=== PATIENT | male | born 1930 | race Caucasian/White ===

== ENCOUNTER 2016-09-05 17:08 | Emergency (ER) | payer MEDICARE, BC ==
[2016-09-05 17:16] VITALS: BP 159/72
--- NOTE | 2016-09-05 18:35 | CT ---
CT lumbar spine Technique: Multiple axial sections were obtained from the mid T11 level inferiorly through the L5-S1 level. Reconstructed sagittal and coronal images were reviewed. Comparison: Previous lumbar spine plain film exam of 12/22/[address] lumbar spine exam dated 12/08/14. Findings: Scattered degenerative change is seen which appears fairly stable from prior CT exam. Rudimentary disc is seen which is labeled as S1-S2 which is felt to be a transitional segment. Mild superior endplate concavity is noted of L5 which appears acute as acute fracture lines are seen. No extension of the fracture is seen into the posterior vertebral line or posterior elements. Minimal spondylolisthesis is noted at L5-S1 which is felt to be due to degenerative apophyseal change. No other acute abnormality is seen. Impression: 1. Degenerative change which appears fairly stable from prior lumbar spine CT exam of 12/08/14. 2. Acute compression deformity of L5 causing mild endplate concavity. As mentioned above, there is no extension of any fracture lines into the posterior vertebral line or posterior elements. Diagnostic code #3
--- NOTE | 2016-09-05 18:35 | CT ---
Head CT Technique: Multiple axial sections through the brain were obtained. Intravenous contrast was not utilized. Comparison: Previous head CT exam of 01/31/16. Findings: Ventricles along with basal cisterns and sulci over the convexities are moderately prominent. Diminished density is noted within the periventricular and subcortical white matter compatible with small vessel ischemic demyelination change. 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 No other abnormal parenchymal densities are seen. No evidence of intracranial hemorrhage. No midline shift or mass effect is seen. Bone window settings were reviewed which shows no discrete calvarial abnormality. Visualized sinuses are clear. Impression: 1. Senescent change as described above. No acute intracranial abnormality is identified on noncontrast head CT study. Diagnostic code #2
--- NOTE | 2016-09-05 18:57 | EDM.PDOC ---
ED HPI GENERAL MEDICAL PROBLEM - General Chief Complaint: Lower Extremity Injury/Pain Stated Complaint: FELL IN SHOWER Time Seen by Provider: 09/05/16 17:16 Source of Information: Reports: Patient History Limitations: Reports: No Limitations - History of Present Illness INITIAL COMMENTS - FREE TEXT/NARRATIVE: The patient is an 85-year-old male who comes in after a fall. The patient lives at assisted living. He fell in the shower. He states that he slipped. States that he did not pass out. Denies loss of consciousness. He has severe low back pain. He did require assistance getting up. He was able to take a couple of steps with assistance but the pain in his back is fairly severe. Denies additional injury. He denies recent illness. No fever, chest pain, shortness of breath, cough, abdominal pain, vomiting, or other complaint. States his pain is not bad when he lies still but when he tries to move it's pretty uncomfortable. No new focal weakness bilateral hips/pelvis area Pain Score (Numeric/FACES): 8 - Related Data Allergies Allergy/AdvReac Type Severity Reaction Status Date / Time DANY Inhibitors Allergy Change Verified 09/05/16 17:17 Mental Status morphine Allergy Cannot Verified 09/05/16 17:17 Remember Home Meds: Home Meds Aspirin [Adult Low Dose Aspirin EC] 81 mg PO BID 08/11/15 [History] Clopidogrel Bisulfate [Plavix] 75 mg PO DAILY 08/11/15 [History] Donepezil [Aricept] 10 mg PO BEDTIME 08/11/15 [History] Ezetimibe [Zetia] 10 mg PO DAILY 08/11/15 [History] Finasteride [Proscar] 5 mg PO DAILY 08/11/15 [History] Isosorbide Mononitrate [Isosorbide Mononitrate ER] 30 mg PO DAILY 08/11/15 [ History] Latanoprost [Xalatan 0.005% Ophth Soln] 1 drop EYEBOTH BEDTIME 08/11/15 [History ] Memantine HCl [Namenda] 10 mg PO BID 08/11/15 [History] Ranolazine [Ranexa] 500 mg PO BID 08/11/15 [History] Tamsulosin HCl 0.4 mg PO BID 08/11/15 [History] atorvaSTATin Calcium [Atorvastatin Calcium] 80 mg PO DAILY 08/11/15 [History] Albuterol [Ventolin HFA] 2 puff INH Q4H PRN 01/10/16 [History] Acetaminophen [Acetaminophen ER] 650 mg PO TID PRN 01/31/16 [History] Budesonide [Pulmicort Flexhaler] 180 mcg IH BID 01/31/16 [History] Casanthranol-Docusate Sodium 2 tab PO DAILY PRN 01/31/16 [History] Cyanocobalamin (Vitamin B-12) [Cyanocobalamin Injection] 1,000 mcg IJ ASDIRECTED 01/31/16 [History] Nitroglycerin [Nitrostat] 0.4 mg SL Q5M PRN 01/31/16 [History] Ranitidine HCl [Zantac] 150 mg PO BID 01/31/16 [History] Sertraline [Zoloft] 50 mg PO DAILY 01/31/16 [History] Temazepam [Restoril] 15 mg PO BEDTIME PRN #4 cap 02/01/16 [Rx] Carvedilol [Coreg] 6.25 mg PO DAILY 09/05/16 [History] Cyanocobalamin (Vitamin B-12) [Cyanocobalamin Injection] 09/05/16 [History] Folic Acid 1 mg PO DAILY 09/05/16 [History] Melatonin 10 mg PO BEDTIME 09/05/16 [History] Metamucil Powder 48.57% 1 tsp PO DAILY 09/05/16 [History] Mirabegron [Myrbetriq] 50 mg PO DAILY 09/05/16 [History] Polyethylene Glycol 3350 [MiraLAX] 17 gm PO ASDIRECTED 09/05/16 [History] Ventolin 108mcg/Act (90 Base) 2 inhalation INH 09/05/16 [History] Past Medical History HEENT History: Reports: Hard of Hearing, Other (See Below) Other HEENT History: stricture/stenosis of esophogus Cardiovascular History: Reports: CAD, High Cholesterol, Hypertension, [place] Respiratory History: Reports: COPD, Other (See Below) Other Respiratory History: recent pneumonia 06/24/15, lung nodule Gastrointestinal History: Reports: GERD Genitourinary History: Reports: BPH, Prostate Disorder Musculoskeletal History: Reports: Other (See Below) Other Musculoskeletal History: uses walker Neurological History: Reports: TIA Psychiatric History: Reports: Dementia Endocrine/Metabolic History: Reports: Other (See Below) Other Endocrine/Metabolic History: hyperglycemia Dermatologic History: Reports: Other (See Below) Other Dermatologic History: dry scalp - Past Surgical History HEENT Surgical History: Reports: Adenoidectomy, Cataract Surgery, Tonsillectomy Cardiovascular Surgical History: Reports: Carotid Stents, Coronary Artery Bypass Musculoskeletal Surgical History: Reports: Hip Replacement Social & Family History - Family History Family Medical History: Unobtainable - Tobacco Use Smoking Status *Q: Never Smoker Years of Tobacco use: 40 Packs/Tins Daily: 1 Used Tobacco, but Quit: Yes Month Tobacco Last Used: 1989 Second Hand Smoke Exposure: No - Caffeine Use Caffeine Use: Reports: Coffee - Recreational Drug Use Recreational Drug Use: No - Living Situation & Occupation Living situation: Reports: , Alone Occupation: Retired Review of Systems - Review of Systems Review Of Systems: See Below Constitutional: Reports: No Symptoms. Denies: Fever Eyes: Reports: No Symptoms Ears: Reports: No Symptoms Nose: Reports: No Symptoms Respiratory: Denies: Shortness of Breath Cardiovascular: Denies: Chest Pain GI/Abdominal: Denies: Abdominal Pain Musculoskeletal: Reports: Back Pain Skin: Reports: No Symptoms Neurological: Denies: Numbness, Weakness ED EXAM, GENERAL - Physical Exam Exam: See Below Exam Limited By: No Limitations General Appearance: Alert, WD/WN, No Apparent Distress Eye Exam: Bilateral Eye: Normal Inspection Ears: Normal External Exam Nose: Normal Inspection Throat/Mouth: Normal Inspection, No Airway Compromise Head: Atraumatic, Normocephalic Neck: Normal Inspection, Supple, Non-Tender, Full Range of Motion Respiratory/Chest: No Respiratory Distress, Lungs Clear, Normal Breath Sounds, No Accessory Muscle Use, Chest Non-Tender Cardiovascular: Normal Peripheral Pulses, Regular Rate, Rhythm GI/Abdominal: Soft, Non-Tender, No Distention. No: Rebound Back Exam: Vertebral Tenderness (Lower L-spine midline area, no step-off or deformity, skin normal). No: CVA Tenderness (L), CVA Tenderness (R) Extremities: Normal Inspection, Normal Range of Motion, Other (Mild right femur area tenderness, no deformity or sign of trauma, full range of motion at the hips) Neurological: Alert, Oriented, Normal Cognition, No Motor/Sensory Deficits Psychiatric: Normal Affect, Normal Mood Course - Vital Signs Last Recorded V/S: Last Vital Signs Temp 36.8 C 09/05/16 17:11 Pulse 68 09/05/16 17:11 Resp 18 09/05/16 17:11 BP 159/72 H 09/05/16 17:11 Pulse Ox 95 09/05/16 17:11 - Orders/Labs/Meds Orders: Active Orders 24 hr Category Date Time Status Femur Min 2V Rt [CR] Stat Exams 09/05/16 17:38 Taken - Re-Assessments/Exams Free Text/Narrative Re-Assessment/Exam: 09/05/16 18:56 X-ray of the right femur shows no acute abnormality. CT scan of the head shows no acute traumatic injury. CT scan of the lumbar spine shows acute compression fracture of L5. Discussed results with patient. Patient's family got his walker and the patient was able to walk a lap around the emergency department with minimal assistance. So I think he is safe to go home. Discussed pain control with Tylenol, follow-up for possible vertebral plasty, and also follow up with primary care doctor. Patient and family understood. Departure - Departure Time of Disposition: 18:57 Disposition: Home, Self-Care 01 Clinical Impression: Lumbar compression fracture Qualifiers: Encounter type: initial encounter Fracture type: closed Qualified Code(s): S32.000A - Wedge compression fracture of unspecified lumbar vertebra, initial encounter for closed fracture - Discharge Information Forms: ED Department Discharge Additional Instructions: 1. take Tylenol as needed for pain according to bottle directions 2. follow up with Dr. Ledezma to see if he can do anything for your back. Call [phone] to schedule. 3. Also follow-up with your primary care doctor to discuss your injury, pain management, and possible referral for physical therapy if needed 4. Return to the emergency department if you have any new or concerning symptoms - My Orders Last 24 Hours: My Active Orders 09/05/16 17:38 Femur Min 2V Rt [CR] Stat - Assessment/Plan Last 24 Hours: My Active Orders 09/05/16 17:38 Femur Min 2V Rt [CR] Stat
[2016-09-05] MEDS ORDERED: Acetaminophen 325 MG Tab PO ONE (19:07)
--- NOTE | 2016-09-06 08:08 | CR ---
Right femur: AP and lateral views of the right femur were obtained. Right hip prosthesis is seen. Components are aligned. Joint spaces within the right knee are maintained. Mild vascular calcification is noted. No acute fracture or other abnormality is appreciated. Impression: 1. Incidental findings. Nothing acute is identified on two-view right femur study. Diagnostic code #2
== END 2016-09-05 19:20 | disposition home or self-care (01) ==
LOC: JD.ED 17:08
DX: S32.050A Wedge compression fracture of fifth lumbar vertebra, initial encounter for closed fracture (principal); I25.2 Old myocardial infarction; I25.810 Atherosclerosis of coronary artery bypass graft(s) without angina pectoris; I10 Essential (primary) hypertension; E78.00 Pure hypercholesterolemia, unspecified; J44.9 Chronic obstructive pulmonary disease, unspecified; K21.9 Gastro-esophageal reflux disease without esophagitis; Z86.2 Personal history of diseases of the blood and blood-forming organs and certain disorders involving the immune mechanism; Z86.73 Personal history of transient ischemic attack (TIA), and cerebral infarction without residual deficits; F03.90 Unspecified dementia, unspecified severity, without behavioral disturbance, psychotic disturbance, mood disturbance, and anxiety; Z98.49 Cataract extraction status, unspecified eye; Z98.890 Other specified postprocedural states; Z95.5 Presence of coronary angioplasty implant and graft; Z95.1 Presence of aortocoronary bypass graft; Z96.649 Presence of unspecified artificial hip joint; Z87.891 Personal history of nicotine dependence; Z79.02 Long term (current) use of antithrombotics/antiplatelets; Z79.899 Other long term (current) drug therapy; Z88.5 Allergy status to narcotic agent; Z88.8 Allergy status to other drugs, medicaments and biological substances; W18.2XXA Fall in (into) shower or empty bathtub, initial encounter
CPT/HCPCS: 70450; 72131; 73552; 99284; A9270

== ENCOUNTER 2016-09-09 17:30 | Emergency (ER) | payer MEDICARE, BC ==
--- NOTE | 2016-09-09 19:27 | EDM.PDOC ---
ED HPI GENERAL MEDICAL PROBLEM - General Chief Complaint: Genitourinary Problem Stated Complaint: BACK PAIN Time Seen by Provider: 09/09/16 18:29 Source of Information: Reports: Patient, Family History Limitations: Reports: No Limitations - History of Present Illness INITIAL COMMENTS - FREE TEXT/NARRATIVE: Patient is a 85-year-old male presents ED complaining of urinary retention, lower nominal pain, and no sitting tingling to his lower extremities below the knees, with difficulty walking. Patient was seen for a fall 08/28/[address] of the lumbar spine revealing acute compression fracture to L5. Patient utilizes a walker to ambulate and thus was discharged back to his residence at [facility]. He has an appointment to be seen by Dr. Ledezma for this coming Saturday to discuss kyphoplasty. Patient states over the course of the weekend he's noticed increasing difficulty with urination, lower abdominal distention and pain, and no sitting went to his lower legs below the knees. There has been minimal progression. He has urinated today only small amounts. He has no saddle anesthesia, incontinence to urine or stool, worsening pain, fever/chills, chest pain, short of breath, cough, or vomiting. Bladder Pain Score (Numeric/FACES): 5 - Related Data Allergies Allergy/AdvReac Type Severity Reaction Status Date / Time DANY Inhibitors Allergy Change Verified 09/09/16 21:03 Mental Status morphine Allergy Cannot Verified 09/09/16 21:03 Remember Home Meds: Home Meds Aspirin [Adult Low Dose Aspirin EC] 81 mg PO BID 08/11/15 [History] Clopidogrel Bisulfate [Plavix] 75 mg PO DAILY 08/11/15 [History] Donepezil [Aricept] 10 mg PO BEDTIME 08/11/15 [History] Ezetimibe [Zetia] 10 mg PO DAILY 08/11/15 [History] Finasteride [Proscar] 5 mg PO DAILY 08/11/15 [History] Isosorbide Mononitrate [Isosorbide Mononitrate ER] 30 mg PO DAILY 08/11/15 [ History] Latanoprost [Xalatan 0.005% Ophth Soln] 1 drop EYEBOTH BEDTIME 08/11/15 [History ] Memantine HCl [Namenda] 10 mg PO BID 08/11/15 [History] Ranolazine [Ranexa] 500 mg PO BID 08/11/15 [History] Tamsulosin HCl 0.4 mg PO BID 08/11/15 [History] atorvaSTATin Calcium [Atorvastatin Calcium] 80 mg PO DAILY 08/11/15 [History] Albuterol [Ventolin HFA] 2 puff INH Q4H PRN 01/10/16 [History] Acetaminophen [Acetaminophen ER] 650 mg PO Q8H PRN 01/31/16 [History] Budesonide [Pulmicort Flexhaler] 180 mcg IH BID 01/31/16 [History] Cyanocobalamin (Vitamin B-12) [Cyanocobalamin Injection] 1,000 mcg IJ ASDIRECTED 01/31/16 [History] Nitroglycerin [Nitrostat] 0.4 mg SL Q5M PRN 01/31/16 [History] Ranitidine HCl [Zantac] 150 mg PO BID 01/31/16 [History] Sertraline [Zoloft] 50 mg PO DAILY 01/31/16 [History] Carvedilol [Coreg] 6.25 mg PO BID 09/05/16 [History] Folic Acid 1 mg PO DAILY 09/05/16 [History] Melatonin 10 mg PO BEDTIME 09/05/16 [History] Metamucil Powder 48.57% 1 tsp PO DAILY 09/05/16 [History] Mirabegron [Myrbetriq] 50 mg PO DAILY 09/05/16 [History] Polyethylene Glycol 3350 [MiraLAX] 17 gm PO ASDIRECTED 09/05/16 [History] Ventolin 108mcg/Act (90 Base) 2 inhalation INH TID 09/05/16 [History] Budesonide [Pulmicort Flexhaler] 2 inh INH BID 09/09/16 [History] Docusate Sodium [Stool Softener] 2 tab PO DAILY 09/09/16 [History] Hypromellose/PF [Retaine Hpmc 0.3% Eye Drops] 1 drop EYELF ASDIRECTED 09/09/16 [ History] Temazepam [Restoril] 15 mg PO BEDTIME PRN 09/09/16 [History] prednisoLONE Acetate [Prednisolone Acetate] 1 drop EYERT DAILY 09/09/16 [History ] traMADol HCl [Ultram] 50 mg PO Q8H PRN 07/02/17 [History] Past Medical History HEENT History: Reports: Hard of Hearing, Other (See Below) Other HEENT History: stricture/stenosis of esophogus Cardiovascular History: Reports: CAD, High Cholesterol, Hypertension, [place] Respiratory History: Reports: COPD, Other (See Below) Other Respiratory History: recent pneumonia 06/24/15, lung nodule Gastrointestinal History: Reports: GERD Genitourinary History: Reports: BPH, Prostate Disorder Musculoskeletal History: Reports: Other (See Below) Other Musculoskeletal History: uses walker Neurological History: Reports: TIA Psychiatric History: Reports: Dementia Endocrine/Metabolic History: Reports: Other (See Below) Other Endocrine/Metabolic History: hyperglycemia Dermatologic History: Reports: Other (See Below) Other Dermatologic History: dry scalp - Past Surgical History HEENT Surgical History: Reports: Adenoidectomy, Cataract Surgery, Tonsillectomy Cardiovascular Surgical History: Reports: Carotid Stents, Coronary Artery Bypass Musculoskeletal Surgical History: Reports: Hip Replacement Social & Family History - Family History Family Medical History: Unobtainable - Tobacco Use Smoking Status *Q: Never Smoker Years of Tobacco use: 40 Packs/Tins Daily: 1 Used Tobacco, but Quit: Yes Month Tobacco Last Used: 1989 Second Hand Smoke Exposure: No - Caffeine Use Caffeine Use: Reports: Coffee - Recreational Drug Use Recreational Drug Use: No - Living Situation & Occupation Living situation: Reports: , Alone Occupation: Retired ED ROS GENERAL - Review of Systems Review Of Systems: ROS reveals no pertinent complaints other than HPI. ED EXAM, NEURO - Physical Exam Exam: See Below Exam Limited By: No Limitations General Appearance: Alert, WD/WN, No Apparent Distress Eye Exam: Bilateral Eye: PERRL (aniscoria present) Ears: Hearing Grossly Normal Nose: Normal Inspection Throat/Mouth: Normal Voice, No Airway Compromise Neck: Normal Inspection, Supple Respiratory/Chest: No Respiratory Distress, Lungs Clear, Normal Breath Sounds, No Accessory Muscle Use, Chest Non-Tender Cardiovascular: Normal Peripheral Pulses, Regular Rate, Rhythm GI/Abdominal: Normal Bowel Sounds, Soft, No Organomegaly, Tender (Suprapubic region). No: No Distention (minimal) Neurological: Alert, Normal Mood/Affect, Normal Dorsiflexion, CN II-XII Intact, Normal Plantar Flexion, Oriented x 3, Straight Leg Raise (L), Straight Leg Raise (R), Other (Unable to fully assess motor deficits to the lower extremities due to increasing pain with movement to the low back. No sensory deficits noted) Back Exam: Normal Inspection, Decreased Range of Motion, Vertebral Tenderness ( Low back). No: CVA Tenderness (L), CVA Tenderness (R) Extremities: Normal Inspection, Non-Tender Psychiatric: Normal Affect, Normal Mood Skin Exam: Warm, Dry, Intact, Normal Color Course - Vital Signs Last Recorded V/S: Last Vital Signs Temp 98.5 F 09/09/16 17:44 Pulse 80 09/09/16 21:01 Resp 18 09/09/16 21:01 BP 140/66 09/09/16 21:01 Pulse Ox 97 09/09/16 21:01 - Orders/Labs/Meds Orders: Active Orders 24 hr Category Date Time Status Insert Urinary Catheter [OM.PC] ONETIME Care 09/09/16 19:00 Ordered Urinary Catheter Assessment [RC] ASDIRECTED Care 09/09/16 19:16 Active Labs: Laboratory Tests 09/09/16 Range/Units 19:00 Urine Color Dark yellow (Yellow) Urine Appearance Clear (Clear) Urine pH 6.5 (5.0-8.0) Ur Specific [place] 1.025 (1.005-1.030) Urine Protein 1+ H (Negative) Urine Glucose (UA) Negative (Negative) Urine Ketones Negative (Negative) Urine Occult Blood Negative (Negative) Urine Nitrite Negative (Negative) Urine Bilirubin 1+ H (Negative) Urine Urobilinogen >=8.0 H (0.2-1.0) Ur Leukocyte Esterase Negative (Negative) Urine RBC 0-5 (0-5) /hpf Urine WBC 0-5 (0-5) /hpf Ur Epithelial Cells 0-5 (0-5) /hpf Urine Bacteria Occasional (FEW) /hpf Urine Mucus Not seen (FEW) /hpf Meds: Medications Discontinued Medications Generic Name Dose Route Start Last Admin Trade Name Freq PRN Reason Stop Dose Admin Hydrocodone Bitart/Acetaminophen 1 tab 09/09/16 19:35 09/09/16 20:32 [place] 325-5 Mg PO 09/09/16 19:36 1 tab ONETIME ONE Administration - Re-Assessments/Exams Free Text/Narrative Re-Assessment/Exam: Reviewed previous E.D. visit 09/05/2016. X-ray of the right femur did not show any acute bony abnormalities. CT of the head shows no acute traumatic injury. CT scan of the lumbar spine showed acute compression fracture of L5. Examination reveals mild pain suprapubic region of his abdomen with minimal distention. Bladder scan did reveal 240 mls of urine present. Ordered in and out catheter with UA to be obtained. This resulted in 300 mls of urine present. Will contact [facility] neurosurgeon on-call to discuss further options. He may require transferring to [place] due to recent onset of urinary retention and n/t to lower extremities with difficulty walking. 09/09/16 19:[address] Wilson nutrition counselor Neurosurgeon, He does not believe patient needs to be transferred to [place] for a definitive treatment at this time. IF the patient becomes incontinent MRI should be obtained. Otherwise workup the UA and treat the pain. 09/09/16 19:35 Ordered norco 5-325 1 tab PO. Departure - Departure Time of Disposition: 20:31 Disposition: Home, Self-Care 01 Condition: Good Clinical Impression: Retention of urine Lumbar back pain Qualifiers: Chronicity: acute Back pain laterality: midline Sciatica presence: without sciatica Qualified Code(s): M54.5 - Low back pain Closed compression fracture of L5 lumbar vertebra Qualifiers: Encounter type: initial encounter Qualified Code(s): S32.050A - Wedge compression fracture of fifth lumbar vertebra, initial encounter for closed fracture - Discharge Information Instructions: Acute Urinary Retention, Male, [id number] Referrals: Indu Coyle MD [Primary Care Provider] - Je Bhagat MD [Physician] - Forms: ED Department Discharge Additional Instructions: Keep appointment with Dr. Bhagat tomorrow to discuss kyphoplasty. For pain take Tylenol 650 mg every 4-6 hours. Apply warm compresses to affected area as needed. Can also utilize ice as needed. For pain not managed with the above therapies take tramadol 50 mg 1 tablet every 6 hours as needed. This medication , can cause increased drowsiness thus you would be at increased risk of falling. Suggest with ambulation/change of position having a nurse near by to assist you. Return to the ED as needed for any new or worsening symptoms. If you develop incontinence to urine or stool you need to be evaluated in ED immediately to obtain a MRI of the lumbar spine. - My Orders Last 24 Hours: My Active Orders 09/09/16 19:00 Insert Urinary Catheter [OM.PC] ONETIME 09/09/16 19:16 Urinary Catheter Assessment [RC] ASDIRECTED - Assessment/Plan Last 24 Hours: My Active Orders 09/09/16 19:00 Insert Urinary Catheter [OM.PC] ONETIME 09/09/16 19:16 Urinary Catheter Assessment [RC] ASDIRECTED
[2016-09-09] MEDS ORDERED: Acetaminophen/HYDROcodone 325-5 MG Tab PO ONE (19:35)
[2016-09-09 21:03] VITALS: BP 140/66
== END 2016-09-09 20:50 | disposition home or self-care (01) ==
LOC: JD.ED 17:30 → SUPCPDRO 17:30 → JD.ED 20:50
DX: R33.9 Retention of urine, unspecified (principal); S32.050D Wedge compression fracture of fifth lumbar vertebra, subsequent encounter for fracture with routine healing; I25.10 Atherosclerotic heart disease of native coronary artery without angina pectoris; E78.00 Pure hypercholesterolemia, unspecified; I10 Essential (primary) hypertension; I25.2 Old myocardial infarction; J44.9 Chronic obstructive pulmonary disease, unspecified; K21.9 Gastro-esophageal reflux disease without esophagitis; Z86.73 Personal history of transient ischemic attack (TIA), and cerebral infarction without residual deficits; Z79.82 Long term (current) use of aspirin; Z88.5 Allergy status to narcotic agent; Z79.899 Other long term (current) drug therapy; Z87.01 Personal history of pneumonia (recurrent); Z98.49 Cataract extraction status, unspecified eye; Z98.890 Other specified postprocedural states; Z96.649 Presence of unspecified artificial hip joint; Z95.1 Presence of aortocoronary bypass graft; W19.XXXD Unspecified fall, subsequent encounter
CPT/HCPCS: 51798; 81001; 99284; A9270; P9612; 99283

== ENCOUNTER 2016-09-18 07:13 | Day surgery (SDC) | payer MEDICARE, BC ==
[~2016-09-18 07:13] MED LIST: Lactated Ringers 1,000 ML IV SCH; Lidocaine 1%/Sod Bicarbonate in NS 8.4% 1 ML Syringe PRN; Sodium Chloride 0.9% 10 ML Syringe FLUSH PRN
[2016-09-18] MEDS ORDERED: Ondansetron 4 MG/2 ML SDV ONE (07:15)
[2016-09-18] MEDS ORDERED: fentaNYL 100 MCG/2 ML SDV ONE (07:15)
[2016-09-18] MEDS ORDERED: Propofol 200 MG/20 ML SDV ONE ×2 (07:15→08:56)
[2016-09-18] MEDS ORDERED: Lidocaine 1% 4 ML ONE (07:16)
[2016-09-18] MEDS ORDERED: Midazolam 1 MG/ML 2 ML SDV ONE (07:16)
[2016-09-18] MEDS ORDERED: ceFAZolin 1 GM Vial ONE (07:18)
--- NOTE | 2016-09-18 07:43 | PCM.PREANE ---
Preanesthetic Assessment - Anesthesia/Transfusion/Family Hx Anesthesia History: Prior Anesthesia Without Reaction Family History of Anesthesia Reaction: No Transfusion History: Prior Transfusion Without Reaction - Review of Systems General: Weakness, Fatigue Pulmonary: No Symptoms Cardiovascular: No Symptoms Gastrointestinal: No symptoms Neurological: Numbness (legs), Weakness Other: 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 - Physical Assessment NPO Status Date: 09/17/16 NPO Status Time: 00:00 Pulse: 60 O2 Sat by Pulse Oximetry: 96 Respiratory Rate: 20 Blood Pressure: 185/57 Temperature: 36.9 C Height: 1.73 m Weight: 58.967 kg ASA Class: 3 Mental Status: Alert & Oriented x3 Airway Class: Mallampati = 1 Dentition: Reports: Dentures Thyro-Mental Finger Breadths: 3 Mouth Opening Finger Breadths: 2 ROM/Head Extension: Limited/Partial Lungs: Clear to auscultation, Normal respiratory effort Cardiovascular: Regular Rate, Regular Rhythm - Lab Values: on chart - Imaging/EKG Impressions: on chart - Allergies Allergies/Adverse Reactions: Allergies Allergy/AdvReac Type Severity Reaction Status Date / Time morphine Allergy Cannot Verified 09/17/16 14:37 Remember DANY Inhibitors AdvReac Change Verified 09/17/16 14:37 Mental Status - Anesthesia Plan Beta Ana Luisa: Carvedilol Med Last Dose Date: 09/18/16 Med Last Dose Time: 06:00 - Acknowledgements Anesthesia Type Planned: MAC Pt an Appropriate Candidate for the Planned Anesthesia: Yes Alternatives and Risks of Anesthesia Discussed w Pt/Guardian: Yes Pt/Guardian Understands and Agrees with Anesthesia Plan: Yes PreAnesthesia Questionnaire HEENT History: Reports: Hard of Hearing, Other (See Below) Other HEENT History: glasses, hearing aids, dentures, blind in Left eye Cardiovascular History: Reports: CAD, High Cholesterol, Hypertension, [place], Stents , Other (See Below) Other Cardiovascular History: angina, peripheral artery disease Respiratory History: Reports: COPD, Other (See Below) Other Respiratory History: recent pneumonia 06/24/15, lung nodule emphysema Gastrointestinal History: Reports: GERD, Other (See Below) Other Gastrointestinal History: stricture and stenosis of esophagus, bilateral inguinal hernia Genitourinary History: Reports: BPH, Prostate Disorder, Other (See Below) Other Genitourinary History: macrocytosis 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: 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 Musculoskeletal History: Reports: Back Pain, Chronic, Other (See Below) Other Musculoskeletal History: degenerative joint disease, sicatica, spinal stenosis Neurological History: Reports: TIA, Other (See Below) Other Neuro History: memory loss, numbness in legs Psychiatric History: Reports: Dementia Endocrine/Metabolic History: Reports: Other (See Below) Other Endocrine/Metabolic History: hyperglycemia, vitamin b 12 deficiency Hematologic History: 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 Immunologic History: 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 Oncologic (Cancer) History: 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 Dermatologic History: Reports: Other (See Below) Other Dermatologic History: dry scalp - Past Surgical History Head Surgeries/Procedures: 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 HEENT Surgical History: Reports: Adenoidectomy, Cataract Surgery, Tonsillectomy , Other (See Below) Other HEENT Surgeries/Procedures: cyst excsion behind left ear Cardiovascular Surgical History: Reports: Carotid Stents, Coronary Artery Bypass Other Cardiovascular Surgeries/Procedures: recent [place] June 24, 2015, CABG x3 GI Surgical History: Reports: Colonoscopy Musculoskeletal Surgical History: Reports: Hip Replacement Other Musculoskeletal Surgeries/Procedures:: chronic shoulder pain - SUBSTANCE USE Smoking Status *Q: Former Smoker Tobacco Use Within Last Twelve Months: No Second Hand Smoke Exposure: No Recreational Drug Use History: No - HOME MEDS Home Medications: Home Meds Aspirin [Adult Low Dose Aspirin EC] 81 mg PO BID 08/11/15 [History] Clopidogrel Bisulfate [Plavix] 75 mg PO DAILY 08/11/15 [History] Donepezil [Aricept] 10 mg PO BEDTIME 08/11/15 [History] Ezetimibe [Zetia] 10 mg PO DAILY 08/11/15 [History] Finasteride [Proscar] 5 mg PO DAILY 08/11/15 [History] Latanoprost [Xalatan 0.005% Ophth Soln] 1 drop EYEBOTH BEDTIME 08/11/15 [History ] Memantine HCl [Namenda] 10 mg PO BID 08/11/15 [History] Ranolazine [Ranexa] 500 mg PO BID 08/11/15 [History] Tamsulosin HCl 0.4 mg PO BID 08/11/15 [History] atorvaSTATin Calcium [Atorvastatin Calcium] 80 mg PO DAILY 08/11/15 [History] Albuterol [Ventolin HFA] 1 puff INH Q4H PRN 01/10/16 [History] Acetaminophen [Acetaminophen ER] 650 mg PO Q8H PRN 01/31/16 [History] Cyanocobalamin (Vitamin B-12) [Cyanocobalamin Injection] 1,000 mcg IJ Q14D 01/30 [History] Nitroglycerin [Nitrostat] 0.4 mg SL Q5M PRN 01/31/16 [History] Ranitidine HCl [Zantac] 150 mg PO BID 01/31/16 [History] Sertraline [Zoloft] 50 mg PO DAILY 01/31/16 [History] Carvedilol [Coreg] 6.25 mg PO BID 09/05/16 [History] Folic Acid 1 mg PO DAILY 09/05/16 [History] Melatonin 10 mg PO BEDTIME 09/05/16 [History] Mirabegron [Myrbetriq] 50 mg PO DAILY 09/05/16 [History] Polyethylene Glycol 3350 [MiraLAX] 17 gm PO Q72H 09/05/16 [History] Docusate Sodium [Stool Softener] 2 tab PO DAILY 09/09/16 [History] Hypromellose/PF [Retaine Hpmc 0.3% Eye Drops] 1 drop EYELF Q3H 09/09/16 [History ] Temazepam [Restoril] 15 mg PO BEDTIME PRN 09/09/16 [History] prednisoLONE Acetate [Prednisolone Acetate] 1 drop EYERT DAILY 09/09/16 [History ] traMADol HCl [Ultram] 50 mg PO Q8H PRN 09/09/16 [History] Acetaminophen [Acetaminophen ER] 1,300 mg PO Q6H 09/17/16 [History] Albuterol [Ventolin HFA] 1 puff INH Q4H PRN 09/17/16 [History] Budesonide [Pulmicort Flexhaler] 1 puff INH BID 09/17/16 [History] Dextran 70/Hypromellose [Artificial Tears] 1 drop EYEBOTH QID PRN 09/17/16 [ History] Potassium Chloride [Klor-Con 10] 10 meq PO DAILY 09/17/16 [History] Propylene Glycol/Peg 400 [Systane Ultra 0.4-0.3% Eye Drp] 1 drop EYEBOTH QID 12/25 [History] Psyllium Husk (With Sugar) [Metamucil Powder] 1 tsp PO DAILY 09/17/16 [History] Ranolazine [Ranexa] 500 mg PO BID 09/17/16 [History] - CURRENT (IN HOUSE) MEDS Current Meds: Current Medications Lactated Ringer's (Ringers, Lactated) 1,000 mls @ 125 mls/hr IV ASDIRECTED CODY Stop: 09/18/16 23:00 Lidocaine/Sodium Bicarbonate (Buffered Lidocaine 1% In Ns 8.4%) 0.25 ml .XX ONETIME PRN PRN Reason: Prior to IV Start Stop: 09/18/16 18:00 Sodium Chloride (Saline Flush) 10 ml FLUSH ASDIRECTED PRN PRN Reason: Keep Vein Open Stop: 09/18/16 18:00 Discontinued Medications Cefazolin Sodium (Ancef) Confirm Administered Dose 2 gm .ROUTE .STK-MED ONE Stop: 09/18/16 07:19 Fentanyl (Sublimaze) Confirm Administered Dose 100 mcg .ROUTE .STK-MED ONE Stop: 09/18/16 07:16 Lidocaine HCl (Xylocaine-Mpf 1%) Confirm Administered Dose 4 mls @ as directed .ROUTE .STK-MED ONE Stop: 09/18/16 07:17 Iopamidol (Isovue-300 (61%)) Confirm Administered Dose 50 ml .ROUTE .STK-MED ONE Stop: 09/18/16 07:14 Lidocaine/Epinephrine (Xylocaine 1% With Epinephrine 1:100,000) Confirm Administered Dose 20 ml .ROUTE .STK-MED ONE Stop: 09/18/16 07:14 Midazolam HCl (Versed 1 Mg/Ml) Confirm Administered Dose 2 mg .ROUTE .STK-MED ONE Stop: 09/18/16 07:17 Ondansetron HCl (Zofran) Confirm Administered Dose 4 mg .ROUTE .STK-MED ONE Stop: 09/18/16 07:16 Propofol (Diprivan 20 Ml) Confirm Administered Dose 200 mg .ROUTE .STK-MED ONE Stop: 09/18/16 07:16 Vancomycin HCl (Vancomycin) Confirm Administered Dose 1 gm .ROUTE .STK-MED ONE Stop: 09/18/16 07:14
[2016-09-18] MEDS ORDERED: Ketorolac 15 MG/ML SDV IVPUSH PRN (07:47)
[2016-09-18] MEDS ORDERED: traMADol 50 MG Tab PO PRN (07:47)
[2016-09-18] MEDS: Lidocaine 1% with EPINEPHrine 1:100,000 20 ML MDV ONE ×2 (08:20→08:41)
[2016-09-18] MEDS: Vancomycin 1 GM SDV ONE ×2 (08:42→08:57)
[2016-09-18] MEDS: Iopamidol 612 MG/ML 50 ML SDV ONE ×2 (08:42→08:55)
[2016-09-18] MEDS ORDERED: fentaNYL 100 MCG/2 ML SDV IVPUSH PRN (09:20)
--- NOTE | 2016-09-18 09:22 | PCM.POSTAN ---
POST ANESTHESIA ASSESSMENT - MENTAL STATUS Mental Status: alert, oriented - VITAL SIGNS Pulse Rate: 69 SaO2: 99 Resp Rate: 14 Blood Pressure: 161/70 Temperature: 36.7 C - RESPIRATORY Respiratory Status: respiratory rate WNL, airway patent, O2 saturation stable, supplemental oxygen - CARDIOVASCULAR CV Status: pulse rate WNL, blood pressure stable - GASTROINTESTINAL GI Status: no symptoms - PAIN Pain Score: 0 - POST OP HYDRATION Hydration Status: adequate & stable - OBSERVATIONS Free Text/Narrative:: no anesthesia complications noted
[2016-09-18 11:38] VITALS: BP 153/61
--- NOTE | 2016-09-18 13:41 | CR ---
Lumbar spine: Multiple fluoroscopic spot views were obtained centered to the L5 vertebral body utilizing C-arm device. Study shows vertebroplasty procedure of L5. Mild compression deformity is seen of L5. Fluoroscopy time given as 582.5 seconds. Impression: 1. Vertebroplasty procedure of L5. Diagnostic code #2
--- NOTE | 2016-09-19 07:13 | OR ---
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 ANESTHESIA: Sedation with local, 1% lidocaine and epinephrine. OPERATION PERFORMED: Kyphoplasty, fracture stabilization at L5 vertebral body with biopsy. DESCRIPTION OF PROCEDURE: The patient was taken to the operative room in supine position and was placed under a light sedation and transferred to the operating table in a prone position. Once the patient was on the table, he was then positioned for approach to the lower lumbar spine region and once that was identified, the fluoroscopy was brought in to valeri the skin levels and once that was completed, the operation proceeded with prepping and draping of the lumbar spine by standard technique. After prepping and draping, the fluoroscopy again was brought in. The pedicles of L5 were identified. The area on both right and left side was infiltrated with 1% lidocaine and epinephrine down to the pedicle site itself. Once that was completed, the operation proceeded with stab incisions being placed on the right and left side and then using the kyphoplasty cannula, the pedicle was then entered on the right side using the en zoraida view and also on the left side in a similar fashion to gain access into the posterior aspect of the vertebral body following the pedicle. Once the access was obtained, the operation proceeded with balloon inflation of the vertebral body. This raised the superior endplate which was fractured and created the space and then the operation proceeded with placements of 8 mL of cement, 4 in the right side, 4 in the left side. We had a good fill of the cement throughout the vertebral body. There was slight extravasation of the cement in the anterosuperior area, but otherwise almost complete filling of the bone itself was made. Once the cement had hardened, the operation proceeded with the removal of the instruments. Hard copy x-rays were taken, found to be very satisfactory and then the operation proceeded with closure of the skin with 3-0 Prolene. Standard dressings were applied. The patient tolerated the procedure well and left the operative room in stable condition to his room for recovery. ESTIMATED BLOOD LOSS: MMODAL /[id number]
== END 2016-09-18 11:30 | disposition home or self-care (01) ==
LOC: JD.SDS 07:13
PROVIDERS: ATTEND Specialist
DX: M80.88XA Other osteoporosis with current pathological fracture, vertebra(e), initial encounter for fracture (principal); I25.10 Atherosclerotic heart disease of native coronary artery without angina pectoris; I73.9 Peripheral vascular disease, unspecified; E78.2 Mixed hyperlipidemia; I10 Essential (primary) hypertension; R73.9 Hyperglycemia, unspecified; K21.9 Gastro-esophageal reflux disease without esophagitis; E53.8 Deficiency of other specified B group vitamins; Z79.899 Other long term (current) drug therapy; Z88.8 Allergy status to other drugs, medicaments and biological substances; N40.0 Benign prostatic hyperplasia without lower urinary tract symptoms; Z95.1 Presence of aortocoronary bypass graft; Z98.890 Other specified postprocedural states; Z87.891 Personal history of nicotine dependence; M54.5 Low back pain
CPT/HCPCS: 22514; 88304; C1713; J0690; J1885; J2250; J2405; J3010; J3370; J7120; Q9967; 01936; J2704

== ENCOUNTER 2016-09-19 11:17 | Emergency (ER) | payer MEDICARE, BC ==
[2016-09-19] MEDS ORDERED: Sodium Chloride 0.9% 10 ML Syringe FLUSH PRN (11:25)
[2016-09-19] MEDS ORDERED: Sodium Chloride 0.9% 500 ML IV SCH (11:30)
--- NOTE | 2016-09-19 13:19 | EDM.PDOC ---
ED HPI GENERAL MEDICAL PROBLEM - General Chief Complaint: Cardiovascular Problem Stated Complaint: [facility] Time Seen by Provider: 09/19/16 11:21 Source of Information: Reports: Patient History Limitations: Reports: No Limitations - History of Present Illness INITIAL COMMENTS - FREE TEXT/NARRATIVE: The patient presents by ambulance. He had kyphoplasty yesterday by Dr Bhagat. He was put on zanaflex. He had a dose at midnight and at 7am. He was confused later and his blood pressure was in the 60s systolic. He denies any pain. He has no headache, chest pain or shortness of breath. He had no blood loss. When he arrived here, he said he was going to the [facility] and would take one of my nurses with him. Onset: Gradual Duration: Hour(s): Improves with: 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 Worsens with: 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 Associated Symptoms: Reports: No Other Symptoms - Related Data Allergies Allergy/AdvReac Type Severity Reaction Status Date / Time morphine Allergy Cannot Verified 09/19/16 11:27 Remember DANY Inhibitors AdvReac Change Verified 09/19/16 11:27 Mental Status Home Meds: Home Meds Aspirin [Adult Low Dose Aspirin EC] 81 mg PO BID 08/11/15 [History] Clopidogrel Bisulfate [Plavix] 75 mg PO DAILY 08/11/15 [History] Donepezil [Aricept] 10 mg PO BEDTIME 08/11/15 [History] Ezetimibe [Zetia] 10 mg PO DAILY 08/11/15 [History] Finasteride [Proscar] 5 mg PO DAILY 08/11/15 [History] Latanoprost [Xalatan 0.005% Ophth Soln] 1 drop EYEBOTH BEDTIME 08/11/15 [History ] Memantine HCl [Namenda] 10 mg PO BID 08/11/15 [History] Ranolazine [Ranexa] 500 mg PO BID 08/11/15 [History] Tamsulosin HCl 0.4 mg PO BID 08/11/15 [History] atorvaSTATin Calcium [Atorvastatin Calcium] 80 mg PO DAILY 08/11/15 [History] Cyanocobalamin (Vitamin B-12) [Cyanocobalamin Injection] 1,000 mcg IJ Q14D 01/30 [History] Nitroglycerin [Nitrostat] 0.4 mg SL Q5M PRN 01/31/16 [History] Ranitidine HCl [Zantac] 150 mg PO BID 01/31/16 [History] Sertraline [Zoloft] 50 mg PO DAILY 01/31/16 [History] Carvedilol [Coreg] 6.25 mg PO BID 09/05/16 [History] Folic Acid 1 mg PO DAILY 09/05/16 [History] Melatonin 10 mg PO BEDTIME 09/05/16 [History] Mirabegron [Myrbetriq] 50 mg PO DAILY 09/05/16 [History] Polyethylene Glycol 3350 [MiraLAX] 17 gm PO Q72H 09/05/16 [History] Docusate Sodium [Stool Softener] 2 tab PO DAILY 09/09/16 [History] Hypromellose/PF [Retaine Hpmc 0.3% Eye Drops] 1 drop EYELF Q3H 09/09/16 [History ] Temazepam [Restoril] 15 mg PO BEDTIME PRN 09/09/16 [History] prednisoLONE Acetate [Prednisolone Acetate] 1 drop EYERT DAILY 09/09/16 [History ] traMADol HCl [Ultram] 50 mg PO Q8H PRN 09/09/16 [History] Acetaminophen [Acetaminophen ER] 1,300 mg PO Q6H 09/17/16 [History] Albuterol [Ventolin HFA] 1 puff INH Q4H PRN 09/17/16 [History] Budesonide [Pulmicort Flexhaler] 1 puff INH BID 09/17/16 [History] Dextran 70/Hypromellose [Artificial Tears] 1 drop EYEBOTH QID PRN 09/17/16 [ History] Potassium Chloride [Klor-Con 10] 10 meq PO DAILY 09/17/16 [History] Propylene Glycol/Peg 400 [Systane Ultra 0.4-0.3% Eye Drp] 1 drop EYEBOTH QID 12/25 [History] Psyllium Husk (With Sugar) [Metamucil Powder] 1 tsp PO DAILY 09/17/16 [History] tiZANidine [Zanaflex] 4 mg PO Q6H PRN 09/19/16 [History] Past Medical History HEENT History: Reports: Hard of Hearing, Other (See Below) Other HEENT History: glasses, hearing aids, dentures, blind in Left eye Cardiovascular History: Reports: CAD, High Cholesterol, Hypertension, [place], Stents , Other (See Below) Other Cardiovascular History: angina, peripheral artery disease Respiratory History: Reports: COPD, Other (See Below) Other Respiratory History: recent pneumonia 06/24/15, lung nodule emphysema Gastrointestinal History: Reports: GERD, Other (See Below) Other Gastrointestinal History: stricture and stenosis of esophagus, bilateral inguinal hernia Genitourinary History: Reports: BPH, Prostate Disorder, Other (See Below) Other Genitourinary History: macrocytosis 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 Musculoskeletal History: Reports: Back Pain, Chronic, Other (See Below) Other Musculoskeletal History: degenerative joint disease, sicatica, spinal stenosis Neurological History: Reports: TIA, Other (See Below) Other Neuro History: memory loss, numbness in legs Psychiatric History: Reports: Dementia Endocrine/Metabolic History: Reports: Other (See Below) Other Endocrine/Metabolic History: hyperglycemia, vitamin b 12 deficiency Hematologic History: 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 Immunologic History: 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 Oncologic (Cancer) History: 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 Dermatologic History: Reports: Other (See Below) Other Dermatologic History: dry scalp - Past Surgical History Head Surgeries/Procedures: 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 HEENT Surgical History: Reports: Adenoidectomy, Cataract Surgery, Tonsillectomy , Other (See Below) Other HEENT Surgeries/Procedures: cyst excsion behind left ear Cardiovascular Surgical History: Reports: Carotid Stents, Coronary Artery Bypass Other Cardiovascular Surgeries/Procedures: recent [place] June 24, 2015, CABG x3 GI Surgical History: Reports: Colonoscopy Musculoskeletal Surgical History: Reports: Hip Replacement Other Musculoskeletal Surgeries/Procedures:: chronic shoulder pain Social & Family History - Family History Family Medical History: Unobtainable - Tobacco Use Smoking Status *Q: Former Smoker Years of Tobacco use: 40 Packs/Tins Daily: 1 Used Tobacco, but Quit: Yes Month Tobacco Last Used: 50 years ago Second Hand Smoke Exposure: No - Caffeine Use Caffeine Use: Reports: Coffee - Recreational Drug Use Recreational Drug Use: No - Living Situation & Occupation Living situation: Reports: , Alone Occupation: Retired ED ROS GENERAL - Review of Systems Review Of Systems: See Below Constitutional: Reports: No Symptoms HEENT: Reports: No Symptoms Respiratory: Reports: No Symptoms Cardiovascular: Reports: Other (Hypotension) Endocrine: Reports: No Symptoms GI/Abdominal: Reports: No Symptoms : Reports: No Symptoms Musculoskeletal: Reports: No Symptoms Skin: Reports: No Symptoms Neurological: Reports: Confusion ED EXAM, GENERAL - Physical Exam Exam: See Below Exam Limited By: No Limitations General Appearance: Alert, No Apparent Distress Ears: Normal External Exam Nose: Normal Inspection Head: Atraumatic, Normocephalic Neck: Normal Inspection Respiratory/Chest: No Respiratory Distress, Lungs Clear, Normal Breath Sounds Cardiovascular: Regular Rate, Rhythm, No Edema, No Murmur GI/Abdominal: Soft, Non-Tender, No Organomegaly, No Mass Back Exam: Normal Inspection Extremities: Normal Inspection Neurological: Alert, Oriented, No Motor/Sensory Deficits, Confused EKG INTERPRETATION EKG Date: 09/19/16 Time: 11:30 Rhythm: Other (sinus bradycardia) Rate (Beats/Min): 56 [place]: Normal P-Wave: Present QRS: Normal ST-T: Normal QT: Normal Course - Vital Signs Last Recorded V/S: Last Vital Signs Temp 97.5 F 09/19/16 11:24 Pulse 63 09/19/16 11:24 Resp 16 09/19/16 11:24 BP 93/51 L 09/19/16 11:24 Pulse Ox 94 L 09/19/16 11:24 - Orders/Labs/Meds Orders: Active Orders 24 hr Category Date Time Status Cardiac Monitoring [RC] . DIRECTED Care 09/19/16 11:25 Active EKG Documentation Completion [RC] STAT Care 09/19/16 11:26 Active Peripheral IV Care [RC] . DIRECTED Care 09/19/16 11:26 Active Sodium Chloride 0.9% [Normal Saline] 500 ml Med 09/19/16 11:30 Active IV .BOLUS Sodium Chloride 0.9% [Saline Flush] Med 09/19/16 11:25 Active 10 ml FLUSH ASDIRECTED PRN Peripheral IV Insertion Adult [OM.PC] Stat Oth 09/19/16 11:25 Ordered Medication Orders Sodium Chloride (Normal Saline) 500 mls @ 1,000 mls/hr IV .BOLUS CODY Last Admin: 09/19/16 11:34 Dose: 1,000 mls/hr Sodium Chloride (Saline Flush) 10 ml FLUSH ASDIRECTED PRN PRN Reason: Keep Vein Open Last Admin: 09/19/16 11:55 Dose: 10 ml Labs: Laboratory Tests 09/19/16 09/19/16 Range/Units 11:46 11:46 WBC 7.15 (4.23-9.07) K/mm3 RBC 3.59 L (4.63-6.08) M/mm3 Hgb 11.6 L (13.7-17.5) gm/L Hct 36.8 L (40.1-51.0) % MCV 102.5 H (79.0-92.2) fl MCH 32.3 H (25.7-32.2) pg MCHC 31.5 L (32.2-35.5) g/dl RDW Std Deviation 48.3 H (35.1-43.9) fL Plt Count 259 (163-337) K/mm3 MPV 8.2 L (9.4-12.3) fl Neut % (Auto) 72.5 H (34.0-67.9) % Lymph % (Auto) 13.8 L (21.8-53.1) % [place] % (Auto) 8.8 (5.3-12.2) % Eos % (Auto) 4.1 (0.8-7.0) Baso % (Auto) 0.4 (0.1-1.2) % Neut # (Auto) 5.18 (1.78-5.38) K/mm3 Lymph # (Auto) 0.99 L (1.32-3.57) K/mm3 [place] # (Auto) 0.63 (0.30-0.82) K/mm3 Eos # (Auto) 0.29 (0.04-0.54) K/mm3 Baso # (Auto) 0.03 (0.01-0.08) K/mm3 Sodium 142 (136-145) mEq/L Potassium 4.2 (3.5-5.1) mEq/L Chloride 109 H (98-107) mEq/L Carbon Dioxide 30 (21-32) mEq/L Anion Gap 7.2 (5-15) BUN 18 (7-18) mg/dL Creatinine 1.3 (0.7-1.3) mg/dL Est Cr Clr Drug Dosing TNP Estimated GFR (MDRD) 53 (>60) mL/min BUN/Creatinine Ratio 13.8 L (14-18) Glucose 141 H (83-115) mg/dL Calcium 8.1 L (8.5-10.1) mg/dL Total Bilirubin 0.5 (0.2-1.0) mg/dL AST 15 (15-37) U/L ALT 17 (16-63) U/L Alkaline Phosphatase 114 (46-116) U/L Troponin I < 0.017 (0.00-0.056) ng/mL Total Protein 5.8 L (6.4-8.2) g/dl Albumin 2.7 L (3.4-5.0) g/dl Globulin 3.1 gm/dL Albumin/Globulin Ratio 0.9 L (1-2) Meds: Medications Generic Name Dose Route Start Last Admin Trade Name Freq PRN Reason Stop Dose Admin Sodium Chloride 500 mls @ 1,000 mls/hr 09/19/16 11:30 09/19/16 11:34 Normal Saline IV 1,000 mls/hr .BOLUS CODY Administration Sodium Chloride 10 ml 09/19/16 11:25 09/19/16 11:55 Saline Flush FLUSH 10 ml ASDIRECTED PRN Administration Keep Vein Open - Re-Assessments/Exams Free Text/Narrative Re-Assessment/Exam: 09/19/16 13:20 I ordered an IV NS at 500mLs. His CBC and CMP are negative. His troponin looks good. He is alert and talking now and doing good. His BP is 131/56. He is eating lunch and would like to go. I will encourage him to try tylenol or motrin and if needed 1/2 of the zanaflex. Departure - Departure Time of Disposition: 13:25 Disposition: Home, Self-Care 01 Condition: Good Clinical Impression: Confusion Hypotension Qualifiers: Hypotension type: unspecified hypotension type Qualified Code(s): I95.9 - Hypotension, unspecified Referrals: Indu Colye MD [Primary Care Provider] - Forms: ED Department Discharge Additional Instructions: Try to take tylenol or motrin for the pain and if needed you can have 1/2 pill of the zanaflex. Please return if you are worse. - My Orders Last 24 Hours: My Active Orders 09/19/16 11:25 Cardiac Monitoring [RC] . DIRECTED Sodium Chloride 0.9% [Saline Flush] 10 ml FLUSH ASDIRECTED PRN Peripheral IV Insertion Adult [OM.PC] Stat 09/19/16 11:26 EKG Documentation Completion [RC] STAT Peripheral IV Care [RC] . DIRECTED 09/19/16 11:30 Sodium Chloride 0.9% [Normal Saline] 500 ml IV .BOLUS - Assessment/Plan Last 24 Hours: My Active Orders 09/19/16 11:25 Cardiac Monitoring [RC] . DIRECTED Sodium Chloride 0.9% [Saline Flush] 10 ml FLUSH ASDIRECTED PRN Peripheral IV Insertion Adult [OM.PC] Stat 09/19/16 11:26 EKG Documentation Completion [RC] STAT Peripheral IV Care [RC] . DIRECTED 09/19/16 11:30 Sodium Chloride 0.9% [Normal Saline] 500 ml IV .BOLUS
[2016-09-19 14:10] VITALS: BP 119/52
== END 2016-09-19 14:08 | disposition home or self-care (01) ==
LOC: JD.ED 11:17
DX: R41.0 Disorientation, unspecified (principal); I95.9 Hypotension, unspecified; I10 Essential (primary) hypertension; I25.2 Old myocardial infarction; I25.810 Atherosclerosis of coronary artery bypass graft(s) without angina pectoris; J44.9 Chronic obstructive pulmonary disease, unspecified; K21.9 Gastro-esophageal reflux disease without esophagitis; F03.90 Unspecified dementia, unspecified severity, without behavioral disturbance, psychotic disturbance, mood disturbance, and anxiety; Z86.73 Personal history of transient ischemic attack (TIA), and cerebral infarction without residual deficits; Z98.49 Cataract extraction status, unspecified eye; Z98.890 Other specified postprocedural states; Z95.5 Presence of coronary angioplasty implant and graft; Z95.1 Presence of aortocoronary bypass graft; Z96.649 Presence of unspecified artificial hip joint; Z87.891 Personal history of nicotine dependence; Z79.82 Long term (current) use of aspirin; Z79.899 Other long term (current) drug therapy; Z88.5 Allergy status to narcotic agent; Z88.8 Allergy status to other drugs, medicaments and biological substances
CPT/HCPCS: 36415; 80053; 84484; 85025; 93005; 96360; 96361; 99285; J7040; J7050; 99283

== ENCOUNTER 2016-11-10 12:14 | Emergency (ER) | payer MEDICARE, BC ==
--- NOTE | 2016-11-10 12:56 | EDM.PDOC ---
ED HPI GENERAL MEDICAL PROBLEM - General Chief Complaint: Neurological Problem Stated Complaint: ALTERED MENTAL STATUS Time Seen by Provider: 11/10/16 12:18 Source of Information: Reports: Family, Old Records, RN Notes Reviewed History Limitations: Reports: Other (Dementia) - History of Present Illness INITIAL COMMENTS - FREE TEXT/NARRATIVE: The family the patient states that while the patient has dementia, he has had increased confusion for the past 2 days, for example, if Abram taking his medications, difficulty putting his hearing aids in, and difficulty putting his dentures in. They believe he has had increased unsteadiness while walking (the patient ordinarily ambulates with a walker), and he has been complaining that his abdomen "cruz". Just prior to arrival to the ED, they noticed some unusual twitching of his shoulders. The patient had similar symptoms about a year ago, and was found to have constipation and dehydration. The patient has not had any recent fever, vomiting, constipation, diarrhea, or known urinary symptoms. The patient's PCP is Dr. Indu Coyle. - Related Data Allergies Allergy/AdvReac Type Severity Reaction Status Date / Time morphine Allergy Cannot Verified 11/10/16 12:31 Remember DANY Inhibitors AdvReac Change Verified 11/10/16 12:31 Mental Status Home Meds: Home Meds Aspirin [Adult Low Dose Aspirin EC] 81 mg PO BID 08/11/15 [History] Clopidogrel Bisulfate [Plavix] 75 mg PO DAILY 08/11/15 [History] Donepezil [Aricept] 10 mg PO BEDTIME 08/11/15 [History] Ezetimibe [Zetia] 10 mg PO DAILY 08/11/15 [History] Finasteride [Proscar] 5 mg PO DAILY 08/11/15 [History] Latanoprost [Xalatan 0.005% Ophth Soln] 1 drop EYEBOTH BEDTIME 08/11/15 [History ] Memantine HCl [Namenda] 10 mg PO BID 08/11/15 [History] Ranolazine [Ranexa] 500 mg PO BID 08/11/15 [History] Tamsulosin HCl 0.4 mg PO BID 08/11/15 [History] atorvaSTATin Calcium [Atorvastatin Calcium] 80 mg PO DAILY 08/11/15 [History] Cyanocobalamin (Vitamin B-12) [Cyanocobalamin Injection] 1,000 mcg IJ ASDIRECTED 11/22/16 [History] Nitroglycerin [Nitrostat] 0.4 mg SL Q5M PRN 01/31/16 [History] Ranitidine HCl [Zantac] 150 mg PO BID 01/31/16 [History] Sertraline [Zoloft] 25 mg PO DAILY 01/31/16 [History] Carvedilol [Coreg] 6.25 mg PO BID 09/05/16 [History] Melatonin 10 mg PO BEDTIME 09/05/16 [History] Mirabegron [Myrbetriq] 50 mg PO DAILY 09/05/16 [History] Docusate Sodium [Stool Softener] 2 tab PO DAILY 09/09/16 [History] Temazepam [Restoril] 15 mg PO BEDTIME PRN 09/09/16 [History] prednisoLONE Acetate [Prednisolone Acetate] 1 drop EYELF DAILY 09/09/16 [History ] Acetaminophen [Acetaminophen ER] 1,300 mg PO ASDIRECTED 09/17/16 [History] Albuterol [Ventolin HFA] 2 puff INH TID 09/17/16 [History] Budesonide [Pulmicort Flexhaler] 2 puff INH BID 09/17/16 [History] Dextran 70/Hypromellose [Artificial Tears] 1 drop EYEBOTH QID 09/17/16 [History] Potassium Chloride [Klor-Con 10] 10 meq PO DAILY 09/17/16 [History] Propylene Glycol/Peg 400 [Systane Ultra 0.4-0.3% Eye Drp] 1 drop EYEBOTH QID 12/25 [History] Psyllium Husk (With Sugar) [Metamucil Powder] 1 tsp PO DAILY 09/17/16 [History] Albuterol [Ventolin HFA] 1 puff INH Q4H PRN 11/10/16 [History] Carboxymethylcellulose Sodium [Retaine Cmc] 1 each OP ASDIRECTED 11/10/16 [ History] Cyclobenzaprine [Flexeril] 5 mg PO TID PRN 11/10/16 [History] Folic Acid 1 mg PO DAILY 11/10/16 [History] Ibuprofen 200 mg PO Q8H PRN 11/10/16 [History] Isosorbide Mononitrate [Imdur] 30 mg PO DAILY 11/10/16 [History] Polyethylene Glycol 3350 [MiraLAX] 17 gm PO Q72H 11/10/16 [History] Past Medical History HEENT History: Reports: Glaucoma, Hard of Hearing Other HEENT History: glasses, hearing aids, dentures, blind in Left eye Cardiovascular History: Reports: CAD, High Cholesterol, Hypertension, [place], PVD Respiratory History: Reports: COPD Gastrointestinal History: Reports: GERD Genitourinary History: Reports: BPH Musculoskeletal History: Reports: Back Pain, Chronic (spinal stenosis), Osteoarthritis Neurological History: Reports: TIA, Other (See Below) (Dementia) - Past Surgical History HEENT Surgical History: Reports: Adenoidectomy, Cataract Surgery, Tonsillectomy Cardiovascular Surgical History: Reports: Carotid Stents (x 4 or 5), Coronary Artery Bypass (x 3 vessel) GI Surgical History: Reports: Colonoscopy Musculoskeletal Surgical History: Reports: Hip Replacement (bilateral) Social & Family History - Family History Family Medical History: Unobtainable - Tobacco Use Smoking Status *Q: Former Smoker Years of Tobacco use: 40 Packs/Tins Daily: 1 Month Tobacco Last Used: Quit 1989 Second Hand Smoke Exposure: No - Caffeine Use Caffeine Use: Reports: Coffee - Alcohol Use Alcohol Use History: No - Recreational Drug Use Recreational Drug Use: No - Living Situation & Occupation Living situation: Reports: , Assisted Living ([facility]) Occupation: Retired ED ROS GENERAL - Review of Systems Review Of Systems: See Below Constitutional: Reports: No Symptoms HEENT: Reports: No Symptoms Respiratory: Reports: No Symptoms Cardiovascular: Reports: No Symptoms Endocrine: Reports: No Symptoms GI/Abdominal: Reports: No Symptoms : Reports: No Symptoms Musculoskeletal: Reports: No Symptoms Skin: Reports: No Symptoms Neurological: Reports: No Symptoms Psychiatric: Reports: No Symptoms Hematologic/Lymphatic: Reports: No Symptoms Immunologic: Reports: No Symptoms - Physical Exam Exam: See Below Exam Limited By: No Limitations General Appearance: Alert, WD/WN, No Apparent Distress Eye Exam: Bilateral Eye: Normal Inspection Ears: Normal External Exam, Hearing Grossly Normal Nose: Normal Inspection, No Blood Throat/Mouth: Normal Inspection, Normal Lips, Normal Voice, No Airway Compromise Head Exam: Atraumatic, Normocephalic Neck: Normal Inspection, Full Range of Motion Respiratory/Chest: No Respiratory Distress, Lungs Clear, Normal Breath Sounds, No Accessory Muscle Use Cardiovascular: Normal Peripheral Pulses, Regular Rate, Rhythm, No Gallop, No JVD, No Murmur, No Rub GI/Abdominal: Normal Bowel Sounds, Soft, No Organomegaly, No Distention, No Abnormal Bruit, No Mass, Tender (Generalized, non-focal) (Male) Exam: Deferred Rectal (Males) Exam: Deferred Neuro Exam (Abbreviated): Alert, No Motor/Sensory Deficits, Confused Back Exam: Normal Inspection, Full Range of Motion, NT Extremities: Normal Inspection, Normal Range of Motion, No Pedal Edema, Normal Capillary Refill Psychiatric: Normal Affect Skin Exam: Warm, Dry, Intact, Normal Color, No Rash EKG INTERPRETATION EKG Date: 11/10/16 Time: 13:10 Rhythm: Other (Sinus bradycardia) Rate (Beats/Min): 59 Randolph: LAD-Left Randolph Deviation P-Wave: Present QRS: RBBB ST-T: Normal QT: Prolonged (QTc 518 ms) Comparison: No Change (09/19/2016) Course - Vital Signs Last Recorded V/S: Last Vital Signs Temp 36.5 C 11/10/16 12:20 Pulse 72 11/10/16 12:20 Resp 18 11/10/16 12:20 BP 134/62 11/10/16 12:20 Pulse Ox 97 11/10/16 12:20 Orthostatic Blood Pressure [ 139/66 Standing] Orthostatic Blood Pressure [ 152/63 Supine] - Orders/Labs/Meds Orders: Active Orders 24 hr Category Date Time Status EKG Documentation Completion [RC] STAT Care 11/10/16 12:45 Active Orthostatic Vital Signs [RC] STAT Care 11/10/16 12:45 Active Orthostatic Vital Signs [RC] STAT Care 11/10/16 13:44 Active Abdomen 1V Flat [CR] Stat Exams 11/10/16 14:17 Taken Abdomen 1V Upright [CR] Stat Exams 11/10/16 12:46 Taken Chest 2V [CR] Stat Exams 11/10/16 12:44 Taken Labs: Laboratory Tests 11/10/16 11/10/16 11/10/16 Range/Units 12:54 12:54 13:25 WBC 8.70 (4.23-9.07) K/mm3 RBC 3.70 L (4.63-6.08) M/mm3 Hgb 12.4 L (13.7-17.5) gm/L Hct 37.7 L (40.1-51.0) % MCV 101.9 H (79.0-92.2) fl MCH 33.5 H (25.7-32.2) pg MCHC 32.9 (32.2-35.5) g/dl RDW Std Deviation 49.8 H (35.1-43.9) fL Plt Count 197 (163-337) K/mm3 MPV 8.3 L (9.4-12.3) fl Neutrophils % (Manual) 74 H (40-60) % Band Neutrophils % 0 (0-10) % Lymphocytes % (Manual) 15 L (20-40) % Atypical Lymphs % 2 % Monocytes % (Manual) 8 (2-10) % Eosinophils % (Manual) 0 L (0.8-7.0) % Basophils % (Manual) 1 (0.2-1.2) Platelet Estimate Adequate Plt Morphology Comment Normal Poikilocytosis 1+ slight Anisocytosis 1+ slight Microcytosis 1+ slight Macrocytosis 1+ slight Tear Drop Cells 1+ slight Ovalocytes 1+ slight RBC Morph Comment Abn Sodium 140 (136-145) mEq/L Potassium 4.1 (3.5-5.1) mEq/L Chloride 105 (98-107) mEq/L Carbon Dioxide 26 (21-32) mEq/L Anion Gap 13.1 (5-15) BUN 24 H (7-18) mg/dL Creatinine 1.1 (0.7-1.3) mg/dL Est Cr Clr Drug Dosing 41.89 mL/min Estimated GFR (MDRD) > 60 (>60) mL/min BUN/Creatinine Ratio 21.8 H (14-18) Glucose 137 H (83-115) mg/dL Calcium 9.1 (8.5-10.1) mg/dL Magnesium 1.9 (1.8-2.4) mg/dl Total Bilirubin 0.6 (0.2-1.0) mg/dL AST 18 (15-37) U/L ALT 12 L (16-63) U/L Alkaline Phosphatase 57 (46-116) U/L Troponin I 0.023 (0.00-0.056) ng/mL NT-Pro-B Natriuret Pep 483 H (0-450) pg/mL Total Protein 6.3 L (6.4-8.2) g/dl Albumin 3.4 (3.4-5.0) g/dl Globulin 2.9 gm/dL Albumin/Globulin Ratio 1.2 (1-2) Lipase 146 (73-393) U/L TSH 3rd Generation 1.159 (0.358-3.74) uIU/mL Urine Color Yellow (Yellow) Urine Appearance Clear (Clear) Urine pH 5.5 (5.0-8.0) Ur Specific [place] > or = 1.030 (1.005-1.030) Urine Protein 1+ H (Negative) Urine Glucose (UA) Negative (Negative) Urine Ketones 1+ H (Negative) Urine Occult Blood Negative (Negative) Urine Nitrite Negative (Negative) Urine Bilirubin Negative (Negative) Urine Urobilinogen 0.2 (0.2-1.0) Ur Leukocyte Esterase Negative (Negative) Urine RBC Not seen (0-5) /hpf Urine WBC 0-5 (0-5) /hpf Ur Epithelial Cells Not seen (0-5) /hpf Urine Bacteria Rare (FEW) /hpf Urine Mucus Not seen (FEW) /hpf Urine Yeast Not seen (NOT SEEN) Meds: Medications Discontinued Medications Generic Name Dose Route Start Last Admin Trade Name Freq PRN Reason Stop Dose Admin Sodium Chloride 1,000 mls @ 150 mls/hr 11/10/16 13:00 11/10/16 13:40 Normal Saline IV 150 mls/hr ASDIRECTED CODY Administration Sodium Chloride 1,000 mls @ 999 mls/hr 11/10/16 13:44 Normal Saline IV 11/10/16 14:44 ONETIME ONE - Re-Assessments/Exams Free Text/Narrative Re-Assessment/Exam: 11/10/16 13:15 Two-view chest radiograph reviewed. There appears to be motion artifact, limiting interpretation. Cardiac silhouette is within normal limits. No pulmonary vascular congestion. No pleural effusions, however, there does appear to be fluid in the horizontal fissure. No focal infiltrate. No pneumothorax. Sternotomy wires noted. Formal read per the Radiologist pending. 11/10/16 13:43 The patient is orthostatic. He is currently receiving normal saline at 150 mL/ hr. I will order a fluid bolus. 11/10/16 15:01 Following a 1 L bolus of normal saline, the patient is no longer orthostatic. 11/10/16 15:03 Abdomen one view flat radiograph appears to demonstrate a mixture of stool and air. There appears to be a kyphoplasty of L5, and bilateral hip arthroplasties are noted. Formal read per the radiologist pending. 11/10/16 15:13 Test results discussed with the patient and his daughters. Today's workup is Dashawn only for orthostatic hypotension, resolved after receiving IV fluid. This may or may not be responsible for his increased confusion, however, we do not find that he has evidence for an infection, or other acute identifiable malady. I believe he may safely be returned to the prison. I am recommending assistance with enemas, if possible, and follow up with his PCP. Departure - Departure Time of Disposition: 15:15 Disposition: Home, Self-Care 01 Condition: Good Clinical Impression: Confusion, Orthostatic hypotension, Abdominal pain of unknown etiology - Discharge Information Referrals: Indu Coyle MD [Primary Care Provider] - Forms: ED Department Discharge Additional Instructions: Mr. Albarado was seen in the emergency room for 2 days of increased confusion, unsteady walking, and abdominal pain. Workup in the ER included blood work, a urinalysis, an ECG, a chest x-ray, x- rays of his abdomen, and positional blood pressure checks. His blood pressure dropped more than expected when he stood, a condition called "orthostatic hypotension." This resolved after he received IV fluid. The remainder of his workup was unremarkable. He may benefit from enemas. We recommend he follow-up with his PCP, Dr. Indu Coyle. If any other problems, please do not hesitate to return Mr. Albarado to the ER. - My Orders Last 24 Hours: My Active Orders 11/10/16 12:44 Chest 2V [CR] Stat 11/10/16 12:45 EKG Documentation Completion [RC] STAT Orthostatic Vital Signs [RC] STAT 11/10/16 12:46 Abdomen 1V Upright [CR] Stat 11/10/16 13:44 Orthostatic Vital Signs [RC] STAT 11/10/16 14:17 Abdomen 1V Flat [CR] Stat - Assessment/Plan Last 24 Hours: My Active Orders 11/10/16 12:44 Chest 2V [CR] Stat 11/10/16 12:45 EKG Documentation Completion [RC] STAT Orthostatic Vital Signs [RC] STAT 11/10/16 12:46 Abdomen 1V Upright [CR] Stat 11/10/16 13:44 Orthostatic Vital Signs [RC] STAT 11/10/16 14:17 Abdomen 1V Flat [CR] Stat
[2016-11-10] MEDS ORDERED: Sodium Chloride 0.9% 1,000 ML IV SCH (13:00)
[2016-11-10] MEDS ORDERED: Sodium Chloride 0.9% 1,000 ML IV ONE (13:44)
[2016-11-10 15:56] VITALS: BP 161/63
--- NOTE | 2016-11-12 17:54 | CR ---
Chest: Two views of the chest were obtained. Comparison: Previous chest x-ray of 01/31/16. Heart size is slightly enlarged which is an interval change from prior exam. Apical pleural thickening on the left side is seen which is stable. Mild parenchymal scarring is noted within both lung apices which is stable. Lungs otherwise are clear. 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 Bony structures are grossly intact. On the lateral view, lungs are hyperinflated compatible with emphysematous change. Impression: 1. Heart size is slightly more prominent in size than on prior exam but current study was utilizing AP technique which is the likely etiology. 2. Other stable findings. Nothing acute is definitely appreciated. Diagnostic code #2
--- NOTE | 2016-11-12 17:54 | CR ---
Abdomen: Upright view of the abdomen was obtained centered to the diaphragm. No free air is seen. Visualized bowel gas shows no dilatation. Heart is enlarged. Previous sternotomy for CABG is seen. Pleural thickening is noted within the left lung apex which appears chronic. Impression: 1. Incidental findings. Diagnostic code #2
--- NOTE | 2016-11-12 17:54 | CR ---
Abdomen: Supine view of the abdomen was obtained. Comparison: No previous abdominal x-ray. Previous vertebroplasty is noted at L5. Bowel gas pattern appears within normal limits. Bilateral hip prosthesis are seen. Calcifications are seen within the pelvis which are compatible with phleboliths. Several surgical clips are seen within the left upper abdomen. Impression: 1. Incidental findings. Diagnostic code #2
== END 2016-11-10 15:45 | disposition home or self-care (01) ==
LOC: JD.ED 12:14
DX: R41.0 Disorientation, unspecified (principal); I95.1 Orthostatic hypotension; R10.9 Unspecified abdominal pain; I10 Essential (primary) hypertension; I25.2 Old myocardial infarction; E78.00 Pure hypercholesterolemia, unspecified; I25.10 Atherosclerotic heart disease of native coronary artery without angina pectoris; J44.9 Chronic obstructive pulmonary disease, unspecified; K21.9 Gastro-esophageal reflux disease without esophagitis; M19.90 Unspecified osteoarthritis, unspecified site; Z86.73 Personal history of transient ischemic attack (TIA), and cerebral infarction without residual deficits; Z98.890 Other specified postprocedural states; Z95.5 Presence of coronary angioplasty implant and graft; Z95.1 Presence of aortocoronary bypass graft; Z96.643 Presence of artificial hip joint, bilateral; Z87.891 Personal history of nicotine dependence; Z79.02 Long term (current) use of antithrombotics/antiplatelets; Z79.899 Other long term (current) drug therapy; Z88.5 Allergy status to narcotic agent; Z88.8 Allergy status to other drugs, medicaments and biological substances
CPT/HCPCS: 36415; 71020; 74000; 80053; 81001; 83690; 83735; 83880; 84443; 84484; 85025; 93005; 96360; 99285; J7040; P9612

== ENCOUNTER 2016-11-27 17:59 | Observation (INO) | payer MEDICARE, BC ==
[2016-11-27] MEDS ORDERED: Sodium Chloride 0.9% 10 ML Syringe FLUSH PRN (18:47)
[2016-11-27] MEDS ORDERED: HYDROmorphone 0.5 MG/0.5 ML Syringe IVPUSH ONE (18:49)
[2016-11-27] MEDS ORDERED: Sodium Chloride 0.9% 1,000 ML IV SCH (19:00)
--- NOTE | 2016-11-27 19:35 | EDM.PDOC ---
ED HPI GENERAL MEDICAL PROBLEM - General Chief Complaint: Lower Extremity Injury/Pain Stated Complaint: FALL Time Seen by Provider: 11/27/16 18:28 Source of Information: Reports: Patient History Limitations: Reports: Other (Hearing loss) - History of Present Illness INITIAL COMMENTS - FREE TEXT/NARRATIVE: Patient is a 86-year-old male who presents to the ED from [facility]. Patient complains of right hip pain, posterior head pain, left elbow discomfort. Patient was in his bathroom utilizing a walker and fell backwards landing on his right hip and hitting his left elbow and head. Patient does not recall loss consciousness. Unsure why he fell. Patient admits to getting back up after a long period of struggling and proceeded to walk back to his residence and fell again. He was found by [facility] staff after he had failed to show upfor medications and meal. Family is present. States the patient developed some left-sided chest discomfort with having what they call a panic attack. He is has a history of having such symptoms with breathing faster. He does have extensive heart history including triple bypass and stent placement. Right Hip Pain Score (Numeric/FACES): 10 Back Pain Score (Numeric/FACES): 10 - Related Data Allergies Allergy/AdvReac Type Severity Reaction Status Date / Time morphine Allergy Cannot Verified 11/27/16 18:29 Remember DANY Inhibitors AdvReac Change Verified 11/27/16 18:29 Mental Status hydromorphone [From Dilaudid] AdvReac Hallucinati Verified 11/28/16 11:37 ons Home Meds: Home Meds Aspirin [Adult Low Dose Aspirin EC] 81 mg PO BID 08/11/15 [History] Clopidogrel Bisulfate [Plavix] 75 mg PO DAILY 08/11/15 [History] Donepezil [Aricept] 10 mg PO BEDTIME 08/11/15 [History] Ezetimibe [Zetia] 10 mg PO DAILY 08/11/15 [History] Finasteride [Proscar] 5 mg PO DAILY 08/11/15 [History] Latanoprost [Xalatan 0.005% Ophth Soln] 1 drop EYEBOTH BEDTIME 08/11/15 [History ] Ranolazine [Ranexa] 500 mg PO BIDMEALS 08/11/15 [History] Tamsulosin HCl 0.4 mg PO BID 08/11/15 [History] atorvaSTATin Calcium [Atorvastatin Calcium] 80 mg PO DAILY 08/11/15 [History] Cyanocobalamin (Vitamin B-12) [Cyanocobalamin Injection] 1,000 mcg IJ ASDIRECTED 01/31/16 [History] Nitroglycerin [Nitrostat] 0.4 mg SL Q5M PRN 01/31/16 [History] Ranitidine HCl [Zantac] 150 mg PO BID 01/31/16 [History] Sertraline [Zoloft] 12.5 mg PO DAILY 01/31/16 [History] Carvedilol [Coreg] 6.25 mg PO BID 09/05/16 [History] Melatonin 10 mg PO BEDTIME 09/05/16 [History] Mirabegron [Myrbetriq] 50 mg PO DAILY 09/05/16 [History] Docusate Sodium [Stool Softener] 2 tab PO DAILY 09/09/16 [History] Temazepam [Restoril] 15 mg PO BEDTIME PRN 09/09/16 [History] prednisoLONE Acetate [Prednisolone Acetate] 1 drop EYELF DAILY 09/09/16 [History ] Albuterol [Ventolin HFA] 2 puff INH TID 09/17/16 [History] Budesonide [Pulmicort Flexhaler] 2 puff INH BID 09/17/16 [History] Dextran 70/Hypromellose [Artificial Tears] 1 drop EYEBOTH QID PRN 09/17/16 [ History] Potassium Chloride [Klor-Con 10] 10 meq PO DAILY 09/17/16 [History] Psyllium Husk (With Sugar) [Metamucil Powder] 1 tsp PO DAILY 09/17/16 [History] Albuterol [Ventolin HFA] 1 puff INH Q4H PRN 11/10/16 [History] Carboxymethylcellulose Sodium [Retaine Cmc] 1 each OP ASDIRECTED 11/10/16 [ History] Folic Acid 1 mg PO DAILY 11/10/16 [History] Isosorbide Mononitrate [Imdur] 30 mg PO DAILY 11/10/16 [History] Polyethylene Glycol 3350 [MiraLAX] 17 gm PO Q72H 11/10/16 [History] Memantine [Namenda] 10 mg PO BID 11/27/16 [History] Acetaminophen [Acetaminophen ER] 1,300 mg PO Q8HR #0 11/30/16 [Rx] Acetaminophen [Tylenol] 650 mg PO Q4H PRN #0 tablet 11/30/16 [Rx] Past Medical History HEENT History: Reports: Glaucoma, Hard of Hearing Other HEENT History: glasses, hearing aids, dentures, blind in Left eye Cardiovascular History: Reports: CAD, High Cholesterol, Hypertension, NE, PVD Other Cardiovascular History: angina, peripheral artery disease Respiratory History: Reports: COPD Other Respiratory History: recent pneumonia 06/24/15, lung nodule emphysema Gastrointestinal History: Reports: GERD Other Gastrointestinal History: stricture and stenosis of esophagus, bilateral inguinal hernia Genitourinary History: Reports: BPH Other Genitourinary History: macrocytosis Musculoskeletal History: Reports: Back Pain, Chronic, Osteoarthritis Other Musculoskeletal History: degenerative joint disease, sicatica, spinal stenosis Neurological History: Reports: TIA, Other (See Below) Other Neuro History: memory loss, numbness in legs Psychiatric History: Reports: Dementia Endocrine/Metabolic History: Reports: Other (See Below) Other Endocrine/Metabolic History: hyperglycemia, vitamin b 12 deficiency Hematologic History: 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 Immunologic History: 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 Oncologic (Cancer) History: 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 Dermatologic History: Reports: Other (See Below) Other Dermatologic History: dry scalp - Past Surgical History Head Surgeries/Procedures: 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 HEENT Surgical History: Reports: Adenoidectomy, Cataract Surgery, Tonsillectomy Cardiovascular Surgical History: Reports: Carotid Stents, Coronary Artery Bypass GI Surgical History: Reports: Colonoscopy Musculoskeletal Surgical History: Reports: Hip Replacement, Other (See Below) Other Musculoskeletal Surgeries/Procedures:: back surgery Social & Family History - Family History Family Medical History: Unobtainable - Tobacco Use Smoking Status *Q: Never Smoker Years of Tobacco use: 40 Packs/Tins Daily: 1 Used Tobacco, but Quit: Yes Month Tobacco Last Used: Quit 1989 Second Hand Smoke Exposure: No - Caffeine Use Caffeine Use: Reports: Coffee - Recreational Drug Use Recreational Drug Use: No - Living Situation & Occupation Living situation: Reports: , Assisted Living ([place]) Occupation: Retired Review of Systems - Review of Systems Review Of Systems: Unable To Obtain ED EXAM, GENERAL - Physical Exam Exam: See Below Exam Limited By: Other (hearing loss, dementia) General Appearance: Alert, WD/WN, No Apparent Distress Ears: Hearing Loss Nose: Normal Inspection Throat/Mouth: Normal Voice, No Airway Compromise Head: Atraumatic, Normocephalic Neck: Normal Inspection, Supple, Non-Tender, Full Range of Motion. No: Lymphadenopathy (L), Lymphadenopathy (R) Respiratory/Chest: No Respiratory Distress, Lungs Clear, Normal Breath Sounds, No Accessory Muscle Use, Other (tenderness to the left lateral chest with palpation) Cardiovascular: Normal Peripheral Pulses, Regular Rate, Rhythm, Systolic Murmur Peripheral Pulses: 2+: Radial (L), Radial (R) GI/Abdominal: Normal Bowel Sounds, Soft, Non-Tender, No Organomegaly, No Distention Back Exam: Normal Inspection, Decreased Range of Motion, Other (Pain to the right SI joint with palpation. No swelling, bruising, or wounds present. ). No : Paraspinal Tenderness, Vertebral Tenderness Extremities: Normal Inspection, Normal Range of Motion, Non-Tender, No Pedal Edema, Normal Capillary Refill, Other (No pain with palpation of the upper/ lower extremities. Patient had no tenderness noted to the left/right hip. ) Neurological: Alert, CN II-XII Intact, Normal Cognition, No Motor/Sensory Deficits Psychiatric: Normal Affect, Normal Mood Skin Exam: Warm, Dry, Intact, Normal Color, No Rash Course - Vital Signs Last Recorded V/S: Last Vital Signs Temp 97.5 F 11/30/16 12:02 Pulse 64 11/30/16 12:02 Resp 16 11/30/16 12:02 BP 114/59 L 11/30/16 12:02 Pulse Ox 99 11/30/16 12:02 - Orders/Labs/Meds Labs: Laboratory Tests 11/27/16 11/27/16 11/27/16 Range/Units 19:10 19:10 20:17 WBC 11.18 H (4.23-9.07) K/mm3 RBC 4.09 L (4.63-6.08) M/mm3 Hgb 13.8 (13.7-17.5) gm/L Hct 42.1 (40.1-51.0) % MCV 102.9 H (79.0-92.2) fl MCH 33.7 H (25.7-32.2) pg MCHC 32.8 (32.2-35.5) g/dl RDW Std Deviation 50.4 H (35.1-43.9) fL Plt Count 175 (163-337) K/mm3 MPV 8.7 L (9.4-12.3) fl Neut % (Auto) 84.1 H (34.0-67.9) % Lymph % (Auto) 8.8 L (21.8-53.1) % Williamson % (Auto) 5.0 L (5.3-12.2) % Eos % (Auto) 0.7 L (0.8-7.0) Baso % (Auto) 0.1 (0.1-1.2) % Neut # (Auto) 9.40 H (1.78-5.38) K/mm3 Lymph # (Auto) 0.98 L (1.32-3.57) K/mm3 Williamson # (Auto) 0.56 (0.30-0.82) K/mm3 Eos # (Auto) 0.08 (0.04-0.54) K/mm3 Baso # (Auto) 0.01 (0.01-0.08) K/mm3 Manual Slide Review Abnormal smear Sodium 141 (136-145) mEq/L Potassium 4.4 (3.5-5.1) mEq/L Chloride 104 (98-107) mEq/L Carbon Dioxide 27 (21-32) mEq/L Anion Gap 14.4 (5-15) BUN 19 H (7-18) mg/dL Creatinine 1.1 (0.7-1.3) mg/dL Est Cr Clr Drug Dosing 40.95 mL/min Estimated GFR (MDRD) > 60 (>60) mL/min BUN/Creatinine Ratio 17.3 (14-18) Glucose 123 H (83-115) mg/dL Calcium 9.0 (8.5-10.1) mg/dL Total Bilirubin 0.7 (0.2-1.0) mg/dL AST 32 (15-37) U/L ALT 34 (16-63) U/L Alkaline Phosphatase 63 (46-116) U/L Troponin I 0.029 (0.00-0.056) ng/mL Total Protein 7.1 (6.4-8.2) g/dl Albumin 3.6 (3.4-5.0) g/dl Globulin 3.5 gm/dL Albumin/Globulin Ratio 1.0 (1-2) Urine Color Yellow (Yellow) Urine Appearance Clear (Clear) Urine pH 6.0 (5.0-8.0) Ur Specific [place] 1.025 (1.005-1.030) Urine Protein 1+ H (Negative) Urine Glucose (UA) Negative (Negative) Urine Ketones Negative (Negative) Urine Occult Blood Negative (Negative) Urine Nitrite Negative (Negative) Urine Bilirubin Negative (Negative) Urine Urobilinogen 1.0 (0.2-1.0) Ur Leukocyte Esterase Negative (Negative) Urine RBC 0-5 (0-5) /hpf Urine WBC 0-5 (0-5) /hpf Ur Epithelial Cells 0-5 (0-5) /hpf Urine Bacteria Not seen (FEW) /hpf Urine Mucus Not seen (FEW) /hpf Meds: Medications Discontinued Medications Generic Name Dose Route Start Last Admin Trade Name Freq PRN Reason Stop Dose Admin Acetaminophen 650 mg 11/27/16 23:00 11/30/16 10:04 Tylenol PO 650 mg Q4H PRN Administration Pain (Mild 1-3)/fever Hydrocodone Bitart/Acetaminophen 1 tab 11/27/16 23:00 [place] 325-5 Mg PO Q4H PRN Pain (moderate 4-6) Albuterol 0 gm 11/28/16 06:00 11/30/16 05:42 Proventil Hfa INH 2 puff TIDRT CODY Administration Albuterol/Ipratropium 3 ml 11/27/16 23:00 11/28/16 22:43 Duoneb 3.0-0.5 Mg/3 Ml NEB 3 ml Q4H PRN Administration Shortness Of Breath/wheezing Artificial Tears 0 ml 11/28/16 08:00 11/30/16 11:40 Isopto Tears 0.5% Ophth Soln EYELF 1 drop Q3H CODY Administration Artificial Tears 0 ml 11/28/16 09:00 11/28/16 11:16 Isopto Tears 0.5% Ophth Soln EYEBOTH Not Given QID CODY Aspirin 81 mg 11/28/16 09:00 11/30/16 10:00 Halfprin PO 81 mg BID CODY Administration Bisacodyl 5 mg 11/27/16 23:00 Dulcolax PO DAILY PRN Constipation Carvedilol 6.25 mg 11/28/16 09:00 11/30/16 10:00 Coreg PO 6.25 mg BID CODY Administration Clopidogrel Bisulfate 75 mg 11/28/16 09:00 11/30/16 09:58 Plavix PO 75 mg DAILY CODY Administration Cyanocobalamin 1,000 mcg 11/28/16 09:00 11/28/16 10:33 Vitamin B12 IM 11/28/16 09:01 Not Given ONETIME ONE Cyclobenzaprine HCl 5 mg 11/27/16 23:08 11/28/16 01:18 Flexeril PO 5 mg TID PRN Administration back pain Docusate Sodium 100 mg 11/27/16 23:00 Colace PO BID PRN Constipation Docusate Sodium 200 mg 11/28/16 17:00 11/29/16 17:06 Colace PO Not Given DAILY@1700 CODY Donepezil HCl 10 mg 11/28/16 21:00 11/29/16 21:13 Aricept PO 10 mg BEDTIME CODY Administration Ezetimibe 10 mg 11/28/16 09:00 11/30/16 10:01 Zetia PO 10 mg DAILY CODY Administration Famotidine 20 mg 11/28/16 09:00 11/28/16 11:16 Pepcid PO Not Given BID CODY Finasteride 5 mg 11/28/16 09:00 11/30/16 09:58 Proscar PO 5 mg DAILY CODY Administration Fluticasone Propionate 0 gm 11/28/16 06:00 11/30/16 05:42 Flovent Hfa 220 Mcg INH 1 puff BIDRT CODY Administration Folic Acid 1 mg 11/28/16 09:00 11/30/16 10:00 Folic Acid PO 1 mg DAILY CODY Administration Hydralazine HCl 10 mg 11/27/16 23:07 Apresoline IVPUSH Q4H PRN Hypertension Hydromorphone HCl 0.25 mg 11/27/16 18:49 11/27/16 19:07 Dilaudid IVPUSH 11/27/16 18:50 0.25 mg ONETIME ONE Administration Hydromorphone HCl 0.25 mg 11/27/16 23:00 Dilaudid IVPUSH Q4H PRN Pain (severe 7-10) Sodium Chloride 1,000 mls @ 50 mls/hr 11/27/16 19:00 11/27/16 19:06 Normal Saline IV 50 mls/hr ASDIRECTED CODY Administration Promethazine HCl 12.5 mg/ 50.5 mls @ 100 mls/hr 11/27/16 23:00 Sodium Chloride IV Q6H PRN Nausea/Vomiting Isosorbide Mononitrate 30 mg 11/28/16 09:00 11/30/16 09:59 Imdur PO 30 mg DAILY CODY Administration Latanoprost 0 ml 11/28/16 21:00 11/29/16 21:39 Xalatan 0.005% Ophth Soln EYEBOTH Not Given BEDTIME CODY Lidocaine 700 mg 11/29/16 14:30 11/29/16 15:23 Lidoderm 5% TOP 11/29/16 14:31 700 mg ONETIME ONE Administration Lorazepam 0.25 mg 11/27/16 23:00 Ativan IV Q6H PRN Anxiety Lorazepam 2 mg 11/27/16 23:07 Ativan IVPUSH Q4H PRN Seizures Magnesium Oxide 400 mg 11/30/16 13:00 11/30/16 13:22 Magnesium Oxide PO 11/30/16 13:01 400 mg ONETIME ONE Administration Magnesium Sulfate 1 dose 11/27/16 23:15 Pharmacy To Dose - Magnesium Replacement .XX ASDIRECTED CODY Memantine 10 mg 11/28/16 09:00 11/30/16 09:59 Namenda PO 10 mg BID CODY Administration Metoprolol Tartrate 5 mg 11/27/16 23:07 Lopressor IVPUSH Q4H PRN Tachycardia Miscellaneous Information 0 ea 11/29/16 02:30 11/29/16 15:38 Remove Patch TRDERM 11/29/16 02:31 Not Given ONETIME ONE Modafinil 100 mg 11/29/16 10:45 Provigil PO ONETIME CODY Nitroglycerin 0.4 mg 11/27/16 23:08 Nitrostat SL Q5M PRN Chest Pain Ondansetron HCl 4 mg 11/27/16 23:00 Zofran IV Q6H PRN Nausea/Vomiting Melatonin 10 Mg 0 each 11/28/16 21:00 11/29/16 21:21 PO 1 each BEDTIME CODY Administration Mirabegron [ 0 each 11/28/16 21:00 11/29/16 21:21 Myrbetriq] 50 Mg PO 1 each BEDTIME CODY Administration Cyclobenzaprine 10 0 each 11/28/16 09:00 Mg Tab Patient's PO Own TID PRN back pain Atorvastatin 80 Mg 0 each 11/28/16 20:00 11/29/16 21:12 PO 1 each DAILY@1999 CODY Administration Ranitidine 150 Mg 0 each 11/28/16 21:00 11/30/16 09:57 PO 1 each BID CODY Administration Systane Dropperettes 0 each 11/28/16 09:00 11/30/16 12:40 EYEBOTH 1 each QID CODY Administration Polyethylene Glycol 17 gm 11/27/16 23:00 Miralax PO DAILY PRN Constipation Polyethylene Glycol 17 gm 11/28/16 09:15 Miralax PO DAILY PRN Constipation Potassium Chloride 10 meq 11/28/16 09:00 11/30/16 09:59 Klor-Con 10 PO 10 meq DAILY CODY Administration Potassium Chloride 1 dose 11/27/16 23:15 Pharmacy To Dose - Potassium Replacement .XX ASDIRECTED CODY Potassium Chloride 40 meq 11/30/16 12:45 11/30/16 13:22 Klor-Con M20 PO 11/30/16 16:46 40 meq Q4H CODY Administration Prednisolone Acetate 0 ml 11/28/16 09:00 11/30/16 09:58 Pred Forte 1% Ophth Susp EYELF 1 drop DAILY CODY Administration Psyllium Husk 0 packet 11/28/16 09:00 11/30/16 10:01 Metamucil Sugar Free PO Not Given DAILY [facility] Ranolazine 500 mg 11/28/16 09:00 11/30/16 09:57 Ranexa PO 500 mg BID CODY Administration Rosuvastatin Calcium 20 mg 11/28/16 09:00 11/28/16 11:16 Crestor PO Not Given DAILY [facility] Senna/Docusate Sodium 1 tab 11/27/16 23:00 Senna Plus PO BID PRN Constipation Sertraline HCl 25 mg 11/28/16 09:00 Zoloft PO DAILY CODY Sertraline HCl 25 mg 11/28/16 20:00 11/29/16 21:12 Zoloft PO 25 mg DAILY@1999 [facility] Administration Sodium Chloride 10 ml 11/27/16 18:47 11/27/16 19:09 Saline Flush FLUSH 10 ml ASDIRECTED PRN Administration Keep Vein Open Tamsulosin HCl 0.4 mg 11/28/16 09:00 11/30/16 10:02 Flomax PO 0.4 mg BID CODY Administration Temazepam 7.5 mg 11/27/16 23:00 Restoril PO BEDTIME PRN Sleep Temazepam 15 mg 11/27/16 23:08 Restoril PO BEDTIME PRN Insomnia - Re-Assessments/Exams Free Text/Narrative Re-Assessment/Exam: Peripheral IV was established with normal saline 50 mL per hour and Dilaudid 0.25 mg IVP. Initial labs and studies include: CBC, chem 14, troponin, UA, chest x-ray one view, pelvis x-ray two-view, head CT without contrast, and EKG. Chest x-ray: No acute abnormalities noted from previous xray obtained earlier November of 2016. X-ray of the pelvis revealed no acute bony abnormalities. Bilateral hip replacement. Increased stool pattern within the right colon. Final interpretation is pending. CT the head without contrast revealed senescent changes. No acute intracranial or bony abnormalities noted. EKG: Sinus rhythm at a rate of 64 with occasional PVCs. No acute ST changes noted. Labs reviewed: White blood cell count 11.18, hemoglobin 13.8, platelets 175, neutrophil percentage is 84.1, neutrophil number is 9.40, chem 14 essentially normal. Troponin 0.029. UA negative for infection. Will get the patient up and see how he tolerates weightbearing and ambulation. 2047 Per family patient is seeing a door on the ceiling opening and closing. He' s having adverse reactions to the Dilaudid. Family states after having his back surgery he had similar experience. Fluids have been increased to 250 mls per hour. Will bolus in 250mls of fluid. 11/27/16 21:32 Patient still having hallucinations after receiving the dilaudid. Patient is on aricept which may make him more sensitive to such medications. Unable to get the patient up to see how he tolerates weightbearing and ambulation 2149 Patients mentation is improving. He has been hallucinating. Patient is living in his own apartment at the assisted living. Family member will stay with him. Will allow additional time for medication to wear off. Nursing staff attempted to get to the patient up and see if he can weightbear. No luck to much pain present. Mentation is pending. Discussed patient with Dr. Gu he has agreed to admit the patient. MCG completed patient meets observation status. Departure - Departure Time of Disposition: 00:23 Disposition: Refer to Observation Condition: Fair Clinical Impression: Low back pain Qualifiers: Chronicity: acute Back pain laterality: midline Sciatica presence: without sciatica Qualified Code(s): M54.5 - Low back pain Altered mental status Qualifiers: Altered mental status type: unspecified Qualified Code(s): R41.82 - Altered mental status, unspecified - Discharge Information
--- NOTE | 2016-11-27 19:49 | CT ---
Head CT Technique: Multiple axial sections through the brain were obtained. Intravenous contrast was not utilized. Comparison: Previous noncontrast head CT exam of 09/05/16. Findings: Ventricles along with basal cisterns and sulci over convexities are moderately prominent. Diminished density is noted within the periventricular and subcortical white matter which is compatible with small vessel ischemic demyelination change. 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 No other abnormal parenchymal densities are seen. No evidence of intracranial hemorrhage. No midline shift or mass effect is seen. Visualized sinuses are clear. No acute calvarial abnormality is identified. Impression: 1. Senescent change as noted above. Findings are fairly stable from previous exam. 2. Nothing acute is appreciated on noncontrast head CT exam. Diagnostic code #2
[2016-11-27] MEDS ORDERED: Polyethylene Glycol 3350 Powder 17 GM Packet PO PRN (23:00)
[2016-11-27] MEDS ORDERED: Ondansetron 4 MG/2 ML SDV IV PRN (23:00)
[2016-11-27] MEDS ORDERED: HYDROmorphone 0.5 MG/0.5 ML Syringe IVPUSH PRN (23:00)
[2016-11-27] MEDS ORDERED: Docusate Sodium 100 MG Cap PO PRN (23:00)
[2016-11-27] MEDS ORDERED: Temazepam 7.5 MG Cap PO PRN (23:00)
[2016-11-27] MEDS ORDERED: Bisacodyl 5 MG Tab PO PRN (23:00)
[2016-11-27] MEDS ORDERED: Acetaminophen/HYDROcodone 325-5 MG Tab PO PRN (23:00)
[2016-11-27] MEDS ORDERED: Albuterol/Ipratropium 3.0-0.5 MG/3 ML Neb Soln NEB PRN (23:00)
[2016-11-27] MEDS ORDERED: LORazepam 2 MG/ML MDV IV PRN (23:00)
[2016-11-27] MEDS ORDERED: Promethazine 12.5 MG in Sodium Chloride 0.9% 50 ML IV PRN (23:00)
[2016-11-27] MEDS ORDERED: hydrALAZINE 20 MG/ML SDV IVPUSH PRN (23:07)
[2016-11-27] MEDS ORDERED: Metoprolol Tartrate 5 MG/5 ML SDV IVPUSH PRN (23:07)
[2016-11-27] MEDS ORDERED: LORazepam 2 MG/ML MDV IVPUSH PRN (23:07)
[2016-11-27] MEDS ORDERED: Temazepam 15 MG Cap PO PRN (23:08)
[2016-11-27] MEDS ORDERED: Nitroglycerin 0.4 MG Tab.SL SL PRN (23:08)
[2016-11-27] MEDS ORDERED: Cyclobenzaprine 10 MG Tab PO PRN (23:08)
--- NOTE | 2016-11-28 00:10 | PCM.HP ---
H&P History of Present Illness - General Date of Service: 11/28/16 Admit Problem/Dx: Intractable Pain Status Post Fall Source of Information: Patient, Old Records, Provider, RN Notes Reviewed, Significant Other History Limitations: Reports: Physical Impairment ( ) - History of Present Illness Initial Comments - Free Text/Narative: This is an 86 yo elderly white male with past medical hx/o Impaired Vision/ Hearing, Left Eye Blindness, Hypertension, Hyperlipidemia, CAD/AL, PVD/PAD, Angina, COPD, Lung nodule, GERD, Stricture and Stenosis of Esophagus, Bilateral Inguinal Hernia, BPH, Macrocytosis, Chronic Back Pain, Osteoarthritis/DJD, Sciatica, Spinal Stenosis, Impaired Memory/Dementia, Peripheral Neuropathy, TIA , Hyperglycemia, and Vitamin B12 Deficiency who presents to ED with complaints of right hip, posterior head, left elbow pain status post fall. Patient was on his way to the bathroom using his walker when he fell backwards landing on his right hip and hitting his left elbow and head. He denies any loss of consciousness. He is unable to tell why he fell. He was however able to get back up on his own after a long struggle and proceeded to walk back to his room but then again he fell for the second time. Patient carries a history of unsteady gait. He uses a wheeled walker to get around. His initial workup in the emergency department shows a CBC remarkable for WBCs of 11.18, RBC of 4.09, MCV of 102.9, MCH of 33.7, RDW of 50.4, neutrophils of 84.1%, lymphocytes of 8.8%, monocytes of 5.1%, and eosinophils of 0.7%. His chemistry is remarkable for BUN of 19 and glucose of 123. His UA is negative for UTI. Head CT scan report reads nothing acute is appreciated. Pelvic and chest x-ray report reads no acute abnormal findings. Patient is being admitted for intractable pain status post fall and altered mental status. He is full code. Right Hip Pain Score (Numeric/FACES): 10 Back Pain Score (Numeric/FACES): 10 - Related Data Allergies/Adverse Reactions: Allergies Allergy/AdvReac Type Severity Reaction Status Date / Time morphine Allergy Cannot Verified 11/27/16 18:29 Remember DANY Inhibitors AdvReac Change Verified 11/27/16 18:29 Mental Status Home Medications: Home Meds Aspirin [Adult Low Dose Aspirin EC] 81 mg PO BID 08/11/15 [History] Clopidogrel Bisulfate [Plavix] 75 mg PO DAILY 08/11/15 [History] Donepezil [Aricept] 10 mg PO BEDTIME 08/11/15 [History] Ezetimibe [Zetia] 10 mg PO DAILY 08/11/15 [History] Finasteride [Proscar] 5 mg PO DAILY 08/11/15 [History] Latanoprost [Xalatan 0.005% Ophth Soln] 1 drop EYEBOTH BEDTIME 08/11/15 [History ] Ranolazine [Ranexa] 500 mg PO BIDMEALS 08/11/15 [History] Tamsulosin HCl 0.4 mg PO BID 08/11/15 [History] atorvaSTATin Calcium [Atorvastatin Calcium] 80 mg PO DAILY 08/11/15 [History] Cyanocobalamin (Vitamin B-12) [Cyanocobalamin Injection] 1,000 mcg IJ ASDIRECTED 01/31/16 [History] Nitroglycerin [Nitrostat] 0.4 mg SL Q5M PRN 01/31/16 [History] Ranitidine HCl [Zantac] 150 mg PO BID 01/31/16 [History] Sertraline [Zoloft] 12.5 mg PO DAILY 01/31/16 [History] Carvedilol [Coreg] 6.25 mg PO BID 09/05/16 [History] Melatonin 10 mg PO BEDTIME 09/05/16 [History] Mirabegron [Myrbetriq] 50 mg PO DAILY 09/05/16 [History] Docusate Sodium [Stool Softener] 2 tab PO DAILY 09/09/16 [History] Temazepam [Restoril] 15 mg PO BEDTIME PRN 09/09/16 [History] prednisoLONE Acetate [Prednisolone Acetate] 1 drop EYELF DAILY 09/09/16 [History ] Acetaminophen [Acetaminophen ER] 1,300 mg PO Q8HR 09/17/16 [History] Albuterol [Ventolin HFA] 2 puff INH TID 09/17/16 [History] Budesonide [Pulmicort Flexhaler] 2 puff INH BID 09/17/16 [History] Dextran 70/Hypromellose [Artificial Tears] 1 drop EYEBOTH QID PRN 09/17/16 [ History] Potassium Chloride [Klor-Con 10] 10 meq PO DAILY 09/17/16 [History] Psyllium Husk (With Sugar) [Metamucil Powder] 1 tsp PO DAILY 09/17/16 [History] Albuterol [Ventolin HFA] 1 puff INH Q4H PRN 11/10/16 [History] Carboxymethylcellulose Sodium [Retaine Cmc] 1 each OP ASDIRECTED 11/10/16 [ History] Cyclobenzaprine [Flexeril] 5 mg PO TID PRN 11/10/16 [History] Folic Acid 1 mg PO DAILY 11/10/16 [History] Ibuprofen 200 mg PO Q8H PRN 11/10/16 [History] Isosorbide Mononitrate [Imdur] 30 mg PO DAILY 11/10/16 [History] Polyethylene Glycol 3350 [MiraLAX] 17 gm PO Q72H 11/10/16 [History] Memantine [Namenda] 10 mg PO BID 11/27/16 [History] Past Medical History HEENT History: Reports: Glaucoma, Hard of Hearing Other HEENT History: glasses, hearing aids, dentures, blind in Left eye Cardiovascular History: Reports: CAD, High Cholesterol, Hypertension, AL, PVD Other Cardiovascular History: angina, peripheral artery disease Respiratory History: Reports: COPD Other Respiratory History: recent pneumonia 06/24/15, lung nodule emphysema Gastrointestinal History: Reports: GERD Other Gastrointestinal History: stricture and stenosis of esophagus, bilateral inguinal hernia Genitourinary History: Reports: BPH Other Genitourinary History: macrocytosis Musculoskeletal History: Reports: Back Pain, Chronic, Osteoarthritis Other Musculoskeletal History: degenerative joint disease, sicatica, spinal stenosis Neurological History: Reports: TIA, Other (See Below) Other Neuro History: memory loss, numbness in legs Psychiatric History: Reports: Dementia Endocrine/Metabolic History: Reports: Other (See Below) Other Endocrine/Metabolic History: hyperglycemia, vitamin b 12 deficiency Hematologic History: 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 Immunologic History: 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 Oncologic (Cancer) History: 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 Dermatologic History: Reports: Other (See Below) Other Dermatologic History: dry scalp - Past Surgical History Head Surgeries/Procedures: 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 HEENT Surgical History: Reports: Adenoidectomy, Cataract Surgery, Tonsillectomy Cardiovascular Surgical History: Reports: Carotid Stents, Coronary Artery Bypass GI Surgical History: Reports: Colonoscopy Musculoskeletal Surgical History: Reports: Hip Replacement, Other (See Below) Other Musculoskeletal Surgeries/Procedures:: back surgery Social & Family History - Family History Family Medical History: Unobtainable - Tobacco Use Smoking Status *Q: Former Smoker Years of Tobacco use: 25 Packs/Tins Daily: 1 Used Tobacco, but Quit: Yes Month Tobacco Last Used: many years ago Second Hand Smoke Exposure: No - Caffeine Use Caffeine Use: Reports: Coffee, Soda - Recreational Drug Use Recreational Drug Use: No - Living Situation & Occupation Living situation: Reports: , Assisted Living ([facility]) Occupation: Retired H&P Review of Systems - Review of Systems: Review Of Systems: See Below General: Reports: Weakness. Denies: Fever, Chills, Malaise, Fatigue HEENT: Reports: No Symptoms Pulmonary: Reports: Cough, Sputum. Denies: Shortness of Breath Cardiovascular: Denies: Chest Pain Gastrointestinal: Denies: Abdominal Pain, Nausea, Vomiting Genitourinary: Reports: No Symptoms Musculoskeletal: Reports: Back Pain, Joint Pain, Other (Hip and Posterior Head Pain) Skin: Reports: No Symptoms Psychiatric: Reports: Confusion (Baseline Dementia). Denies: Mood Lability, Anxiety, Hallucinations Neurological: Reports: Pre-Existing Deficit, Difficulty Walking, Weakness, Gait Disturbance. Denies: Confusion Hematologic/Lymphatic: Reports: No Symptoms Immunologic: Reports: No Symptoms Exam - Exam Exam: See Below - Vital Signs Vital Signs: Last Vital Signs Temp 36.5 C 11/27/16 18:05 Pulse 68 11/27/16 18:05 Resp 20 11/27/16 18:05 BP 204/88 H 11/27/16 18:05 Pulse Ox 91 L 11/27/16 18:05 Weight: 57.198 kg - Exam Quality Assessment: No: Supplemental Oxygen General: Alert, Cooperative, Other (Awake). No: Mild Distress HEENT: Conjunctiva Clear, EACs Clear, Mucosa Moist & [place], Nares Patent, Normal Nasal Septum, Posterior Pharynx Clear, Pupils Equal, Pupils Reactive. No: Hearing Intact Neck: Supple, Trachea Midline. No: Full Range of Motion, JVD Lungs: Normal Respiratory Effort, Decreased Breath Sounds Cardiovascular: Regular Rate, Regular Rhythm GI/Abdominal Exam: Normal Bowel Sounds, Soft, Non-Tender, No Organomegaly, No Distention, No Abnormal Bruit, No Mass (Male) Exam: Deferred Rectal (Males) Exam: Deferred Back Exam: Normal Inspection, Decreased Range of Motion Extremities: Normal Inspection, Normal Range of Motion, Non-Tender, No Pedal Edema, Normal Capillary Refill Skin: Warm, Intact Neuro Extensive - Mental Status: Normal Mood/Affect, Slow Response to Commands Neuro Extensive - Motor, Sensory, Reflexes: CN II-XII Intact (very limited but intact), Abnormal Gait Psychiatric: Alert, Normal Mood. No: Normal Affect, Suicidal Ideation, Homicidal Ideation, Hallucinations - Patient Data Result Diagrams: 11/28/16 06:03 11/28/16 06:03 EKG INTERPRETATION EKG Date: 11/27/16 Rhythm: Other (Sinus Rhytm With PVCs) Rate (Beats/Min): 64 *Q Meaningful Use (ADM) - VTE *Q VTE Criteria *Q: - Stroke *Q Stroke Criteria *Q: - AMI *Q AMI Criteria *Q: Problem List Initiated/Reviewed/Updated: Yes Orders Last 24hrs: Active Orders 24 hr Category Date Time Status RT Aerosol Therapy [RC] ASDIRECTED Care 11/27/16 23:03 Active Consult to Case Management [CONS] Routine Cons 11/27/16 23:03 Active Consult to Home Energy Auditor [CONS] Routine Cons 11/27/16 23:03 Active Consult to Spiritual Care [CONS] Routine Cons 11/27/16 23:03 Active OT Evaluation and Treatment [CONS] Routine Cons 11/27/16 23:03 Active PT Evaluation and Treatment [CONS] Routine Cons 11/27/16 23:03 Active METH-RESIST S.AUR,MRSA BY PCR [MOLEC] Routine Lab 11/28/16 00:01 Uncollected Albuterol Med 11/28/16 09:00 Ordered 2 puff INH TID Aspirin [Halfprin] Med 11/28/16 09:00 Ordered 81 mg PO BID Budesonide [Pulmicort Flexhaler] Med 11/28/16 09:00 Ordered 2 puff INH BID Carboxymethylcellulose Sodium Med 11/27/16 23:15 Ordered 1 each OP ASDIRECTED Carvedilol [Coreg] Med 11/28/16 09:00 Ordered 6.25 mg PO BID Clopidogrel [Plavix] Med 11/28/16 09:00 Ordered 75 mg PO DAILY Cyanocobalamin (Vitamin B12) [Vitamin B12] Med 11/27/16 23:15 Ordered 1,000 mcg IM ASDIRECTED Cyclobenzaprine [Flexeril] Med 11/27/16 23:08 Active 5 mg PO TID PRN Dextran 70/Hypromellose [Artificial Tears] Med 11/28/16 09:00 Ordered 1 drop EYEBOTH QID Docusate Sodium [Stool Softener] Med 11/28/16 09:00 Ordered 2 tab PO DAILY Donepezil Med 11/28/16 21:00 Ordered 10 mg PO BEDTIME Ezetimibe [Zetia] Med 11/28/16 09:00 Ordered 10 mg PO DAILY Finasteride [Proscar] Med 11/28/16 09:00 Ordered 5 mg PO DAILY Folic Acid Med 11/28/16 09:00 Ordered 1 mg PO DAILY Isosorbide Mononitrate [Imdur] Med 11/28/16 09:00 Ordered 30 mg PO DAILY LORazepam [Ativan] Med 11/27/16 23:07 Active 2 mg IVPUSH Q4H PRN Latanoprost [Xalatan 0.005% Ophth Soln] Med 11/28/16 21:00 Ordered DOSE ml EYEBOTH BEDTIME Magnesium Rep Pharmacy to Dose [Pharmacy to Dose - Med 11/27/16 23:15 Ordered Magnesium Replacement] 1 dose .XX ASDIRECTED Melatonin [Melatonin] Med 11/28/16 21:00 Ordered 10 mg PO BEDTIME Memantine [Namenda] Med 11/28/16 09:00 Ordered 10 mg PO BID Metoprolol Tartrate [Lopressor] Med 11/27/16 23:07 Active 5 mg IVPUSH Q4H PRN Mirabegron [Myrbetriq] Med 11/28/16 09:00 Ordered 50 mg PO DAILY Nitroglycerin [Nitrostat] Med 11/27/16 23:08 Active 0.4 mg SL Q5M PRN Potassium Chloride [Klor-Con 10] Med 11/28/16 09:00 Ordered 10 meq PO DAILY Potassium Rep Pharmacy to Dose [Pharmacy to Dose - Med 11/27/16 23:15 Ordered Potassium Replacement] 1 dose .XX ASDIRECTED Psyllium Husk (With Sugar) [Metamucil Powder] Med 11/28/16 09:00 Ordered 1 tsp PO DAILY Ranitidine HCl Med 11/28/16 09:00 Ordered 150 mg PO BID Ranolazine [Ranexa] Med 11/28/16 09:00 Ordered 500 mg PO BID Sertraline [Zoloft] Med 11/28/16 09:00 Ordered 25 mg PO DAILY Tamsulosin [Flomax] Med 11/28/16 09:00 Ordered 0.4 mg PO BID Temazepam [Restoril] Med 11/27/16 23:08 Active 15 mg PO BEDTIME PRN atorvaSTATin Calcium [Atorvastatin Calcium] Med 11/28/16 09:00 Ordered 80 mg PO DAILY hydrALAZINE [Apresoline] Med 11/27/16 23:07 Active 10 mg IVPUSH Q4H PRN prednisoLONE Acetate [Pred Forte 1% Ophth Susp] Med 11/28/16 09:00 Ordered DOSE ml EYELF DAILY Medication Orders Acetaminophen (Tylenol) 650 mg PO Q4H PRN PRN Reason: Pain (Mild 1-3)/fever Hydrocodone Bitart/Acetaminophen (Benld 325-5 Mg) 1 tab PO Q4H PRN PRN Reason: Pain (moderate 4-6) Albuterol/Ipratropium (Duoneb 3.0-0.5 Mg/3 Ml) 3 ml NEB Q4H PRN PRN Reason: Shortness Of Breath/wheezing Aspirin (Halfprin) 81 mg PO BID [facility] Bisacodyl (Dulcolax) 5 mg PO DAILY PRN PRN Reason: Constipation Carvedilol (Coreg) 6.25 mg PO BID [facility] Clopidogrel Bisulfate (Plavix) 75 mg PO DAILY [facility] Cyanocobalamin (Vitamin B12) 1,000 mcg IM ASDIRECTED [facility] Cyclobenzaprine HCl (Flexeril) 5 mg PO TID PRN PRN Reason: back pain Docusate Sodium (Colace) 100 mg PO BID PRN PRN Reason: Constipation Ezetimibe (Zetia) 10 mg PO DAILY [facility] Finasteride (Proscar) 5 mg PO DAILY [facility] Folic Acid (Folic Acid) 1 mg PO DAILY [facility] Hydralazine HCl (Apresoline) 10 mg IVPUSH Q4H PRN PRN Reason: Hypertension Hydromorphone HCl (Dilaudid) 0.25 mg IVPUSH Q4H PRN PRN Reason: Pain (severe 7-10) Sodium Chloride (Normal Saline) 1,000 mls @ 50 mls/hr IV ASDIRECTED [facility] Last Admin: 11/27/16 19:06 Dose: 50 mls/hr Promethazine HCl 12.5 mg/ (Sodium Chloride) 50.5 mls @ 100 mls/hr IV Q6H PRN PRN Reason: Nausea/Vomiting Isosorbide Mononitrate (Imdur) 30 mg PO DAILY [facility] Latanoprost (Xalatan 0.005% Ophth Soln) ml EYEBOTH BEDTIME [facility] Lorazepam (Ativan) 0.25 mg IV Q6H PRN PRN Reason: Anxiety Lorazepam (Ativan) 2 mg IVPUSH Q4H PRN PRN Reason: Seizures Magnesium Sulfate (Pharmacy To Dose - Magnesium Replacement) 1 dose .XX ASDIRECTED [facility] Memantine (Namenda) 10 mg PO BID [facility] Metoprolol Tartrate (Lopressor) 5 mg IVPUSH Q4H PRN PRN Reason: Tachycardia Nitroglycerin (Nitrostat) 0.4 mg SL Q5M PRN PRN Reason: Chest Pain Non-Formulary Medication (Albuterol) 2 puff INH TID [facility] Non-Formulary Medication (Atorvastatin Calcium [Atorvastatin Calcium]) 80 mg PO DAILY [facility] Non-Formulary Medication (Budesonide [Pulmicort Flexhaler]) 2 puff INH BID [facility] Non-Formulary Medication (Carboxymethylcellulose Sodium) 1 each OP ASDIRECTED [facility] Non-Formulary Medication (Dextran 70/Hypromellose [Artificial Tears]) 1 drop EYEBOTH QID [facility] Non-Formulary Medication (Docusate Sodium [Stool Softener]) 2 tab PO DAILY [facility] Non-Formulary Medication (Donepezil) 10 mg PO BEDTIME [facility] Non-Formulary Medication (Melatonin [Melatonin]) 10 mg PO BEDTIME [facility] Non-Formulary Medication (Mirabegron [Myrbetriq]) 50 mg PO DAILY [facility] Non-Formulary Medication (Psyllium Husk (With Sugar) [Metamucil Powder]) 1 tsp PO DAILY [facility] Non-Formulary Medication (Ranitidine Hcl) 150 mg PO BID [facility] Ondansetron HCl (Zofran) 4 mg IV Q6H PRN PRN Reason: Nausea/Vomiting Polyethylene Glycol (Miralax) 17 gm PO DAILY PRN PRN Reason: Constipation Potassium Chloride (Klor-Con 10) 10 meq PO DAILY [facility] Potassium Chloride (Pharmacy To Dose - Potassium Replacement) 1 dose .XX ASDIRECTED [facility] Prednisolone Acetate (Pred Forte 1% Ophth Susp) ml EYELF DAILY [facility] Ranolazine (Ranexa) 500 mg PO BID [facility] Senna/Docusate Sodium (Senna Plus) 1 tab PO BID PRN PRN Reason: Constipation Sertraline HCl (Zoloft) 25 mg PO DAILY [facility] Sodium Chloride (Saline Flush) 10 ml FLUSH ASDIRECTED PRN PRN Reason: Keep Vein Open Last Admin: 11/27/16 19:09 Dose: 10 ml Tamsulosin HCl (Flomax) 0.4 mg PO BID [facility] Temazepam (Restoril) 15 mg PO BEDTIME PRN PRN Reason: Insomnia Assessment/Plan Comment:: Assessment/Plan: Acute: AMS with Hallucinations - Iatrogenic from Dilaudid he got from ED - Risk factor: Advanced Dementia - Monitor Intractable Pain S/P Fall - All imaging studies shows no acute fracture - PRN Pain Meds - Fall Precautions Malignant HTN - Documented BP of 204/88 mmHg - Likely from physical stress and pain after the fall and - PRN Anti-hypertensive Meds - Resume Home BP Meds High Risk Fall and PolyPharmacy Chronic: Impaired Vision/Hearing Left Eye Blindness Hypertension Hyperlipidemia CAD/AL S/p CABG PVD/PAD Angina COPD Lung nodule emphysema GERD Stricture and Stenosis of Esophagus Bilateral Inguinal Hernia BPH Macrocytosis Chronic Back Pain Osteoarthritis/DJD Sciatica Spinal Stenosis Impaired Memory/Dementia Peripheral Neuropathy TIA Hyperglycemia Insomnia Vitamin B12 Deficiency Plan: Admit to Med-Surg Routine AM Labs Resume Homed Meds PRN Pain Meds PT/OT consult SW/CM for d/c planning Recommend NH placement Additional orders as above Code status: 1
[2016-11-28] MEDS: Acetaminophen 325 MG Tab PO PRN ×2 (01:17→18:39)
--- NOTE | 2016-11-28 07:23 | CR ---
Chest: Portable view of the chest was obtained. Comparison: Previous chest x-ray of 11/10/16 and 01/31/16. Chronic apical pleural thickening is seen with apical scarring. Lungs otherwise are clear. Blunting of the costophrenic angles are seen which appear stable. Heart size at the upper limits of normal. Sternotomy wires are seen. Coronary artery stent is present. Previous CABG is noted. Surgical clips are seen within the upper abdomen. Impression: 1. Nothing acute is appreciated on portable chest x-ray. Findings as described above which are felt to be chronic. Diagnostic code #2
--- NOTE | 2016-11-28 08:29 | CR ---
Pelvis: AP view of the pelvis was obtained. Comparison: Previous AP pelvis study of 10/24/16. Bilateral hip prosthesis are seen. Previous vertebroplasty noted within the lower lumbar spine. Bony structures are osteopenic. No acute fracture or other abnormality is seen. Impression: 1. Stable AP pelvis study from prior exam. Nothing acute is identified. Diagnostic code #2
[2016-11-28] MEDS: Albuterol 6.7 GM Inhaler *** PATIENT'S OWN INH SCH ×3 (08:48→20:12)
[2016-11-28] MEDS: Fluticasone Propionate 220 MCG/Puff 12 GM Inhaler INH SCH ×2 (08:48→20:12)
[2016-11-28] MEDS ORDERED: Rosuvastatin 10 MG Tab PO SCH (09:00)
[2016-11-28] MEDS ORDERED: Cyanocobalamin (Vitamin B12) 1,000 MCG/ML SDV IM ONE (09:00)
[2016-11-28] MEDS ORDERED: Famotidine 20 MG Tab PO SCH (09:00)
[2016-11-28] MEDS ORDERED: Hypromellose 0.5% Ophth Soln 15 ML Bottle EYEBOTH SCH (09:00)
[2016-11-28] MEDS ORDERED: CYCLOBENZAPRINE 10 MG PO PRN (09:00)
[2016-11-28] MEDS ORDERED: Sertraline 25 MG Tab PO SCH (09:00)
[2016-11-28] MEDS ORDERED: POLYETHYLENE GLYCOL 238 GM PO PRN (09:15)
[2016-11-28] MEDS: RANOLAZINE 500 MG PO SCH ×2 (10:35→21:41)
[2016-11-28] MEDS: ASPIRIN 81 MG PO SCH ×2 (10:36→21:40)
[2016-11-28] MEDS: POTASSIUM CHLORIDE 10 MEQ PO SCH (10:36)
[2016-11-28] MEDS: CLOPIDOGREL 75 MG PO SCH (10:37)
[2016-11-28] MEDS: MEMANTINE 10 MG PO SCH ×2 (10:37→21:40)
[2016-11-28] MEDS: FOLIC ACID 1 MG PO SCH (10:38)
[2016-11-28] MEDS: FINASTERIDE 5 MG PO SCH (10:39)
[2016-11-28] MEDS: EZETIMIBE 10 MG PO SCH (10:39)
[2016-11-28] MEDS: ISOSORBIDE MONONITRATE 30 MG PO SCH (10:39)
[2016-11-28] MEDS: CARVEDILOL 6.25 MG PO SCH ×2 (10:40→21:37)
[2016-11-28] MEDS: TAMSULOSIN 0.4 MG PO SCH ×2 (10:40→21:39)
[2016-11-28] MEDS: [UNRECOGNIZED DRUG - OTHER] EYEBOTH SCH ×4 (10:42→21:42)
[2016-11-28] MEDS: PREDNISOLONE ACETATE 1% EYELF SCH (10:44)
[2016-11-28] MEDS: Psyllium Husk Powder Sugar Free 3.4 GM Packet PO SCH (10:45)
[2016-11-28] MEDS: Hypromellose 0.5% Ophth Soln 15 ML Bottle EYELF SCH ×5 (11:17→21:28)
--- NOTE | 2016-11-28 11:32 | PCM.PN ---
- General Info Date of Service: 11/28/16 Admission Dx/Problem (Free Text): Intractable Pain Status Post Fall Functional Status: Reports: Pain Controlled, Tolerating Diet, Urinating - Review of Systems General: Reports: Weakness, Other (tired) Pulmonary: Reports: No Symptoms Cardiovascular: Reports: No Symptoms Gastrointestinal: Reports: No Symptoms Neurological: Reports: Confusion, Trouble Speaking, Weakness Systems Review Comment:: Patient is laying in bed with family at bedside. Patient does not list any complaints although he is very difficult to communicate with as he is very sleepy. Family reports patient received Flexeril last night and Dilaudid in the ER prior. Combined with his baseline dementia this appears to have caused an iatrogenic confusion\sedation. In researching this further it appears patient is on Flexeril at [facility] as it is part of his regular home med list. Patient is taking home medications and this had been given prior to this episode. Family reports last time patient took Flexeril he had similar episode along with multiple hypotensive episodes. Pressures have been good here. - Patient Data Vitals - Most Recent: Last Vital Signs Temp 97.3 F 11/28/16 11:21 Pulse 92 11/28/16 11:21 Resp 16 11/28/16 11:21 BP 159/72 H 11/28/16 11:21 Pulse Ox 94 L 11/28/16 11:21 Weight - Most Recent: 126 lb 1.6 oz I&O - Last 24 Hours: Intake & Output 11/27/16 11/28/16 11/28/16 22:59 06:59 14:59 Intake Total 307 Output Total 0 Balance 307 Lab Results Last 24 Hours: Laboratory Results - last 24 hr 11/28/16 11/28/16 11/28/16 Range/Units 00:14 06:03 06:03 WBC 11.99 H (4.23-9.07) K/mm3 RBC 3.83 L (4.63-6.08) M/mm3 Hgb 13.0 L (13.7-17.5) gm/L Hct 39.4 L (40.1-51.0) % MCV 102.9 H (79.0-92.2) fl MCH 33.9 H (25.7-32.2) pg MCHC 33.0 (32.2-35.5) g/dl RDW Std Deviation 50.6 H (35.1-43.9) fL Plt Count 164 (163-337) K/mm3 MPV 8.9 L (9.4-12.3) fl Neut % (Auto) 83.8 H (34.0-67.9) % Lymph % (Auto) 8.0 L (21.8-53.1) % [place] % (Auto) 5.6 (5.3-12.2) % Eos % (Auto) 1.8 (0.8-7.0) Baso % (Auto) 0.2 (0.1-1.2) % Neut # (Auto) 10.06 H (1.78-5.38) K/mm3 Lymph # (Auto) 0.96 L (1.32-3.57) K/mm3 [place] # (Auto) 0.67 (0.30-0.82) K/mm3 Eos # (Auto) 0.21 (0.04-0.54) K/mm3 Baso # (Auto) 0.02 (0.01-0.08) K/mm3 Manual Slide Review Abnormal smear Sodium 142 (136-145) mEq/L Potassium 3.8 (3.5-5.1) mEq/L Chloride 107 (98-107) mEq/L Carbon Dioxide 26 (21-32) mEq/L Anion Gap 12.8 (5-15) BUN 19 H (7-18) mg/dL Creatinine 1.0 (0.7-1.3) mg/dL Est Cr Clr Drug Dosing 44.70 mL/min Estimated GFR (MDRD) > 60 (>60) mL/min BUN/Creatinine Ratio 19.0 H (14-18) Glucose 111 (83-115) mg/dL Calcium 8.7 (8.5-10.1) mg/dL Magnesium 1.8 (1.8-2.4) mg/dl MRSA (PCR) Negative Med Orders - Current: Current Medications Acetaminophen (Tylenol) 650 mg PO Q4H PRN PRN Reason: Pain (Mild 1-3)/fever Last Admin: 11/28/16 01:17 Dose: 650 mg Hydrocodone Bitart/Acetaminophen ([place] 325-5 Mg) 1 tab PO Q4H PRN PRN Reason: Pain (moderate 4-6) Albuterol (Proventil Hfa) 0 gm INH TIDRT [facility] Last Admin: 11/28/16 08:48 Dose: 2 puff Albuterol/Ipratropium (Duoneb 3.0-0.5 Mg/3 Ml) 3 ml NEB Q4H PRN PRN Reason: Shortness Of Breath/wheezing Artificial Tears (Isopto Tears 0.5% Ophth Soln) 0 ml EYELF Q3H [facility] Last Admin: 11/28/16 11:17 Dose: Not Given Aspirin (Halfprin) 81 mg PO BID [facility] Last Admin: 11/28/16 10:36 Dose: 81 mg Bisacodyl (Dulcolax) 5 mg PO DAILY PRN PRN Reason: Constipation Carvedilol (Coreg) 6.25 mg PO BID [facility] Last Admin: 11/28/16 10:40 Dose: 6.25 mg Clopidogrel Bisulfate (Plavix) 75 mg PO DAILY [facility] Last Admin: 11/28/16 10:37 Dose: 75 mg Docusate Sodium (Colace) 100 mg PO BID PRN PRN Reason: Constipation Docusate Sodium (Colace) 200 mg PO DAILY@1700 [facility] Donepezil HCl (Aricept) 10 mg PO BEDTIME [facility] Ezetimibe (Zetia) 10 mg PO DAILY [facility] Last Admin: 11/28/16 10:39 Dose: 10 mg Finasteride (Proscar) 5 mg PO DAILY [facility] Last Admin: 11/28/16 10:39 Dose: 5 mg Fluticasone Propionate (Flovent Hfa 220 Mcg) 0 gm INH BIDRT [facility] Last Admin: 11/28/16 08:48 Dose: 1 puff Folic Acid (Folic Acid) 1 mg PO DAILY [facility] Last Admin: 11/28/16 10:38 Dose: 1 mg Hydralazine HCl (Apresoline) 10 mg IVPUSH Q4H PRN PRN Reason: Hypertension Hydromorphone HCl (Dilaudid) 0.25 mg IVPUSH Q4H PRN PRN Reason: Pain (severe 7-10) Sodium Chloride (Normal Saline) 1,000 mls @ 50 mls/hr IV ASDIRECTED [facility] Last Admin: 11/27/16 19:06 Dose: 50 mls/hr Promethazine HCl 12.5 mg/ (Sodium Chloride) 50.5 mls @ 100 mls/hr IV Q6H PRN PRN Reason: Nausea/Vomiting Isosorbide Mononitrate (Imdur) 30 mg PO DAILY [facility] Last Admin: 11/28/16 10:39 Dose: 30 mg Latanoprost (Xalatan 0.005% Ophth Soln) 0 ml EYEBOTH BEDTIME [facility] Lorazepam (Ativan) 0.25 mg IV Q6H PRN PRN Reason: Anxiety Lorazepam (Ativan) 2 mg IVPUSH Q4H PRN PRN Reason: Seizures Magnesium Sulfate (Pharmacy To Dose - Magnesium Replacement) 1 dose .XX ASDIRECTED [facility] Memantine (Namenda) 10 mg PO BID [facility] Last Admin: 11/28/16 10:37 Dose: 10 mg Metoprolol Tartrate (Lopressor) 5 mg IVPUSH Q4H PRN PRN Reason: Tachycardia Nitroglycerin (Nitrostat) 0.4 mg SL Q5M PRN PRN Reason: Chest Pain Ondansetron HCl (Zofran) 4 mg IV Q6H PRN PRN Reason: Nausea/Vomiting Melatonin 10 Mg 0 each PO BEDTIME [facility] Mirabegron [ (Myrbetriq] 50 Mg) 0 each PO BEDTIME [facility] Cyclobenzaprine 10 Mg Tab Patient's Own 0 each PO TID PRN PRN Reason: back pain Atorvastatin 80 Mg 0 each PO DAILY@1999 [facility] Ranitidine 150 Mg 0 each PO BID [facility] Systane Dropperettes 0 each EYEBOTH QID [facility] Last Admin: 11/28/16 10:42 Dose: 1 each Polyethylene Glycol (Miralax) 17 gm PO DAILY PRN PRN Reason: Constipation Potassium Chloride (Klor-Con 10) 10 meq PO DAILY [facility] Last Admin: 11/28/16 10:36 Dose: 10 meq Potassium Chloride (Pharmacy To Dose - Potassium Replacement) 1 dose .XX ASDIRECTED [facility] Prednisolone Acetate (Pred Forte 1% Oph Susp) 0 ml EYELF DAILY [facility] Last Admin: 11/28/16 10:44 Dose: 1 drop Psyllium Husk (Metamucil Sugar Free) 0 packet PO DAILY [facility] Last Admin: 11/28/16 10:45 Dose: 1 packet Ranolazine (Ranexa) 500 mg PO BID [facility] Last Admin: 11/28/16 10:35 Dose: 500 mg Senna/Docusate Sodium (Senna Plus) 1 tab PO BID PRN PRN Reason: Constipation Sertraline HCl (Zoloft) 25 mg PO DAILY@1999 [facility] Sodium Chloride (Saline Flush) 10 ml FLUSH ASDIRECTED PRN PRN Reason: Keep Vein Open Last Admin: 11/27/16 19:09 Dose: 10 ml Tamsulosin HCl (Flomax) 0.4 mg PO BID [facility] Last Admin: 11/28/16 10:40 Dose: 0.4 mg Temazepam (Restoril) 15 mg PO BEDTIME PRN PRN Reason: Insomnia Discontinued Medications Artificial Tears (Isopto Tears 0.5% Ophth Soln) 0 ml EYEBOTH QID [facility] Last Admin: 11/28/16 11:16 Dose: Not Given Cyanocobalamin (Vitamin B12) 1,000 mcg IM ONETIME ONE Stop: 11/28/16 09:01 Last Admin: 11/28/16 10:33 Dose: Not Given Cyclobenzaprine HCl (Flexeril) 5 mg PO TID PRN PRN Reason: back pain Last Admin: 11/28/16 01:18 Dose: 5 mg Famotidine (Pepcid) 20 mg PO BID [facility] Last Admin: 11/28/16 11:16 Dose: Not Given Hydromorphone HCl (Dilaudid) 0.25 mg IVPUSH ONETIME ONE Stop: 11/27/16 18:50 Last Admin: 11/27/16 19:07 Dose: 0.25 mg Polyethylene Glycol (Miralax) 17 gm PO DAILY PRN PRN Reason: Constipation Rosuvastatin Calcium (Crestor) 20 mg PO DAILY [facility] Last Admin: 11/28/16 11:16 Dose: Not Given Sertraline HCl (Zoloft) 25 mg PO DAILY [facility] Temazepam (Restoril) 7.5 mg PO BEDTIME PRN PRN Reason: Sleep - Exam Quality Assessment: DVT Prophylaxis General: Cooperative, No Acute Distress, Sedated (Is able to be roused) HEENT: Pupils Equal, Pupils Reactive, Mucous Membr. Moist/Platter Neck: Supple, Trachea Midline, No JVD Lungs: Clear to Auscultation, Normal Respiratory Effort Cardiovascular: Regular Rate, Regular Rhythm GI/Abdominal Exam: Normal Bowel Sounds, Soft, Non-Tender, No Distention, No Mass (Male) Exam: Deferred Back Exam: Normal Inspection Extremities: Normal Inspection, No Pedal Edema, Normal Capillary Refill, Limited Range of Motion Peripheral Pulses: 1+: Posterior Tibial (L), Posterior Tibial (R), Dorsalis Pedis (L), Dorsalis Pedis (R), 2+: Radial (L), Radial (R) Skin: Warm, Dry, Intact Neurological: Other (Patient is more sedated than he was when seen in the ER.) Psy/Mental Status: Other (Difficult to assess due to sedated state.) Physical Findings Comments:: Patient does respond to questions however it is difficult to understand his responses. He does move extremities, squeeze fingers, etc. 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 was given home medicine Flexeril overnight. It appears this causes hallucinations and confusion in patient as well. Family reports this has happened in the past with this. Will D/C flexeril and continue to monitor. - Nursing reports patient was very active during shower and reportedly thought he was falling. Patient likely also tired for physical activity. Will monitor and consider provigil in AM. Intractable Pain S/P Fall - All imaging studies shows no acute fracture - PRN Pain Meds - Fall Precautions - Reassess when mental status returns to baseline. Malignant HTN - resolved - Documented BP of 204/88 mmHg - Likely from physical stress and pain after the fall and - PRN Anti-hypertensive Meds - Resume Home BP Meds - B/Ps throughout day today were good. High Risk Fall and PolyPharmacy Chronic: Impaired Vision/Hearing Left Eye Blindness Hypertension Hyperlipidemia CAD/NE S/p CABG PVD/PAD Angina COPD Lung nodule emphysema GERD Stricture and Stenosis of Esophagus Bilateral Inguinal Hernia BPH Macrocytosis Chronic Back Pain Osteoarthritis/DJD Sciatica Spinal Stenosis Impaired Memory/Dementia Peripheral Neuropathy TIA Hyperglycemia Insomnia Vitamin B12 Deficiency Plan: Admit to Med-Surg Routine AM Labs Resume Homed Meds PRN Pain Meds PT/OT consult SW/CM for d/c planning Recommend NH placement Additional orders as above Code status: 1
[2016-11-28] MEDS: DOCUSATE SODIUM 100 MG PO SCH (18:27)
[2016-11-28] MEDS ORDERED: PULMICORT FLEXHALER 180 MCG INH SCH (21:00)
[2016-11-28] MEDS: ATORVASTATIN 80 MG PO SCH (21:36)
[2016-11-28] MEDS: SERTRALINE 25 MG PO SCH (21:36)
[2016-11-28] MEDS: DONEPEZIL 10 MG PO SCH (21:37)
[2016-11-28] MEDS: Mirabegron [Myrbetriq] 50 MG PO SCH (21:40)
[2016-11-28] MEDS: RANITIDINE 150 MG PO SCH (21:41)
[2016-11-28] MEDS: Latanoprost 0.005% Ophth Soln 2.5 ML Bottle EYEBOTH SCH (21:47)
[2016-11-29] MEDS: Hypromellose 0.5% Ophth Soln 15 ML Bottle EYELF SCH ×8 (02:40→22:17)
[2016-11-29] MEDS: Fluticasone Propionate 220 MCG/Puff 12 GM Inhaler INH SCH ×2 (05:52→20:00)
[2016-11-29] MEDS: Albuterol 6.7 GM Inhaler *** PATIENT'S OWN INH SCH ×3 (05:52→20:00)
--- NOTE | 2016-11-29 07:28 | PCM.PN ---
- General Info Date of Service: 11/29/16 Admission Dx/Problem (Free Text): Intractable Pain Status Post Fall Subjective Update: While in to visit with the patient it was noted he was having difficulty talking. It was discovered daughter had attempted to insert patient's dentures and utilize too much glue. Nursing assisted in removing glue from patient's mouth. Patient although still confused, was then able to communicate slightly better. I had a lengthy discussion with the family about the patient's prognosis and course of disease. They agreed with me that at this time the patient would likely benefit from SNF treatment. He is unable to walk on his own. He has increased pain with movement. He has a difficult time eating. His diet has been changed recently as well. Family is currently filling out paperwork for placement at [facility]. From a medical standpoint the patient is doing very well. He is more alert than he has been prior and he denies severe pain unless he is moving. Unfortunately many medications have a negative effect on this patient. I will attempt a lidocaine patch and see if this can decrease the patient's pain. Ultimately I feel the patient would benefit from SNF placement. drop worker is attempting to arrange placement. Pending acceptance, I feel the patient will likely be medically stable to be discharged to SNF tomorrow. Functional Status: Reports: Pain Controlled (when lying in bed) - Review of Systems General: Reports: Fatigue, Other (baseline confusion). Denies: Fever, Weakness HEENT: Reports: No Symptoms Pulmonary: Reports: No Symptoms Cardiovascular: Reports: No Symptoms Gastrointestinal: Reports: No Symptoms Genitourinary: Reports: No Symptoms Musculoskeletal: Reports: Back Pain (chronic, with movement ), Other (hip pain with movement. PT utilized ice pack which seemed to help.) Skin: Reports: No Symptoms Neurological: Reports: Confusion (baseline ), Trouble Speaking, Difficulty Walking, Weakness, Gait Disturbance, Other (When nursing attempts to move patient he reports that he is "falling" ). Denies: Dizziness, Headache, Numbness Psychiatric: Reports: Confusion (baseline ). Denies: Depression, Mood Lability , Anxiety, Agitation Systems Review Comment:: Patient is more responsive today. He does answer questions appropriately although he is difficult to understand and sometimes his questions do not make sense. Family is in the room with him. - Patient Data Vitals - Most Recent: Last Vital Signs Temp 97.5 F 11/29/16 02:58 Pulse 73 11/29/16 02:58 Resp 20 11/29/16 02:58 BP 112/64 11/29/16 02:58 Pulse Ox 92 L 11/29/16 05:56 Weight - Most Recent: 129 lb 1.6 oz I&O - Last 24 Hours: Intake & Output 11/28/16 11/29/16 11/29/16 22:59 06:59 14:59 Intake Total 1100 60 Output Total 350 300 Balance 750 -240 Lab Results Last 24 Hours: Laboratory Results - last 24 hr 11/28/16 11/28/16 11/29/16 Range/Units 06:03 06:03 05:51 WBC (4.23-9.07) K/mm3 RBC (4.63-6.08) M/mm3 Hgb (13.7-17.5) gm/L Hct (40.1-51.0) % MCV (79.0-92.2) fl MCH (25.7-32.2) pg MCHC (32.2-35.5) g/dl RDW Std Deviation (35.1-43.9) fL Plt Count (163-337) K/mm3 MPV (9.4-12.3) fl Neut % (Auto) (34.0-67.9) % Lymph % (Auto) (21.8-53.1) % [place] % (Auto) (5.3-12.2) % Eos % (Auto) (0.8-7.0) Baso % (Auto) (0.1-1.2) % Neut # (Auto) (1.78-5.38) K/mm3 Lymph # (Auto) (1.32-3.57) K/mm3 [place]ctor # (Auto) (0.30-0.82) K/mm3 Eos # (Auto) (0.04-0.54) K/mm3 Baso # (Auto) (0.01-0.08) K/mm3 Manual Slide Review Abnormal smear Sodium 142 142 (136-145) mEq/L Potassium 3.8 3.8 (3.5-5.1) mEq/L Chloride 107 107 (98-107) mEq/L Carbon Dioxide 26 26 (21-32) mEq/L Anion Gap 12.8 12.8 (5-15) BUN 19 H 18 (7-18) mg/dL Creatinine 1.0 0.8 (0.7-1.3) mg/dL Est Cr Clr Drug Dosing 44.70 55.92 mL/min Estimated GFR (MDRD) > 60 > 60 (>60) mL/min BUN/Creatinine Ratio 19.0 H 22.5 H (14-18) Glucose 111 113 (83-115) mg/dL Calcium 8.7 8.6 (8.5-10.1) mg/dL Magnesium 1.8 1.8 (1.8-2.4) mg/dl 11/29/16 Range/Units 05:51 WBC 10.58 H (4.23-9.07) K/mm3 RBC 3.64 L (4.63-6.08) M/mm3 Hgb 12.3 L (13.7-17.5) gm/L Hct 37.7 L (40.1-51.0) % MCV 103.6 H (79.0-92.2) fl MCH 33.8 H (25.7-32.2) pg MCHC 32.6 (32.2-35.5) g/dl RDW Std Deviation 52.0 H (35.1-43.9) fL Plt Count 138 L (163-337) K/mm3 MPV 9.0 L (9.4-12.3) fl Neut % (Auto) 81.4 H (34.0-67.9) % Lymph % (Auto) 8.3 L (21.8-53.1) % Ector % (Auto) 7.1 (5.3-12.2) % Eos % (Auto) 2.6 (0.8-7.0) Baso % (Auto) 0.2 (0.1-1.2) % Neut # (Auto) 8.62 H (1.78-5.38) K/mm3 Lymph # (Auto) 0.88 L (1.32-3.57) K/mm3 [place]ctor # (Auto) 0.75 (0.30-0.82) K/mm3 Eos # (Auto) 0.27 (0.04-0.54) K/mm3 Baso # (Auto) 0.02 (0.01-0.08) K/mm3 Manual Slide Review Sodium (136-145) mEq/L Potassium (3.5-5.1) mEq/L Chloride (98-107) mEq/L Carbon Dioxide (21-32) mEq/L Anion Gap (5-15) BUN (7-18) mg/dL Creatinine (0.7-1.3) mg/dL Est Cr Clr Drug Dosing mL/min Estimated GFR (MDRD) (>60) mL/min BUN/Creatinine Ratio (14-18) Glucose (83-115) mg/dL Calcium (8.5-10.1) mg/dL Magnesium (1.8-2.4) mg/dl Med Orders - Current: Current Medications Acetaminophen (Tylenol) 650 mg PO Q4H PRN PRN Reason: Pain (Mild 1-3)/fever Last Admin: 11/28/16 18:39 Dose: 650 mg Hydrocodone Bitart/Acetaminophen ([place] 325-5 Mg) 1 tab PO Q4H PRN PRN Reason: Pain (moderate 4-6) Albuterol (Proventil Hfa) 0 gm INH TIDRT [facility] Last Admin: 11/29/16 05:52 Dose: 2 puff Albuterol/Ipratropium (Duoneb 3.0-0.5 Mg/3 Ml) 3 ml NEB Q4H PRN PRN Reason: Shortness Of Breath/wheezing Last Admin: 11/28/16 22:43 Dose: 3 ml Artificial Tears (Isopto Tears 0.5% Ophth Soln) 0 ml EYELF Q3H [facility] Last Admin: 11/29/16 06:48 Dose: Not Given Aspirin (Halfprin) 81 mg PO BID [facility] Last Admin: 11/28/16 21:40 Dose: 81 mg Bisacodyl (Dulcolax) 5 mg PO DAILY PRN PRN Reason: Constipation Carvedilol (Coreg) 6.25 mg PO BID [facility] Last Admin: 11/28/16 21:37 Dose: 6.25 mg Clopidogrel Bisulfate (Plavix) 75 mg PO DAILY [facility] Last Admin: 11/28/16 10:37 Dose: 75 mg Docusate Sodium (Colace) 100 mg PO BID PRN PRN Reason: Constipation Docusate Sodium (Colace) 200 mg PO DAILY@1700 [facility] Last Admin: 11/28/16 18:27 Dose: 200 mg Donepezil HCl (Aricept) 10 mg PO BEDTIME [facility] Last Admin: 11/28/16 21:37 Dose: 10 mg Ezetimibe (Zetia) 10 mg PO DAILY [facility] Last Admin: 11/28/16 10:39 Dose: 10 mg Finasteride (Proscar) 5 mg PO DAILY [facility] Last Admin: 11/28/16 10:39 Dose: 5 mg Fluticasone Propionate (Flovent Hfa 220 Mcg) 0 gm INH BIDRT [facility] Last Admin: 11/29/16 05:52 Dose: 1 puff Folic Acid (Folic Acid) 1 mg PO DAILY [facility] Last Admin: 11/28/16 10:38 Dose: 1 mg Hydralazine HCl (Apresoline) 10 mg IVPUSH Q4H PRN PRN Reason: Hypertension Hydromorphone HCl (Dilaudid) 0.25 mg IVPUSH Q4H PRN PRN Reason: Pain (severe 7-10) Promethazine HCl 12.5 mg/ (Sodium Chloride) 50.5 mls @ 100 mls/hr IV Q6H PRN PRN Reason: Nausea/Vomiting Isosorbide Mononitrate (Imdur) 30 mg PO DAILY [facility] Last Admin: 11/28/16 10:39 Dose: 30 mg Latanoprost (Xalatan 0.005% [facility] Sol) 0 ml EYEBOTH BEDTIME [facility] Last Admin: 11/28/16 21:47 Dose: Not Given Lorazepam (Ativan) 0.25 mg IV Q6H PRN PRN Reason: Anxiety Lorazepam (Ativan) 2 mg IVPUSH Q4H PRN PRN Reason: Seizures Magnesium Sulfate (Pharmacy To Dose - Magnesium Replacement) 1 dose .XX ASDIRECTED [facility] Memantine (Namenda) 10 mg PO BID [facility] Last Admin: 11/28/16 21:40 Dose: 10 mg Metoprolol Tartrate (Lopressor) 5 mg IVPUSH Q4H PRN PRN Reason: Tachycardia Nitroglycerin (Nitrostat) 0.4 mg SL Q5M PRN PRN Reason: Chest Pain Ondansetron HCl (Zofran) 4 mg IV Q6H PRN PRN Reason: Nausea/Vomiting Melatonin 10 Mg 0 each PO BEDTIME [facility] Last Admin: 11/28/16 21:40 Dose: 1 each Mirabegron [ (Myrbetriq] 50 Mg) 0 each PO BEDTIME [facility] Last Admin: 11/28/16 21:40 Dose: 1 each Atorvastatin 80 Mg 0 each PO DAILY@1999 [facility] Last Admin: 11/28/16 21:36 Dose: 1 each Ranitidine 150 Mg 0 each PO BID [facility] Last Admin: 11/28/16 21:41 Dose: 1 each Systane Dropperettes 0 each EYEBOTH QID [facility] Last Admin: 11/28/16 21:42 Dose: 1 each Polyethylene Glycol (Miralax) 17 gm PO DAILY PRN PRN Reason: Constipation Potassium Chloride (Klor-Con 10) 10 meq PO DAILY [facility] Last Admin: 11/28/16 10:36 Dose: 10 meq Potassium Chloride (Pharmacy To Dose - Potassium Replacement) 1 dose .XX ASDIRECTED [facility] Prednisolone Acetate (Pred Forte 1% Ophth Susp) 0 ml EYELF DAILY [facility] Last Admin: 11/28/16 10:44 Dose: 1 drop Psyllium Husk (Metamucil Sugar Free) 0 packet PO DAILY [facility] Last Admin: 11/28/16 10:45 Dose: 1 packet Ranolazine (Ranexa) 500 mg PO BID [facility] Last Admin: 11/28/16 21:41 Dose: 500 mg Senna/Docusate Sodium (Senna Plus) 1 tab PO BID PRN PRN Reason: Constipation Sertraline HCl (Zoloft) 25 mg PO DAILY@1999 [facility] Last Admin: 11/28/16 21:36 Dose: 25 mg Sodium Chloride (Saline Flush) 10 ml FLUSH ASDIRECTED PRN PRN Reason: Keep Vein Open Last Admin: 11/27/16 19:09 Dose: 10 ml Tamsulosin HCl (Flomax) 0.4 mg PO BID [facility] Last Admin: 11/28/16 21:39 Dose: 0.4 mg Temazepam (Restoril) 15 mg PO BEDTIME PRN PRN Reason: Insomnia Discontinued Medications Artificial Tears (Isopto Tears 0.5% Ophth Soln) 0 ml EYEBOTH QID [facility] Last Admin: 11/28/16 11:16 Dose: Not Given Cyanocobalamin (Vitamin B12) 1,000 mcg IM ONETIME ONE Stop: 11/28/16 09:01 Last Admin: 11/28/16 10:33 Dose: Not Given Cyclobenzaprine HCl (Flexeril) 5 mg PO TID PRN PRN Reason: back pain Last Admin: 11/28/16 01:18 Dose: 5 mg Famotidine (Pepcid) 20 mg PO BID [facility] Last Admin: 11/28/16 11:16 Dose: Not Given Hydromorphone HCl (Dilaudid) 0.25 mg IVPUSH ONETIME ONE Stop: 11/27/16 18:50 Last Admin: 11/27/16 19:07 Dose: 0.25 mg Sodium Chloride (Normal Saline) 1,000 mls @ 50 mls/hr IV ASDIRECTED [facility] Last Admin: 11/27/16 19:06 Dose: 50 mls/hr Cyclobenzaprine 10 Mg Tab Patient's Own 0 each PO TID PRN PRN Reason: back pain Polyethylene Glycol (Miralax) 17 gm PO DAILY PRN PRN Reason: Constipation Rosuvastatin Calcium (Crestor) 20 mg PO DAILY [facility] Last Admin: 11/28/16 11:16 Dose: Not Given Sertraline HCl (Zoloft) 25 mg PO DAILY [facility] Temazepam (Restoril) 7.5 mg PO BEDTIME PRN PRN Reason: Sleep - Exam Quality Assessment: DVT Prophylaxis General: Alert, Cooperative, Other (Somewhat confused) HEENT: Pupils Equal, Pupils Reactive, Mucous Membr. Moist/[place] Neck: Supple, Trachea Midline, No JVD Lungs: Clear to Auscultation, Normal Respiratory Effort Cardiovascular: Regular Rate, Regular Rhythm GI/Abdominal Exam: Normal Bowel Sounds, Non-Tender, No Distention (Male) Exam: Deferred Back Exam: Decreased Range of Motion, Paraspinal Tenderness, Vertebral Tenderness Extremities: Normal Inspection, No Pedal Edema, Limited Range of Motion Peripheral Pulses: 2+: Radial (L), Radial (R), Posterior Tibial (L), Posterior Tibial (R), Dorsalis Pedis (L), Dorsalis Pedis (R) Skin: Warm, Dry, Intact Neurological: No New Focal Deficit. No: Normal Gait, Normal Speech Psy/Mental Status: Alert, Normal Affect. No: Depressed, Agitated Physical Findings Comments:: Patient examined while lying in bed. He is essentially unchanged from yesterday. - Problem List & Annotations (1) Syncope and collapse SNOMED Code(s): 463801496 Code(s): R55 - SYNCOPE AND COLLAPSE Status: Resolved Priority: High Current Visit: Yes (2) Polypharmacy SNOMED Code(s): 525520603 Code(s): Z79.899 - OTHER [facility] (CURRENT) DRUG THERAPY Status: Chronic Priority: High Current Visit: Yes (3) Altered mental status SNOMED Code(s): 509105713 Code(s): R41.82 - ALTERED MENTAL STATUS, UNSPECIFIED Status: Acute Priority: High Current Visit: Yes Qualifiers: Altered mental status type: unspecified Qualified Code(s): R41.82 - Altered mental status, unspecified - Problem List Review Problem List Initiated/Reviewed/Updated: Yes - My Orders Last 24 Hours: My Active Orders 11/29/16 05:51 CBC WITH AUTO DIFF [HEME] Routine - Plan Plan:: Assessment/Plan: Acute: AMS with Hallucinations- Improved - Iatrogenic from Dilaudid he got from ED - Risk factor: Advanced Dementia - Monitor - Pt. was given home medicine Flexeril overnight. It appears this causes hallucinations and confusion in patient as well. Family reports this has happened in the past with this. Will D/C flexeril and continue to monitor. - Nursing reports patient was very active during shower and reportedly thought he was falling. Patient likely also tired for physical activity. - Patient now much more alert and responsive, although still confused. When nursing attempts to move patient he reports he is "falling" Intractable Pain S/P Fall - All imaging studies shows no acute fracture - PRN Pain Meds - Fall Precautions - Reassess when mental status returns to baseline. -Will attempt lidocane patch as patient is very sensitive to pain medicine and muscle relaxers. Malignant HTN - resolved - Documented BP of 204/88 mmHg - Likely from physical stress and pain after the fall and - PRN Anti-hypertensive Meds - Resume Home BP Meds - B/Ps throughout day today were good. High Risk Fall and PolyPharmacy Chronic: Impaired Vision/Hearing Left Eye Blindness Hypertension Hyperlipidemia CAD/KS S/p CABG PVD/PAD Angina COPD Lung nodule emphysema GERD Stricture and Stenosis of Esophagus Bilateral Inguinal Hernia BPH Macrocytosis Chronic Back Pain Osteoarthritis/DJD Sciatica Spinal Stenosis Impaired Memory/Dementia Peripheral Neuropathy TIA Hyperglycemia Insomnia Vitamin B12 Deficiency Plan: Admit to Med-Surg Routine AM Labs Resume Homed Meds PRN Pain Meds PT/OT consult SW/CM for d/c planning Recommend NH placement - planning on discharge tomorrow to SNF pending placement Additional orders as above Code status: 1
[2016-11-29] MEDS: Acetaminophen 325 MG Tab PO PRN ×2 (07:39→21:07)
[2016-11-29] MEDS: CARVEDILOL 6.25 MG PO SCH ×2 (08:59→21:18)
[2016-11-29] MEDS: FOLIC ACID 1 MG PO SCH (09:00)
[2016-11-29] MEDS: ASPIRIN 81 MG PO SCH ×2 (09:00→21:19)
[2016-11-29] MEDS: TAMSULOSIN 0.4 MG PO SCH ×2 (09:00→21:19)
[2016-11-29] MEDS: ISOSORBIDE MONONITRATE 30 MG PO SCH (09:01)
[2016-11-29] MEDS: POTASSIUM CHLORIDE 10 MEQ PO SCH (09:01)
[2016-11-29] MEDS: Psyllium Husk Powder Sugar Free 3.4 GM Packet PO SCH (09:01)
[2016-11-29] MEDS: MEMANTINE 10 MG PO SCH ×2 (09:02→21:19)
[2016-11-29] MEDS: FINASTERIDE 5 MG PO SCH (09:02)
[2016-11-29] MEDS: CLOPIDOGREL 75 MG PO SCH (09:02)
[2016-11-29] MEDS: RANITIDINE 150 MG PO SCH ×2 (09:02→21:21)
[2016-11-29] MEDS: RANOLAZINE 500 MG PO SCH ×2 (09:03→21:21)
[2016-11-29] MEDS: EZETIMIBE 10 MG PO SCH (09:08)
[2016-11-29] MEDS: [UNRECOGNIZED DRUG - OTHER] EYEBOTH SCH ×4 (09:09→21:28)
[2016-11-29] MEDS: PREDNISOLONE ACETATE 1% EYELF SCH (09:09)
[2016-11-29] MEDS ORDERED: Modafinil 200 MG Tab PO SCH (10:45)
[2016-11-29] MEDS ORDERED: Lidocaine 5% 700 MG Patch TOP ONE (14:30)
[2016-11-29] MEDS: DOCUSATE SODIUM 100 MG PO SCH (17:06)
[2016-11-29] MEDS: SERTRALINE 25 MG PO SCH (21:12)
[2016-11-29] MEDS: ATORVASTATIN 80 MG PO SCH (21:12)
[2016-11-29] MEDS: DONEPEZIL 10 MG PO SCH (21:13)
[2016-11-29] MEDS: Mirabegron [Myrbetriq] 50 MG PO SCH (21:21)
[2016-11-29] MEDS: Latanoprost 0.005% Ophth Soln 2.5 ML Bottle EYEBOTH SCH (21:39)
[2016-11-30] MEDS: Hypromellose 0.5% Ophth Soln 15 ML Bottle EYELF SCH ×4 (01:20→11:40)
[2016-11-30] MEDS: Albuterol 6.7 GM Inhaler *** PATIENT'S OWN INH SCH (05:42)
[2016-11-30] MEDS: Fluticasone Propionate 220 MCG/Puff 12 GM Inhaler INH SCH (05:42)
[2016-11-30] MEDS: RANOLAZINE 500 MG PO SCH (09:57)
[2016-11-30] MEDS: [UNRECOGNIZED DRUG - OTHER] EYEBOTH SCH ×2 (09:57→12:40)
[2016-11-30] MEDS: RANITIDINE 150 MG PO SCH (09:57)
[2016-11-30] MEDS: FINASTERIDE 5 MG PO SCH (09:58)
[2016-11-30] MEDS: CLOPIDOGREL 75 MG PO SCH (09:58)
[2016-11-30] MEDS: PREDNISOLONE ACETATE 1% EYELF SCH (09:58)
[2016-11-30] MEDS: POTASSIUM CHLORIDE 10 MEQ PO SCH (09:59)
[2016-11-30] MEDS: MEMANTINE 10 MG PO SCH (09:59)
[2016-11-30] MEDS: ISOSORBIDE MONONITRATE 30 MG PO SCH (09:59)
[2016-11-30] MEDS: CARVEDILOL 6.25 MG PO SCH (10:00)
[2016-11-30] MEDS: ASPIRIN 81 MG PO SCH (10:00)
[2016-11-30] MEDS: FOLIC ACID 1 MG PO SCH (10:00)
[2016-11-30] MEDS: Psyllium Husk Powder Sugar Free 3.4 GM Packet PO SCH (10:01)
[2016-11-30] MEDS: EZETIMIBE 10 MG PO SCH (10:01)
[2016-11-30] MEDS: TAMSULOSIN 0.4 MG PO SCH (10:02)
[2016-11-30] MEDS: Acetaminophen 325 MG Tab PO PRN (10:04)
--- NOTE | 2016-11-30 12:39 | PCM.DCSUM1 ---
Discharge Summary - Hospital Course Free Text/Narrative:: This is an 86 yo elderly white male with past medical hx/o Impaired Vision/ Hearing, Left Eye Blindness, Hypertension, Hyperlipidemia, CAD/MD, PVD/PAD, Angina, COPD, Lung nodule, GERD, Stricture and Stenosis of Esophagus, Bilateral Inguinal Hernia, BPH, Macrocytosis, Chronic Back Pain, Osteoarthritis/DJD, Sciatica, Spinal Stenosis, Impaired Memory/Dementia, Peripheral Neuropathy, TIA , Hyperglycemia, and Vitamin B12 Deficiency who presents to ED with complaints of right hip, posterior head, left elbow pain status post fall. Patient was on his way to the bathroom using his walker when he fell backwards landing on his right hip and hitting his left elbow and head. He denies any loss of consciousness. He is unable to tell why he fell. He was however able to get back up on his own after a long struggle and proceeded to walk back to his room but then again he fell for the second time. Patient carries a history of unsteady gait. He uses a wheeled walker to get around. His initial workup in the emergency department shows a CBC remarkable for WBCs of 11.18, RBC of 4.09, MCV of 102.9, MCH of 33.7, RDW of 50.4, neutrophils of 84.1%, lymphocytes of 8.8%, monocytes of 5.1%, and eosinophils of 0.7%. His chemistry is remarkable for BUN of 19 and glucose of 123. His UA is negative for UTI. Head CT scan report reads nothing acute is appreciated. Pelvic and chest x-ray report reads no acute abnormal findings. Patient is being admitted for intractable pain status post fall and altered mental status and failure to thrive living alone. He is full code. Labs were followed and stable. VS remained stable during his stay. Once he started eating/appetite improved ultimately mental status improved as well. He worked with PT/OT/ST. ST recommended NDD3 diet with thickened liquids, PT recommends 2 assist with all transfers and SNF for rehab stay. For a period of time he was alexis lift transfer only as he was too weak; this resolved. Memory impairment is significant, specifically for short term impairment. [facility] with hopes to return to [facility]. At this point, time will be determining factor if he will improve enough to safely return to live independently. He is to follow up with PCP, Dr. Coyle within a week of discharge. - Discharge Data Discharge Date: 11/30/16 (admit date 11/27/16) Discharge Disposition: DC/Tfer to SNF 03 Condition: Fair - Discharge Diagnosis/Problem(s) (1) Multiple falls SNOMED Code(s): 906292830 ICD Code: R29.6 - REPEATED FALLS Status: Acute Priority: High Current Visit: Yes (2) Altered mental status SNOMED Code(s): 684476160 ICD Code: R41.82 - ALTERED MENTAL STATUS, UNSPECIFIED Status: Acute Priority: High Current Visit: Yes Qualifiers: Altered mental status type: unspecified Qualified Code(s): R41.82 - Altered mental status, unspecified (3) Polypharmacy SNOMED Code(s): 044386369 ICD Code: Z79.899 - OTHER 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 (CURRENT) DRUG THERAPY Status: Chronic Priority: High Current Visit: Yes (4) Arthritis SNOMED Code(s): 0811850 ICD Code: M19.90 - UNSPECIFIED OSTEOARTHRITIS, UNSPECIFIED SITE Status: Chronic Priority: Medium Current Visit: Yes (5) Anemia SNOMED Code(s): 405420425 ICD Code: D64.9 - ANEMIA, UNSPECIFIED Status: Chronic Priority: Medium Current Visit: No Qualifiers: Anemia type: unspecified type Qualified Code(s): D64.9 - Anemia, unspecified (6) Hypotension SNOMED Code(s): 00647701 ICD Code: I95.9 - HYPOTENSION, UNSPECIFIED Status: Resolved Priority: High Current Visit: Yes Qualifiers: Hypotension type: orthostatic hypotension Qualified Code(s): I95.1 - Orthostatic hypotension (7) Adult failure to thrive SNOMED Code(s): 150294623 ICD Code: R62.7 - ADULT FAILURE TO THRIVE Status: Acute Priority: High Current Visit: Yes - Patient Summary/Data Operative Procedure(s) Performed: None Complications: None Consults: Consultations 11/27/16 23:03 Consult to Case Management [CONS] Routine Consult to Plant Tour Guide [CONS] Routine Consult to Spiritual Care [CONS] Routine OT Evaluation and Treatment [CONS] Routine PT Evaluation and Treatment [CONS] Routine 11/28/16 09:22 Consult to Speech Language Pathology [CATTLE DRIVER Evaluation and Treatment] [CONS] Routine Labs Pending at D/C: None Recommended Follow-up Testing/Procedures: DC instructions: Supplemental oxygen to keep sats greater than 90% Physical & Occupational & Speech Therapies to eval & treat Diet recommendation per CATTLE DRIVER is dysphagia diet level three, soft foods, bread okay and honey thick liquids, meds crushed & with pudding or applesauce. Follow up with PCP, Dr. Coyle within one week of discharge. Planned Operative Procedure(s) after DC: None Hospital Course: As above - Patient Instructions Diet: Heart Healthy Diet Diet, Other: NDD3 as noted above Activity: As Tolerated (PT/OT/ST to continue) Driving: Do Not Drive Showering/Bathing: May Shower Notify Provider of: Fever, Increased Pain, Nausea and/or Vomiting - Discharge Plan Home Medications: Home Meds Aspirin [Adult Low Dose Aspirin EC] 81 mg PO BID 08/11/15 [History] Clopidogrel Bisulfate [Plavix] 75 mg PO DAILY 08/11/15 [History] Donepezil [Aricept] 10 mg PO BEDTIME 08/11/15 [History] Ezetimibe [Zetia] 10 mg PO DAILY 08/11/15 [History] Finasteride [Proscar] 5 mg PO DAILY 08/11/15 [History] Latanoprost [Xalatan 0.005% Ophth Soln] 1 drop EYEBOTH BEDTIME 08/11/15 [History ] Ranolazine [Ranexa] 500 mg PO BIDMEALS 08/11/15 [History] Tamsulosin HCl 0.4 mg PO BID 08/11/15 [History] atorvaSTATin Calcium [Atorvastatin Calcium] 80 mg PO DAILY 08/11/15 [History] Cyanocobalamin (Vitamin B-12) [Cyanocobalamin Injection] 1,000 mcg IJ ASDIRECTED 01/31/16 [History] Nitroglycerin [Nitrostat] 0.4 mg SL Q5M PRN 01/31/16 [History] Ranitidine HCl [Zantac] 150 mg PO BID 01/31/16 [History] Sertraline [Zoloft] 12.5 mg PO DAILY 01/31/16 [History] Carvedilol [Coreg] 6.25 mg PO BID 09/05/16 [History] Melatonin 10 mg PO BEDTIME 09/05/16 [History] Mirabegron [Myrbetriq] 50 mg PO DAILY 09/05/16 [History] Docusate Sodium [Stool Softener] 2 tab PO DAILY 09/09/16 [History] Temazepam [Restoril] 15 mg PO BEDTIME PRN 09/09/16 [History] prednisoLONE Acetate [Prednisolone Acetate] 1 drop EYELF DAILY 09/09/16 [History ] Albuterol [Ventolin HFA] 2 puff INH TID 09/17/16 [History] Budesonide [Pulmicort Flexhaler] 2 puff INH BID 09/17/16 [History] Dextran 70/Hypromellose [Artificial Tears] 1 drop EYEBOTH QID PRN 09/17/16 [ History] Potassium Chloride [Klor-Con 10] 10 meq PO DAILY 09/17/16 [History] Psyllium Husk (With Sugar) [Metamucil Powder] 1 tsp PO DAILY 09/17/16 [History] Albuterol [Ventolin HFA] 1 puff INH Q4H PRN 11/10/16 [History] Carboxymethylcellulose Sodium [Retaine Cmc] 1 each OP ASDIRECTED 11/10/16 [ History] Folic Acid 1 mg PO DAILY 11/10/16 [History] Isosorbide Mononitrate [Imdur] 30 mg PO DAILY 11/10/16 [History] Polyethylene Glycol 3350 [MiraLAX] 17 gm PO Q72H 11/10/16 [History] Memantine [Namenda] 10 mg PO BID 11/27/16 [History] Acetaminophen [Acetaminophen ER] 1,300 mg PO Q8HR #0 11/30/16 [Rx] Acetaminophen [Tylenol] 650 mg PO Q4H PRN #0 tablet 11/30/16 [Rx] Patient Handouts: Thickening Liquids for Dysphagia Diet, Aspiration Precautions , Confusion, Back Pain, Adult, [id number], Dysphagia Diet Level 3, Mechanically Advanced Forms: ED Department Discharge Referrals: Indu Coyle MD [Primary Care Provider] - - Discharge Summary/Plan Comment DC Time >30 min.: Yes (40 min) - General Info Date of Service: 11/30/16 Admission Dx/Problem (Free Text: Intractable Pain Status Post Fall Patient seen this morning sitting up in chair, NIGHTMUTE. States pain to right hip. He is eating, tolerating meals well. Family present in room states mental status improved significantly yesterday after he started eating again. He has been up with therapy today, did much better today. Plans for dc to SNF today for rehabilitation. Functional Status: Reports: Tolerating Diet, Ambulating (assist of 2 and walker) , Urinating - Review of Systems General: Reports: Weakness. Denies: Fever HEENT: Reports: No Symptoms Pulmonary: Reports: No Symptoms, Cough (occasional). Denies: Shortness of Breath Cardiovascular: Denies: Chest Pain Gastrointestinal: Denies: Abdominal Pain Musculoskeletal: Reports: Shoulder Pain, Back Pain, Leg Pain, Other (all chronic arthritis pain) Neurological: Reports: Confusion (dementia- short term memory loss/confusion) - Patient Data Vitals - Most Recent: Last Vital Signs Temp 97.7 F 11/30/16 04:05 Pulse 69 11/30/16 10:00 Resp 16 11/30/16 04:05 BP 173/86 H 11/30/16 10:00 Pulse Ox 95 11/30/16 05:42 Weight - Most Recent: 132 lb 4.014 oz I&O - Last 24 hours: Intake & Output 11/29/16 11/30/16 11/30/16 22:59 06:59 14:59 Intake Total 460 100 120 Output Total 300 200 Balance 160 -100 120 Lab Results - Last 24 hrs: Laboratory Results - last 24 hr 11/30/16 Range/Units 05:35 Sodium 143 (136-145) mEq/L Potassium 3.7 (3.5-5.1) mEq/L Chloride 108 H (98-107) mEq/L Carbon Dioxide 27 (21-32) mEq/L Anion Gap 11.7 (5-15) BUN 25 H (7-18) mg/dL Creatinine 1.0 (0.7-1.3) mg/dL Est Cr Clr Drug Dosing 45.82 mL/min Estimated GFR (MDRD) > 60 (>60) mL/min BUN/Creatinine Ratio 25.0 H (14-18) Glucose 148 H (83-115) mg/dL Calcium 8.3 L (8.5-10.1) mg/dL Magnesium 1.7 L (1.8-2.4) mg/dl Med Orders - Current: Current Medications Acetaminophen (Tylenol) 650 mg PO Q4H PRN PRN Reason: Pain (Mild 1-3)/fever Last Admin: 11/30/16 10:04 Dose: 650 mg Hydrocodone Bitart/Acetaminophen ([place] 325-5 Mg) 1 tab PO Q4H PRN PRN Reason: Pain (moderate 4-6) Albuterol (Proventil Hfa) 0 gm INH TIDRT [facility] Last Admin: 11/30/16 05:42 Dose: 2 puff Albuterol/Ipratropium (Duoneb 3.0-0.5 Mg/3 Ml) 3 ml NEB Q4H PRN PRN Reason: Shortness Of Breath/wheezing Last Admin: 11/28/16 22:43 Dose: 3 ml Artificial Tears (Isopto Tears 0.5% Ophth Soln) 0 ml EYELF Q3H [facility] Last Admin: 11/30/16 09:51 Dose: 1 drop Aspirin (Halfprin) 81 mg PO BID [facility] Last Admin: 11/30/16 10:00 Dose: 81 mg Bisacodyl (Dulcolax) 5 mg PO DAILY PRN PRN Reason: Constipation Carvedilol (Coreg) 6.25 mg PO BID [facility] Last Admin: 11/30/16 10:00 Dose: 6.25 mg Clopidogrel Bisulfate (Plavix) 75 mg PO DAILY [facility] Last Admin: 11/30/16 09:58 Dose: 75 mg Docusate Sodium (Colace) 100 mg PO BID PRN PRN Reason: Constipation Docusate Sodium (Colace) 200 mg PO DAILY@1700 [facility] Last Admin: 11/29/16 17:06 Dose: Not Given Donepezil HCl (Aricept) 10 mg PO BEDTIME [facility] Last Admin: 11/29/16 21:13 Dose: 10 mg Ezetimibe (Zetia) 10 mg PO DAILY [facility] Last Admin: 11/30/16 10:01 Dose: 10 mg Finasteride (Proscar) 5 mg PO DAILY [facility] Last Admin: 11/30/16 09:58 Dose: 5 mg Fluticasone Propionate (Flovent Hfa 220 Mcg) 0 gm INH BIDRT [facility] Last Admin: 11/30/16 05:42 Dose: 1 puff Folic Acid (Folic Acid) 1 mg PO DAILY [facility] Last Admin: 11/30/16 10:00 Dose: 1 mg Hydralazine HCl (Apresoline) 10 mg IVPUSH Q4H PRN PRN Reason: Hypertension Hydromorphone HCl (Dilaudid) 0.25 mg IVPUSH Q4H PRN PRN Reason: Pain (severe 7-10) Promethazine HCl 12.5 mg/ (Sodium Chloride) 50.5 mls @ 100 mls/hr IV Q6H PRN PRN Reason: Nausea/Vomiting Isosorbide Mononitrate (Imdur) 30 mg PO DAILY [facility] Last Admin: 11/30/16 09:59 Dose: 30 mg Latanoprost (Xalatan 0.005% [facility] Soln) 0 ml EYEBOTH BEDTIME [facility] Last Admin: 11/29/16 21:39 Dose: Not Given Lorazepam (Ativan) 0.25 mg IV Q6H PRN PRN Reason: Anxiety Lorazepam (Ativan) 2 mg IVPUSH Q4H PRN PRN Reason: Seizures Magnesium Sulfate (Pharmacy To Dose - Magnesium Replacement) 1 dose .XX ASDIRECTED [facility] Memantine (Namenda) 10 mg PO BID [facility] Last Admin: 11/30/16 09:59 Dose: 10 mg Metoprolol Tartrate (Lopressor) 5 mg IVPUSH Q4H PRN PRN Reason: Tachycardia Nitroglycerin (Nitrostat) 0.4 mg SL Q5M PRN PRN Reason: Chest Pain Ondansetron HCl (Zofran) 4 mg IV Q6H PRN PRN Reason: Nausea/Vomiting Melatonin 10 Mg 0 each PO BEDTIME [facility] Last Admin: 11/29/16 21:21 Dose: 1 each Mirabegron [ (Myrbetriq] 50 Mg) 0 each PO BEDTIME [facility] Last Admin: 11/29/16 21:21 Dose: 1 each Atorvastatin 80 Mg 0 each PO DAILY@1999 [facility] Last Admin: 11/29/16 21:12 Dose: 1 each Ranitidine 150 Mg 0 each PO BID [facility] Last Admin: 11/30/16 09:57 Dose: 1 each Systane Dropperettes 0 each EYEBOTH QID [facility] Last Admin: 11/30/16 09:57 Dose: 1 each Polyethylene Glycol (Miralax) 17 gm PO DAILY PRN PRN Reason: Constipation Potassium Chloride (Klor-Con 10) 10 meq PO DAILY [facility] Last Admin: 11/30/16 09:59 Dose: 10 meq Potassium Chloride (Pharmacy To Dose - Potassium Replacement) 1 dose .XX ASDIRECTED [facility] Prednisolone Acetate (Pred Forte 1% Ophth Susp) 0 ml EYELF DAILY [facility] Last Admin: 11/30/16 09:58 Dose: 1 drop Psyllium Husk (Metamucil Sugar Free) 0 packet PO DAILY [facility] Last Admin: 11/30/16 10:01 Dose: Not Given Ranolazine (Ranexa) 500 mg PO BID [facility] Last Admin: 11/30/16 09:57 Dose: 500 mg Senna/Docusate Sodium (Senna Plus) 1 tab PO BID PRN PRN Reason: Constipation Sertraline HCl (Zoloft) 25 mg PO DAILY@1999 [facility] Last Admin: 11/29/16 21:12 Dose: 25 mg Sodium Chloride (Saline Flush) 10 ml FLUSH ASDIRECTED PRN PRN Reason: Keep Vein Open Last Admin: 11/27/16 19:09 Dose: 10 ml Tamsulosin HCl (Flomax) 0.4 mg PO BID [facility] Last Admin: 11/30/16 10:02 Dose: 0.4 mg Temazepam (Restoril) 15 mg PO BEDTIME PRN PRN Reason: Insomnia Discontinued Medications Artificial Tears (Isopto Tears 0.5% Ophth Soln) 0 ml EYEBOTH QID [facility] Last Admin: 11/28/16 11:16 Dose: Not Given Cyanocobalamin (Vitamin B12) 1,000 mcg IM ONETIME ONE Stop: 11/28/16 09:01 Last Admin: 11/28/16 10:33 Dose: Not Given Cyclobenzaprine HCl (Flexeril) 5 mg PO TID PRN PRN Reason: back pain Last Admin: 11/28/16 01:18 Dose: 5 mg Famotidine (Pepcid) 20 mg PO BID [facility] Last Admin: 11/28/16 11:16 Dose: Not Given Hydromorphone HCl (Dilaudid) 0.25 mg IVPUSH ONETIME ONE Stop: 11/27/16 18:50 Last Admin: 11/27/16 19:07 Dose: 0.25 mg Sodium Chloride (Normal Saline) 1,000 mls @ 50 mls/hr IV ASDIRECTED [facility] Last Admin: 11/27/16 19:06 Dose: 50 mls/hr Lidocaine (Lidoderm 5%) 700 mg TOP ONETIME ONE Stop: 11/29/16 14:31 Last Admin: 11/29/16 15:23 Dose: 700 mg Miscellaneous Information (Remove Patch) 0 ea TRDERM ONETIME ONE Stop: 11/29/16 02:31 Last Admin: 11/29/16 15:38 Dose: Not Given Modafinil (Provigil) 100 mg PO ONETIME [facility] Cyclobenzaprine 10 Mg Tab Patient's Own 0 each PO TID PRN PRN Reason: back pain Polyethylene Glycol (Miralax) 17 gm PO DAILY PRN PRN Reason: Constipation Rosuvastatin Calcium (Crestor) 20 mg PO DAILY [facility] Last Admin: 11/28/16 11:16 Dose: Not Given Sertraline HCl (Zoloft) 25 mg PO DAILY [facility] Temazepam (Restoril) 7.5 mg PO BEDTIME PRN PRN Reason: Sleep - Exam Quality Assessment: Reports: DVT Prophylaxis General: Reports: Alert, Cooperative, No Acute Distress HEENT: Reports: Pupils Equal, EOMI, Mucous Membr. Moist/[place], Other (NIGHTMUTE) Neck: Reports: Supple Lungs: Reports: Normal Respiratory Effort, Decreased Breath Sounds (bases) Cardiovascular: Reports: Regular Rate, Regular Rhythm GI/Abdominal Exam: Normal Bowel Sounds, Soft, Non-Tender (Male) Exam: Deferred Rectal (Males) Exam: Deferred Back Exam: Reports: Normal Inspection Extremities: Normal Inspection, No Pedal Edema, Normal Capillary Refill Skin: Reports: Warm, Dry Neurological: Reports: No New Focal Deficit, Other (short term memory loss; did not recall he was in hospital or why) Psy/Mental Status: Reports: Alert, Normal Affect, Normal Mood *Q Meaningful Use (DIS) - VTE *Q VTE Criteria *Q: - Stroke *Q Stroke Criteria *Q: - AMI *Q AMI Criteria *Q:
[2016-11-30] MEDS ORDERED: Potassium Chloride 20 MEQ Tab.ER PO SCH (12:45)
[2016-11-30] MEDS ORDERED: Magnesium Oxide 400 MG Tab PO ONE (13:00)
[2016-11-30 13:53] VITALS: BP 114/59
== END 2016-11-30 15:15 ==
LOC: JD.ED 17:59 → JD.MS 23:02 → INTOOBSV 23:02 → JD.MS 23:18
PROVIDERS: ADMIT Internal Medicine; ATTEND Internal Medicine
DX: R41.82 Altered mental status, unspecified (principal); R55 Syncope and collapse; R29.6 Repeated falls; M19.90 Unspecified osteoarthritis, unspecified site; D64.9 Anemia, unspecified; I95.1 Orthostatic hypotension; R62.7 Adult failure to thrive; I25.10 Atherosclerotic heart disease of native coronary artery without angina pectoris; I10 Essential (primary) hypertension; E78.00 Pure hypercholesterolemia, unspecified; I73.9 Peripheral vascular disease, unspecified; K21.9 Gastro-esophageal reflux disease without esophagitis; G45.9 Transient cerebral ischemic attack, unspecified; N40.0 Benign prostatic hyperplasia without lower urinary tract symptoms; E53.8 Deficiency of other specified B group vitamins; Z79.899 Other long term (current) drug therapy; Z79.82 Long term (current) use of aspirin; Z88.8 Allergy status to other drugs, medicaments and biological substances; Z95.5 Presence of coronary angioplasty implant and graft; Z98.890 Other specified postprocedural states; Z96.649 Presence of unspecified artificial hip joint; Z87.891 Personal history of nicotine dependence
CPT/HCPCS: 36415; 70450; 71010; 72170; 80048; 80053; 81001; 83735; 84484; 85025; 87641; 92526; 92610; 93005; 94640; 94664; 94760; 94761; 96361; 96374; 97110; 97163; 97167; 97530; 99285; A9270; J1170; J7040; J7050; P9612; G0378

== ENCOUNTER 2016-12-02 20:52 | Observation (INO) | payer MEDICARE, BC ==
[2016-12-02] MEDS ORDERED: Sodium Chloride 0.9% 10 ML Syringe FLUSH PRN (21:27)
[2016-12-02] MEDS ORDERED: Sodium Chloride 0.9% 500 ML IV SCH (21:30)
[2016-12-02] MEDS ORDERED: Sodium Chloride 0.9% 1,000 ML IV SCH (23:00)
--- NOTE | 2016-12-02 23:20 | EDM.PDOC ---
ED HPI GENERAL MEDICAL PROBLEM - General Chief Complaint: General Stated Complaint: [facility] Time Seen by Provider: 12/02/16 21:01 Source of Information: Reports: Patient History Limitations: Reports: No Limitations - History of Present Illness INITIAL COMMENTS - FREE TEXT/NARRATIVE: The patient presents with lethargy and decreased intake. The patient was recently admitted to [facility] after an admission here. He fell at home and hurt his right hip and he was confused. He did not have a fracture of his hip. He was sent to [facility] for therapy and he needed thickened liquids because of dysphagia. He has not been eating or drinking much at the long-term and he has been more sleepy and lethargic according to family. He denies fever, chills, cough, congestion, headache, chest pain, abdominal pain, nausea, vomiting, and dysuria. His urine is very dark. The patient does have dementia. Onset: Gradual Duration: Day(s): Severity: Moderate Improves with: 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 Worsens with: 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 Context: Reports: Activity (Decreased activity) Associated Symptoms: Denies: Chest Pain, Cough, Fever/Chills, Headaches, Nausea/ Vomiting, Shortness of Breath Generalized Pain Score (Numeric/FACES): 5 - Related Data Allergies Allergy/AdvReac Type Severity Reaction Status Date / Time morphine Allergy Cannot Verified 12/02/16 20:59 Remember DANY Inhibitors AdvReac Change Verified 12/02/16 20:59 Mental Status hydromorphone [From Dilaudid] AdvReac Hallucinati Verified 12/02/16 20:59 ons Home Meds: Home Meds Aspirin [Adult Low Dose Aspirin EC] 81 mg PO BID 08/11/15 [History] Clopidogrel Bisulfate [Plavix] 75 mg PO DAILY 08/11/15 [History] Donepezil [Aricept] 10 mg PO BEDTIME 08/11/15 [History] Ezetimibe [Zetia] 10 mg PO DAILY 08/11/15 [History] Finasteride [Proscar] 5 mg PO DAILY 08/11/15 [History] Latanoprost [Xalatan 0.005% Ophth Soln] 1 drop EYEBOTH BEDTIME 08/11/15 [History ] Ranolazine [Ranexa] 500 mg PO BIDMEALS 08/11/15 [History] Tamsulosin HCl 0.4 mg PO BID 08/11/15 [History] atorvaSTATin Calcium [Atorvastatin Calcium] 80 mg PO DAILY 08/11/15 [History] Cyanocobalamin (Vitamin B-12) [Cyanocobalamin Injection] 1,000 mcg IJ ASDIRECTED 01/31/16 [History] Nitroglycerin [Nitrostat] 0.4 mg SL Q5M PRN 01/31/16 [History] Ranitidine HCl [Zantac] 150 mg PO BID 01/31/16 [History] Sertraline [Zoloft] 12.5 mg PO DAILY 01/31/16 [History] Carvedilol [Coreg] 6.25 mg PO BID 09/05/16 [History] Melatonin 10 mg PO BEDTIME 09/05/16 [History] Mirabegron [Myrbetriq] 50 mg PO DAILY 09/05/16 [History] Docusate Sodium [Stool Softener] 2 tab PO DAILY 09/09/16 [History] Temazepam [Restoril] 15 mg PO BEDTIME PRN 09/09/16 [History] prednisoLONE Acetate [Prednisolone Acetate] 1 drop EYELF DAILY 09/09/16 [History ] Albuterol [Ventolin HFA] 2 puff INH TID 09/17/16 [History] Budesonide [Pulmicort Flexhaler] 2 puff INH BID 09/17/16 [History] Dextran 70/Hypromellose [Artificial Tears] 1 drop EYEBOTH QID PRN 09/17/16 [ History] Potassium Chloride [Klor-Con 10] 10 meq PO DAILY 09/17/16 [History] Psyllium Husk (With Sugar) [Metamucil Powder] 1 tsp PO DAILY 09/17/16 [History] Albuterol [Ventolin HFA] 1 puff INH Q4H PRN 11/10/16 [History] Carboxymethylcellulose Sodium [Retaine Cmc] 1 each OP ASDIRECTED 11/10/16 [ History] Folic Acid 1 mg PO DAILY 11/10/16 [History] Isosorbide Mononitrate [Imdur] 30 mg PO DAILY 11/10/16 [History] Polyethylene Glycol 3350 [MiraLAX] 17 gm PO Q72H 11/10/16 [History] Memantine [Namenda] 10 mg PO BID 11/27/16 [History] Acetaminophen [Acetaminophen ER] 1,300 mg PO Q8HR #0 11/30/16 [Rx] Acetaminophen [Tylenol] 650 mg PO Q4H PRN #0 tablet 11/30/16 [Rx] Past Medical History HEENT History: Reports: Glaucoma, Hard of Hearing Other HEENT History: glasses, hearing aids, dentures, blind in Left eye Cardiovascular History: Reports: CAD, High Cholesterol, Hypertension, [place], PVD Other Cardiovascular History: angina, peripheral artery disease Respiratory History: Reports: COPD Other Respiratory History: recent pneumonia 06/24/15, lung nodule emphysema Gastrointestinal History: Reports: GERD Other Gastrointestinal History: stricture and stenosis of esophagus, bilateral inguinal hernia Genitourinary History: Reports: BPH Other Genitourinary History: macrocytosis Musculoskeletal History: Reports: Back Pain, Chronic, Osteoarthritis Other Musculoskeletal History: degenerative joint disease, sicatica, spinal stenosis Neurological History: Reports: TIA, Other (See Below) Other Neuro History: memory loss, numbness in legs Psychiatric History: Reports: Dementia Endocrine/Metabolic History: Reports: Other (See Below) Other Endocrine/Metabolic History: hyperglycemia, vitamin b 12 deficiency Hematologic History: 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 Immunologic History: 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 Oncologic (Cancer) History: 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 Dermatologic History: Reports: Other (See Below) Other Dermatologic History: dry scalp - Infectious Disease History Infectious Disease History: Reports: Chicken Pox - Past Surgical History Head Surgeries/Procedures: 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 HEENT Surgical History: Reports: Adenoidectomy, Cataract Surgery, Tonsillectomy Cardiovascular Surgical History: Reports: Carotid Stents, Coronary Artery Bypass GI Surgical History: Reports: Colonoscopy Musculoskeletal Surgical History: Reports: Hip Replacement, Other (See Below) Other Musculoskeletal Surgeries/Procedures:: back surgery Social & Family History - Family History Family Medical History: Unobtainable - Tobacco Use Smoking Status *Q: Unknown Ever Smoked Years of Tobacco use: 40 Packs/Tins Daily: 1 Used Tobacco, but Quit: Yes Month Tobacco Last Used: Quit 1989 Second Hand Smoke Exposure: No - Caffeine Use Caffeine Use: Reports: Coffee - Recreational Drug Use Recreational Drug Use: No - Living Situation & Occupation Living situation: Reports: , Assisted Living ([place]) Occupation: Retired ED ROS GENERAL - Review of Systems Review Of Systems: See Below Constitutional: Reports: No Symptoms HEENT: Reports: No Symptoms Respiratory: Reports: No Symptoms Cardiovascular: Reports: No Symptoms Endocrine: Reports: No Symptoms GI/Abdominal: Reports: Anorexia. Denies: Abdominal Pain, Diarrhea, Nausea, Vomiting : Reports: No Symptoms Musculoskeletal: Reports: Other (Right hip pain) ED EXAM, GENERAL - Physical Exam Exam: See Below Exam Limited By: No Limitations General Appearance: Other (Sleepy but easily arroused and cooperative) Ears: Normal External Exam Nose: Normal Inspection Throat/Mouth: Other (Dry mucus membranes) Head: Atraumatic, Normocephalic Neck: Normal Inspection Respiratory/Chest: No Respiratory Distress, Lungs Clear, Normal Breath Sounds Cardiovascular: Regular Rate, Rhythm, No Edema, No Murmur GI/Abdominal: Soft, Non-Tender, No Organomegaly, No Mass Back Exam: Normal Inspection Extremities: Other (Pain upon palpation to the right hip) Neurological: Alert, Oriented, No Motor/Sensory Deficits EKG INTERPRETATION EKG Date: 12/02/16 Time: 21:44 Rhythm: Other (sinus bradycardia) Rate (Beats/Min): 58 [place]: LAD-Left [place] Deviation P-Wave: Present QRS: Wide (Nonspecific IVCD) ST-T: Normal QT: Normal Course - Vital Signs Last Recorded V/S: Last Vital Signs Temp 98.6 F 12/02/16 20:54 Pulse 99 12/02/16 20:54 Resp 18 12/02/16 20:54 BP 184/74 H 12/02/16 20:54 Pulse Ox 98 12/02/16 20:54 - Orders/Labs/Meds Orders: Active Orders 24 hr Category Date Time Status Cardiac Monitoring [RC] . DIRECTED Care 12/02/16 21:27 Active EKG Documentation Completion [RC] STAT Care 12/02/16 21:28 Active Oxygen Therapy [RC] PRN Care 12/02/16 21:27 Active Peripheral IV Care [RC] . DIRECTED Care 12/02/16 21:27 Active Chest 1V Frontal [CR] Stat Exams 12/02/16 21:28 Taken Head wo Cont [CT] Stat Exams 12/02/16 21:28 Taken Hip wo Cont Rt [CT] Stat Exams 12/02/16 21:29 Taken Sodium Chloride 0.9% [Normal Saline] 1,000 ml Med 12/02/16 23:00 Active IV ASDIRECTED Sodium Chloride 0.9% [Normal Saline] 500 ml Med 12/02/16 21:30 Active IV .BOLUS Sodium Chloride 0.9% [Saline Flush] Med 12/02/16 21:27 Active 10 ml FLUSH ASDIRECTED PRN Peripheral IV Insertion Adult [OM.PC] Stat Oth 12/02/16 21:27 Ordered Medication Orders Sodium Chloride (Normal Saline) 500 mls @ 1,000 mls/hr IV .BOLUS CODY Last Admin: 12/02/16 21:39 Dose: 1,000 mls/hr Sodium Chloride (Normal Saline) 1,000 mls @ 150 mls/hr IV ASDIRECTED CODY Sodium Chloride (Saline Flush) 10 ml FLUSH ASDIRECTED PRN PRN Reason: Keep Vein Open Last Admin: 12/02/16 21:43 Dose: 10 ml Labs: Laboratory Tests 12/02/16 12/02/16 12/02/16 Range/Units 21:43 21:43 23:09 WBC 7.00 (4.23-9.07) K/mm3 RBC 3.53 L (4.63-6.08) M/mm3 Hgb 12.0 L (13.7-17.5) gm/L Hct 37.2 L (40.1-51.0) % MCV 105.4 H (79.0-92.2) fl MCH 34.0 H (25.7-32.2) pg MCHC 32.3 (32.2-35.5) g/dl RDW Std Deviation 51.1 H (35.1-43.9) fL Plt Count 173 (163-337) K/mm3 MPV 8.7 L (9.4-12.3) fl Neut % (Auto) 66.3 (34.0-67.9) % Lymph % (Auto) 15.7 L (21.8-53.1) % [place] % (Auto) 13.7 H (5.3-12.2) % Eos % (Auto) 3.6 (0.8-7.0) Baso % (Auto) 0.1 (0.1-1.2) % Neut # (Auto) 4.64 (1.78-5.38) K/mm3 Lymph # (Auto) 1.10 L (1.32-3.57) K/mm3 [place] # (Auto) 0.96 H (0.30-0.82) K/mm3 Eos # (Auto) 0.25 (0.04-0.54) K/mm3 Baso # (Auto) 0.01 (0.01-0.08) K/mm3 Manual Slide Review Abnormal smear Sodium 143 (136-145) mEq/L Potassium 4.4 (3.5-5.1) mEq/L Chloride 107 (98-107) mEq/L Carbon Dioxide 32 (21-32) mEq/L Anion Gap 8.4 (5-15) BUN 24 H (7-18) mg/dL Creatinine 1.1 (0.7-1.3) mg/dL Est Cr Clr Drug Dosing TNP Estimated GFR (MDRD) > 60 (>60) mL/min BUN/Creatinine Ratio 21.8 H (14-18) Glucose 152 H (83-115) mg/dL Calcium 9.1 (8.5-10.1) mg/dL Total Bilirubin 0.7 (0.2-1.0) mg/dL AST 22 (15-37) U/L ALT 18 (16-63) U/L Alkaline Phosphatase 52 (46-116) U/L Troponin I 0.045 (0.00-0.056) ng/mL Total Protein 6.5 (6.4-8.2) g/dl Albumin 2.9 L (3.4-5.0) g/dl Globulin 3.6 gm/dL Albumin/Globulin Ratio 0.8 L (1-2) Urine Color Dark yellow (Yellow) Urine Appearance Clear (Clear) Urine pH 6.0 (5.0-8.0) Ur Specific [place] > or = 1.030 (1.005-1.030) Urine Protein 1+ H (Negative) Urine Glucose (UA) Negative (Negative) Urine Ketones Negative (Negative) Urine Occult Blood Negative (Negative) Urine Nitrite Negative (Negative) Urine Bilirubin 1+ H (Negative) Urine Urobilinogen 4.0 H (0.2-1.0) Ur Leukocyte Esterase Negative (Negative) Urine RBC 0-5 (0-5) /hpf Urine WBC 0-5 (0-5) /hpf Ur Epithelial Cells 0-5 (0-5) /hpf Ur Squamous Epith Cells 0-5 (0-5) /hpf Urine Bacteria Few (FEW) /hpf Urine Mucus Few (FEW) /hpf Meds: Medications Generic Name Dose Route Start Last Admin Trade Name Antoinette PRN Reason Stop Dose Admin Sodium Chloride 500 mls @ 1,000 mls/hr 12/02/16 21:30 12/02/16 21:39 Normal Saline IV 1,000 mls/hr .BOLUS CODY Administration Sodium Chloride 1,000 mls @ 150 mls/hr 12/02/16 23:00 Normal Saline IV ASDIRECTED CODY Sodium Chloride 10 ml 12/02/16 21:27 12/02/16 21:43 Saline Flush FLUSH 10 ml ASDIRECTED PRN Administration Keep Vein Open - Re-Assessments/Exams Free Text/Narrative Re-Assessment/Exam: 12/02/16 23:38 I ordered an IV NS 500mL bolus, labs, UA, EKG, CXR, CT of his head and CT of his right hip. His EKG shows a sinus bradycardia with no acute changes. His CXR shows nothing acute. His CT of his head shows no acute findings. Chronic periventricular deep white matter small vessel ischemic changes. 12/02/16 23:41 His CBC looks good. His BUN was elevated at 24. His BUN/creatinine ratio was elevated at 21.8. His glucose was elevated at 152. His troponin was negative. I am waiting for his UA results. 12/03/16 00:00 His UA shows no UTI. He is dehydrated and needs some more fluids. I ordered some NS at 150mLs/hr. I called Dr Reich and he agrees to the admission. My charge nurse ran the MCG and he meets observation criteria. Departure - Departure Time of Disposition: 00:15 Disposition: Refer to Observation Condition: Good Clinical Impression: Confusion, Dehydration Contusion of right hip Qualifiers: Encounter type: initial encounter Qualified Code(s): S70.01XA - Contusion of right hip, initial encounter - Discharge Information Referrals: Indu Coyle MD [Primary Care Provider] - Forms: ED Department Discharge - My Orders Last 24 Hours: My Active Orders 12/02/16 21:27 Cardiac Monitoring [RC] . DIRECTED Oxygen Therapy [RC] PRN Peripheral IV Care [RC] . DIRECTED Sodium Chloride 0.9% [Saline Flush] 10 ml FLUSH ASDIRECTED PRN Peripheral IV Insertion Adult [OM.PC] Stat 12/02/16 21:28 EKG Documentation Completion [RC] STAT Chest 1V Frontal [CR] Stat Head wo Cont [CT] Stat 12/02/16 21:29 Hip wo Cont Rt [CT] Stat 12/02/16 21:30 Sodium Chloride 0.9% [Normal Saline] 500 ml IV .BOLUS 12/02/16 23:00 Sodium Chloride 0.9% [Normal Saline] 1,000 ml IV ASDIRECTED - Assessment/Plan Last 24 Hours: My Active Orders 12/02/16 21:27 Cardiac Monitoring [RC] . DIRECTED Oxygen Therapy [RC] PRN Peripheral IV Care [RC] . DIRECTED Sodium Chloride 0.9% [Saline Flush] 10 ml FLUSH ASDIRECTED PRN Peripheral IV Insertion Adult [OM.PC] Stat 12/02/16 21:28 EKG Documentation Completion [RC] STAT Chest 1V Frontal [CR] Stat Head wo Cont [CT] Stat 12/02/16 21:29 Hip wo Cont Rt [CT] Stat 12/02/16 21:30 Sodium Chloride 0.9% [Normal Saline] 500 ml IV .BOLUS 12/02/16 23:00 Sodium Chloride 0.9% [Normal Saline] 1,000 ml IV ASDIRECTED
--- NOTE | 2016-12-03 01:14 | PCM.HP ---
H&P History of Present Illness - General Date of Service: 12/03/16 Admit Problem/Dx: AMS Source of Information: Patient, Family, Old Records, Provider, RN Notes Reviewed History Limitations: Reports: Altered Mental Status, Physical Impairment - History of Present Illness Initial Comments - Free Text/Narative: This is an 86 year old elderly white male with significant past medical history who is well known to the hospitalist team, calm seen from [facility] for evaluation of lethargy and decreased intake. Patient was recently discharged here after multiple falls he incurred at at his residence. He was discharged to [facility] for rehabilitation and deconditioning. Patient carries a significant history of polypharmacy and advanced dementia. He also carries history of dysphagia on thickened liquid. Per family vision has not been eating or drinking much and he appears to be more sleepy than usual according to family. No reports of systemic infection. No GI or complaints. His initial workup in emergency department shows a CBC remarkable for RBC of 3.53, hemoglobin of 12, hematocrit 37.2, MCV of 105.4, MCH of 34, lymphocytes of 15.7%, and monocytes of 13.7. His chemistry is remarkable for BUN of 24, glucose of 152, and albumin at 2.9. His UA is not suggestive of urinary infection but his specific gravity is greater than or equal to 1.030 suggestive of dehydration. His head CT scan shows no acute abnormal findings but chronic periventricular deep white matter small vessel ischemic changes. Chest x-ray shows no acute abnormal finding. Hip CT scan shows no acute fracture. Patient is being admitted for altered mental status and decrease intake. He is full code. Generalized Pain Score (Numeric/FACES): 5 - Related Data Allergies/Adverse Reactions: Allergies Allergy/AdvReac Type Severity Reaction Status Date / Time morphine Allergy Cannot Verified 12/03/16 01:43 Remember DANY Inhibitors AdvReac Change Verified 12/03/16 01:43 Mental Status hydromorphone [From Dilaudid] AdvReac Hallucinati Verified 12/03/16 01:43 ons Home Medications: Home Meds Aspirin [Adult Low Dose Aspirin EC] 81 mg PO BID 08/11/15 [History] Clopidogrel Bisulfate [Plavix] 75 mg PO DAILY 08/11/15 [History] Donepezil [Aricept] 10 mg PO BEDTIME 08/11/15 [History] Ezetimibe [Zetia] 10 mg PO DAILY 08/11/15 [History] Finasteride [Proscar] 5 mg PO DAILY 08/11/15 [History] Latanoprost [Xalatan 0.005% Ophth Soln] 1 drop EYEBOTH BEDTIME 08/11/15 [History ] Ranolazine [Ranexa] 500 mg PO BIDMEALS 08/11/15 [History] Tamsulosin HCl 0.4 mg PO BID 08/11/15 [History] atorvaSTATin Calcium [Atorvastatin Calcium] 80 mg PO DAILY 08/11/15 [History] Cyanocobalamin (Vitamin B-12) [Cyanocobalamin Injection] 1,000 mcg IJ ASDIRECTED 01/31/16 [History] Nitroglycerin [Nitrostat] 0.4 mg SL Q5M PRN 01/31/16 [History] Ranitidine HCl [Zantac] 150 mg PO BID 01/31/16 [History] Sertraline [Zoloft] 12.5 mg PO DAILY 01/31/16 [History] Carvedilol [Coreg] 6.25 mg PO BID 09/05/16 [History] Mirabegron [Myrbetriq] 50 mg PO DAILY 09/05/16 [History] Docusate Sodium [Stool Softener] 2 tab PO DAILY 09/09/16 [History] Temazepam [Restoril] 15 mg PO BEDTIME PRN 09/09/16 [History] prednisoLONE Acetate [Prednisolone Acetate] 1 drop EYELF DAILY 09/09/16 [History ] Budesonide [Pulmicort Flexhaler] 2 puff INH BID 09/17/16 [History] Dextran 70/Hypromellose [Artificial Tears] 1 drop EYEBOTH QID PRN 09/17/16 [ History] Potassium Chloride [Klor-Con 10] 10 meq PO DAILY 09/17/16 [History] Psyllium Husk (With Sugar) [Metamucil Powder] 1 tsp PO DAILY 09/17/16 [History] Albuterol [Ventolin HFA] 1 puff INH Q4H PRN 11/10/16 [History] Carboxymethylcellulose Sodium [Retaine Cmc] 1 each EYELF Q3HR 11/10/16 [History] Isosorbide Mononitrate [Imdur] 30 mg PO DAILY 11/10/16 [History] Polyethylene Glycol 3350 [MiraLAX] 17 gm PO Q72H 11/10/16 [History] Memantine [Namenda] 10 mg PO BID 11/27/16 [History] Acetaminophen [Acetaminophen ER] 1,300 mg PO Q8HR #0 11/30/16 [Rx] Acetaminophen [Tylenol] 650 mg PO Q4H PRN #0 tablet 11/30/16 [Rx] Past Medical History HEENT History: Reports: Glaucoma, Hard of Hearing Other HEENT History: glasses, hearing aids, dentures, blind in Left eye Cardiovascular History: Reports: CAD, High Cholesterol, Hypertension, [place], PVD Other Cardiovascular History: angina, peripheral artery disease Respiratory History: Reports: COPD Other Respiratory History: recent pneumonia 06/24/15, lung nodule emphysema Gastrointestinal History: Reports: GERD Other Gastrointestinal History: stricture and stenosis of esophagus, bilateral inguinal hernia Genitourinary History: Reports: BPH Other Genitourinary History: macrocytosis Musculoskeletal History: Reports: Back Pain, Chronic, Osteoarthritis Other Musculoskeletal History: degenerative joint disease, sicatica, spinal stenosis Neurological History: Reports: TIA, Other (See Below) Other Neuro History: memory loss, numbness in legs Psychiatric History: Reports: Dementia Endocrine/Metabolic History: Reports: Other (See Below) Other Endocrine/Metabolic History: hyperglycemia, vitamin b 12 deficiency Hematologic History: 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 Immunologic History: 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 Oncologic (Cancer) History: 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 Dermatologic History: Reports: Other (See Below) Other Dermatologic History: dry scalp - Infectious Disease History Infectious Disease History: Reports: Chicken Pox - Past Surgical History Head Surgeries/Procedures: 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 HEENT Surgical History: Reports: Adenoidectomy, Cataract Surgery, Tonsillectomy Cardiovascular Surgical History: Reports: Carotid Stents, Coronary Artery Bypass GI Surgical History: Reports: Colonoscopy Musculoskeletal Surgical History: Reports: Hip Replacement, Other (See Below) Other Musculoskeletal Surgeries/Procedures:: back surgery Social & Family History - Family History Family Medical History: Unobtainable - Tobacco Use Smoking Status *Q: Unknown Ever Smoked Years of Tobacco use: 40 Packs/Tins Daily: 1 Used Tobacco, but Quit: Yes Month Tobacco Last Used: Quit 1989 Second Hand Smoke Exposure: No - Caffeine Use Caffeine Use: Reports: Coffee - Recreational Drug Use Recreational Drug Use: No - Living Situation & Occupation Living situation: Reports: , Assisted Living ([place]) Occupation: Retired H&P Review of Systems - Review of Systems: Review Of Systems: See Below Exam - Exam Exam: See Below - Vital Signs Vital Signs: Last Vital Signs Temp 37.0 C 12/02/16 20:54 Pulse 99 12/02/16 20:54 Resp 18 12/02/16 20:54 BP 184/74 H 12/02/16 20:54 Pulse Ox 98 12/02/16 20:54 Weight: 59.988 kg - Exam General: Alert, Cooperative, Mild Distress, Other (Awake) HEENT: Conjunctiva Clear, EACs Clear, Hearing Intact, Nares Patent, Normal Nasal Septum, Pupils Equal, Pupils Reactive. No: Mucosa Moist & [place] Neck: Supple, Trachea Midline. No: JVD Lungs: Normal Respiratory Effort, Decreased Breath Sounds Cardiovascular: Regular Rate, Regular Rhythm GI/Abdominal Exam: Normal Bowel Sounds, Soft, Non-Tender, No Organomegaly, No Distention, No Abnormal Bruit (Male) Exam: Deferred Rectal (Males) Exam: Deferred Back Exam: Normal Inspection, Decreased Range of Motion Extremities: Normal Inspection, Normal Range of Motion, Non-Tender, No Pedal Edema Peripheral Pulses: 2+: Dorsalis Pedis (L), Dorsalis Pedis (R) Skin: Warm, Dry, Intact Neuro Extensive - Mental Status: Normal Mood/Affect, Slow Response to Commands Neuro Extensive - Motor, Sensory, Reflexes: CN II-XII Intact (unable to examine due to altered mentation), Abnormal Gait Psychiatric: Alert, Normal Mood. No: Normal Affect - Patient Data Result Diagrams: 12/02/16 21:43 12/02/16 21:43 EKG INTERPRETATION EKG Date: 12/02/16 Time: 21:44 Rhythm: Other (Sinus Bradycardia) Rate (Beats/Min): 58 [place]: LAD-Left [place] Deviation P-Wave: Present QRS: Wide (IVCD) ST-T: Normal QT: Normal *Q Meaningful Use (ADM) - VTE *Q VTE Criteria *Q: - Stroke *Q Stroke Criteria *Q: - AMI *Q AMI Criteria *Q: Problem List Initiated/Reviewed/Updated: Yes Orders Last 24hrs: Medication Orders Sodium Chloride (Normal Saline) 500 mls @ 1,000 mls/hr IV .BOLUS CODY Last Admin: 12/02/16 21:39 Dose: 1,000 mls/hr Sodium Chloride (Normal Saline) 1,000 mls @ 150 mls/hr IV ASDIRECTED CODY Sodium Chloride (Saline Flush) 10 ml FLUSH ASDIRECTED PRN PRN Reason: Keep Vein Open Last Admin: 12/02/16 21:43 Dose: 10 ml Assessment/Plan Comment:: Assessment/Plan: Acute: Acute Encephalopathy/AMS - Suspect 2/2 Toxic/Metabolic Encephalopathy - Risk factors: Advanced Dementia and Poly-pharmacy - Supportive Care and IV fluids - Will hold some of his home meds - Aspiration and Fall Precautions Poor Oral Intake - Above likely contributory to it - Risk factor: Dysphagia w/ specialized diet - Dietary consult - 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 to re-assess swallowing Dehydration - 2/2 Poor oral intake - Received initial treatment in ED - Will continue IVF High Risk Poly-pharmacy and High Risk Fall Chronic: Impaired Vision/Hearing Left Eye Blindness Hypertension Hyperlipidemia CAD/MA PAD Angina COPD Lung Nodule GERD Hyperlgycemia Stricture and Stenosis of the Esophagus Bilateral Inguinal Hernia BPH Macrocytosis Back Pain Osteoarthritis/DJD Sciatica Spinal Stenosis Impaired Memory/Advanced Dementia Peripheral Neuropathy TIA Vitamin B12 Deficiency Plan: Admit to the floor Routine AM Labs Resume Some Home Meds PT/OT consult SW/CM for d/c planning Additional orders as above Code status: 1 Family request to not give him any new meds for now except his home meds and fluids.
[2016-12-03] MEDS ORDERED: Polyethylene Glycol 3350 Powder 17 GM Packet PO PRN (01:53)
[2016-12-03] MEDS ORDERED: Ondansetron 4 MG/2 ML SDV IV PRN (01:53)
[2016-12-03] MEDS ORDERED: Albuterol/Ipratropium 3.0-0.5 MG/3 ML Neb Soln NEB PRN (01:53)
[2016-12-03] MEDS ORDERED: Bisacodyl 5 MG Tab PO PRN (01:53)
[2016-12-03] MEDS ORDERED: Docusate Sodium 100 MG Cap PO PRN (01:53)
[2016-12-03] MEDS ORDERED: Metoprolol Tartrate 5 MG/5 ML SDV IVPUSH PRN (01:55)
[2016-12-03] MEDS ORDERED: hydrALAZINE 20 MG/ML SDV IVPUSH PRN (01:55)
[2016-12-03] MEDS ORDERED: Acetaminophen 325 MG Tab PO PRN (02:21)
[2016-12-03] MEDS ORDERED: ALBUTEROL INH PRN (02:33)
[2016-12-03] MEDS ORDERED: [UNRECOGNIZED DRUG - OTHER] EYEBOTH PRN (02:33)
[2016-12-03] MEDS ORDERED: Nitroglycerin 0.4 MG Tab.SL SL PRN (02:33)
[2016-12-03] MEDS: Lactated Ringers 1,000 ML IV SCH ×2 (02:41→16:13)
[2016-12-03] MEDS ORDERED: CARBOXYMETHYLCELLULOSE SODIUM EYELF SCH (03:00)
[2016-12-03] MEDS: HYPROMELLOSE EYELF SCH ×6 (05:20→22:22)
[2016-12-03] MEDS: RANEXA 500 MG PO SCH ×3 (05:51→18:19)
[2016-12-03] MEDS ORDERED: ACETAMINOPHEN 1300 MG PO SCH (06:00)
--- NOTE | 2016-12-03 08:10 | CT ---
Head CT Technique: Multiple axial sections through the brain were obtained. Intravenous contrast was not utilized. Comparison: Previous head CT study performed on 11/27/16 is available. Findings: Ventricles along with basal cisterns and sulci over the convexities are moderately prominent. Diminished density is noted within the subcortical and periventricular white matter compatible with small vessel ischemic demyelination change. 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 No other abnormal parenchymal densities are seen. No evidence of intracranial hemorrhage. No midline shift or mass effect is seen. Bone window settings were reviewed which show atherosclerotic change within the vertebral vessels and within the carotid siphon. Visualized sinuses are clear. No acute calvarial abnormality is identified. Impression: 1. Senescent change as described above. Nothing acute is appreciated on noncontrast head CT study. Diagnostic code #2 I agree with preliminary report issued by [facility] ([facility] preliminary report dictated on 12/02/16, 11:35 PM Central Time)
--- NOTE | 2016-12-03 08:10 | CR ---
Chest: Portable view of the chest was obtained. Comparison: Previous chest x-ray of 11/27/16. Apical pleural thickening is seen on both sides. Parenchymal scarring is noted within both upper lungs. Lungs otherwise are clear. Heart size at the upper limits of normal. Previous sternotomy is noted. Bony structures are grossly intact. Impression: 1. Upper lung changes as noted above which appear to be chronic. Nothing acute is seen on portable chest x-ray. Diagnostic code #2
[2016-12-03] MEDS ORDERED: POLYETHYLENE GLYCOL 238 GM PO SCH (09:00)
--- NOTE | 2016-12-03 09:31 | CT ---
CT right hip Technique: Multiple axial sections through the right hip were obtained. Artifact is noted from right hip prosthesis. Right hip prosthesis is aligned. No fracture is identified around the right hip prosthesis. No abnormal lucency is seen around the prosthesis. Arterial calcification is seen within the profunda artery and superficial femoral artery. No abnormal soft tissue densities are seen. Impression: 1. Incidental findings as noted above. Nothing acute is appreciated. Diagnostic code #2 I agree with preliminary report issued by [email or web address] ([facility] preliminary report dictated on 12/02/16, 11:36 PM Central Time) [facility]
[2016-12-03] MEDS: Acetaminophen 325 MG Tab PO PRN (09:46)
[2016-12-03] MEDS: ACETAMINOPHEN 1300 MG PO SCH ×2 (09:47→15:19)
[2016-12-03] MEDS: DOCUSATE SODIUM 100 MG PO SCH (09:50)
[2016-12-03] MEDS: CARVEDILOL 6.25 MG PO SCH ×2 (09:51→22:19)
[2016-12-03] MEDS: ISOSORBIDE MONONITRATE 30 MG PO SCH (09:52)
[2016-12-03] MEDS: POTASSIUM CHLORIDE 10 MEQ PO SCH (09:53)
[2016-12-03] MEDS: FINASTERIDE 5 MG PO SCH (09:54)
[2016-12-03] MEDS: ATORVASTATIN CALCIUM 80 MG PO SCH (09:54)
[2016-12-03] MEDS: MEMANTINE 10 MG PO SCH ×2 (09:54→22:20)
[2016-12-03] MEDS: Mirabegron [Myrbetriq] 50 MG PO SCH (09:55)
[2016-12-03] MEDS: SERTRALINE 25 MG PO SCH (09:55)
[2016-12-03] MEDS: EZETIMIBE 10 MG PO SCH (09:55)
[2016-12-03] MEDS: Psyllium Husk Powder Sugar Free 3.4 GM Packet PO SCH (10:04)
[2016-12-03] MEDS: PREDNISOLONE ACETATE 1% EYELF SCH (10:17)
[2016-12-03] MEDS: ASPIRIN 81 MG PO SCH ×2 (10:23→22:21)
[2016-12-03] MEDS: Budesonide [Pulmicort Flexhaler] INH SCH ×2 (10:53→23:21)
--- NOTE | 2016-12-03 11:51 | PCM.DCSUM1 ---
Discharge Summary - Hospital Course Brief History: This is an 86 year old elderly white male with significant past medical history who is well known to the hospitalist team, comes in from [facility] for evaluation of lethargy and decreased intake. He was admitted for observation. 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 Status: Chronic Current Visit: Yes (2) Confusion SNOMED Code(s): 905049614 ICD Code: R41.0 - DISORIENTATION, UNSPECIFIED Status: Resolved Current Visit: Yes (3) Dehydration SNOMED Code(s): 38052206 ICD Code: E86.0 - DEHYDRATION Status: Resolved Current Visit: Yes (4) At risk for dehydration due to poor fluid intake SNOMED Code(s): 087005504, 564094979 ICD Code: Z91.89 - [facility] PERSONAL RISK FACTORS, NOT ELSEWHERE CLASSIFIED Status: Acute Current Visit: Yes (5) 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 SNOMED Code(s): 786073668 ICD Code: I69.391 - DYSPHAGIA FOLLOWING CEREBRAL INFARCTION Status: Chronic Current Visit: Yes - Patient Summary/Data Operative Procedure(s) Performed: None Complications: None Consults: Consultations 12/03/16 01:53 Consult to Case Management [CONS] Routine Consult to Summer Analyst [CONS] Routine Consult to Spiritual Care [CONS] Routine OT Evaluation and Treatment [CONS] Routine PT Evaluation and Treatment [CONS] Routine 12/03/16 02:07 Consult to Dietary [Consult to Associate Professor Of Engineering] [CONS] Routine Consult to Speech Language Pathology [DIRECTOR OF GLOBAL TALENT Evaluation and Treatment] [CONS] Routine Labs Pending at D/C: None Recommended Follow-up Testing/Procedures: None Hospital Course: Patient was primarily admitted for altered mental status and dehydration. He presented to the emergency department with abnormal mental state. Patient carried a past medical history of polypharmacy and advanced dementia. His initial diagnostic work up on admission revealed no acute abnormal findings except for a UA that was suggestive for dehydration. Patient had done well since admission. His repeat labs were fairly unremarkable. He appeared clinically stable. He was alert and awake at the time of discharge. Patient will be discharged back to [facility] to continue his rehabilitation. The patient family was advised to follow-up with his primary care right after discharge. - Patient Instructions Diet: Usual Diet as Tolerated Activity: As Tolerated Driving: Do Not Drive Showering/Bathing: May Shower Notify Provider of: Fever, Increased Pain, Nausea and/or Vomiting Other/Special Instructions: - Please resume all home medications as listed on discharge medications. - You are high for aspiration due to dysphagia. - Follow up with you family dcotor in 1 week - Discharge Plan Home Medications: Home Meds Aspirin [Adult Low Dose Aspirin EC] 81 mg PO BID 08/11/15 [History] Clopidogrel Bisulfate [Plavix] 75 mg PO DAILY 08/11/15 [History] Donepezil [Aricept] 10 mg PO BEDTIME 08/11/15 [History] Ezetimibe [Zetia] 10 mg PO DAILY 08/11/15 [History] Finasteride [Proscar] 5 mg PO DAILY 08/11/15 [History] Latanoprost [Xalatan 0.005% Ophth Soln] 1 drop EYEBOTH BEDTIME 08/11/15 [History ] Ranolazine [Ranexa] 500 mg PO Q12H 08/11/15 [History] Tamsulosin HCl 0.4 mg PO Q12H 08/11/15 [History] atorvaSTATin Calcium [Atorvastatin Calcium] 80 mg PO DAILY 08/11/15 [History] Cyanocobalamin (Vitamin B-12) [Cyanocobalamin Injection] 1,000 mcg IJ ASDIRECTED 01/31/16 [History] Nitroglycerin [Nitrostat] 0.4 mg SL Q5M PRN 01/31/16 [History] Ranitidine HCl [Zantac] 150 mg PO BID 01/31/16 [History] Sertraline [Zoloft] 12.5 mg PO DAILY 01/31/16 [History] Carvedilol [Coreg] 6.25 mg PO BID 09/05/16 [History] Docusate Sodium [Stool Softener] 2 tab PO DAILY 09/09/16 [History] Temazepam [Restoril] 15 mg PO BEDTIME PRN 09/09/16 [History] prednisoLONE Acetate [Prednisolone Acetate] 1 drop EYELF DAILY 09/09/16 [History ] Budesonide [Pulmicort Flexhaler] 2 puff INH BID 09/17/16 [History] Dextran 70/Hypromellose [Artificial Tears] 1 drop EYEBOTH QID PRN 09/17/16 [ History] Potassium Chloride [Klor-Con 10] 10 meq PO DAILY 09/17/16 [History] Psyllium Husk (With Sugar) [Metamucil Powder] 1 tsp PO DAILY 09/17/16 [History] Albuterol [Ventolin HFA] 2 puff INH TID PRN 11/10/16 [History] Carboxymethylcellulose Sodium [Retaine Cmc] 1 each EYELF Q3HR 11/10/16 [History] Isosorbide Mononitrate [Imdur] 30 mg PO DAILY 11/10/16 [History] Polyethylene Glycol 3350 [MiraLAX] 17 gm PO Q72H 11/10/16 [History] Memantine [Namenda] 10 mg PO BID 11/27/16 [History] Acetaminophen [Acetaminophen ER] 1,300 mg PO Q8HR #0 11/30/16 [Rx] Acetaminophen [Tylenol] 650 mg PO Q4H PRN #0 tablet 11/30/16 [Rx] Mirabegron [Myrbetriq] 50 mg PO DAILY #0 12/04/16 [Rx] Patient Handouts: Food Choices for Gastroesophageal Reflux Disease, Adult, Easy -to-Read, Thickening Liquids for Dysphagia Diet, Back Pain, Adult, Dysphagia Diet Level 3, Mechanically Advanced Referrals: Indu Coyle MD [Primary Care Provider] - - Discharge Summary/Plan Comment DC Time >30 min.: Yes (45 mins) Discharge Summary/Plan Comment: Discharge back to [facility] - General Info Date of Service: 12/04/16 Admission Dx/Problem (Free Text: AMS Subjective Update: Follow up Functional Status: Reports: Pain Controlled, Tolerating Diet, Urinating - Review of Systems General: Reports: Fever, Weakness, Chills HEENT: Reports: No Symptoms Pulmonary: Reports: Shortness of Breath Cardiovascular: Reports: Chest Pain Gastrointestinal: Reports: Abdominal Pain, Nausea, Vomiting Genitourinary: Reports: No Symptoms Musculoskeletal: Reports: No Symptoms Skin: Denies: Cyanosis, Pallor Neurological: Reports: Confusion (Baseline confusion), Difficulty Walking, Weakness, Gait Disturbance Psychiatric: Denies: Depression, Anxiety, Agitation, Hallucinations Systems Review Comment: No significant overnight or acute issues. He was up all night until 5 this am. He is alert and wake. He has no acute issues. - Patient Data Vitals - Most Recent: Last Vital Signs Temp 36.4 C 12/03/16 07:59 Pulse 64 12/03/16 07:59 Resp 16 12/03/16 08:00 BP 162/70 H 12/03/16 09:52 Pulse Ox 97 12/03/16 10:56 Weight - Most Recent: 2.495 kg I&O - Last 24 hours: Intake & Output 12/02/16 12/03/16 12/03/16 22:59 06:59 14:59 Intake Total 314 0 Balance 314 0 Lab Results - Last 24 hrs: Laboratory Results - last 24 hr 12/03/16 12/03/16 Range/Units 05:20 06:22 Sodium 142 (136-145) mEq/L Potassium 3.8 (3.5-5.1) mEq/L Chloride 106 (98-107) mEq/L Carbon Dioxide 26 (21-32) mEq/L Anion Gap 13.8 (5-15) BUN 21 H (7-18) mg/dL Creatinine 0.8 (0.7-1.3) mg/dL Est Cr Clr Drug Dosing 2.38 mL/min Estimated GFR (MDRD) > 60 (>60) mL/min BUN/Creatinine Ratio 26.3 H (14-18) Glucose 115 (83-115) mg/dL Calcium 8.5 (8.5-10.1) mg/dL Magnesium 1.8 (1.8-2.4) mg/dl MRSA (PCR) Negative Med Orders - Current: Current Medications Acetaminophen (Tylenol) 650 mg PO Q4H PRN PRN Reason: Pain Last Admin: 12/03/16 09:46 Dose: 650 mg Albuterol (Proventil Hfa) 0 gm INH Q4H PRN PRN Reason: Shortness of Breath Albuterol/Ipratropium (Duoneb 3.0-0.5 Mg/3 Ml) 3 ml NEB Q4H PRN PRN Reason: Shortness Of Breath/wheezing Artificial Tears (Isopto Tears 0.5% Ophth Soln) 0 ml EYELF Q3H CODY Last Admin: 12/03/16 10:20 Dose: 1 drop Aspirin (Halfprin) 81 mg PO BID [facility] Last Admin: 12/03/16 10:23 Dose: 81 mg Bisacodyl (Dulcolax) 5 mg PO DAILY PRN PRN Reason: Constipation Carvedilol (Coreg) 6.25 mg PO BID [facility] Last Admin: 12/03/16 09:51 Dose: 6.25 mg Clopidogrel Bisulfate (Plavix) 75 mg PO DAILY@2000 [facility] Docusate Sodium (Colace) 200 mg PO DAILY [facility] Last Admin: 12/03/16 09:50 Dose: 200 mg Donepezil HCl (Aricept) 10 mg PO BEDTIME [facility] Ezetimibe (Zetia) 10 mg PO DAILY [facility] Last Admin: 12/03/16 09:55 Dose: 10 mg Finasteride (Proscar) 5 mg PO DAILY [facility] Last Admin: 12/03/16 09:54 Dose: 5 mg Hydralazine HCl (Apresoline) 10 mg IVPUSH Q4H PRN PRN Reason: Hypertension Lactated Ringer's (Ringers, Lactated) 1,000 mls @ 75 mls/hr IV ASDIRECTED [facility] Last Admin: 12/03/16 02:41 Dose: 75 mls/hr Isosorbide Mononitrate (Imdur) 30 mg PO DAILY [facility] Last Admin: 12/03/16 09:52 Dose: 30 mg Latanoprost (Xalatan 0.005% Ophth Soln) 0 ml EYEBOTH BEDTIME [facility] Magnesium Sulfate (Pharmacy To Dose - Magnesium Replacement) 0 dose .XX ASDIRECTED PRN PRN Reason: RX TO WATCH MAG LEVELS Memantine (Namenda) 10 mg PO BID [facility] Last Admin: 12/03/16 09:54 Dose: 10 mg Metoprolol Tartrate (Lopressor) 5 mg IVPUSH Q4H PRN PRN Reason: Tachycardia Nitroglycerin (Nitrostat) 0.4 mg SL Q5M PRN PRN Reason: Chest Pain Ondansetron HCl (Zofran) 4 mg IV Q6H PRN PRN Reason: Nausea/Vomiting Atorvastatin Calcium (80 Mg) 0 each PO DAILY [facility] Last Admin: 12/03/16 09:54 Dose: 1 each Budesonide [ (Pulmicort Flexhaler]) 0 each INH BID [facility] Last Admin: 12/03/16 10:53 Dose: 2 each Systane Droperettes 0 each EYEBOTH QID PRN PRN Reason: Dry Eyes Mirabegron [ (Myrbetriq] 50 Mg) 0 each PO DAILY [facility] Last Admin: 12/03/16 09:55 Dose: 1 each Ranitidine 150 Mg 0 each PO BID [facility] Last Admin: 12/03/16 09:55 Dose: 1 each Acetaminophen 1,300 (Mg Er) 0 each PO Q8H [facility] Last Admin: 12/03/16 09:47 Dose: Not Given Polyethylene Glycol (Miralax) 17 gm PO DAILY PRN PRN Reason: Constipation Polyethylene Glycol (Miralax) 0 gm PO Q72H [facility] Last Admin: 12/03/16 10:04 Dose: Not Given Potassium Chloride (Pharmacy To Dose - Potassium Replacement) 0 dose .XX ASDIRECTED PRN PRN Reason: RX TO WATCH K LEVELS Potassium Chloride (Klor-Con 10) 10 meq PO DAILY [facility] Last Admin: 12/03/16 09:53 Dose: 10 meq Prednisolone Acetate (Pred Forte 1% Ophth Susp) 0 ml EYELF DAILY [facility] Last Admin: 12/03/16 10:17 Dose: 1 drop Psyllium Husk (Metamucil Sugar Free) 1 packet PO DAILY [facility] Last Admin: 12/03/16 10:04 Dose: Not Given Ranolazine (Ranexa) 500 mg PO BIDMEALS [facility] Last Admin: 12/03/16 07:01 Dose: Not Given Sertraline HCl (Zoloft) 12.5 mg PO DAILY [facility] Last Admin: 12/03/16 09:55 Dose: 12.5 mg Tamsulosin HCl (Flomax) 0.4 mg PO BID [facility] Temazepam (Restoril) 15 mg PO BEDTIME PRN PRN Reason: Insomnia Discontinued Medications Acetaminophen (Tylenol) 650 mg PO Q6H PRN PRN Reason: Pain Last Admin: 12/03/16 02:40 Dose: 650 mg Docusate Sodium (Colace) 100 mg PO BID PRN PRN Reason: Constipation Sodium Chloride (Normal Saline) 500 mls @ 1,000 mls/hr IV .BOLUS [facility] Last Admin: 12/02/16 21:39 Dose: 1,000 mls/hr Sodium Chloride (Normal Saline) 1,000 mls @ 150 mls/hr IV ASDIRECTED [facility] Non-Formulary Medication (Acetaminophen) 1,300 mg PO Q8HR CODY Non-Formulary Medication (Polyethylene Glycol 3350 [Miralax]) 17 gm PO Q72H [facility] Senna/Docusate Sodium (Senna Plus) 1 tab PO BID PRN PRN Reason: Constipation Sodium Chloride (Saline Flush) 10 ml FLUSH ASDIRECTED PRN PRN Reason: Keep Vein Open Last Admin: 12/02/16 21:43 Dose: 10 ml - Exam General: Reports: Alert, Cooperative, No Acute Distress HEENT: Reports: Pupils Equal, Pupils Reactive, Mucous Membr. Moist/[place] Lungs: Reports: Normal Respiratory Effort, Decreased Breath Sounds Cardiovascular: Reports: Regular Rate, Regular Rhythm GI/Abdominal Exam: Normal Bowel Sounds, Soft, No Organomegaly, No Abnormal Bruit (Male) Exam: Deferred Rectal (Males) Exam: Deferred Back Exam: Reports: Normal Inspection, Decreased Range of Motion Extremities: Normal Inspection, Normal Range of Motion, Non-Tender, No Pedal Edema Skin: Reports: Warm, Dry, Intact Neurological: Reports: No New Focal Deficit. Denies: Normal Gait Psy/Mental Status: Reports: Alert, Normal Affect, Normal Mood *Q Meaningful Use (DIS) - VTE *Q VTE Criteria *Q: - Stroke *Q Stroke Criteria *Q: - AMI *Q AMI Criteria *Q:
[2016-12-03] MEDS: TAMSULOSIN 0.4 MG PO SCH ×2 (12:03→22:29)
--- NOTE | 2016-12-03 13:21 | PCM.PN ---
- General Info Date of Service: 12/03/16 Admission Dx/Problem (Free Text): AMS Subjective Update: Follow up Functional Status: Reports: Pain Controlled, Tolerating Diet, Urinating. Denies : Ambulating, New Symptoms - Review of Systems General: Denies: Fever, Chills HEENT: Reports: No Symptoms Pulmonary: Denies: Shortness of Breath Cardiovascular: Denies: Chest Pain, Dyspnea on Exertion Gastrointestinal: Denies: Abdominal Pain, Nausea, Vomiting Genitourinary: Reports: No Symptoms Musculoskeletal: Reports: No Symptoms, Leg Pain Skin: Denies: Cyanosis, Pallor, Diaphoresis Neurological: Reports: Confusion (baseline confusion), Difficulty Walking, Weakness, Gait Disturbance. Denies: Pre-Existing Deficit Psychiatric: Denies: Depression, Anxiety, Agitation, Hallucinations Systems Review Comment:: No significant overnight or acute issues. He is alert and wake. He appears comfortable. He has no new complaints. - Patient Data Vitals - Most Recent: Last Vital Signs Temp 36.0 C 12/03/16 11:58 Pulse 67 12/03/16 11:58 Resp 14 12/03/16 11:58 BP 118/76 12/03/16 11:58 Pulse Ox 94 L 12/03/16 11:58 Weight - Most Recent: 2.495 kg I&O - Last 24 Hours: Intake & Output 12/02/16 12/03/16 12/03/16 22:59 06:59 14:59 Intake Total 314 0 Balance 314 0 Lab Results Last 24 Hours: Laboratory Results - last 24 hr 12/03/16 12/03/16 Range/Units 05:20 06:22 Sodium 142 (136-145) mEq/L Potassium 3.8 (3.5-5.1) mEq/L Chloride 106 (98-107) mEq/L Carbon Dioxide 26 (21-32) mEq/L Anion Gap 13.8 (5-15) BUN 21 H (7-18) mg/dL Creatinine 0.8 (0.7-1.3) mg/dL Est Cr Clr Drug Dosing 2.38 mL/min Estimated GFR (MDRD) > 60 (>60) mL/min BUN/Creatinine Ratio 26.3 H (14-18) Glucose 115 (83-115) mg/dL Calcium 8.5 (8.5-10.1) mg/dL Magnesium 1.8 (1.8-2.4) mg/dl MRSA (PCR) Negative Med Orders - Current: Current Medications Acetaminophen (Tylenol) 650 mg PO Q4H PRN PRN Reason: Pain Last Admin: 12/03/16 09:46 Dose: 650 mg Albuterol (Proventil Hfa) 0 gm INH Q4H PRN PRN Reason: Shortness of Breath Albuterol/Ipratropium (Duoneb 3.0-0.5 Mg/3 Ml) 3 ml NEB Q4H PRN PRN Reason: Shortness Of Breath/wheezing Artificial Tears (Isopto Tears 0.5% Ophth Soln) 0 ml EYELF Q3H [facility] Last Admin: 12/03/16 12:01 Dose: 1 drop Aspirin (Halfprin) 81 mg PO BID [facility] Last Admin: 12/03/16 10:23 Dose: 81 mg Bisacodyl (Dulcolax) 5 mg PO DAILY PRN PRN Reason: Constipation Carvedilol (Coreg) 6.25 mg PO BID [facility] Last Admin: 12/03/16 09:51 Dose: 6.25 mg Clopidogrel Bisulfate (Plavix) 75 mg PO DAILY@1999 [facility] Docusate Sodium (Colace) 200 mg PO DAILY [facility] Last Admin: 12/03/16 09:50 Dose: 200 mg Donepezil HCl (Aricept) 10 mg PO BEDTIME [facility] Ezetimibe (Zetia) 10 mg PO DAILY [facility] Last Admin: 12/03/16 09:55 Dose: 10 mg Finasteride (Proscar) 5 mg PO DAILY [facility] Last Admin: 12/03/16 09:54 Dose: 5 mg Hydralazine HCl (Apresoline) 10 mg IVPUSH Q4H PRN PRN Reason: Hypertension Lactated Ringer's (Ringers, Lactated) 1,000 mls @ 75 mls/hr IV ASDIRECTED [facility] Last Admin: 12/03/16 02:41 Dose: 75 mls/hr Isosorbide Mononitrate (Imdur) 30 mg PO DAILY [facility] Last Admin: 12/03/16 09:52 Dose: 30 mg Latanoprost (Xalatan 0.005% Ophth Soln) 0 ml EYEBOTH BEDTIME [facility] Magnesium Sulfate (Pharmacy To Dose - Magnesium Replacement) 0 dose .XX ASDIRECTED PRN PRN Reason: RX TO WATCH MAG LEVELS Memantine (Namenda) 10 mg PO BID [facility] Last Admin: 12/03/16 09:54 Dose: 10 mg Metoprolol Tartrate (Lopressor) 5 mg IVPUSH Q4H PRN PRN Reason: Tachycardia Nitroglycerin (Nitrostat) 0.4 mg SL Q5M PRN PRN Reason: Chest Pain Ondansetron HCl (Zofran) 4 mg IV Q6H PRN PRN Reason: Nausea/Vomiting Atorvastatin Calcium (80 Mg) 0 each PO DAILY [facility] Last Admin: 12/03/16 09:54 Dose: 1 each Budesonide [ (Pulmicort Flexhaler]) 0 each INH BID [facility] Last Admin: 12/03/16 10:53 Dose: 2 each Systane Droperettes 0 each EYEBOTH QID PRN PRN Reason: Dry Eyes Mirabegron [ (Myrbetriq] 50 Mg) 0 each PO DAILY [facility] Last Admin: 12/03/16 09:55 Dose: 1 each Ranitidine 150 Mg 0 each PO BID [facility] Last Admin: 12/03/16 09:55 Dose: 1 each Acetaminophen 1,300 (Mg Er) 0 each PO Q8H [facility] Last Admin: 12/03/16 09:47 Dose: Not Given Polyethylene Glycol (Miralax) 17 gm PO DAILY PRN PRN Reason: Constipation Polyethylene Glycol (Miralax) 0 gm PO Q72H [facility] Last Admin: 12/03/16 10:04 Dose: Not Given Potassium Chloride (Pharmacy To Dose - Potassium Replacement) 0 dose .XX ASDIRECTED PRN PRN Reason: RX TO WATCH K LEVELS Potassium Chloride (Klor-Con 10) 10 meq PO DAILY [facility] Last Admin: 12/03/16 09:53 Dose: 10 meq Prednisolone Acetate (Pred Forte 1% Ophth Susp) 0 ml EYELF DAILY [facility] Last Admin: 12/03/16 10:17 Dose: 1 drop Psyllium Husk (Metamucil Sugar Free) 1 packet PO DAILY [facility] Last Admin: 12/03/16 10:04 Dose: Not Given Ranolazine (Ranexa) 500 mg PO BIDMEALS [facility] Last Admin: 12/03/16 07:01 Dose: Not Given Sertraline HCl (Zoloft) 12.5 mg PO DAILY [facility] Last Admin: 12/03/16 09:55 Dose: 12.5 mg Tamsulosin HCl (Flomax) 0.4 mg PO BID [facility] Last Admin: 12/03/16 12:03 Dose: 0.4 mg Temazepam (Restoril) 15 mg PO BEDTIME PRN PRN Reason: Insomnia Discontinued Medications Acetaminophen (Tylenol) 650 mg PO Q6H PRN PRN Reason: Pain Last Admin: 12/03/16 02:40 Dose: 650 mg Docusate Sodium (Colace) 100 mg PO BID PRN PRN Reason: Constipation Sodium Chloride (Normal Saline) 500 mls @ 1,000 mls/hr IV .BOL[facility] Last Admin: 12/02/16 21:39 Dose: 1,000 mls/hr Sodium Chloride (Normal Saline) 1,000 mls @ 150 mls/hr IV ASDIRECTED [facility] Non-Formulary Medication (Acetaminophen) 1,300 mg PO Q8HR [facility] Non-Formulary Medication (Polyethylene Glycol 3350 [Miralax]) 17 gm PO Q72H [facility] Senna/Docusate Sodium (Senna Plus) 1 tab PO BID PRN PRN Reason: Constipation Sodium Chloride (Saline Flush) 10 ml FLUSH ASDIRECTED PRN PRN Reason: Keep Vein Open Last Admin: 12/02/16 21:43 Dose: 10 ml - Exam General: Alert, Cooperative, No Acute Distress HEENT: Pupils Equal, Pupils Reactive Neck: Supple, Trachea Midline Lungs: Normal Respiratory Effort, Decreased Breath Sounds Cardiovascular: Regular Rate, Regular Rhythm GI/Abdominal Exam: Normal Bowel Sounds, Soft, Non-Tender, No Organomegaly (Male) Exam: Deferred Back Exam: Normal Inspection, Decreased Range of Motion Extremities: Normal Inspection, Non-Tender, No Pedal Edema Peripheral Pulses: 2+: Dorsalis Pedis (L), Dorsalis Pedis (R) Skin: Warm, Dry, Intact Neurological: No New Focal Deficit Psy/Mental Status: Alert, Normal Mood. No: Normal Affect, Anxious, Agitated - Problem List & Annotations (1) Polypharmacy SNOMED Code(s): 634931410 Code(s): Z79.899 - OTHER SNF (CURRENT) DRUG THERAPY Status: Chronic Current Visit: Yes (2) Confusion SNOMED Code(s): 454987004 Code(s): R41.0 - DISORIENTATION, UNSPECIFIED Status: Resolved Current Visit: Yes (3) Dehydration SNOMED Code(s): 02810472 Code(s): E86.0 - DEHYDRATION Status: Resolved Current Visit: Yes (4) At risk for dehydration due to poor fluid intake SNOMED Code(s): 236392296, 683684941 Code(s): Z91.89 - OTH PERSONAL RISK FACTORS, NOT ELSEWHERE CLASSIFIED Status: Acute Current Visit: Yes (5) 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 SNOMED Code(s): 481488500 Code(s): I69.391 - DYSPHAGIA FOLLOWING CEREBRAL INFARCTION Status: Chronic Current Visit: Yes - Problem List Review Problem List Initiated/Reviewed/Updated: Yes - My Orders Last 24 Hours: My Active Orders 12/03/16 01:53 Height and Weight [RC] 04 Intake and Output [RC] 04,16 Up With Assistance [RC] ASDIRECTED Up ad Melvi [RC] ASDIRECTED VTE/DVT Education [RC] DAILY Vital Signs [RC] Q4HR Consult to Case Management [CONS] Routine Consult to Hot Plate Plywood Press Offbearer [CONS] Routine Consult to Spiritual Care [CONS] Routine OT Evaluation and Treatment [CONS] Routine PT Evaluation and Treatment [CONS] Routine Albuterol/Ipratropium [DuoNeb 3.0-0.5 MG/3 ML] 3 ml NEB Q4H PRN Bisacodyl [Dulcolax] 5 mg PO DAILY PRN Ondansetron [Zofran] 4 mg IV Q6H PRN Polyethylene Glycol 3350 [MiraLAX] 17 gm PO DAILY PRN Resuscitation Status Routine 12/03/16 01:54 Sequential Compression Device [OM.PC] Per Unit Routine 12/03/16 01:55 Antiembolic Devices [RC] BID RT Aerosol Therapy [RC] ASDIRECTED Metoprolol Tartrate [Lopressor] 5 mg IVPUSH Q4H PRN hydrALAZINE [Apresoline] 10 mg IVPUSH Q4H PRN 12/03/16 02:00 Lactated Ringers [Ringers, Lactated] 1,000 ml IV ASDIRECTED Magnesium Rep Pharmacy to Dose [Pharmacy to Dose - Magnesium Replacement] 0 dose .XX ASDIRECTED PRN Potassium Rep Pharmacy to Dose [Pharmacy to Dose - Potassium Replacement] 0 dose .XX ASDIRECTED PRN 12/03/16 02:07 Consult to Dietary [Consult to Revenue Integrity Analyst] [CONS] Routine Consult to Speech Language Pathology [MILLWRIGHT HELPER Evaluation and Treatment] [CONS] Routine 12/03/16 02:33 Albuterol [Proventil HFA] 0 gm INH Q4H PRN Nitroglycerin [Nitrostat] 0.4 mg SL Q5M PRN Patient's Own Medication [Ptom] 0 each EYEBOTH QID PRN 12/03/16 04:47 Acetaminophen [Tylenol] 650 mg PO Q4H PRN 12/03/16 06:00 Hypromellose [Isopto Tears 0.5% Ophth Soln] 0 ml EYELF Q3H 12/03/16 07:00 Ranolazine [Ranexa] 500 mg PO BIDMEALS 12/03/16 08:00 Patient's Own Medication [Ptom] 0 each PO Q8H 12/03/16 09:00 Aspirin [Halfprin] 81 mg PO BID Carvedilol [Coreg] 6.25 mg PO BID Docusate Sodium [Colace] 200 mg PO DAILY Ezetimibe [Zetia] 10 mg PO DAILY Finasteride [Proscar] 5 mg PO DAILY Isosorbide Mononitrate [Imdur] 30 mg PO DAILY Memantine [Namenda] 10 mg PO BID Patient's Own Medication [Ptom] 0 each INH BID Patient's Own Medication [Ptom] 0 each PO BID Patient's Own Medication [Ptom] 0 each PO DAILY Patient's Own Medication [Ptom] 0 each PO DAILY Polyethylene Glycol 3350 [MiraLAX] 0 gm PO Q72H Potassium Chloride [Klor-Con 10] 10 meq PO DAILY Psyllium Husk/Aspartame [Metamucil Sugar Free] 1 packet PO DAILY Sertraline [Zoloft] 12.5 mg PO DAILY prednisoLONE Acetate [Pred Forte 1% Ophth Susp] 0 ml EYELF DAILY 12/03/16 11:45 Tamsulosin [Flomax] 0.4 mg PO BID 12/03/16 20:00 Clopidogrel [Plavix] 75 mg PO DAILY@199912/03/16 21:00 Donepezil [Aricept] 10 mg PO BEDTIME Latanoprost [Xalatan 0.005% Ophth Soln] 0 ml EYEBOTH BEDTIME Temazepam [Restoril] 15 mg PO BEDTIME PRN 12/03/16 Lunch National Dysphagia Diet [DIET] - Plan Plan:: Assessment/Plan: Acute: S/p Acute Encephalopathy/AMS - Suspect 2/2 Toxic/Metabolic Encephalopathy - Risk factors: Advanced Dementia and Poly-pharmacy - Supportive Care and IV fluids - Will hold some of his home meds - Aspiration and Fall Precautions - He is now at baseline Poor Oral Intake - Above likely contributory to it - Risk factor: Dysphagia w/ specialized diet - Dietary consulted - MILLWRIGHT HELPER to re-assess swallowing-pending Dehydration - 2/2 Poor oral intake - Received initial treatment in ED - Saline lock once current fluid is done High Risk Poly-pharmacy and High Risk Fall Chronic: Impaired Vision/Hearing Left Eye Blindness Hypertension Hyperlipidemia CAD/OR PAD Angina COPD Lung Nodule GERD Hyperglycemia 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
[2016-12-03] MEDS ORDERED: CLOPIDOGREL 75 MG PO SCH (20:00)
[2016-12-03] MEDS ORDERED: Temazepam 15 MG Cap PO PRN (21:00)
[2016-12-03] MEDS ORDERED: Latanoprost 0.005% Ophth Soln 2.5 ML Bottle EYEBOTH SCH (21:00)
[2016-12-03] MEDS ORDERED: Lidocaine 5% 700 MG Patch TOP SCH (21:00)
[2016-12-03] MEDS ORDERED: DONEPEZIL 10 MG PO SCH (21:00)
[2016-12-04] MEDS: HYPROMELLOSE EYELF SCH ×5 (00:01→14:17)
[2016-12-04] MEDS: ACETAMINOPHEN 1300 MG PO SCH ×2 (00:02→07:10)
[2016-12-04] MEDS: Acetaminophen 325 MG Tab PO PRN ×2 (05:54→09:38)
[2016-12-04] MEDS: RANEXA 500 MG PO SCH (07:09)
[2016-12-04] MEDS: CARVEDILOL 6.25 MG PO SCH (09:19)
[2016-12-04] MEDS: TAMSULOSIN 0.4 MG PO SCH (09:21)
[2016-12-04] MEDS: ASPIRIN 81 MG PO SCH (09:21)
[2016-12-04] MEDS: POTASSIUM CHLORIDE 10 MEQ PO SCH (09:22)
[2016-12-04] MEDS: ISOSORBIDE MONONITRATE 30 MG PO SCH (09:22)
[2016-12-04] MEDS: MEMANTINE 10 MG PO SCH (09:23)
[2016-12-04] MEDS: FINASTERIDE 5 MG PO SCH (09:24)
[2016-12-04] MEDS: Mirabegron [Myrbetriq] 50 MG PO SCH (09:26)
[2016-12-04] MEDS: ATORVASTATIN CALCIUM 80 MG PO SCH (09:26)
[2016-12-04] MEDS: SERTRALINE 25 MG PO SCH (09:27)
[2016-12-04] MEDS: EZETIMIBE 10 MG PO SCH (09:27)
--- NOTE | 2016-12-04 09:35 | PCM.SN ---
- Free Text/Narrative Note: Patient seen and examined at bedside. He was pretty much up all night and did not fall asleep until 5 am. This morning he complains of vague pain on his right flank- pointing to his right chest beneath the ribs and right groin. No fall reports. I myself was present here all night until past 2 am. Offered KUB and Right Hip X-ray, DPOAs agreed. If tests, are negative. We will proceed with discharge.
[2016-12-04] MEDS: DOCUSATE SODIUM 100 MG PO SCH (09:42)
[2016-12-04] MEDS: PREDNISOLONE ACETATE 1% EYELF SCH (09:42)
[2016-12-04] MEDS: Psyllium Husk Powder Sugar Free 3.4 GM Packet PO SCH (09:53)
[2016-12-04] MEDS: Budesonide [Pulmicort Flexhaler] INH SCH (10:29)
--- NOTE | 2016-12-04 11:51 | CR ---
Pelvis and right hip: AP view of the pelvis was obtained as well as two views of the right hip. Comparison: Previous CT right hip exam of 12/02/16 and AP pelvis radiograph of 11/27/16. Bilateral hip prosthesis are seen. Components are aligned. Underlying bony structures are intact. Osteopenia is seen. Nothing acute is identified. Incidental vascular calcification is noted. Previous vertebroplasty is seen within the lower lumbar spine. Impression: 1. Bilateral hip prosthesis. Other incidental findings. Nothing acute is appreciated. Diagnostic code #2
--- NOTE | 2016-12-04 11:51 | CR ---
Abdomen: Supine view of the abdomen was obtained. Comparison: Previous abdominal x-ray of 11/10/16. Bilateral hip prosthesis are seen. Previous vertebroplasty is noted within the lower lumbar spine. Scattered gas within colon and small bowel is identified which appears within normal limits. Mild vascular calcification is seen. Impression: 1. Incidental findings. Diagnostic code #2
[2016-12-04 14:08] VITALS: BP 105/48
== END 2016-12-04 14:05 ==
LOC: JD.ED 20:52 → SUPCPDRO 20:52 → JD.MS 12-03 00:38
PROVIDERS: ADMIT Internal Medicine; ATTEND Internal Medicine
DX: G93.40 Encephalopathy, unspecified (principal); R41.0 Disorientation, unspecified; E86.0 Dehydration; I69.391 Dysphagia following cerebral infarction; I25.119 Atherosclerotic heart disease of native coronary artery with unspecified angina pectoris; I10 Essential (primary) hypertension; I25.2 Old myocardial infarction; I73.9 Peripheral vascular disease, unspecified; E78.00 Pure hypercholesterolemia, unspecified; J44.9 Chronic obstructive pulmonary disease, unspecified; K21.9 Gastro-esophageal reflux disease without esophagitis; N40.0 Benign prostatic hyperplasia without lower urinary tract symptoms; F03.90 Unspecified dementia, unspecified severity, without behavioral disturbance, psychotic disturbance, mood disturbance, and anxiety; E53.8 Deficiency of other specified B group vitamins; R91.1 Solitary pulmonary nodule; R73.9 Hyperglycemia, unspecified; G62.9 Polyneuropathy, unspecified; M19.90 Unspecified osteoarthritis, unspecified site; K40.20 Bilateral inguinal hernia, without obstruction or gangrene, not specified as recurrent; D75.89 Other specified diseases of blood and blood-forming organs; M54.30 Sciatica, unspecified side; M48.00 Spinal stenosis, site unspecified; K22.2 Esophageal obstruction; Z87.01 Personal history of pneumonia (recurrent); Z91.89 Other specified personal risk factors, not elsewhere classified; Z79.02 Long term (current) use of antithrombotics/antiplatelets; Z79.82 Long term (current) use of aspirin; Z79.51 Long term (current) use of inhaled steroids; Z79.899 Other long term (current) drug therapy; Z88.5 Allergy status to narcotic agent; Z88.8 Allergy status to other drugs, medicaments and biological substances; Z98.49 Cataract extraction status, unspecified eye; Z95.1 Presence of aortocoronary bypass graft; Z96.643 Presence of artificial hip joint, bilateral; Z90.89 Acquired absence of other organs; Z98.890 Other specified postprocedural states
CPT/HCPCS: 36415; 70450; 71010; 73502; 73700; 74000; 80048; 80053; 81001; 83735; 84484; 85025; 87641; 92526; 92610; 93005; 94640; 94664; 94761; 96360; 96361; 96374; 97110; 97162; 97167; 97530; 99285; A9270; G0378; J0360; J7040; J7050; J7120; 99284

== ENCOUNTER 2017-01-25 18:53 | Emergency (ER) | payer MEDICARE, BC ==
[2017-01-25 19:19] VITALS: BP 104/87
[2017-01-25] MEDS ORDERED: Sodium Chloride 0.9% 1,000 ML IV ONE (19:54)
--- NOTE | 2017-01-25 20:10 | EDM.PDOC ---
ED HPI GENERAL MEDICAL PROBLEM - General Chief Complaint: Neurological Problem Stated Complaint: CONFUSED/SHAKING Time Seen by Provider: 01/25/17 19:35 Source of Information: Reports: Family (3 daughters), Old Records, RN Notes Reviewed History Limitations: Reports: Altered Mental Status - History of Present Illness INITIAL COMMENTS - FREE TEXT/NARRATIVE: The patient's daughters state that the patient has dementia, and therefore is always confused, over the past 2 days, he has had increased confusion, increased tiredness, and a tremor in his hands, feet, and head. They note that he chronically has a low fluid intake, and here in the ED, his urine appears to be dark, although his confusion and tremor have improved. He has had similar symptoms in the past, and has been found to be dehydrated. The patient's PCP is Dr. Indu Coyle. - Related Data Allergies Allergy/AdvReac Type Severity Reaction Status Date / Time cyclobenzaprine Allergy Other Verified 01/25/17 19:15 morphine Allergy Cannot Verified 12/03/16 01:43 Remember tramadol Allergy Hallucinati Verified 01/25/17 19:15 ons DANY Inhibitors AdvReac Change Verified 12/03/16 01:43 Mental Status hydromorphone [From Dilaudid] AdvReac Hallucinati Verified 12/03/16 01:43 ons Home Meds: Home Meds Aspirin [Adult Low Dose Aspirin EC] 81 mg PO BID 08/11/15 [History] Clopidogrel Bisulfate [Plavix] 75 mg PO DAILY 08/11/15 [History] Donepezil [Aricept] 10 mg PO BEDTIME 08/11/15 [History] Ezetimibe [Zetia] 10 mg PO DAILY 08/11/15 [History] Finasteride [Proscar] 5 mg PO DAILY 08/11/15 [History] Latanoprost [Xalatan 0.005% Ophth Soln] 1 drop EYEBOTH BEDTIME 08/11/15 [History ] Ranolazine [Ranexa] 500 mg PO Q12H 08/11/15 [History] Tamsulosin HCl 0.4 mg PO Q12H 08/11/15 [History] atorvaSTATin Calcium [Atorvastatin Calcium] 80 mg PO DAILY 08/11/15 [History] Nitroglycerin [Nitrostat] 0.4 mg SL Q5M PRN 01/31/16 [History] Ranitidine HCl [Zantac] 150 mg PO BID 01/31/16 [History] Sertraline [Zoloft] 12.5 mg PO DAILY 01/31/16 [History] Carvedilol [Coreg] 6.25 mg PO BID 09/05/16 [History] Docusate Sodium [Stool Softener] 2 tab PO DAILY 09/09/16 [History] Temazepam [Restoril] 15 mg PO BEDTIME PRN 09/09/16 [History] prednisoLONE Acetate [Prednisolone Acetate] 1 drop EYELF DAILY 09/09/16 [History ] Budesonide [Pulmicort Flexhaler] 2 puff INH BID 09/17/16 [History] Dextran 70/Hypromellose [Artificial Tears] 1 drop EYEBOTH QID PRN 09/17/16 [ History] Potassium Chloride [Klor-Con 10] 10 meq PO DAILY 09/17/16 [History] Psyllium Husk (With Sugar) [Metamucil Powder] 1 tsp PO DAILY 09/17/16 [History] Albuterol [Ventolin HFA] 2 puff INH TID PRN 11/10/16 [History] Isosorbide Mononitrate [Imdur] 30 mg PO DAILY 11/10/16 [History] Memantine [Namenda] 10 mg PO BID 11/27/16 [History] Acetaminophen [Acetaminophen ER] 1,300 mg PO Q8HR #0 11/30/16 [Rx] Mirabegron [Myrbetriq] 50 mg PO DAILY #0 12/04/16 [Rx] Ibuprofen 200 mg PO TID 01/25/17 [History] Lidocaine 5% [Lidoderm 5%] 1 patch TOP DAILY 01/25/17 [History] guaiFENesin/Dextromethorphan [Tussin Dm Liquid] 10 ml PO Q4H PRN 01/25/17 [ History] Past Medical History HEENT History: Reports: Glaucoma, Hard of Hearing Other HEENT History: glasses, hearing aids, dentures, blind in Left eye Cardiovascular History: Reports: CAD, High Cholesterol, Hypertension, [place], PVD Respiratory History: Reports: COPD Gastrointestinal History: Reports: GERD Genitourinary History: Reports: BPH Musculoskeletal History: Reports: Back Pain, Chronic (spinal stenosis), Osteoarthritis Neurological History: Reports: TIA, Other (See Below) (Dementia) - Infectious Disease History Infectious Disease History: Reports: Chicken Pox - Past Surgical History HEENT Surgical History: Reports: Adenoidectomy, Cataract Surgery, Tonsillectomy Cardiovascular Surgical History: Reports: Carotid Stents (x 4 or 5), Coronary Artery Bypass (x 3 vessel) GI Surgical History: Reports: Colonoscopy Musculoskeletal Surgical History: Reports: Hip Replacement (bilateral) Social & Family History - Family History Family Medical History: Unobtainable - Tobacco Use Smoking Status *Q: Former Smoker Years of Tobacco use: 40 Packs/Tins Daily: 1 Used Tobacco, but Quit: No Month Tobacco Last Used: Quit 1989 Second Hand Smoke Exposure: No - Caffeine Use Caffeine Use: Reports: Coffee - Alcohol Use Alcohol Use History: No - Recreational Drug Use Recreational Drug Use: No - Living Situation & Occupation Living situation: Reports: , Assisted Living ([facility] Occupation: Retired ED ROS GENERAL - Review of Systems Review Of Systems: See Below Constitutional: Reports: No Symptoms HEENT: Reports: No Symptoms Respiratory: Reports: No Symptoms Cardiovascular: Reports: No Symptoms Endocrine: Reports: No Symptoms GI/Abdominal: Reports: No Symptoms : Reports: No Symptoms Musculoskeletal: Reports: No Symptoms Skin: Reports: No Symptoms Neurological: Reports: No Symptoms Psychiatric: Reports: No Symptoms Hematologic/Lymphatic: Reports: No Symptoms Immunologic: Reports: No Symptoms ED EXAM, GENERAL - Physical Exam Exam: See Below Exam Limited By: No Limitations General Appearance: Alert, WD/WN, No Apparent Distress Eye Exam: Bilateral Eye: Normal Inspection Ears: Normal External Exam, Hearing Loss Nose: Normal Inspection, No Blood Throat/Mouth: Normal Inspection, Normal Lips, Normal Voice, No Airway Compromise Head: Atraumatic, Normocephalic Neck: Normal Inspection, Full Range of Motion Respiratory/Chest: No Respiratory Distress, Lungs Clear, Normal Breath Sounds, No Accessory Muscle Use Cardiovascular: Normal Peripheral Pulses, Regular Rate, Rhythm, No Gallop, No JVD, No Murmur, No Rub Peripheral Pulses: 4+: Radial (L), Radial (R) GI/Abdominal: Normal Bowel Sounds, Soft, Non-Tender, No Organomegaly, No Distention, No Abnormal Bruit, No Mass (Male) Exam: Deferred Rectal (Males) Exam: Deferred Back Exam: Normal Inspection, Full Range of Motion, NT Extremities: Normal Inspection, Normal Range of Motion, No Pedal Edema, Normal Capillary Refill Neurological: Alert, No Motor/Sensory Deficits, Confused Psychiatric: Normal Affect Skin Exam: Warm, Dry, Intact, Normal Color, No Rash EKG INTERPRETATION EKG Date: 01/25/17 Time: 20:28 Rhythm: NSR Rate (Beats/Min): 62 [place]: 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) P-Wave: Present QRS: RBBB ST-T: Normal QT: Normal Comparison: Change From Previous EKG (RBBB more evident since 12/02/2016) Course - Vital Signs Last Recorded V/S: Last Vital Signs Temp 36.7 C 01/25/17 19:15 Pulse 68 01/25/17 19:15 Resp BP 104/87 01/25/17 19:15 Pulse Ox 97 01/25/17 19:15 Orthostatic Blood Pressure [ 153/136 Standing] Orthostatic Blood Pressure [ 149/45 Supine] - Orders/Labs/Meds Orders: Active Orders 24 hr Category Date Time Status EKG Documentation Completion [RC] STAT Care 01/25/17 19:52 Active Orthostatic Vital Signs [RC] STAT Care 01/25/17 19:52 Active Orthostatic Vital Signs [RC] STAT Care 01/25/17 20:11 Active Chest 1V Frontal [CR] Stat Exams 01/25/17 19:52 Taken Labs: Laboratory Tests 01/25/17 01/25/17 01/25/17 Range/Units 19:50 20:23 20:23 WBC 10.32 H (4.23-9.07) K/mm3 RBC 3.24 L (4.63-6.08) M/mm3 Hgb 11.3 L (13.7-17.5) gm/L Hct 35.1 L (40.1-51.0) % MCV 108.3 H (79.0-92.2) fl MCH 34.9 H (25.7-32.2) pg MCHC 32.2 (32.2-35.5) g/dl RDW Std Deviation 50.6 H (35.1-43.9) fL Plt Count 278 (163-337) K/mm3 MPV 9.0 L (9.4-12.3) fl Neutrophils % (Manual) 87 H (40-60) % Band Neutrophils % 0 (0-10) % Lymphocytes % (Manual) 7 L (20-40) % Atypical Lymphs % 0 % Monocytes % (Manual) 4 (2-10) % Eosinophils % (Manual) 1 (0.8-7.0) % Basophils % (Manual) 1 (0.2-1.2) Platelet Estimate Adequate Poikilocytosis 1+ slight Anisocytosis 2+ moderate Macrocytosis 2+ moderate Ovalocytes 2+ moderate Sodium 142 (136-145) mEq/L Potassium 4.4 (3.5-5.1) mEq/L Chloride 107 (98-107) mEq/L Carbon Dioxide 28 (21-32) mEq/L Anion Gap 11.4 (5-15) BUN 22 H (7-18) mg/dL Creatinine 1.1 (0.7-1.3) mg/dL Est Cr Clr Drug Dosing 39.06 mL/min Estimated GFR (MDRD) > 60 (>60) mL/min BUN/Creatinine Ratio 20.0 H (14-18) Glucose 122 H (83-115) mg/dL Calcium 9.0 (8.5-10.1) mg/dL Magnesium 2.1 (1.8-2.4) mg/dl Total Bilirubin 0.7 (0.2-1.0) mg/dL AST 43 H (15-37) U/L ALT 63 (16-63) U/L Alkaline Phosphatase 72 (46-116) U/L Troponin I 0.046 (0.00-0.056) ng/mL Total Protein 6.4 (6.4-8.2) g/dl Albumin 3.0 L (3.4-5.0) g/dl Globulin 3.4 gm/dL Albumin/Globulin Ratio 0.9 L (1-2) TSH 3rd Generation 0.949 (0.358-3.74) uIU/mL Urine Color Patito H (Yellow) Urine Appearance Clear (Clear) Urine pH 6.5 (5.0-8.0) Ur Specific Electra 1.025 (1.005-1.030) Urine Protein Negative (Negative) Urine Glucose (UA) Negative (Negative) Urine Ketones Trace H (Negative) Urine Occult Blood Negative (Negative) Urine Nitrite Negative (Negative) Urine Bilirubin 1+ H (Negative) Urine Urobilinogen 4.0 H (0.2-1.0) Ur Leukocyte Esterase Negative (Negative) Urine RBC 0-5 (0-5) /hpf Urine WBC 0-5 (0-5) /hpf Ur Epithelial Cells 0-5 (0-5) /hpf Urine Bacteria Few (FEW) /hpf Urine Mucus Few (FEW) /hpf Meds: Medications Discontinued Medications Generic Name Dose Route Start Last Admin Trade Name Antoinette PRN Reason Stop Dose Admin Sodium Chloride 1,000 mls @ 999 mls/hr 01/25/17 19:54 01/25/17 20:20 Normal Saline IV 01/25/17 20:54 999 mls/hr ONETIME ONE Administration - Re-Assessments/Exams Free Text/Narrative Re-Assessment/Exam: 01/25/17 20:10 The patient's orthostatics are positive. 1 L normal saline bolus was already ordered. I will have his orthostatics rechecked after that liter has infused. 01/25/17 20:56 Portable chest radiograph reviewed. Cardiac silhouette is within normal limits. No pulmonary vascular congestion. No pleural effusions. No focal infiltrate. No pneumothorax. Bilateral apical pleural thickening and scarring noted, worse on the left than the right, chronic in appearance, when compared to prior portable chest radiographs dated 11/27/2016 and 12/02/2016. Slight bilateral costophrenic blunting, also chronic. Sternotomy wires and cardiac clip noted. Formal read per the Radiologist pending. 01/25/17 23:04 Test results discussed with the patient's 3 daughters. Faraz's workup is, for the most part, unremarkable. The patient is not dehydrated, although he may be somewhat vascularly depleted, as he was orthostatic, and his urine was relatively dark. His orthostasis, however, could be caused by his Imdur, Coreg, among other medications. He received 1 L NS while here in the ED, and I'm recommending that he stay adequately hydrated. His WBC count was slightly elevated at 10.32, but with 0% bandemia. His troponin was within normal limits at 0.046, essentially unchanged from 0.045 on 12/02/2016. I do not see an indication for admission to the hospital. Departure - Departure Time of Disposition: 23:07 Disposition: Home, Self-Care 01 Condition: Good Clinical Impression: Intravascular volume depletion, Confusion, Tremor - Discharge Information Instructions: Confusion, Dehydration, Adult, [id number], Tremor Referrals: Indu Coyle MD [Primary Care Provider] - Forms: ED Department Discharge Additional Instructions: Mr. Albarado was seen in the emergency room for worsening confusion, tiredness, and tremors of his hands, feet, and head, over the past 2 days. Workup in the ER included blood work, a urinalysis, an ECG, a portable chest x- ray, an influenza swab, and positional blood pressure checks. He was found to be mildly orthostatic, therefore he received 1 L of IV fluid in the ER. Going forward, he should try to stay adequately hydrated. The remainder of his workup was unremarkable. He does not have pneumonia. He does not have influenza. He has not had a recent heart attack. He does not have a urinary tract infection. Have him follow-up with his PCP, Dr. Indu Coyle, this coming week. If any other problems, please do not hesitate to return Mr. Albarado to the ER. - My Orders Last 24 Hours: My Active Orders 01/25/17 19:52 EKG Documentation Completion [RC] STAT Orthostatic Vital Signs [RC] STAT Chest 1V Frontal [CR] Stat 01/25/17 20:11 Orthostatic Vital Signs [RC] STAT - Assessment/Plan Last 24 Hours: My Active Orders 01/25/17 19:52 EKG Documentation Completion [RC] STAT Orthostatic Vital Signs [RC] STAT Chest 1V Frontal [CR] Stat 01/25/17 20:11 Orthostatic Vital Signs [RC] STAT
--- NOTE | 2017-01-28 08:35 | CR ---
Chest: Portable view of the chest was obtained. Comparison: Prior chest x-ray of 12/02/16. Apical pleural thickening identified on both sides which remains stable. Mild parenchymal scarring also noted within both upper lungs which is stable. Lungs show no acute-appearing parenchymal densities. Mild blunting of the costophrenic angles is noted which appears stable. Heart size is normal. Mild tortuosity of the thoracic aorta is seen. Previous sternotomy is noted. Degenerative changes noted within the right shoulder. Impression: 1. Multiple findings which are stable from prior chest x-ray. 2. Nothing acute is identified on portable chest x-ray. Diagnostic code #2
== END 2017-01-25 23:16 | disposition home or self-care (01) ==
LOC: JD.ED 18:53
DX: E86.9 Volume depletion, unspecified (principal); R25.1 Tremor, unspecified; R41.0 Disorientation, unspecified; I10 Essential (primary) hypertension; E78.00 Pure hypercholesterolemia, unspecified; I25.10 Atherosclerotic heart disease of native coronary artery without angina pectoris; J44.9 Chronic obstructive pulmonary disease, unspecified; K21.9 Gastro-esophageal reflux disease without esophagitis; Z87.891 Personal history of nicotine dependence; Z79.82 Long term (current) use of aspirin; Z79.02 Long term (current) use of antithrombotics/antiplatelets; Z79.899 Other long term (current) drug therapy; Z88.5 Allergy status to narcotic agent; Z88.8 Allergy status to other drugs, medicaments and biological substances
CPT/HCPCS: 36415; 71010; 80053; 81001; 83735; 84443; 84484; 85025; 87804; 93005; 96360; 99284; J7040; 93010

== ENCOUNTER 2017-03-26 08:48 | Emergency (ER) | payer MEDICARE, BC ==
[2017-03-26 09:09] VITALS: BP 143/68
--- NOTE | 2017-03-26 10:19 | CT ---
CT cervical spine Technique: Multiple axial sections were obtained from above C1 inferiorly to the bottom of T2. Reconstructed sagittal and coronal images were reviewed. Comparison: No previous cervical spine imaging is available. Findings: Vertebral body heights and disc spaces are maintained. Moderate diffuse degenerative apophyseal change is seen throughout the cervical spine. Mild scattered degenerative change is seen within the uncovertebral joints. Visualized mastoid and middle ear cavities are clear. Posterior skull base is intact. No cervical spine fracture is seen. No abnormal subluxation is seen. Moderate bilateral neural foraminal stenosis noted at C3-C4. Mild left-sided neural foraminal stenosis noted at C4-C5 and moderate to severe right-sided neural foraminal stenosis noted at C4-C5. Moderate right-sided neural foraminal stenosis noted at C5-C6 and mild neural foraminal stenosis noted at C5-C6. Other neural foramina are felt to be patent. Apical pleural thickening seen on both sides of the chest, worse on the left side. Parenchymal scarring also seen within the right upper lung. Impression: 1. Degenerative change as noted above with multiple areas of neural foraminal stenosis. 2. No acute fracture or abnormal subluxation is seen. 3. Chronic change within both upper lungs. Diagnostic code #2
--- NOTE | 2017-03-26 10:40 | EDM.PDOC ---
ED HPI GENERAL MEDICAL PROBLEM - General Chief Complaint: Lower Extremity Injury/Pain Stated Complaint: HIP PAIN Time Seen by Provider: 03/26/17 09:03 Source of Information: Reports: Patient, Family (2 daughters) History Limitations: Reports: Altered Mental Status (Dementia) - History of Present Illness INITIAL COMMENTS - FREE TEXT/NARRATIVE: The patient has dementia and is unable to relate much of his history. The patient's daughters state that the patient [facility], using his walker, but without assistance, as he usually does. He apparently dropped something, then slipped and fell when trying to pick it up. The patient indicates that he landed on his right hip, and also hurt the posterior right side of his neck. The patient is status post bilateral total hip arthroplasties. The patient's PCP is Dr. Indu Coyle. Right Hip Pain Score (Numeric/FACES): 10 - Related Data Allergies Allergy/AdvReac Type Severity Reaction Status Date / Time cyclobenzaprine Allergy Other Verified 03/26/17 09:02 morphine Allergy Cannot Verified 03/26/17 09:02 Remember tramadol Allergy Hallucinati Verified 03/26/17 09:02 ons DANY Inhibitors AdvReac Change Verified 03/26/17 09:02 Mental Status hydromorphone [From Dilaudid] AdvReac Hallucinati Verified 03/26/17 09:02 ons Home Meds: Home Meds Aspirin [Adult Low Dose Aspirin EC] 81 mg PO BID 08/11/15 [History] Clopidogrel Bisulfate [Plavix] 75 mg PO DAILY 08/11/15 [History] Donepezil [Aricept] 10 mg PO BEDTIME 08/11/15 [History] Ezetimibe [Zetia] 10 mg PO DAILY 08/11/15 [History] Finasteride [Proscar] 5 mg PO DAILY 08/11/15 [History] Latanoprost [Xalatan 0.005% Ophth Soln] 1 drop EYEBOTH BEDTIME 08/11/15 [History ] Ranolazine [Ranexa] 500 mg PO BID 08/11/15 [History] Tamsulosin HCl 0.4 mg PO BID 08/11/15 [History] atorvaSTATin Calcium [Atorvastatin Calcium] 80 mg PO DAILY 08/11/15 [History] Nitroglycerin [Nitrostat] 0.4 mg SL Q5M PRN 01/31/16 [History] Ranitidine HCl [Zantac] 150 mg PO BID 01/31/16 [History] Sertraline [Zoloft] 12.5 mg PO DAILY 01/31/16 [History] Carvedilol [Coreg] 6.25 mg PO BID 09/05/16 [History] Docusate Sodium [Stool Softener] 2 tab PO DAILY 09/09/16 [History] Temazepam [Restoril] 15 mg PO BEDTIME PRN 09/09/16 [History] prednisoLONE Acetate [Prednisolone Acetate] 1 drop EYELF DAILY 09/09/16 [History ] Budesonide [Pulmicort Flexhaler] 2 puff INH BID 09/17/16 [History] Dextran 70/Hypromellose [Artificial Tears] 1 drop EYEBOTH QID PRN 09/17/16 [ History] Potassium Chloride [Klor-Con 10] 10 meq PO DAILY 09/17/16 [History] Albuterol [Ventolin HFA] 2 puff INH TID PRN 11/10/16 [History] Isosorbide Mononitrate [Imdur] 30 mg PO DAILY 11/10/16 [History] Acetaminophen [Acetaminophen ER] 1,300 mg PO Q8HR #0 11/30/16 [Rx] Mirabegron [Myrbetriq] 50 mg PO DAILY #0 12/04/16 [Rx] Ibuprofen 200 mg PO TID 01/25/17 [History] Lidocaine 5% [Lidoderm 5%] 1 patch TOP DAILY 01/25/17 [History] guaiFENesin/Dextromethorphan [Tussin Dm Liquid] 10 ml PO Q4H PRN 01/25/17 [ History] Bisacodyl 5 mg PO DAILY PRN 03/26/17 [History] Cholecalciferol (Vitamin D3) [Vitamin D3] 1,000 unit PO DAILY 03/26/17 [History] Psyllium with Sucrose [Metamucil] 1 each PO ASDIRECTED 03/26/17 [History] Past Medical History HEENT History: Reports: Glaucoma, Hard of Hearing Other HEENT History: glasses, hearing aids, dentures, blind in Left eye Cardiovascular History: Reports: CAD, High Cholesterol, Hypertension, [place], PVD Respiratory History: Reports: COPD Gastrointestinal History: Reports: GERD Genitourinary History: Reports: BPH Musculoskeletal History: Reports: Back Pain, Chronic (spinal stenosis), Osteoarthritis Neurological History: Reports: Alzheimers Disease, TIA - Infectious Disease History Infectious Disease History: Reports: Chicken Pox - Past Surgical History HEENT Surgical History: Reports: Adenoidectomy, Cataract Surgery, Tonsillectomy Cardiovascular Surgical History: Reports: Coronary Artery Bypass (x 3 vessel), Coronary Artery Stent (x 4 or 5) GI Surgical History: Reports: Colonoscopy, Hernia, Inguinal (bilateral) Neurological Surgical History: Reports: Lumbar Spine (Kyphoplasty) Musculoskeletal Surgical History: Reports: Hip Replacement (bilateral) Social & Family History - Family History Family Medical History: Unobtainable - Tobacco Use Smoking Status *Q: Former Smoker Years of Tobacco use: 40 Packs/Tins Daily: 1 Month Tobacco Last Used: Quit 1979 Second Hand Smoke Exposure: No - Caffeine Use Caffeine Use: 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 - Alcohol Use Alcohol Use History: No - Recreational Drug Use Recreational Drug Use: No - Living Situation & Occupation Living situation: Reports: , Extended Care Facility ([facility]) Occupation: Retired Review of Systems - Review of Systems Review Of Systems: ROS reveals no pertinent complaints other than HPI. ED EXAM, GENERAL - Physical Exam Exam: See Below Exam Limited By: No Limitations General Appearance: Alert, WD/WN, No Apparent Distress Eye Exam: Bilateral Eye: Normal Inspection Ears: Normal External Exam, Hearing Grossly Normal Nose: Normal Inspection, No Blood Throat/Mouth: Normal Inspection, Normal Lips, Normal Voice, No Airway Compromise Head: Atraumatic, Normocephalic Neck: Normal Inspection, Supple, Full Range of Motion, Tender Lateral (Minimal, right posterior. Nontender over the cervical spine.) Respiratory/Chest: No Respiratory Distress, Lungs Clear, Normal Breath Sounds, No Accessory Muscle Use Cardiovascular: Normal Peripheral Pulses, Regular Rate, Rhythm, No Edema, No Gallop, No JVD, No Murmur, No Rub Peripheral Pulses: 4+: Radial (L), Radial (R) GI/Abdominal: Normal Bowel Sounds, Soft, Non-Tender, No Organomegaly, No Distention, No Abnormal Bruit, No Mass (Male) Exam: Deferred Rectal (Males) Exam: Deferred Back Exam: Normal Inspection, Full Range of Motion, NT Extremities: Normal Inspection, Normal Range of Motion, No Pedal Edema, Normal Capillary Refill Neurological: Alert, No Motor/Sensory Deficits, Confused Psychiatric: Normal Affect Skin Exam: Warm, Dry, Intact, Normal Color, No Rash Course - Vital Signs Last Recorded V/S: Last Vital Signs Temp 36.1 C 03/26/17 09:02 Pulse 81 03/26/17 09:02 Resp 18 03/26/17 09:02 BP 143/68 H 03/26/17 09:02 Pulse Ox 100 03/26/17 09:02 - Orders/Labs/Meds Orders: Active Orders 24 hr Category Date Time Status Hip Min 1V w Pelvis Rt [CR] Stat Exams 03/26/17 09:29 Taken - Re-Assessments/Exams Free Text/Narrative Re-Assessment/Exam: 03/26/17 10:46 CT of the cervical spine without contrast is read by Dr. Perales as" 1. Degenerative change as noted above with multiple areas of neural foraminal stenosis. 2. No acute fracture or abnormal subluxation is seen. 3. Chronic change within both upper lungs. 03/26/17 10:48 2-view radiographs of the pelvis and right hip appear to demonstrate bilateral total hip arthroplasties in good position. No fractures identified. Formal read per the Radiologist pending. 03/26/17 10:53 CT and x-ray results discussed with the patient and his daughters. No fractures today, just mild bruises or muscle strains. Since the patient is sensitive to pain medication, I am recommending that they give only Tylenol. [facility] the jail. Departure - Departure Time of Disposition: 10:55 Disposition: Home, Self-Care 01 Condition: Good Clinical Impression: Fall at jail, Neck strain Contusion of right hip Qualifiers: Encounter type: initial encounter Qualified Code(s): S70.01XA - Contusion of right hip, initial encounter - Discharge Information Referrals: Indu Coyle MD [Primary Care Provider] - Forms: ED Department Discharge Additional Instructions: Mr. Albarado was seen in the emergency room after falling at the jail, complaining of neck and right hip pain. Workup in the ER included a CT scan of the neck and x-rays of the right hip and pelvis. His entire workup was negative. No broken bones or dislocations. His right hip pain is MOST LIKELY due to a contusion. His neck pain is MOST LIKELY due to a muscle strain. Given his sensitivity to pain medications, we recommend you give only over-the- counter Tylenol as needed. He may resume his usual activities. If any other problems, please do not hesitate to return Mr. Albarado to the ER. - My Orders Last 24 Hours: My Active Orders 03/26/17 09:29 Hip Min 1V w Pelvis Rt [CR] Stat - Assessment/Plan Last 24 Hours: My Active Orders 03/26/17 09:29 Hip Min 1V w Pelvis Rt [CR] Stat
--- NOTE | 2017-03-26 11:13 | CR ---
Pelvis and right hip: AP view of the pelvis was obtained as well as frog leg lateral view of the right hip. Comparison: Previous pelvis and right hip exam of 12/04/16. Bilateral hip prosthesis are noted. Components are aligned. Underlying bony structures are osteopenic. Vascular calcification is noted. Partially visualized vertebroplasty is noted within the lower lumbar spine. No acute fracture or other abnormality is seen. Impression: 1. Incidental findings. Nothing acute is appreciated on AP pelvis or frog-leg lateral right hip exam. Diagnostic code #2
== END 2017-03-26 11:18 | disposition home or self-care (01) ==
LOC: JD.ED 08:48
DX: S16.1XXA Strain of muscle, fascia and tendon at neck level, initial encounter (principal); S70.01XA Contusion of right hip, initial encounter; I10 Essential (primary) hypertension; E78.00 Pure hypercholesterolemia, unspecified; Z88.5 Allergy status to narcotic agent; Z88.8 Allergy status to other drugs, medicaments and biological substances; Z79.82 Long term (current) use of aspirin; Z79.899 Other long term (current) drug therapy; Z87.891 Personal history of nicotine dependence; W01.0XXA Fall on same level from slipping, tripping and stumbling without subsequent striking against object, initial encounter; Y92.121 Bathroom in nursing home as the place of occurrence of the external cause
CPT/HCPCS: 72125; 72125-26; 73501-26-RT; 73501-RT; 99284; 99284-25

== ENCOUNTER 2017-05-08 11:59 | Inpatient (IN) | payer MEDICARE, BC ==
--- NOTE | 2017-05-08 13:34 | CR ---
Chest: Portable view of the chest was obtained. Comparison: Prior chest x-ray of 01/25/17. Chronic pleural thickening is seen upper lobe parenchymal scarring. Minimal blunting of the lateral left costophrenic angle is seen which is stable. No acute parenchymal densities are seen. Surgical clips are seen within the left hilar region. Previous sternotomy is noted. Bony structures are grossly intact. Impression: 1. Findings as noted above which are stable from prior chest x-ray. 2. Nothing acute is appreciated. Diagnostic code #2
[2017-05-08] MEDS ORDERED: Acetaminophen 325 MG Tab PO ONE (13:52)
--- NOTE | 2017-05-08 13:54 | EDM.PDOC ---
ED HPI GENERAL MEDICAL PROBLEM - General Chief Complaint: Fever Stated Complaint: FEVER AND RAPID PULSE RATE Time Seen by Provider: 05/08/17 13:49 Source of Information: Reports: Patient, Family ( two daughters. ) History Limitations: Reports: Altered Mental Status - History of Present Illness INITIAL COMMENTS - FREE TEXT/NARRATIVE: 86-year-old male presents to the ED in a couple and of 2 of his daughters. He lives in a local alf. They were notified this morning that he had developed a fever presumably overnight. They felt that he had been dwindling a bit over the last 3-4 days with increased slight confusion and cough. Cough does not seem to be overly productive. Appetite however is poor. Did have Tylenol at 8:00 this morning. At the time my exam he is deathly quite warm to palpation. He is not able to provide any useful history due to confusion at this time. Daughters indicate he's had both pneumonia and recurrent problems with urinary tract sepsis. A comment that the urine did look quite dark and discolored 2 days ago. Onset: Gradual Onset Date: 05/07/17 Duration: Hour(s): Location: Reports: Chest (Congested sounding cough), Generalized (Generalized weakness) Quality: Reports: Other Severity: Moderate (Weakness and fever) Improves with: Reports: Medication (No helps bring his temperature down.) Worsens with: Reports: Movement Context: Denies: Activity, Exercise, Lifting, Sick Contact, Trauma, Other Associated Symptoms: Reports: Confusion, Cough, cough w sputum, Fever/Chills ( Complained of severe chills today.), Loss of Appetite, Malaise (Sounds productive at times), Nausea/Vomiting (No vomiting), Shortness of Breath. Denies: Rash, Seizure Treatments MUD BOSS: Reports: Acetaminophen Generalized Pain Score (Numeric/FACES): 4 - Related Data Allergies Allergy/AdvReac Type Severity Reaction Status Date / Time cyclobenzaprine Allergy Other Verified 03/26/17 09:02 morphine Allergy Cannot Verified 03/26/17 09:02 Remember tramadol Allergy Hallucinati Verified 03/26/17 09:02 ons DANY Inhibitors AdvReac Change Verified 03/26/17 09:02 Mental Status hydromorphone [From Dilaudid] AdvReac Hallucinati Verified 03/26/17 09:02 ons Home Meds: Home Meds Aspirin [Adult Low Dose Aspirin EC] 81 mg PO BID 08/11/15 [History] Clopidogrel Bisulfate [Plavix] 75 mg PO DAILY 08/11/15 [History] Donepezil [Aricept] 10 mg PO BEDTIME 08/11/15 [History] Ezetimibe [Zetia] 10 mg PO DAILY 08/11/15 [History] Finasteride [Proscar] 5 mg PO DAILY 08/11/15 [History] Latanoprost [Xalatan 0.005% Ophth Soln] 1 drop EYEBOTH BEDTIME 08/11/15 [History ] Ranolazine [Ranexa] 500 mg PO BID 08/11/15 [History] Tamsulosin HCl 0.4 mg PO BID 08/11/15 [History] atorvaSTATin Calcium [Atorvastatin Calcium] 80 mg PO DAILY 08/11/15 [History] Nitroglycerin [Nitrostat] 0.4 mg SL Q5M PRN 01/31/16 [History] Ranitidine HCl [Zantac] 150 mg PO BID 01/31/16 [History] Sertraline [Zoloft] 12.5 mg PO DAILY 01/31/16 [History] Carvedilol [Coreg] 6.25 mg PO BID 09/05/16 [History] Docusate Sodium [Stool Softener] 2 tab PO DAILY 09/09/16 [History] prednisoLONE Acetate [Prednisolone Acetate] 1 drop EYELF DAILY 09/09/16 [History ] Budesonide [Pulmicort Flexhaler] 2 puff INH BID 09/17/16 [History] Dextran 70/Hypromellose [Artificial Tears] 1 drop EYEBOTH QID PRN 09/17/16 [ History] Potassium Chloride [Klor-Con 10] 10 meq PO DAILY 09/17/16 [History] Albuterol [Ventolin HFA] 2 puff INH TID PRN 11/10/16 [History] Isosorbide Mononitrate [Imdur] 30 mg PO DAILY 11/10/16 [History] Acetaminophen [Acetaminophen ER] 1,300 mg PO Q8HR #0 11/30/16 [Rx] Mirabegron [Myrbetriq] 50 mg PO DAILY #0 12/04/16 [Rx] Ibuprofen 200 mg PO TID 11/17/17 [History] Lidocaine 5% [Lidoderm 5%] 1 patch TOP DAILY 01/25/17 [History] Cholecalciferol (Vitamin D3) [Vitamin D3] 1,000 unit PO DAILY 03/26/17 [History] Psyllium with Sucrose [Metamucil] 1 each PO 1200 03/26/17 [History] Bisacodyl [Dulcolax] 10 mg RC DAILY PRN 05/08/17 [History] Carboxymethylcellulose Sodium [Lubricant Eye Drops] 1 drop EYEBOTH QID 05/08/17 [History] Lidocaine 5% [Lidoderm 5%] 1 patch TOP DAILY PRN 05/08/17 [History] Polyethylene Glycol 3350 [MiraLAX] 17 gm PO Q72H 05/08/17 [History] guaiFENesin [Mucinex] 600 mg PO BID 05/08/17 [History] Past Medical History HEENT History: Reports: Glaucoma, Hard of Hearing Other HEENT History: glasses, hearing aids, dentures, blind in Left eye Cardiovascular History: Reports: CAD, High Cholesterol, Hypertension, ID, PVD Respiratory History: Reports: COPD Gastrointestinal History: Reports: GERD Genitourinary History: Reports: BPH Musculoskeletal History: Reports: Back Pain, Chronic (spinal stenosis), Osteoarthritis Neurological History: Reports: Alzheimers Disease, TIA Psychiatric History: Reports: Dementia Endocrine/Metabolic History: Reports: Other (See Below) Other Endocrine/Metabolic History: hyperglycemia, vitamin b 12 deficiency Hematologic History: 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 Immunologic History: 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 Oncologic (Cancer) History: 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 Dermatologic History: Reports: Other (See Below) Other Dermatologic History: dry scalp - Infectious Disease History Infectious Disease History: Reports: Chicken Pox - Past Surgical History Head Surgeries/Procedures: 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 HEENT Surgical History: Reports: Adenoidectomy, Cataract Surgery, Tonsillectomy Social & Family History - Family History Family Medical History: Unobtainable - Tobacco Use Smoking Status *Q: Former Smoker Years of Tobacco use: 40 Packs/Tins Daily: 1 Used Tobacco, but Quit: Yes Month Tobacco Last Used: 40 yrs Second Hand Smoke Exposure: No - Caffeine Use Caffeine Use: 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 - Recreational Drug Use Recreational Drug Use: No - Living Situation & Occupation Living situation: Reports: , Extended Care Facility ([facility]) Occupation: Retired ED ROS GENERAL - Review of Systems Review Of Systems: See Below Constitutional: Reports: Fever, Chills, Malaise, Weakness, Fatigue HEENT: Reports: Glasses, Hearing Loss (Hard of hearing) Respiratory: Reports: Shortness of Breath Cardiovascular: Reports: Blood Pressure Problem, Dyspnea on Exertion. Denies: Chest Pain, Claudication, Lightheadedness, Orthopnea (Controlled with medication ) Endocrine: Reports: Fatigue GI/Abdominal: Reports: Decreased Appetite. Denies: Nausea, Stool Incontinence, Vomiting : Reports: Frequency, Incontinence Musculoskeletal: Reports: Back Pain (Continent of Urine.), Joint Pain (Knees and hips.) Skin: Reports: No Symptoms Neurological: Reports: Confusion, Difficulty Walking. Denies: Pre-Existing Deficit, Seizure, Syncope, Tingling Psychiatric: Reports: No Symptoms Hematologic/Lymphatic: Reports: No Symptoms (Unable to walk on his own today.) Immunologic: Reports: No Symptoms ED EXAM, GENERAL - Physical Exam Exam: See Below Exam Limited By: Altered Mental Status General Appearance: Moderate Distress, Other (1 palpation and he appears ill. Speech is nonsensical most of the time.) Eye Exam: Bilateral Eye: Normal Inspection (No jaundice.) Ears: Normal TMs Throat/Mouth: Other Head: Atraumatic, Normocephalic Neck: Normal Inspection (Tongue is mildly dry and coated), Supple, Non-Tender, Full Range of Motion. No: Lymphadenopathy (L), Lymphadenopathy (R) Respiratory/Chest: Respiratory Distress, Rales (Moderately tachypnea. Pain crackles both lung hernández worse on the left as compared to the right.). No: Rhonchi, Wheezing Cardiovascular: Regular Rate, Rhythm, No Edema, No Gallop, No Rub, Tachycardia ( Resting tachycardia at 111 per minute.), Systolic Murmur (Grade 2/6 pansystolic murmur heard best at the left parasternal border compatible with aortic stenosis.). No: Normal Peripheral Pulses Peripheral Pulses: 1+: Posterior Tibial (L), Posterior Tibial (R), Dorsalis Pedis (L), Dorsalis Pedis (R) GI/Abdominal: Normal Bowel Sounds, Soft, Non-Tender, No Organomegaly, No Abnormal Bruit, No Mass, Pelvis Stable (Male) Exam: No Hernia Back Exam: Normal Inspection, Decreased Range of Motion Extremities: Normal Inspection, Non-Tender, No Pedal Edema. No: Normal Range of Motion Neurological: No Motor/Sensory Deficits. No: Oriented, Normal Cognition, Normal Gait Psychiatric: Flat Affect Skin Exam: Warm, Dry, Intact, Normal Color EKG INTERPRETATION EKG Date: 05/08/17 Time: 13:55 Rhythm: NSR Rate (Beats/Min): 90 [place]: LAD-Left [place] Deviation (Left axis deviation of -67.) P-Wave: Present QRS: Other (Note there is R-wave prominence in lead V1 and V2 V3 suggestive of acute posterior wall myocardial infarction. 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 Definite abnormal ECG.) ST-T: Other (T-wave inversion V1 to V3.) Course - Vital Signs Last Recorded V/S: Last Vital Signs Temp 37.6 C 05/08/17 12:21 Pulse 111 H 05/08/17 12:21 Resp 27 H 05/08/17 12:21 BP 151/81 H 05/08/17 12:21 Pulse Ox 100 05/08/17 12:21 - Orders/Labs/Meds Orders: Active Orders 24 hr Category Date Time Status Admission Status [Patient Status] [ADT] Routine ADT 05/08/17 18:32 Ordered EKG Documentation Completion [RC] STAT Care 05/08/17 13:50 Active CULTURE BLOOD [BC] Stat Lab 05/08/17 14:10 Received CULTURE BLOOD [BC] Stat Lab 05/08/17 14:15 Received Sodium Chloride 0.9% [Normal Saline] 1,000 ml Med 05/08/17 14:00 Active IV ASDIRECTED Blood Culture x2 Reflex Set [OM.PC] Stat Oth 05/08/17 13:51 Ordered Medication Orders Sodium Chloride (Normal Saline) 1,000 mls @ 125 mls/hr IV ASDIRECTED CODY Last Admin: 05/08/17 13:57 Dose: 125 mls/hr Labs: Laboratory Tests 05/08/17 05/08/17 05/08/17 Range/Units 12:15 12:15 12:15 WBC 10.36 H (4.23-9.07) K/mm3 RBC 4.03 L (4.63-6.08) M/mm3 Hgb 13.4 L (13.7-17.5) gm/L Hct 41.5 (40.1-51.0) % MCV 103.0 H (79.0-92.2) fl MCH 33.3 H (25.7-32.2) pg MCHC 32.3 (32.2-35.5) g/dl RDW Std Deviation 48.8 H (35.1-43.9) fL Plt Count 235 (163-337) K/mm3 MPV 9.0 L (9.4-12.3) fl Neutrophils % (Manual) 79 H (40-60) % Band Neutrophils % 1 (0-10) % Lymphocytes % (Manual) 10 L (20-40) % Atypical Lymphs % 0 % Monocytes % (Manual) 10 (2-10) % Eosinophils % (Manual) 0 L (0.8-7.0) % Basophils % (Manual) 0 L (0.2-1.2) Platelet Estimate Adequate Macrocytosis Moderate RBC Morph Comment Not Reportable Sodium 139 (136-145) mEq/L Potassium 4.1 (3.5-5.1) mEq/L Chloride 102 (98-107) mEq/L Carbon Dioxide 26 (21-32) mEq/L Anion Gap 15.1 H (5-15) BUN 20 H (7-18) mg/dL Creatinine 1.1 (0.7-1.3) mg/dL Est Cr Clr Drug Dosing 35.91 mL/min Estimated GFR (MDRD) > 60 (>60) mL/min BUN/Creatinine Ratio 18.2 H (14-18) Glucose 148 H (83-115) mg/dL Calcium 9.3 (8.5-10.1) mg/dL Magnesium 1.8 (1.8-2.4) mg/dl Total Bilirubin 0.6 (0.2-1.0) mg/dL AST 18 (15-37) U/L ALT 12 L (16-63) U/L Alkaline Phosphatase 75 (46-116) U/L CK-MB (CK-2) 0.8 (0-3.6) ng/ml Troponin I < 0.017 (0.00-0.056) ng/mL C-Reactive Protein 5.9 H* (<1.0) mg/dL NT-Pro-B Natriuret Pep (0-450) pg/mL Total Protein 7.3 (6.4-8.2) g/dl Albumin 3.4 (3.4-5.0) g/dl Globulin 3.9 gm/dL Albumin/Globulin Ratio 0.9 L (1-2) Urine Color (Yellow) Urine Appearance (Clear) Urine pH (5.0-8.0) Ur Specific [place] (1.005-1.030) Urine Protein (Negative) Urine Glucose (UA) (Negative) Urine Ketones (Negative) Urine Occult Blood (Negative) Urine Nitrite (Negative) Urine Bilirubin (Negative) Urine Urobilinogen (0.2-1.0) Ur Leukocyte Esterase (Negative) Urine RBC (0-5) /hpf Urine WBC (0-5) /hpf Ur Epithelial Cells (0-5) /hpf Urine Bacteria (FEW) /hpf Urine Mucus (FEW) /hpf 05/08/17 05/08/17 Range/Units 12:15 15:35 WBC (4.23-9.07) K/mm3 RBC (4.63-6.08) M/mm3 Hgb (13.7-17.5) gm/L Hct (40.1-51.0) % MCV (79.0-92.2) fl MCH (25.7-32.2) pg MCHC (32.2-35.5) g/dl RDW Std Deviation (35.1-43.9) fL Plt Count (163-337) K/mm3 MPV (9.4-12.3) fl Neutrophils % (Manual) (40-60) % Band Neutrophils % (0-10) % Lymphocytes % (Manual) (20-40) % Atypical Lymphs % % Monocytes % (Manual) (2-10) % Eosinophils % (Manual) (0.8-7.0) % Basophils % (Manual) (0.2-1.2) Platelet Estimate Macrocytosis RBC Morph Comment Sodium (136-145) mEq/L Potassium (3.5-5.1) mEq/L Chloride (98-107) mEq/L Carbon Dioxide (21-32) mEq/L Anion Gap (5-15) BUN (7-18) mg/dL Creatinine (0.7-1.3) mg/dL Est Cr Clr Drug Dosing mL/min Estimated GFR (MDRD) (>60) mL/min BUN/Creatinine Ratio (14-18) Glucose (83-115) mg/dL Calcium (8.5-10.1) mg/dL Magnesium (1.8-2.4) mg/dl Total Bilirubin (0.2-1.0) mg/dL AST (15-37) U/L ALT (16-63) U/L Alkaline Phosphatase (46-116) U/L CK-MB (CK-2) (0-3.6) ng/ml Troponin I (0.00-0.056) ng/mL C-Reactive Protein (<1.0) mg/dL NT-Pro-B Natriuret Pep 610 H (0-450) pg/mL Total Protein (6.4-8.2) g/dl Albumin (3.4-5.0) g/dl Globulin gm/dL Albumin/Globulin Ratio (1-2) Urine Color Yellow (Yellow) Urine Appearance Clear (Clear) Urine pH 6.0 (5.0-8.0) Ur Specific [place] 1.025 (1.005-1.030) Urine Protein Trace H (Negative) Urine Glucose (UA) Negative (Negative) Urine Ketones Negative (Negative) Urine Occult Blood Negative (Negative) Urine Nitrite Negative (Negative) Urine Bilirubin Negative (Negative) Urine Urobilinogen 1.0 (0.2-1.0) Ur Leukocyte Esterase Negative (Negative) Urine RBC Not seen (0-5) /hpf Urine WBC Not seen (0-5) /hpf Ur Epithelial Cells Not seen (0-5) /hpf Urine Bacteria Not seen (FEW) /hpf Urine Mucus Not seen (FEW) /hpf Meds: Medications Generic Name Dose Route Start Last Admin Trade Name Freq PRN Reason Stop Dose Admin Sodium Chloride 1,000 mls @ 125 mls/hr 05/08/17 14:00 05/08/17 13:57 Normal Saline IV 125 mls/hr ASDIRECTED CODY Administration Discontinued Medications Generic Name Dose Route Start Last Admin Trade Name Freq PRN Reason Stop Dose Admin Acetaminophen 650 mg 05/08/17 13:52 05/08/17 13:57 Tylenol PO 05/08/17 13:53 650 mg NOW ONE Administration Levofloxacin/Dextrose 750 mg/ 150 mls @ 100 mls/hr 05/08/17 16:19 05/08/17 16 :48 Premix IV 05/08/17 17:48 100 mls/hr ONETIME ONE Administration Lidocaine HCl 10 ml 05/08/17 16:05 Xylocaine 2% Jelly MUCMEM 05/08/17 16:06 ONETIME ONE - Radiology Interpretation Free Text/Narrative:: 86-year-old male presents to the ED in a couple of both of his daughters. They were appraised of the nursing today that he had developed a fever overnight any productive sounding cough. Was weak and not eating well. He therefore elected to bring him to the ED for evaluation. - Re-Assessments/Exams Free Text/Narrative Re-Assessment/Exam: 05/08/17 13:24 chest x-ray really is essentially unchanged from previous. There may be slight blunting of costophrenic angles. Mild cardiomegaly. Appears to have very prominent pulmonary arteries suggesting pulmonary hypertension. There is scar tissue involving the lower lobe as well as upper lobes bilaterally. ABGs mild slight diffuse vascular congestion. Influenza screen is already back and it is negative. 05/08/17 15:25 White count is 10.36 with 79% neutrophils and 1% band cells. Hemoglobin is 13.4 hematocrit is 41.5. MCV is elevated at 103.0. Bili, normal 235,000. Sodium 139 potassium is 4.1. Chloride is 102 with a bicarbonate 26. And a gap is only elevated at 15.1. BUN is 20 with a creatinine of 1.1. GFR is greater than 60. Calcium is 9.3. Glucose is 148. Magnesium normal at 1.8. Liver function normal. CK-MB is 0.8 with a troponin I of less than 0.017. C-reactive protein is elevated at 5.9 BNP is elevated at 610 with normal being up to 450 in our lab. Urinalysis is not yet become available 05/08/17 16:05 patient is still not voided. We've been holding off on performing Plata catheterization since it makes him so distraught according to the daughters. However I think is reported that we obtain a sample as it is often the source of an infective process and he needs to start antibiotics as soon as possible. Will therefore order a Urojet and have a in and out catheterization performed for sampling. 05/08/17 16:23 nurses have informed me they did already get an in and out sample of urine he just hasn't been processed at the lab. Therefore go ahead and start him on Levaquin 750 mg IV while we are waiting for the results on the presumption areas 05/08/17 17:48 Urinalysis came back negative for infective process. He therefore appears to be developing a bronchitis/pneumonitis as a source of his current infective process and fever. Will discuss case with hospitalist with a view to admission to hospital as well. 05/08/17 18:05 Case has been discussed with hospitalist Dr Reich and the patient will be admitted to the med surgery floor on telemetry. Admitting diagnosis will be upper respiratory tract infection with bronchitis/ pneumonitis. Suspect developing pneumonia. May require repeat influenza screen in 24 hours time. Departure - Departure Time of Disposition: 18:09 Disposition: Admitted As Inpatient 67 Condition: Poor Clinical Impression: Pneumonitis, Acute febrile illness - Discharge Information Referrals: Indu Coyle MD [Primary Care Provider] - Forms: ED Department Discharge - My Orders Last 24 Hours: My Active Orders 05/08/17 13:50 EKG Documentation Completion [RC] STAT 05/08/17 13:51 Blood Culture x2 Reflex Set [OM.PC] Stat 05/08/17 14:00 Sodium Chloride 0.9% [Normal Saline] 1,000 ml IV ASDIRECTED 05/08/17 14:10 CULTURE BLOOD [BC] Stat 05/08/17 14:15 CULTURE BLOOD [BC] Stat 05/08/17 18:32 Admission Status [Patient Status] [ADT] Routine - Assessment/Plan Last 24 Hours: My Active Orders 05/08/17 13:50 EKG Documentation Completion [RC] STAT 05/08/17 13:51 Blood Culture x2 Reflex Set [OM.PC] Stat 05/08/17 14:00 Sodium Chloride 0.9% [Normal Saline] 1,000 ml IV ASDIRECTED 05/08/17 14:10 CULTURE BLOOD [BC] Stat 05/08/17 14:15 CULTURE BLOOD [BC] Stat 05/08/17 18:32 Admission Status [Patient Status] [ADT] Routine
[2017-05-08] MEDS: Sodium Chloride 0.9% 1,000 ML IV SCH ×2 (13:57→22:06)
[2017-05-08] MEDS ORDERED: Lidocaine 2% Jelly 10 ML Urojet MUCMEM ONE (16:05)
[2017-05-08] MEDS ORDERED: Levofloxacin/Dextrose 5%-Water 750 MG in Premix Bag 1 BAG IV ONE (16:19)
[2017-05-08] MEDS ORDERED: Polyethylene Glycol 3350 Powder 17 GM Packet PO PRN (20:44)
[2017-05-08] MEDS ORDERED: Ondansetron 4 MG/2 ML SDV IV PRN (20:44)
[2017-05-08] MEDS ORDERED: Albuterol/Ipratropium 3.0-0.5 MG/3 ML Neb Soln NEB PRN (20:44)
[2017-05-08] MEDS ORDERED: Ondansetron 4 MG Tab.DIS PO PRN (20:44)
[2017-05-08] MEDS ORDERED: Docusate Sodium 100 MG Cap PO PRN (20:44)
[2017-05-08] MEDS ORDERED: Hypromellose 0.5% Ophth Soln 15 ML Bottle EYEBOTH PRN (20:56)
[2017-05-08] MEDS ORDERED: Nitroglycerin 0.4 MG Tab.SL SL PRN (20:56)
[2017-05-08] MEDS ORDERED: Non-Formulary Medication 1 Each (Ranitidine 150 MG) PO SCH (21:00)
[2017-05-08] MEDS ORDERED: Metoprolol Tartrate 5 MG/5 ML SDV IVPUSH PRN (21:04)
[2017-05-08] MEDS ORDERED: hydrALAZINE 20 MG/ML SDV IVPUSH PRN (21:04)
--- NOTE | 2017-05-08 21:08 | PCM.HP ---
H&P History of Present Illness - General Date of Service: 05/08/17 Admit Problem/Dx: Admission Diagnosis/Problem Admission Diagnosis/Problem Fever in adult Source of Information: Patient, Family (2 daughters), Old Records, Provider, RN , RN Notes Reviewed History Limitations: Reports: Altered Mental Status - History of Present Illness Initial Comments - Free Text/Narative: Rizwan Albarado is an 86 yo male who presents to our ED today (05/08/17) with 2 of his daughters. He resides in a fdc and his daughter states they were contacted this morning after the patient developed a fever. They feel like he has not been his usual self over the past 3-4 days with increased confusion and cough. Cough is not reportedly productive. Appetite is poor. SNF staff to give the patient Tylenol around 8 AM this morning. ED provider notes he is quite warm during exam. He is unable to provide any ROS due to confusion daughter's report patient has a history of pneumonia and recurrent problems with urinary tract infections. It is reported his urine did look quite dark and discolored 2 days ago. In the ED temp was 37.6C. Pulse 111. Respirations 27. Blood pressure 151/ 81. Pulse ox 100%. 12-lead EKG is obtained which shows a normal sinus rhythm at 90 bpm. There is left axis deviation. ED provider notes there is R-wave prominence in lead V1, V2, and V3 suggestive of acute posterior wall CT. Near Q waves are noted in II, III, and aVF compatible with old inferior wall CT. There is also T-wave inversion noted in V1 to V3. Labs are obtained: WBC is slightly elevated at 10.36. Hemoglobin is low at 13.4. Hematocrit 41.5. "He is macrocytic." 235,000. Neutrophils are elevated at 79%. Band neutrophils are noted to be 1%. Sodium was 139. Potassium 4.1. Chloride 102. Carbon dioxide 26. Anion gap is very slightly elevated at 15.1. BUN is 20. Creatinine 1.1. EGFR is greater than 60. Glucose is 148. Calcium 9.3. Magnesium 1.8. Normal at 0.6. AST is 18, ALT 12, alkaline phosphatase 75. CK- MB is 0.8. Troponin less than 0.017. CRP is elevated at 5.9. Protein 7.3. Albumin 3.4. ProBNP is slightly elevated at 610. UA is negative however trace protein is noted. Influenza screen is negative. He is given Tylenol and started on 750 mg Levaquin. Chest x-rays obtained and interpreted by Dr. Perales as "chronic pleural thickening is seen upper lobe parenchymal scarring. Minimal blunting of the lateral left costophrenic angle is seen which is stable. No acute parenchymal densities are seen. Surgical clips are seen within the left hilar region. Previous sternotomy is noted. Bony structures are grossly intact. This is compared with the prior chest x-ray of 01/25/17 and felt to be stable. He carries a history of: Glaucoma, left eye blindness, CAD, HLD, HTN, CT, PVD, COPD, GERD, BPH, chronic back pain, osteoarthritis, ulcerative disease, TIA, dementia. He is a former smoker. He subsequently admitted to the medical floor observation status with telemetry. CODE STATUS is DNR. His PCP is Dr. Coyle at [facility]. Onset of Symptoms: Reports: Today Symptom Onset Date: 05/08/17 Duration of Symptoms: Reports: Hour(s): Location: Reports: Chest, Generalized Severity: Mild Improves with: Reports: Medication Worsens with: Reports: Movement Associated Symptoms: Reports: Confusion, Cough, cough w sputum, Fever/Chills, Loss of Appetite, Malaise, Shortness of Breath. Denies: Chest Pain, Headaches, Nausea/Vomiting, Weakness Generalized Pain Score (Numeric/FACES): 4 - Related Data Allergies/Adverse Reactions: Allergies Allergy/AdvReac Type Severity Reaction Status Date / Time cyclobenzaprine Allergy Other Verified 05/08/17 21:16 morphine Allergy Cannot Verified 05/08/17 21:16 Remember tramadol Allergy Hallucinati Verified 05/08/17 21:16 ons DANY Inhibitors AdvReac Change Verified 05/08/17 21:16 Mental Status hydromorphone [From Dilaudid] AdvReac Hallucinati Verified 05/08/17 21:16 ons Home Medications: Home Meds Aspirin [Adult Low Dose Aspirin EC] 81 mg PO BID 08/11/15 [History] Clopidogrel Bisulfate [Plavix] 75 mg PO DAILY 08/11/15 [History] Donepezil [Aricept] 10 mg PO BEDTIME 08/11/15 [History] Ezetimibe [Zetia] 10 mg PO DAILY 08/11/15 [History] Finasteride [Proscar] 5 mg PO DAILY 08/11/15 [History] Latanoprost [Xalatan 0.005% Ophth Soln] 1 drop EYEBOTH BEDTIME 08/11/15 [History ] Ranolazine [Ranexa] 500 mg PO BID 08/11/15 [History] Tamsulosin HCl 0.4 mg PO BID 08/11/15 [History] atorvaSTATin Calcium [Atorvastatin Calcium] 80 mg PO DAILY 08/11/15 [History] Nitroglycerin [Nitrostat] 0.4 mg SL Q5M PRN 01/31/16 [History] Ranitidine HCl [Zantac] 150 mg PO BID 01/31/16 [History] Sertraline [Zoloft] 12.5 mg PO DAILY 01/31/16 [History] Carvedilol [Coreg] 6.25 mg PO BID 09/05/16 [History] Docusate Sodium [Stool Softener] 2 tab PO DAILY 09/09/16 [History] prednisoLONE Acetate [Prednisolone Acetate] 1 drop EYELF DAILY 09/09/16 [History ] Budesonide [Pulmicort Flexhaler] 2 puff INH BID 09/17/16 [History] Dextran 70/Hypromellose [Artificial Tears] 1 drop EYEBOTH QID PRN 09/17/16 [ History] Potassium Chloride [Klor-Con 10] 10 meq PO DAILY 09/17/16 [History] Albuterol [Ventolin HFA] 2 puff INH TID PRN 11/10/16 [History] Isosorbide Mononitrate [Imdur] 30 mg PO DAILY 11/10/16 [History] Acetaminophen [Acetaminophen ER] 1,300 mg PO Q8HR #0 11/30/16 [Rx] Mirabegron [Myrbetriq] 50 mg PO DAILY #0 12/04/16 [Rx] Ibuprofen 200 mg PO TID 01/25/17 [History] Lidocaine 5% [Lidoderm 5%] 1 patch TOP DAILY 01/25/17 [History] Cholecalciferol (Vitamin D3) [Vitamin D3] 1,000 unit PO DAILY 03/26/17 [History] Psyllium with Sucrose [Metamucil] 1 each PO 1200 03/26/17 [History] Bisacodyl [Dulcolax] 10 mg RC DAILY PRN 05/08/17 [History] Carboxymethylcellulose Sodium [Lubricant Eye Drops] 1 drop EYEBOTH QID 05/08/17 [History] Lidocaine 5% [Lidoderm 5%] 1 patch TOP DAILY PRN 05/08/17 [History] Polyethylene Glycol 3350 [MiraLAX] 17 gm PO Q72H 05/08/17 [History] guaiFENesin [Mucinex] 600 mg PO BID 05/08/17 [History] Past Medical History HEENT History: Reports: Glaucoma, Hard of Hearing Other HEENT History: glasses, hearing aids, dentures, blind in Left eye Cardiovascular History: Reports: CAD, High Cholesterol, Hypertension, CT, PVD Respiratory History: Reports: COPD Gastrointestinal History: Reports: GERD Genitourinary History: Reports: BPH Musculoskeletal History: Reports: Back Pain, Chronic (spinal stenosis), Osteoarthritis Neurological History: Reports: Alzheimers Disease, TIA Psychiatric History: Reports: Dementia Endocrine/Metabolic History: Reports: Other (See Below) Other Endocrine/Metabolic History: hyperglycemia, vitamin b 12 deficiency Hematologic History: 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 Immunologic History: 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 Oncologic (Cancer) History: 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 Dermatologic History: Reports: Other (See Below) Other Dermatologic History: dry scalp - Infectious Disease History Infectious Disease History: Reports: Chicken Pox - Past Surgical History Head Surgeries/Procedures: 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 HEENT Surgical History: Reports: Adenoidectomy, Cataract Surgery, Tonsillectomy Social & Family History - Family History Family Medical History: Unobtainable - Tobacco Use Smoking Status *Q: Former Smoker Years of Tobacco use: 40 Packs/Tins Daily: 1 Used Tobacco, but Quit: Yes Month Tobacco Last Used: 40 yrs Second Hand Smoke Exposure: No - Caffeine Use Caffeine Use: 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 - Recreational Drug Use Recreational Drug Use: No - Living Situation & Occupation Living situation: Reports: , Extended Care Facility ([facility]) Occupation: Retired H&P Review of Systems - Review of Systems: Review Of Systems: See Below General: Reports: Fever, Chills, Malaise, Weakness, Fatigue, Decreased Appetite HEENT: Reports: Sore Throat. Denies: Ear Pain, Eye Pain, Headaches, Rhinitis, Sinus Congestion, Vertigo, Visual Changes Pulmonary: Reports: Shortness of Breath, Pleuritic Chest Pain, Cough, Sputum ( mild). Denies: Wheezing Cardiovascular: Reports: Chest Pain (near sternum. Worse with pressure), Dyspnea on Exertion. Denies: Lightheadedness Gastrointestinal: Reports: Decreased Appetite, Nausea. Denies: Abdominal Pain, Constipation, Diarrhea, Vomiting Genitourinary: Reports: Frequency, Incontinence. Denies: Dysuria, Burning, Pain , Urgency Musculoskeletal: Reports: Back Pain, Joint Pain Skin: Reports: No Symptoms Psychiatric: Reports: Confusion Neurological: Reports: Confusion, Pre-Existing Deficit, Difficulty Walking, Weakness. Denies: Headache, Numbness, Seizure, Tingling, Change in Speech Hematologic/Lymphatic: Reports: No Symptoms Immunologic: Reports: No Symptoms Exam - Exam Exam: See Below - Vital Signs Vital Signs: Last Vital Signs Temp 99.6 F 05/08/17 12:21 Pulse 72 05/08/17 19:35 Resp 27 H 05/08/17 12:21 BP 124/86 05/08/17 19:35 Pulse Ox 92 L 05/08/17 19:35 Weight: 119 lb 6.4 oz - Exam General: Alert, Cooperative. No: Oriented, Mild Distress HEENT: PERRLA, Hearing Intact, Mucosa Moist & [place], Nares Patent, Normal Nasal Septum, Posterior Pharynx Clear, Conjunctiva Clear, EOMI, EACs Clear, TMs Clear Neck: Supple, Trachea Midline. No: JVD, Thyromegaly Lungs: Normal Respiratory Effort, Crackles, Rales. No: Rhonchi, Wheezing Cardiovascular: Regular Rate, Regular Rhythm, Systolic Murmur GI/Abdominal Exam: Normal Bowel Sounds, Soft, Non-Tender, No Organomegaly, No Distention, No Abnormal Bruit, No Mass, Pelvis Stable (Male) Exam: Deferred Rectal (Males) Exam: Deferred Extremities: Normal Inspection, Non-Tender, No Pedal Edema, Normal Capillary Refill, Limited Range of Motion Peripheral Pulses: 1+: Posterior Tibial (L), Posterior Tibial (R), Dorsalis Pedis (L), Dorsalis Pedis (R), 2+: Radial (L), Radial (R) Skin: Warm, Dry, Intact Neurological: Cranial Nerves Intact (grossly ) Neuro Extensive - Mental Status: Alert, Normal Mood/Affect. No: Oriented x3 Psychiatric: Alert - Patient Data Result Diagrams: 05/08/17 12:15 02/28/18 12:15 *Q Meaningful Use (ADM) - VTE *Q VTE Criteria *Q: - Stroke *Q Stroke Criteria *Q: - AMI *Q AMI Criteria *Q: - Problem List (1) Acute febrile illness SNOMED Code(s): 560479787 ICD Code: R50.9 - FEVER, UNSPECIFIED Status: Acute Priority: High Current Visit: Yes (2) Pneumonitis SNOMED Code(s): 694354370 ICD Code: J18.9 - PNEUMONIA, UNSPECIFIED ORGANISM Status: Acute Priority : High Current Visit: Yes (3) Glaucoma SNOMED Code(s): 92879608 ICD Code: H40.9 - UNSPECIFIED GLAUCOMA Status: Chronic Priority: Low Current Visit: No Qualifiers: Glaucoma type: unspecified Laterality: unspecified laterality Qualified Code(s): H40.9 - Unspecified glaucoma (4) CAD (coronary artery disease) SNOMED Code(s): 05378167 ICD Code: I25.10 - ATHSCL HEART DISEASE OF [place] CORONARY ARTERY W/O ANG PCTRS Status: Chronic Priority: Low Current Visit: No Qualifiers: Coronary Disease-Associated Artery/Lesion type: unspecified vessel or lesion type [place] vs. transplanted heart: [place] heart Associated angina: angina presence unspecified Qualified Code(s): I25.10 - Atherosclerotic heart disease of [place] coronary artery without angina pectoris (5) HLD (hyperlipidemia) SNOMED Code(s): 12837484 ICD Code: E78.5 - HYPERLIPIDEMIA, UNSPECIFIED Status: Chronic Priority: Low Current Visit: No Qualifiers: Hyperlipidemia type: unspecified Qualified Code(s): E78.5 - Hyperlipidemia , unspecified (6) PVD (peripheral vascular disease) SNOMED Code(s): 523759753 ICD Code: I73.9 - PERIPHERAL VASCULAR DISEASE, UNSPECIFIED Status: Chronic Priority: Low Current Visit: No (7) GERD (gastroesophageal reflux disease) SNOMED Code(s): 404438851 ICD Code: K21.9 - GASTRO-ESOPHAGEAL REFLUX DISEASE WITHOUT ESOPHAGITIS Status: Chronic Priority: Low Current Visit: No Qualifiers: Esophagitis presence: esophagitis presence not specified Qualified Code(s) : K21.9 - Gastro-esophageal reflux disease without esophagitis (8) BPH (benign prostatic hyperplasia) SNOMED Code(s): 352807022 ICD Code: N40.0 - BENIGN PROSTATIC HYPERPLASIA WITHOUT LOWER URINRY TRACT SYMP Status: Chronic Priority: Low Current Visit: No Qualifiers: Lower urinary tract symptom presence: unspecified whether lower urinary tract symptoms present Qualified Code(s): N40.0 - Benign prostatic hyperplasia without lower urinary tract symptoms (9) Chronic back pain SNOMED Code(s): 732857964 ICD Code: M54.9 - DORSALGIA, UNSPECIFIED; G89.29 - OTHER CHRONIC PAIN Status: Chronic Priority: Low Current Visit: No Qualifiers: Back pain location: back pain in unspecified location Back pain laterality : unspecified Qualified Code(s): M54.9 - Dorsalgia, unspecified; G89.29 - Other chronic pain; G89.29 - Other chronic pain (10) Osteoarthritis SNOMED Code(s): 192556168 ICD Code: M19.90 - UNSPECIFIED OSTEOARTHRITIS, UNSPECIFIED SITE Status: Chronic Priority: Low Current Visit: No Qualifiers: Osteoarthritis location: unspecified site Osteoarthritis type: primary Qualified Code(s): M19.91 - Primary osteoarthritis, unspecified site (11) Alzheimer disease SNOMED Code(s): 70892827 ICD Code: G30.9 - ALZHEIMER'S DISEASE, UNSPECIFIED; F02.80 - DEMENTIA IN OTH DISEASES CLASSD ELSWHR W/O BEHAVRL DISTURB Status: Chronic Priority: Low Current Visit: No Qualifiers: Alzheimer's disease onset: unspecified onset Dementia behavioral disturbance: without behavioral disturbance Qualified Code(s): G30.9 - Alzheimer's disease, unspecified; F02.80 - Dementia in other diseases classified elsewhere without behavioral disturbance; F02.80 - Dementia in other diseases classified elsewhere without behavioral disturbance; F02.80 - Dementia in other diseases classified elsewhere without behavioral disturbance (12) Dementia SNOMED Code(s): 17393504 ICD Code: F03.90 - UNSPECIFIED DEMENTIA WITHOUT BEHAVIORAL DISTURBANCE Status: Chronic Priority: Low Current Visit: No Qualifiers: Dementia type: Alzheimer's disease Alzheimer's disease onset: unspecified onset Dementia behavioral disturbance: without behavioral disturbance Qualified Code(s): G30.9 - Alzheimer's disease, unspecified; F02.80 - Dementia in other diseases classified elsewhere without behavioral disturbance; F02.80 - Dementia in other diseases classified elsewhere without behavioral disturbance; F02.80 - Dementia in other diseases classified elsewhere without behavioral disturbance (13) History of TIA (transient ischemic attack) SNOMED Code(s): 823646889 ICD Code: Z86.73 - PRSNL HX OF TIA (TIA), AND CEREB INFRC W/O RESID DEFICITS Status: Chronic Priority: Low Current Visit: No (14) COPD (chronic obstructive pulmonary disease) SNOMED Code(s): 85979230 ICD Code: J44.9 - CHRONIC OBSTRUCTIVE PULMONARY DISEASE, UNSPECIFIED Status : Chronic Priority: Low Current Visit: No Qualifiers: COPD type: emphysema Emphysema type: unspecified Qualified Code(s): J43.9 - Emphysema, unspecified Problem List Initiated/Reviewed/Updated: Yes Orders Last 24hrs: Active Orders 24 hr Category Date Time Status Antiembolic Devices [RC] PER UNIT ROUTINE Care 05/08/17 20:53 Ordered Cardiac Monitoring [RC] CONTINUOUS Care 05/08/17 20:54 Ordered Height and Weight [RC] DAILY Care 05/08/17 20:44 Ordered Intake and Output [RC] QSHIFT Care 05/08/17 20:47 Ordered Oxygen Therapy [RC] PRN Care 05/08/17 20:44 Ordered Pulse Oximetry [RC] PRN Care 05/08/17 20:47 Ordered RT Aerosol Therapy [RC] ASDIRECTED Care 05/08/17 20:53 Ordered Up With Assistance [RC] ASDIRECTED Care 05/08/17 20:44 Ordered VTE/DVT Education [RC] PER UNIT ROUTINE Care 05/08/17 20:44 Ordered Vital Signs [RC] Q4H Care 05/08/17 20:44 Ordered Consult to Case Management [CONS] Routine Cons 05/08/17 20:44 Ordered Consult to Flooring Machine Feeder [CONS] Routine Cons 05/08/17 20:44 Ordered Consult to Spiritual Care [CONS] Routine Cons 05/08/17 20:44 Ordered OT Evaluation and Treatment [CONS] Routine Cons 05/08/17 20:44 Ordered PT Evaluation and Treatment [CONS] Routine Cons 05/08/17 20:44 Ordered Respiratory Care Assess and Treatment [CONS] Routine Cons 05/08/17 20:44 Ordered Heart Healthy Diet [DIET] Diet 05/09/17 Breakfast Ordered Chest 2V [CR] Routine Exams 05/10/17 08:00 Ordered BASIC METABOLIC PANEL,BMP [CHEM] AM Lab 05/09/17 05:11 Ordered BASIC METABOLIC PANEL,BMP [CHEM] AM Lab 05/10/17 05:11 Ordered BASIC METABOLIC PANEL,BMP [CHEM] AM Lab 05/11/17 05:11 Ordered BASIC METABOLIC PANEL,BMP [CHEM] AM Lab 05/12/17 05:11 Ordered CBC WITH AUTO DIFF [HEME] AM Lab 05/09/17 05:11 Ordered CBC WITH AUTO DIFF [HEME] AM Lab 05/10/17 05:11 Ordered CBC WITH AUTO DIFF [HEME] AM Lab 05/11/17 05:11 Ordered CBC WITH AUTO DIFF [HEME] AM Lab 05/12/17 05:11 Ordered CRP [C-REACTIVE PROTEIN] [CHEM] AM Lab 05/09/17 05:11 Ordered CRP [C-REACTIVE PROTEIN] [CHEM] AM Lab 05/10/17 05:11 Ordered CRP [C-REACTIVE PROTEIN] [CHEM] AM Lab 05/11/17 05:11 Ordered CRP [C-REACTIVE PROTEIN] [CHEM] AM Lab 05/12/17 05:11 Ordered MAGNESIUM [CHEM] AM Lab 05/09/17 05:11 Ordered MAGNESIUM [CHEM] AM Lab 05/10/17 05:11 Ordered MAGNESIUM [CHEM] AM Lab 05/11/17 05:11 Ordered MAGNESIUM [CHEM] AM Lab 05/12/17 05:11 Ordered METH-RESIST S.AUR,MRSA BY PCR [MOLEC] Routine Lab 05/08/17 20:02 Received PRO B-TYPE NATRIUR PEPT,BNPPRO [CHEM] Routine Lab 05/09/17 05:11 Ordered RESPIRATORY PANEL BY PCR [MREF] Routine Lab 05/08/17 21:03 Ordered STREP PNEUMONIAE ANTIGEN [MREF] Routine Lab 05/08/17 21:02 Ordered Acetaminophen [Tylenol] Med 05/08/17 20:44 Ordered 650 mg PO Q4H PRN Albuterol/Ipratropium [DuoNeb 3.0-0.5 MG/3 ML] Med 05/08/17 20:44 Ordered 3 ml NEB Q4H PRN Aspirin [Halfprin] Med 05/08/17 21:00 Ordered 81 mg PO BID Bisacodyl [Dulcolax] Med 05/08/17 20:44 Ordered 5 mg PO DAILY PRN Budesonide [Pulmicort Flexhaler] Med 05/08/17 21:00 Ordered 2 puff INH BID Carboxymethylcellulose Sodium Med 05/08/17 21:00 Ordered 1 drop EYEBOTH QID Carvedilol [Coreg] Med 05/08/17 21:00 Ordered 6.25 mg PO BID Cholecalciferol (Vitamin D3) [Vitamin D3] Med 05/09/17 09:00 Ordered 1,000 unit PO DAILY Clopidogrel [Plavix] Med 05/09/17 09:00 Ordered 75 mg PO DAILY Dextran 70/Hypromellose [Artificial Tears] Med 05/08/17 20:56 Ordered 1 drop EYEBOTH QID PRN Docusate Sodium [Stool Softener] Med 05/09/17 09:00 Ordered 2 tab PO DAILY Docusate Sodium/Sennosides [Senna Plus] Med 05/08/17 20:44 Ordered 1 tab PO BID PRN Donepezil Med 05/08/17 21:00 Ordered 10 mg PO BEDTIME Ezetimibe [Zetia] Med 05/09/17 09:00 Ordered 10 mg PO DAILY Famotidine [Pepcid] Med 05/09/17 09:00 Ordered 20 mg PO BID Finasteride [Proscar] Med 05/09/17 09:00 Ordered 5 mg PO DAILY Ibuprofen [Motrin] Med 05/08/17 20:44 Ordered 400 mg PO Q6H PRN Isosorbide Mononitrate [Imdur] Med 05/09/17 09:00 Ordered 30 mg PO DAILY Latanoprost [Xalatan 0.005% Ophth Soln] Med 05/08/17 21:00 Ordered 1 drop EYEBOTH BEDTIME Levofloxacin/Dextrose 5%-Water [Levaquin in D5W 750 MG/ Med 05/09/17 16:00 Ordered 150 ML] 750 mg Premix Bag 1 bag IV Q24H Lidocaine 5% [Lidoderm 5%] Med 05/09/17 09:00 Ordered 1 patch TOP DAILY Magnesium Rep Pharmacy to Dose [Pharmacy to Dose - Med 05/08/17 21:15 Ordered Magnesium Replacement] 1 dose .XX ASDIRECTED Metoprolol Tartrate [Lopressor] Med 05/08/17 21:04 Ordered 5 mg IVPUSH Q4H PRN Nitroglycerin [Nitrostat] Med 05/08/17 20:56 Ordered 0.4 mg SL Q5M PRN Ondansetron [Zofran ODT] Med 05/08/17 20:44 Ordered 4 mg PO Q6H PRN Ondansetron [Zofran] Med 05/08/17 20:44 Ordered 4 mg IV Q6H PRN Polyethylene Glycol 3350 [MiraLAX] Med 05/08/17 21:00 Ordered 17 gm PO Q72H Potassium Chloride [Klor-Con 10] Med 05/09/17 09:00 Ordered 10 meq PO DAILY Potassium Rep Pharmacy to Dose [Pharmacy to Dose - Med 05/08/17 21:15 Ordered Potassium Replacement] 1 dose .XX ASDIRECTED Psyllium with Sucrose [Metamucil] Med 05/09/17 12:00 Ordered 1 each PO 1200 Ranitidine Med 05/08/17 21:00 Ordered 150 mg PO BID Ranolazine [Ranexa] Med 05/08/17 21:00 Ordered 500 mg PO BID Sertraline [Zoloft] Med 05/09/17 09:00 Ordered 12.5 mg PO DAILY Tamsulosin [Flomax] Med 05/08/17 21:00 Ordered 0.4 mg PO BID atorvaSTATin Calcium [Atorvastatin Calcium] Med 05/09/17 09:00 Ordered 80 mg PO DAILY guaiFENesin [Mucinex] Med 05/08/17 21:00 Ordered 600 mg PO BID hydrALAZINE [Apresoline] Med 05/08/17 21:04 Ordered 10 mg IVPUSH Q6H PRN prednisoLONE Acetate [Pred Forte 1% Ophth Susp] Med 05/09/17 09:00 Ordered 1 drop EYELF DAILY Antiembolic Hose [OM.PC] Per Unit Routine Oth 05/08/17 20:47 Ordered Precautions [COMM] Routine Oth 05/08/17 21:03 Ordered Resuscitation Status Routine Resus Stat 05/08/17 20:44 Ordered Medication Orders Acetaminophen (Tylenol) 650 mg PO Q4H PRN PRN Reason: Pain (Mild 1-3)/fever Albuterol/Ipratropium (Duoneb 3.0-0.5 Mg/3 Ml) 3 ml NEB Q4H PRN PRN Reason: Shortness Of Breath/wheezing Aspirin (Halfprin) 81 mg PO BID [facility] Bisacodyl (Dulcolax) 5 mg PO DAILY PRN PRN Reason: Constipation Carvedilol (Coreg) 6.25 mg PO BID [facility] Clopidogrel Bisulfate (Plavix) 75 mg PO DAILY [facility] Ezetimibe (Zetia) 10 mg PO DAILY [facility] Famotidine (Pepcid) 20 mg PO BID [facility] Finasteride (Proscar) 5 mg PO DAILY [facility] Guaifenesin (Mucinex) 600 mg PO BID [facility] Hydralazine HCl (Apresoline) 10 mg IVPUSH Q6H PRN PRN Reason: Hypertension Sodium Chloride (Normal Saline) 1,000 mls @ 125 mls/hr IV ASDIRECTED [facility] Last Admin: 05/08/17 13:57 Dose: 125 mls/hr Levofloxacin/Dextrose 750 mg/ (Premix) 150 mls @ 100 mls/hr IV Q24H [facility] Ibuprofen (Motrin) 400 mg PO Q6H PRN PRN Reason: Pain (mild 1-3) Isosorbide Mononitrate (Imdur) 30 mg PO DAILY [facility] Latanoprost (Xalatan 0.005% Ophth Soln) ml EYEBOTH BEDTIME [facility] Lidocaine (Lidoderm 5%) mg TOP DAILY [facility] Magnesium Sulfate (Pharmacy To Dose - Magnesium Replacement) 1 dose .XX ASDIRECTED [facility] Metoprolol Tartrate (Lopressor) 5 mg IVPUSH Q4H PRN PRN Reason: Tachycardia Nitroglycerin (Nitrostat) 0.4 mg SL Q5M PRN PRN Reason: Chest Pain Non-Formulary Medication (Atorvastatin Calcium [Atorvastatin Calcium]) 80 mg PO DAILY [facility] Non-Formulary Medication (Budesonide [Pulmicort Flexhaler]) 2 puff INH BID [facility] Non-Formulary Medication (Carboxymethylcellulose Sodium) 1 drop EYEBOTH QID [facility] Non-Formulary Medication (Cholecalciferol (Vitamin D3) [Vitamin D3]) 1,000 unit PO DAILY [facility] Non-Formulary Medication (Dextran 70/Hypromellose [Artificial Tears]) 1 drop EYEBOTH QID PRN PRN Reason: Dry Eyes Non-Formulary Medication (Docusate Sodium [Stool Softener]) 2 tab PO DAILY [facility] Non-Formulary Medication (Donepezil) 10 mg PO BEDTIME [facility] Non-Formulary Medication (Psyllium With Sucrose [Metamucil]) 1 each PO 1200 [facility] Non-Formulary Medication (Ranitidine) 150 mg PO BID [facility] Ondansetron HCl (Zofran Odt) 4 mg PO Q6H PRN PRN Reason: nausea, able to take PO Ondansetron HCl (Zofran) 4 mg IV Q6H PRN PRN Reason: Nausea/Vomiting Polyethylene Glycol (Miralax) 17 gm PO Q72H [facility] Potassium Chloride (Klor-Con 10) 10 meq PO DAILY [facility] Potassium Chloride (Pharmacy To Dose - Potassium Replacement) 1 dose .XX ASDIRECTED [facility] Prednisolone Acetate (Pred Forte 1% Ophth Susp) ml EYELF DAILY [facility] Ranolazine (Ranexa) 500 mg PO BID [facility] Senna/Docusate Sodium (Senna Plus) 1 tab PO BID PRN PRN Reason: Constipation Sertraline HCl (Zoloft) 12.5 mg PO DAILY [facility] Tamsulosin HCl (Flomax) 0.4 mg PO BID [facility] Assessment/Plan Comment:: I/P: Acute: Febrile illness of unknown origin -Fever reported in fdc with decreased appetite, cough, fatigue, SOB -Temp 99.6 in ED (had tylenol in SNF), tachycardia -Mild leukocytosis (10.36), CRP 5.9 -UA, CXR, influenza screen - all negative -Repeat CXR in 24-48 hrs -Viral illness panel pending -Blood cultures pending -Tylenol for fever Pneumonitis -Questionable -Fever as above, cough with mild sputum production, tachycardia -Rales and crackles on lung exam, no wheezing -Per daughters hx/o recurrent PNA -Negative CXR -RT/IS -Duonebs PRN -Levaquin given in ED, continue -Home respiratory medications -Mild leukocytosis (10.36), CRP 5.9 -Repeat CXR in 24-48 hrs Chronic: Glaucoma Left eye blindness CAD HLD HTN CT PVD COPD GERD BPH Chronic back pain from spinal stenosis OA Alzheimers disease TIA Dementia Plan: Admit to medical floor observation with telemetry Routine AM labs Other orders as indicated above PT/OT CM/SW for discharge planning Spiritual care consult PE/DVT prophylaxis: TARA hose and on home plavix Home medications as ordered Code status: DNR; PCP: Dr. Coyle
[2017-05-08] MEDS: Latanoprost 0.005% Ophth Soln 2.5 ML Bottle EYEBOTH SCH (22:08)
[2017-05-08] MEDS: Tamsulosin 0.4 MG Cap.ER PO SCH (22:09)
[2017-05-08] MEDS: Aspirin 81 MG Tab.EC PO SCH (22:09)
[2017-05-08] MEDS: guaiFENesin 600 MG Tab.ER PO SCH (22:10)
[2017-05-08] MEDS: Carvedilol 6.25 MG Tab PO SCH (22:11)
[2017-05-08] MEDS: Bisacodyl 5 MG Tab PO PRN (22:11)
[2017-05-08] MEDS ORDERED: Magnesium Oxide 400 MG Tab PO ONE (22:15)
[2017-05-08] MEDS: Mometasone Furoate HFA 200 mcg/Puff 13 GM Inhaler INH SCH (22:36)
[2017-05-09] MEDS: Polyethylene Glycol 3350 Powder 17 GM Packet PO SCH (00:27)
[2017-05-09] MEDS: Acetaminophen 325 MG Tab PO PRN (00:59)
[2017-05-09] MEDS: Mometasone Furoate HFA 200 mcg/Puff 13 GM Inhaler INH SCH ×2 (05:24→20:18)
[2017-05-09] MEDS: Sodium Chloride 0.9% 1,000 ML IV SCH (05:48)
[2017-05-09] MEDS: prednisoLONE Acetate 1% Ophth Susp 5 ML Bottle EYELF SCH (08:53)
[2017-05-09] MEDS: Hypromellose 0.5% Ophth Soln 15 ML Bottle EYEBOTH SCH ×5 (08:54→21:34)
[2017-05-09] MEDS: Clopidogrel 75 MG Tab PO SCH (08:54)
[2017-05-09] MEDS: Rosuvastatin 10 MG Tab PO SCH (08:54)
[2017-05-09] MEDS: Aspirin 81 MG Tab.EC PO SCH ×2 (08:55→21:34)
[2017-05-09] MEDS: Sertraline 25 MG Tab PO SCH (08:55)
[2017-05-09] MEDS: Potassium Chloride 10 MEQ Tab.ER PO SCH (08:55)
[2017-05-09] MEDS: Ezetimibe 10 MG Tab PO SCH (08:55)
[2017-05-09] MEDS: Carvedilol 6.25 MG Tab PO SCH ×2 (08:55→21:34)
[2017-05-09] MEDS: Docusate Sodium 100 MG Cap PO SCH (08:55)
[2017-05-09] MEDS: guaiFENesin 600 MG Tab.ER PO SCH ×2 (08:55→21:34)
[2017-05-09] MEDS: Finasteride 5 MG Tab PO SCH (08:56)
[2017-05-09] MEDS: Famotidine 20 MG Tab PO SCH (08:56)
[2017-05-09] MEDS: Cholecalciferol (Vitamin D3) 1,000 Unit Tab PO SCH (08:56)
[2017-05-09] MEDS: Isosorbide Mononitrate 30 MG Tab.ER PO SCH (08:56)
[2017-05-09] MEDS: Tamsulosin 0.4 MG Cap.ER PO SCH ×2 (08:56→21:34)
[2017-05-09] MEDS ORDERED: Magnesium Sulfate/Water 2 GM in Premix Bag 1 BAG IV ONE (10:00)
[2017-05-09] MEDS: Lidocaine 5% 700 MG Patch TOP SCH (10:53)
[2017-05-09] MEDS: Potassium Chloride 20 MEQ Tab.ER PO SCH ×2 (11:09→17:41)
[2017-05-09] MEDS: Psyllium Husk Powder Sugar Free 3.4 GM Packet PO SCH (14:06)
[2017-05-09] MEDS: Bisacodyl 5 MG Tab PO PRN (14:27)
--- NOTE | 2017-05-09 14:49 | PCM.PN ---
- General Info Date of Service: 05/09/17 Admission Dx/Problem (Free Text): Admission Diagnosis/Problem Admission Diagnosis/Problem Fever in adult Subjective Update: In to see Rizwan. He is alone in the room resting. Nursing reports he was up most of the night . He will be admitted to full inpatient today. No fevers since last night. He has complained of chills to nursing. Will order chest CT and urine culture. Viral panel is still pending. He is still somewhat confused which is his baseline. No complaints currently. Functional Status: Reports: Pain Controlled, Tolerating Diet, Ambulating, Urinating, Incentive Spirometry. Denies: New Symptoms - Review of Systems General: Reports: Fever (overnight ), Weakness, Fatigue, Malaise, Chills HEENT: Reports: No Symptoms. Denies: Ear Pain, Eye Pain, Headaches, Sore Throat , Rhinitis, Visual Changes Pulmonary: Reports: Shortness of Breath, Cough, Sputum. Denies: Wheezing Cardiovascular: Reports: No Symptoms. Denies: Chest Pain, Palpitations, Edema Gastrointestinal: Reports: No Symptoms. Denies: Abdominal Pain, Constipation, Diarrhea, Nausea, Vomiting Genitourinary: Reports: Frequency, Incontinence. Denies: Dysuria, Burning, Pain , Urgency Musculoskeletal: Reports: No Symptoms Skin: Reports: No Symptoms Neurological: Reports: Confusion (baseline ) Psychiatric: Reports: No Symptoms - Patient Data Vitals - Most Recent: Last Vital Signs Temp 98.8 F 05/09/17 11:22 Pulse 69 05/09/17 11:22 Resp 19 05/09/17 11:22 BP 106/61 05/09/17 11:22 Pulse Ox 97 05/09/17 11:22 Weight - Most Recent: 119 lb 6.4 oz I&O - Last 24 Hours: Intake & Output 05/08/17 05/09/17 05/09/17 22:59 06:59 14:59 Intake Total 90 Balance 90 Med Orders - Current: Current Medications Acetaminophen (Tylenol) 650 mg PO Q4H PRN PRN Reason: Pain (Mild 1-3)/fever Last Admin: 05/09/17 00:59 Dose: 650 mg Albuterol/Ipratropium (Duoneb 3.0-0.5 Mg/3 Ml) 3 ml NEB Q4H PRN PRN Reason: Shortness Of Breath/wheezing Last Admin: 05/08/17 22:36 Dose: 3 ml Artificial Tears (Isopto Tears 0.5% Ophth Soln) 0 ml EYEBOTH QID [facility] Last Admin: 05/09/17 14:07 Dose: Not Given Artificial Tears (Isopto Tears 0.5% Ophth Soln) 0 ml EYEBOTH QID PRN PRN Reason: Dry Eyes Aspirin (Halfprin) 81 mg PO BID [facility] Last Admin: 05/09/17 08:55 Dose: 81 mg Bisacodyl (Dulcolax) 5 mg PO DAILY PRN PRN Reason: Constipation Last Admin: 05/09/17 14:27 Dose: 5 mg Carvedilol (Coreg) 6.25 mg PO BID [facility] Last Admin: 05/09/17 08:55 Dose: 6.25 mg Cholecalciferol (Vitamin D3) 1,000 units PO DAILY [facility] Last Admin: 05/09/17 08:56 Dose: 1,000 units Clopidogrel Bisulfate (Plavix) 75 mg PO DAILY [facility] Last Admin: 05/09/17 08:54 Dose: 75 mg Docusate Sodium (Colace) 100 mg PO DAILY [facility] Last Admin: 05/09/17 08:55 Dose: 100 mg Donepezil HCl (Aricept) 10 mg PO BEDTIME [facility] Ezetimibe (Zetia) 10 mg PO DAILY [facility] Last Admin: 05/09/17 08:55 Dose: 10 mg Famotidine (Pepcid) 20 mg PO DAILY [facility] Last Admin: 05/09/17 08:56 Dose: 20 mg Finasteride (Proscar) 5 mg PO DAILY [facility] Last Admin: 05/09/17 08:56 Dose: 5 mg Guaifenesin (Mucinex) 600 mg PO BID [facility] Last Admin: 05/09/17 08:55 Dose: 600 mg Hydralazine HCl (Apresoline) 10 mg IVPUSH Q6H PRN PRN Reason: Hypertension Sodium Chloride (Normal Saline) 1,000 mls @ 125 mls/hr IV ASDIRECTED [facility] Last Admin: 05/09/17 05:48 Dose: 125 mls/hr Levofloxacin/Dextrose 750 mg/ (Premix) 150 mls @ 100 mls/hr IV Q48H [facility] Ibuprofen (Motrin) 400 mg PO Q6H PRN PRN Reason: Pain (mild 1-3) Isosorbide Mononitrate (Imdur) 30 mg PO DAILY [facility] Last Admin: 05/09/17 08:56 Dose: 30 mg Latanoprost (Xalatan 0.005% Ophth Soln) 0 ml EYEBOTH BEDTIME [facility] Last Admin: 05/08/17 22:08 Dose: 1 drop Lidocaine (Lidoderm 5%) 700 mg TOP DAILY [facility] Last Admin: 05/09/17 10:53 Dose: 700 mg Magnesium Sulfate (Pharmacy To Dose - Magnesium Replacement) 0 dose .XX ASDIRECTED PRN PRN Reason: RX TO WATCH MAG LEVELS Metoprolol Tartrate (Lopressor) 5 mg IVPUSH Q4H PRN PRN Reason: Tachycardia Miscellaneous Information (Remove Patch) 1 ea TRDERM BEDTIME [facility] Mometasone Furoate (Asmanex Hfa 200mcg) 0 gm INH BIDRT [facility] Last Admin: 05/09/17 05:24 Dose: 2 puff Nitroglycerin (Nitrostat) 0.4 mg SL Q5M PRN PRN Reason: Chest Pain Ondansetron HCl (Zofran Odt) 4 mg PO Q6H PRN PRN Reason: nausea, able to take PO Ondansetron HCl (Zofran) 4 mg IV Q6H PRN PRN Reason: Nausea/Vomiting Polyethylene Glycol (Miralax) 17 gm PO Q72H [facility] Last Admin: 05/09/17 00:27 Dose: Not Given Potassium Chloride (Klor-Con 10) 10 meq PO DAILY [facility] Last Admin: 05/09/17 08:55 Dose: 10 meq Potassium Chloride (Pharmacy To Dose - Potassium Replacement) 0 dose .XX ASDIRECTED PRN PRN Reason: RX TO WATCH K LEVELS Potassium Chloride (Klor-Con M20) 40 meq PO Q4H [facility] Stop: 05/09/17 16:01 Last Admin: 05/09/17 11:09 Dose: 40 meq Prednisolone Acetate (Pred Forte 1% Oph Susp) 0 ml EYELF DAILY [facility] Last Admin: 05/09/17 08:53 Dose: 1 drop Psyllium Husk (Metamucil Sugar Free) 1 packet PO 1200 [facility] Last Admin: 05/09/17 14:06 Dose: Not Given Ranolazine (Ranexa) 500 mg PO BID [facility] Last Admin: 05/09/17 08:56 Dose: 500 mg Rosuvastatin Calcium (Crestor) 20 mg PO DAILY [facility] Last Admin: 05/09/17 08:54 Dose: 20 mg Senna/Docusate Sodium (Senna Plus) 1 tab PO BID PRN PRN Reason: Constipation Last Admin: 05/09/17 14:27 Dose: 1 tab Sertraline HCl (Zoloft) 12.5 mg PO DAILY [facility] Last Admin: 05/09/17 08:55 Dose: 12.5 mg Tamsulosin HCl (Flomax) 0.4 mg PO BID [facility] Last Admin: 05/09/17 08:56 Dose: 0.4 mg Discontinued Medications Acetaminophen (Tylenol) 650 mg PO NOW ONE Stop: 05/08/17 13:53 Last Admin: 05/08/17 13:57 Dose: 650 mg Docusate Sodium (Colace) 100 mg PO BID PRN PRN Reason: Constipation Levofloxacin/Dextrose 750 mg/ (Premix) 150 mls @ 100 mls/hr IV ONETIME ONE Stop: 05/08/17 17:48 Last Admin: 05/08/17 16:48 Dose: 100 mls/hr Magnesium Sulfate 2 gm/ Premix 50 mls @ 25 mls/hr IV ONETIME ONE Stop: 05/09/17 11:59 Last Admin: 05/09/17 10:54 Dose: 25 mls/hr Lidocaine HCl (Xylocaine 2% Jelly) 10 ml MUCMEM ONETIME ONE Stop: 05/08/17 16:06 Magnesium Oxide (Magnesium Oxide) 400 mg PO ONETIME ONE Stop: 05/08/17 22:16 Last Admin: 05/08/17 22:18 Dose: 400 mg Non-Formulary Medication (Ranitidine) 150 mg PO BID [facility] Polyethylene Glycol (Miralax) 17 gm PO DAILY PRN PRN Reason: Constipation - Exam Quality Assessment: DVT Prophylaxis General: Alert, Cooperative, No Acute Distress HEENT: Pupils Equal, Pupils Reactive, EOMI, Mucous Membr. Moist/[place] Neck: Supple, Trachea Midline, No JVD Lungs: Normal Respiratory Effort, Rales (mild - bilateral lower lobes) Cardiovascular: Regular Rate, Regular Rhythm, Murmurs (systolic ) GI/Abdominal Exam: Normal Bowel Sounds, Soft, Non-Tender, No Organomegaly, No Distention, No Abnormal Bruit, No Mass, Pelvis Stable (Male) Exam: Deferred Back Exam: Normal Inspection, Decreased Range of Motion Extremities: Normal Inspection, Normal Range of Motion, Non-Tender, No Pedal Edema, Normal Capillary Refill Peripheral Pulses: 1+: Posterior Tibial (L), Posterior Tibial (R), Dorsalis Pedis (L), Dorsalis Pedis (R), 2+: Radial (L), Radial (R) Skin: Warm, Dry, Intact Neurological: No New Focal Deficit Psy/Mental Status: Alert, Other (baseline confusion ) - Problem List & Annotations (1) Acute febrile illness SNOMED Code(s): 311531224 Code(s): R50.9 - FEVER, UNSPECIFIED Status: Acute Priority: High Current Visit: Yes (2) Pneumonitis SNOMED Code(s): 481927688 Code(s): J18.9 - PNEUMONIA, UNSPECIFIED ORGANISM Status: Acute Priority: High Current Visit: Yes (3) Glaucoma SNOMED Code(s): 70984727 Code(s): H40.9 - UNSPECIFIED GLAUCOMA Status: Chronic Priority: Low Current Visit: No Qualifiers: Glaucoma type: unspecified Laterality: unspecified laterality Qualified Code(s): H40.9 - Unspecified glaucoma (4) CAD (coronary artery disease) SNOMED Code(s): 80798624 Code(s): I25.10 - ATHSCL HEART DISEASE OF [place] CORONARY ARTERY W/O ANG PCTRS Status: Chronic Priority: Low Current Visit: No Qualifiers: Coronary Disease-Associated Artery/Lesion type: unspecified vessel or lesion type [place] vs. transplanted heart: [place] heart Associated angina: angina presence unspecified Qualified Code(s): I25.10 - Atherosclerotic heart disease of [place] coronary artery without angina pectoris (5) HLD (hyperlipidemia) SNOMED Code(s): 75437163 Code(s): E78.5 - HYPERLIPIDEMIA, UNSPECIFIED Status: Chronic Priority: Low Current Visit: No Qualifiers: Hyperlipidemia type: unspecified Qualified Code(s): E78.5 - Hyperlipidemia , unspecified (6) PVD (peripheral vascular disease) SNOMED Code(s): 959147020 Code(s): I73.9 - PERIPHERAL VASCULAR DISEASE, UNSPECIFIED Status: Chronic Priority: Low Current Visit: No (7) GERD (gastroesophageal reflux disease) SNOMED Code(s): 022133069 Code(s): K21.9 - GASTRO-ESOPHAGEAL REFLUX DISEASE WITHOUT ESOPHAGITIS Status: Chronic Priority: Low Current Visit: No Qualifiers: Esophagitis presence: esophagitis presence not specified Qualified Code(s) : K21.9 - Gastro-esophageal reflux disease without esophagitis (8) BPH (benign prostatic hyperplasia) SNOMED Code(s): 375665681 Code(s): N40.0 - BENIGN PROSTATIC HYPERPLASIA WITHOUT LOWER URINRY TRACT SYMP Status: Chronic Priority: Low Current Visit: No Qualifiers: Lower urinary tract symptom presence: unspecified whether lower urinary tract symptoms present Qualified Code(s): N40.0 - Benign prostatic hyperplasia without lower urinary tract symptoms (9) Chronic back pain SNOMED Code(s): 416198565 Code(s): M54.9 - DORSALGIA, UNSPECIFIED; G89.29 - OTHER CHRONIC PAIN Status : Chronic Priority: Low Current Visit: No Qualifiers: Back pain location: back pain in unspecified location Back pain laterality : unspecified Qualified Code(s): M54.9 - Dorsalgia, unspecified; G89.29 - Other chronic pain; G89.29 - Other chronic pain (10) Osteoarthritis SNOMED Code(s): 881572022 Code(s): M19.90 - UNSPECIFIED OSTEOARTHRITIS, UNSPECIFIED SITE Status: Chronic Priority: Low Current Visit: No Qualifiers: Osteoarthritis location: unspecified site Osteoarthritis type: primary Qualified Code(s): M19.91 - Primary osteoarthritis, unspecified site (11) Alzheimer disease SNOMED Code(s): 54471679 Code(s): G30.9 - ALZHEIMER'S DISEASE, UNSPECIFIED; F02.80 - DEMENTIA IN OTH DISEASES CLASSD ELSWHR W/O BEHAVRL DISTURB Status: Chronic Priority: Low Current Visit: No Qualifiers: Alzheimer's disease onset: unspecified onset Dementia behavioral disturbance: without behavioral disturbance Qualified Code(s): G30.9 - Alzheimer's disease, unspecified; F02.80 - Dementia in other diseases classified elsewhere without behavioral disturbance; F02.80 - Dementia in other diseases classified elsewhere without behavioral disturbance; F02.80 - Dementia in other diseases classified elsewhere without behavioral disturbance (12) Dementia SNOMED Code(s): 55242291 Code(s): F03.90 - UNSPECIFIED DEMENTIA WITHOUT BEHAVIORAL DISTURBANCE Status: Chronic Priority: Low Current Visit: No Qualifiers: Dementia type: Alzheimer's disease Alzheimer's disease onset: unspecified onset Dementia behavioral disturbance: without behavioral disturbance Qualified Code(s): G30.9 - Alzheimer's disease, unspecified; F02.80 - Dementia in other diseases classified elsewhere without behavioral disturbance; F02.80 - Dementia in other diseases classified elsewhere without behavioral disturbance; F02.80 - Dementia in other diseases classified elsewhere without behavioral disturbance (13) History of TIA (transient ischemic attack) SNOMED Code(s): 153784920 Code(s): Z86.73 - PRSNL HX OF TIA (TIA), AND CEREB INFRC W/O RESID DEFICITS Status: Chronic Priority: Low Current Visit: No (14) COPD (chronic obstructive pulmonary disease) SNOMED Code(s): 79334219 Code(s): J44.9 - CHRONIC OBSTRUCTIVE PULMONARY DISEASE, UNSPECIFIED Status : Chronic Priority: Low Current Visit: No Qualifiers: COPD type: emphysema Emphysema type: unspecified Qualified Code(s): J43.9 - Emphysema, unspecified (15) Hypomagnesemia SNOMED Code(s): 667156143 Code(s): E83.42 - HYPOMAGNESEMIA Status: Acute Priority: High Current Visit: Yes - Problem List Review Problem List Initiated/Reviewed/Updated: Yes - My Orders Last 24 Hours: My Active Orders 05/09/17 12:00 Potassium Chloride [Klor-Con M20] 40 meq PO Q4H - Plan Plan:: I/P: Acute: Febrile illness of unknown origin -Fever reported in care home with decreased appetite, cough, fatigue, SOB -Temp 99.6 in ED (had tylenol in SNF), tachycardia -Mild Leukocytosis -10.36-->10.66, CRP 5.9-->13.8 -UA, CXR, influenza screen, mycoplasma pneumo - all negative -Repeat CXR in 24-48 hrs -Viral illness panel, strep pneumo, urine culture pending -Blood cultures - no growth after 1 day -Tylenol for fever -Chest CT ordered Pneumonitis -Questionable -Fever as above, cough with mild sputum production, tachycardia -Rales and crackles on lung exam, no wheezing -Per daughters: hx/o recurrent PNA -Negative CXR -RT/IS -Duonebs PRN -Levaquin given in ED, continue -Home respiratory medications -Mild leukocytosis (10.36-->10.66), CRP 5.9-->13.8 -Repeat CXR in 24-48 hrs Hypomagnesemia -Magnesium 1.6 -Supplemented Anemia -In reviewing prior charts it appears baseline Hgb is around 12-13 -Was given fluids overnight which likely worsened -Iron panel: Iron 14, TIBC 168, percent saturation 8, transferrin 134 -Daily iron PO supplementation Chronic: Glaucoma Left eye blindness CAD HLD HTN CO PVD COPD GERD BPH Chronic back pain from spinal stenosis OA Alzheimers disease TIA Dementia Plan: Admit to medical floor observation with telemetry--> upgrade to inpatient Routine AM labs Other orders as indicated above PT/OT CM/SW for discharge planning Spiritual care consult PE/DVT prophylaxis: TARA hose and on home plavix Home medications as ordered Code status: DNR; PCP: Dr. Coyle
[2017-05-09] MEDS ORDERED: Sodium Chloride 0.9% 10 ML Syringe FLUSH PRN (16:38)
[2017-05-09] MEDS ORDERED: Iopamidol 612 MG/ML 100 ML Bottle IVPUSH ONE (16:38)
[2017-05-09] MEDS: Donepezil 10 MG Tab PO SCH (21:34)
[2017-05-09] MEDS: Remove Patch*LIDOCAINE TRDERM SCH (21:35)
[2017-05-09] MEDS: Latanoprost 0.005% Ophth Soln 2.5 ML Bottle EYEBOTH SCH (21:36)
[2017-05-10] MEDS ORDERED: Magnesium Hydroxide 400 MG/5 ML Susp 30 ML Cup PO ONE (03:34)
[2017-05-10] MEDS: Mometasone Furoate HFA 200 mcg/Puff 13 GM Inhaler INH SCH ×2 (06:07→20:17)
--- NOTE | 2017-05-10 07:23 | PCM.PN ---
- General Info Date of Service: 05/10/17 Admission Dx/Problem (Free Text): Admission Diagnosis/Problem Admission Diagnosis/Problem Fever in adult Subjective Update: In to see Rizwan. He is sleeping in the chair and does not wake up to me talking with him. Family is in room and is updated on progress. CXR today is stable. His son stayed with him last night and reports the patient was up most the night. This would explain why so sleepy today. He has had a history of sundowning quite significantly. Nurse reports patient has not been eating well. This is likely because the patient has been falling asleep while eating. Dietitian was consulted and they do have supplements ordered. They also discussed allowing the patient to eat later in the day if he is up most of the night. His temperature has been slightly elevated although nurse reports patient requests the room to be very hot and wears multiple blankets. Nursing reports he had a large BM today. We'll continue current treatment plan. Functional Status: Reports: Pain Controlled, Tolerating Diet, Ambulating, Urinating, Incentive Spirometry. Denies: New Symptoms - Review of Systems General: Reports: Weakness (improving ), Malaise, Chills. Denies: Fever HEENT: Reports: No Symptoms Pulmonary: Reports: Cough. Denies: Shortness of Breath, Pleuritic Chest Pain, Sputum, Wheezing Cardiovascular: Reports: No Symptoms Gastrointestinal: Reports: No Symptoms Genitourinary: Reports: No Symptoms Musculoskeletal: Reports: No Symptoms Skin: Reports: No Symptoms Neurological: Reports: No Symptoms Psychiatric: Reports: No Symptoms - Patient Data Vitals - Most Recent: Last Vital Signs Temp 100.2 F 05/10/17 03:27 Pulse 76 05/10/17 03:29 Resp 20 05/10/17 03:25 BP 150/68 H 05/10/17 04:42 Pulse Ox 98 05/10/17 06:07 Weight - Most Recent: 118 lb I&O - Last 24 Hours: Intake & Output 05/09/17 05/10/17 05/10/17 22:59 06:59 14:59 Intake Total 941 600 Output Total 725 Balance 941 -125 Lab Results Last 24 Hours: Laboratory Results - last 24 hr 05/10/17 05/10/17 Range/Units 05:45 05:45 WBC 9.08 H (4.23-9.07) K/mm3 RBC 3.45 L (4.63-6.08) M/mm3 Hgb 11.5 L (13.7-17.5) gm/L Hct 36.0 L (40.1-51.0) % MCV 104.3 H (79.0-92.2) fl MCH 33.3 H (25.7-32.2) pg MCHC 31.9 L (32.2-35.5) g/dl RDW Std Deviation 49.4 H (35.1-43.9) fL Plt Count 192 (163-337) K/mm3 MPV 9.2 L (9.4-12.3) fl Neut % (Auto) 79.7 H (34.0-67.9) % Lymph % (Auto) 7.6 L (21.8-53.1) % [place] % (Auto) 12.1 (5.3-12.2) % Eos % (Auto) 0.2 L (0.8-7.0) Baso % (Auto) 0.1 (0.1-1.2) % Neut # (Auto) 7.23 H (1.78-5.38) K/mm3 Lymph # (Auto) 0.69 L (1.32-3.57) K/mm3 [place] # (Auto) 1.10 H (0.30-0.82) K/mm3 Eos # (Auto) 0.02 L (0.04-0.54) K/mm3 Baso # (Auto) 0.01 (0.01-0.08) K/mm3 Manual Slide Review Normal smear Sodium 138 (136-145) mEq/L Potassium 4.2 (3.5-5.1) mEq/L Chloride 104 (98-107) mEq/L Carbon Dioxide 25 (21-32) mEq/L Anion Gap 13.2 (5-15) BUN 11 (7-18) mg/dL Creatinine 0.9 (0.7-1.3) mg/dL Est Cr Clr Drug Dosing 45.43 mL/min Estimated GFR (MDRD) > 60 (>60) mL/min BUN/Creatinine Ratio 12.2 L (14-18) Glucose 115 (83-115) mg/dL Calcium 8.4 L (8.5-10.1) mg/dL Magnesium 1.9 (1.8-2.4) mg/dl Med Orders - Current: Current Medications Acetaminophen (Tylenol) 650 mg PO Q4H PRN PRN Reason: Pain (Mild 1-3)/fever Last Admin: 05/09/17 00:59 Dose: 650 mg Albuterol/Ipratropium (Duoneb 3.0-0.5 Mg/3 Ml) 3 ml NEB Q4H PRN PRN Reason: Shortness Of Breath/wheezing Last Admin: 05/08/17 22:36 Dose: 3 ml Artificial Tears (Isopto Tears 0.5% Ophth Soln) 0 ml EYEBOTH QID [facility] Last Admin: 05/09/17 21:34 Dose: 1 drop Artificial Tears (Isopto Tears 0.5% Ophth Soln) 0 ml EYEBOTH QID PRN PRN Reason: Dry Eyes Aspirin (Halfprin) 81 mg PO BID [facility] Last Admin: 05/09/17 21:34 Dose: 81 mg Bisacodyl (Dulcolax) 5 mg PO DAILY PRN PRN Reason: Constipation Last Admin: 05/09/17 14:27 Dose: 5 mg Bisacodyl (Dulcolax) 10 mg RECTAL ONETIME ONE Stop: 05/10/17 09:01 Carvedilol (Coreg) 6.25 mg PO BID [facility] Last Admin: 05/09/17 21:34 Dose: 6.25 mg Cholecalciferol (Vitamin D3) 1,000 units PO DAILY [facility] Last Admin: 05/09/17 08:56 Dose: 1,000 units Clopidogrel Bisulfate (Plavix) 75 mg PO DAILY [facility] Last Admin: 05/09/17 08:54 Dose: 75 mg Docusate Sodium (Colace) 100 mg PO DAILY [facility] Last Admin: 05/09/17 08:55 Dose: 100 mg Donepezil HCl (Aricept) 10 mg PO BEDTIME [facility] Last Admin: 05/09/17 21:34 Dose: 10 mg Ezetimibe (Zetia) 10 mg PO DAILY [facility] Last Admin: 05/09/17 08:55 Dose: 10 mg Famotidine (Pepcid) 20 mg PO DAILY [facility] Last Admin: 05/09/17 08:56 Dose: 20 mg Finasteride (Proscar) 5 mg PO DAILY [facility] Last Admin: 05/09/17 08:56 Dose: 5 mg Guaifenesin (Mucinex) 600 mg PO BID [facility] Last Admin: 05/09/17 21:34 Dose: 600 mg Hydralazine HCl (Apresoline) 10 mg IVPUSH Q6H PRN PRN Reason: Hypertension Levofloxacin/Dextrose 750 mg/ (Premix) 150 mls @ 100 mls/hr IV Q48H [facility] Ibuprofen (Motrin) 400 mg PO Q6H PRN PRN Reason: Pain (mild 1-3) Isosorbide Mononitrate (Imdur) 30 mg PO DAILY [facility] Last Admin: 05/09/17 08:56 Dose: 30 mg Latanoprost (Xalatan 0.005% Ophth Soln) 0 ml EYEBOTH BEDTIME [facility] Last Admin: 05/09/17 21:36 Dose: 1 drop Lidocaine (Lidoderm 5%) 700 mg TOP DAILY [facility] Last Admin: 05/09/17 10:53 Dose: 700 mg Magnesium Sulfate (Pharmacy To Dose - Magnesium Replacement) 0 dose .XX ASDIRECTED PRN PRN Reason: RX TO WATCH MAG LEVELS Metoprolol Tartrate (Lopressor) 5 mg IVPUSH Q4H PRN PRN Reason: Tachycardia Miscellaneous Information (Remove Patch) 1 ea TRDERM BEDTIME [facility] Last Admin: 05/09/17 21:35 Dose: 1 ea Mometasone Furoate (Asmanex Hfa 200mcg) 0 gm INH BIDRT [facility] Last Admin: 05/10/17 06:07 Dose: 1 puff Nitroglycerin (Nitrostat) 0.4 mg SL Q5M PRN PRN Reason: Chest Pain Ondansetron HCl (Zofran Odt) 4 mg PO Q6H PRN PRN Reason: nausea, able to take PO Ondansetron HCl (Zofran) 4 mg IV Q6H PRN PRN Reason: Nausea/Vomiting Polyethylene Glycol (Miralax) 17 gm PO Q72H [facility] Last Admin: 05/09/17 00:27 Dose: Not Given Polysaccharide Iron Complex (Ferrex 150) 150 mg PO DAILY [facility] Potassium Chloride (Klor-Con 10) 10 meq PO DAILY [facility] Last Admin: 05/09/17 08:55 Dose: 10 meq Potassium Chloride (Pharmacy To Dose - Potassium Replacement) 0 dose .XX ASDIRECTED PRN PRN Reason: RX TO WATCH K LEVELS Prednisolone Acetate (Pred Forte 1% Ophth Susp) 0 ml EYELF DAILY [facility] Last Admin: 05/09/17 08:53 Dose: 1 drop Psyllium Husk (Metamucil Sugar Free) 1 packet PO 1200 [facility] Last Admin: 05/09/17 14:06 Dose: Not Given Ranolazine (Ranexa) 500 mg PO BID [facility] Last Admin: 05/09/17 21:33 Dose: 500 mg Rosuvastatin Calcium (Crestor) 20 mg PO DAILY [facility] Last Admin: 05/09/17 08:54 Dose: 20 mg Senna/Docusate Sodium (Senna Plus) 1 tab PO BID PRN PRN Reason: Constipation Last Admin: 05/09/17 14:27 Dose: 1 tab Sertraline HCl (Zoloft) 12.5 mg PO DAILY [facility] Last Admin: 05/09/17 08:55 Dose: 12.5 mg Sodium Chloride (Saline Flush) 10 ml FLUSH ONETIME PRN PRN Reason: IV FLUSH Last Admin: 05/09/17 16:57 Dose: 10 ml Tamsulosin HCl (Flomax) 0.4 mg PO BID [facility] Last Admin: 05/09/17 21:34 Dose: 0.4 mg Discontinued Medications Acetaminophen (Tylenol) 650 mg PO NOW ONE Stop: 05/08/17 13:53 Last Admin: 05/08/17 13:57 Dose: 650 mg Docusate Sodium (Colace) 100 mg PO BID PRN PRN Reason: Constipation Sodium Chloride (Normal Saline) 1,000 mls @ 125 mls/hr IV ASDIRECTED [facility] Last Admin: 05/09/17 05:48 Dose: 125 mls/hr Levofloxacin/Dextrose 750 mg/ (Premix) 150 mls @ 100 mls/hr IV ONETIME ONE Stop: 05/08/17 17:48 Last Admin: 05/08/17 16:48 Dose: 100 mls/hr Magnesium Sulfate 2 gm/ Premix 50 mls @ 25 mls/hr IV ONETIME ONE Stop: 05/09/17 11:59 Last Admin: 05/09/17 10:54 Dose: 25 mls/hr Iopamidol (Isovue-300 (61%)) 100 ml IVPUSH ONETIME ONE Stop: 05/09/17 16:39 Last Admin: 05/09/17 16:57 Dose: 80 ml Lidocaine HCl (Xylocaine 2% Jelly) 10 ml MUCMEM ONETIME ONE Stop: 05/08/17 16:06 Magnesium Hydroxide (Milk Of Magnesia) 30 ml PO ONETIME ONE Stop: 05/10/17 03:35 Last Admin: 05/10/17 06:11 Dose: 30 ml Magnesium Oxide (Magnesium Oxide) 400 mg PO ONETIME ONE Stop: 05/08/17 22:16 Last Admin: 05/08/17 22:18 Dose: 400 mg Non-Formulary Medication (Ranitidine) 150 mg PO BID [facility] Polyethylene Glycol (Miralax) 17 gm PO DAILY PRN PRN Reason: Constipation Potassium Chloride (Klor-Con M20) 40 meq PO Q4H [facility] Stop: 05/09/17 16:01 Last Admin: 05/09/17 17:41 Dose: 40 meq - Exam Quality Assessment: DVT Prophylaxis General: No Acute Distress, Other (Sleeping during exam. Family reports patient has been up most of night and resting during day.) Neck: Supple, Trachea Midline, No JVD Lungs: Normal Respiratory Effort, Rales (improved - lower lobes ). No: Wheezing Cardiovascular: Regular Rate, Regular Rhythm, Murmurs (systolic ) GI/Abdominal Exam: Normal Bowel Sounds, Soft, Non-Tender, No Organomegaly, No Distention, No Abnormal Bruit, No Mass, Pelvis Stable (Male) Exam: Deferred Extremities: Normal Inspection, Normal Range of Motion, Non-Tender, No Pedal Edema, Normal Capillary Refill Peripheral Pulses: 1+: Posterior Tibial (L), Posterior Tibial (R), Dorsalis Pedis (L), Dorsalis Pedis (R), 2+: Radial (L), Radial (R) Skin: Warm, Dry, Intact Neurological: No New Focal Deficit Psy/Mental Status: Alert - Problem List & Annotations (1) Acute febrile illness SNOMED Code(s): 775533768 Code(s): R50.9 - FEVER, UNSPECIFIED Status: Acute Priority: High Current Visit: Yes (2) Pneumonitis SNOMED Code(s): 758938804 Code(s): J18.9 - PNEUMONIA, UNSPECIFIED ORGANISM Status: Acute Priority: High Current Visit: Yes (3) Glaucoma SNOMED Code(s): 27801374 Code(s): H40.9 - UNSPECIFIED GLAUCOMA Status: Chronic Priority: Low Current Visit: No Qualifiers: Glaucoma type: unspecified Laterality: unspecified laterality Qualified Code(s): H40.9 - Unspecified glaucoma (4) CAD (coronary artery disease) SNOMED Code(s): 74537449 Code(s): I25.10 - ATHSCL HEART DISEASE OF [place] CORONARY ARTERY W/O ANG PCTRS Status: Chronic Priority: Low Current Visit: No Qualifiers: Coronary Disease-Associated Artery/Lesion type: unspecified vessel or lesion type [place] vs. transplanted heart: [place] heart Associated angina: angina presence unspecified Qualified Code(s): I25.10 - Atherosclerotic heart disease of [place] coronary artery without angina pectoris (5) HLD (hyperlipidemia) SNOMED Code(s): 75302906 Code(s): E78.5 - HYPERLIPIDEMIA, UNSPECIFIED Status: Chronic Priority: Low Current Visit: No Qualifiers: Hyperlipidemia type: unspecified Qualified Code(s): E78.5 - Hyperlipidemia , unspecified (6) PVD (peripheral vascular disease) SNOMED Code(s): 719856978 Code(s): I73.9 - PERIPHERAL VASCULAR DISEASE, UNSPECIFIED Status: Chronic Priority: Low Current Visit: No (7) GERD (gastroesophageal reflux disease) SNOMED Code(s): 894206321 Code(s): K21.9 - GASTRO-ESOPHAGEAL REFLUX DISEASE WITHOUT ESOPHAGITIS Status: Chronic Priority: Low Current Visit: No Qualifiers: Esophagitis presence: esophagitis presence not specified Qualified Code(s) : K21.9 - Gastro-esophageal reflux disease without esophagitis (8) BPH (benign prostatic hyperplasia) SNOMED Code(s): 455058608 Code(s): N40.0 - BENIGN PROSTATIC HYPERPLASIA WITHOUT LOWER URINRY TRACT SYMP Status: Chronic Priority: Low Current Visit: No Qualifiers: Lower urinary tract symptom presence: unspecified whether lower urinary tract symptoms present Qualified Code(s): N40.0 - Benign prostatic hyperplasia without lower urinary tract symptoms (9) Chronic back pain SNOMED Code(s): 638142247 Code(s): M54.9 - DORSALGIA, UNSPECIFIED; G89.29 - OTHER CHRONIC PAIN Status : Chronic Priority: Low Current Visit: No Qualifiers: Back pain location: back pain in unspecified location Back pain laterality : unspecified Qualified Code(s): M54.9 - Dorsalgia, unspecified; G89.29 - Other chronic pain; G89.29 - Other chronic pain (10) Osteoarthritis SNOMED Code(s): 940484163 Code(s): M19.90 - UNSPECIFIED OSTEOARTHRITIS, UNSPECIFIED SITE Status: Chronic Priority: Low Current Visit: No Qualifiers: Osteoarthritis location: unspecified site Osteoarthritis type: primary Qualified Code(s): M19.91 - Primary osteoarthritis, unspecified site (11) Alzheimer disease SNOMED Code(s): 72244832 Code(s): G30.9 - ALZHEIMER'S DISEASE, UNSPECIFIED; F02.80 - DEMENTIA IN OTH DISEASES CLASSD ELSWHR W/O BEHAVRL DISTURB Status: Chronic Priority: Low Current Visit: No Qualifiers: Alzheimer's disease onset: unspecified onset Dementia behavioral disturbance: without behavioral disturbance Qualified Code(s): G30.9 - Alzheimer's disease, unspecified; F02.80 - Dementia in other diseases classified elsewhere without behavioral disturbance; F02.80 - Dementia in other diseases classified elsewhere without behavioral disturbance; F02.80 - Dementia in other diseases classified elsewhere without behavioral disturbance (12) Dementia SNOMED Code(s): 44177647 Code(s): F03.90 - UNSPECIFIED DEMENTIA WITHOUT BEHAVIORAL DISTURBANCE Status: Chronic Priority: Low Current Visit: No Qualifiers: Dementia type: Alzheimer's disease Alzheimer's disease onset: unspecified onset Dementia behavioral disturbance: without behavioral disturbance Qualified Code(s): G30.9 - Alzheimer's disease, unspecified; F02.80 - Dementia in other diseases classified elsewhere without behavioral disturbance; F02.80 - Dementia in other diseases classified elsewhere without behavioral disturbance; F02.80 - Dementia in other diseases classified elsewhere without behavioral disturbance (13) History of TIA (transient ischemic attack) SNOMED Code(s): 480789653 Code(s): Z86.73 - PRSNL HX OF TIA (TIA), AND CEREB INFRC W/O RESID DEFICITS Status: Chronic Priority: Low Current Visit: No (14) COPD (chronic obstructive pulmonary disease) SNOMED Code(s): 91738820 Code(s): J44.9 - CHRONIC OBSTRUCTIVE PULMONARY DISEASE, UNSPECIFIED Status : Chronic Priority: Low Current Visit: No Qualifiers: COPD type: emphysema Emphysema type: unspecified Qualified Code(s): J43.9 - Emphysema, unspecified (15) Hypomagnesemia SNOMED Code(s): 313184422 Code(s): E83.42 - HYPOMAGNESEMIA Status: Resolved Priority: High Current Visit: Yes - Problem List Review Problem List Initiated/Reviewed/Updated: Yes - My Orders Last 24 Hours: My Active Orders 05/09/17 16:29 Chest w Cont [CT] Routine 05/09/17 16:30 CULTURE URINE [RM] Routine 05/10/17 05:45 PRO B-TYPE NATRIUR PEPT,BNPPRO [CHEM] Routine 05/10/17 09:00 Bisacodyl [Dulcolax] 10 mg RECTAL ONETIME ONE Iron Polysaccharides Complex [Ferrex 150] 150 mg PO DAILY 05/11/17 05:11 PRO B-TYPE NATRIUR PEPT,BNPPRO [CHEM] DAILY 05/12/17 05:11 PRO B-TYPE NATRIUR PEPT,BNPPRO [CHEM] DAILY 05/13/17 05:11 PRO B-TYPE NATRIUR PEPT,BNPPRO [CHEM] DAILY - Plan Plan:: I/P: Acute: Febrile illness of unknown origin -Fever reported in longterm with decreased appetite, cough, fatigue, SOB -Temp 99.6 in ED (had tylenol in SNF), tachycardia -Mild Leukocytosis -10.36-->10.66-->9.08, CRP 5.9-->13.8-->16.0 -UA, CXR, influenza screen, mycoplasma pneumo, strep pneumo - all negative -Repeat CXR: Stable findings -Viral illness panel, urine culture pending -Blood cultures - no growth after 1 day -Tylenol for fever -Chest CT shows left lobe bronchitis, Left lung base pleuritis, bilateral apical and left lower lobe pleural parenchymal lung scarring Bronchitis -CT scan notes left lower lobe bronchitis -Fever as above, cough with mild sputum production, tachycardia -Rales and crackles on lung exam, no wheezing -Per daughters: hx/o recurrent PNA -Negative CXR -RT/IS -Duonebs PRN -Levaquin given in ED, continue -Home respiratory medications -Mild leukocytosis (10.36-->10.66-->9.08), CRP 5.9-->13.8-->16.0 -Repeat CXR today: stable findings Hypomagnesemia -Magnesium 1.6 -Supplemented Anemia -In reviewing prior charts it appears baseline Hgb is around 12-13 -Was given fluids overnight which likely worsened -Iron panel: Iron 14, TIBC 168, percent saturation 8, transferrin 134 -Daily iron PO supplementation Chronic: Glaucoma Left eye blindness CAD HLD HTN NE PVD COPD GERD BPH Chronic back pain from spinal stenosis OA Alzheimers disease TIA Dementia Plan: Admit to medical floor observation with telemetry--> upgrade to inpatient Routine AM labs Other orders as indicated above PT/OT CM/SW for discharge planning Spiritual care consult PE/DVT prophylaxis: TARA hose and on home plavix Home medications as ordered Code status: DNR; PCP: Dr. Coyle
--- NOTE | 2017-05-10 07:35 | CT ---
CT chest Technique: Multiple axial sections through the chest were obtained. Intravenous contrast was utilized. Comparison: Prior chest x-ray of 05/08/[address] dated 08/11/15. Findings: Pleural thickening is noted along the left lateral chest with lesser pleural thickening seen within the right lung apex. Parenchymal scarring is noted within both upper lungs. Scattered areas of fibrosis are noted within both lungs. More prominent scarring is seen within both lung bases. Several small nodules are noted within the right lung base. Emphysematous changes are also noted. All these findings are fairly stable from previous chest CT. No acute parenchymal densities are seen. Atherosclerotic change and mild ectasia of the ascending aorta is seen. Coronary artery calcification is noted. No pericardial thickening is seen. No mediastinal or hilar adenopathy or mass is seen. No axillary adenopathy is seen. Bone window settings were reviewed which show mild endplate concavities within the thoracic as well as more prominent compression deformities within the lumbar spine. These all are felt to be fairly stable. Impression: 1. Pleural thickening, parenchymal scarring and small pulmonary nodules. Emphysematous change also noted. These findings are fairly stable from prior chest CT. 2. Other incidental findings which are stable. 3. Nothing acute is identified on CT study of the chest. Diagnostic code #3
[2017-05-10] MEDS ORDERED: Furosemide 20 MG/2 ML VIAL IVPUSH ONE (09:00)
[2017-05-10] MEDS ORDERED: Bisacodyl 10 MG Supp RECTAL ONE (09:00)
[2017-05-10] MEDS: Tamsulosin 0.4 MG Cap.ER PO SCH ×2 (09:06→21:48)
[2017-05-10] MEDS: Potassium Chloride 10 MEQ Tab.ER PO SCH (09:06)
[2017-05-10] MEDS: Rosuvastatin 10 MG Tab PO SCH (09:06)
[2017-05-10] MEDS: Isosorbide Mononitrate 30 MG Tab.ER PO SCH (09:06)
[2017-05-10] MEDS: Clopidogrel 75 MG Tab PO SCH (09:07)
[2017-05-10] MEDS: Sertraline 25 MG Tab PO SCH (09:07)
[2017-05-10] MEDS: Finasteride 5 MG Tab PO SCH (09:07)
[2017-05-10] MEDS: Carvedilol 6.25 MG Tab PO SCH ×2 (09:07→21:46)
[2017-05-10] MEDS: Iron Polysaccharides Complex 150 MG Cap PO SCH (09:07)
[2017-05-10] MEDS: Cholecalciferol (Vitamin D3) 1,000 Unit Tab PO SCH (09:08)
[2017-05-10] MEDS: Ezetimibe 10 MG Tab PO SCH (09:08)
[2017-05-10] MEDS: Lidocaine 5% 700 MG Patch TOP SCH (09:08)
[2017-05-10] MEDS: guaiFENesin 600 MG Tab.ER PO SCH ×2 (09:08→21:48)
[2017-05-10] MEDS: Famotidine 20 MG Tab PO SCH (09:08)
[2017-05-10] MEDS: Docusate Sodium 100 MG Cap PO SCH (09:08)
[2017-05-10] MEDS: Aspirin 81 MG Tab.EC PO SCH ×2 (09:08→21:48)
[2017-05-10] MEDS: prednisoLONE Acetate 1% Ophth Susp 5 ML Bottle EYELF SCH (09:09)
[2017-05-10] MEDS: Hypromellose 0.5% Ophth Soln 15 ML Bottle EYEBOTH SCH ×5 (09:09→21:48)
--- NOTE | 2017-05-10 10:26 | CR ---
Chest: Two views of the chest were obtained. Comparison: Prior chest x-ray of 05/08/17. Stable findings within both upper lungs. Emphysematous change is seen. Nothing acute is appreciated. Bony structures are unchanged. Previous sternotomy is noted. Impression: 1. Stable chest x-ray from prior study. Nothing acute is identified. Diagnostic code #2
[2017-05-10] MEDS: Psyllium Husk Powder Sugar Free 3.4 GM Packet PO SCH (14:02)
[2017-05-10] MEDS ORDERED: Levofloxacin/Dextrose 5%-Water 750 MG in Premix Bag 1 BAG IV SCH (17:00)
[2017-05-10] MEDS: Donepezil 10 MG Tab PO SCH (21:46)
[2017-05-10] MEDS: Remove Patch*LIDOCAINE TRDERM SCH (21:48)
[2017-05-10] MEDS: Latanoprost 0.005% Ophth Soln 2.5 ML Bottle EYEBOTH SCH (21:49)
[2017-05-11] MEDS: Mometasone Furoate HFA 200 mcg/Puff 13 GM Inhaler INH SCH ×2 (06:36→20:42)
[2017-05-11] MEDS: Finasteride 5 MG Tab PO SCH (09:20)
[2017-05-11] MEDS: Carvedilol 6.25 MG Tab PO SCH ×2 (09:20→21:39)
[2017-05-11] MEDS: Tamsulosin 0.4 MG Cap.ER PO SCH ×2 (09:20→21:39)
[2017-05-11] MEDS: Clopidogrel 75 MG Tab PO SCH (09:21)
[2017-05-11] MEDS: Docusate Sodium 100 MG Cap PO SCH (09:21)
[2017-05-11] MEDS: Rosuvastatin 10 MG Tab PO SCH (09:21)
[2017-05-11] MEDS: guaiFENesin 600 MG Tab.ER PO SCH ×2 (09:21→21:40)
[2017-05-11] MEDS: Aspirin 81 MG Tab.EC PO SCH ×2 (09:22→21:39)
[2017-05-11] MEDS: Isosorbide Mononitrate 30 MG Tab.ER PO SCH (09:22)
[2017-05-11] MEDS: Ezetimibe 10 MG Tab PO SCH (09:22)
[2017-05-11] MEDS: Cholecalciferol (Vitamin D3) 1,000 Unit Tab PO SCH (09:22)
[2017-05-11] MEDS: Iron Polysaccharides Complex 150 MG Cap PO SCH (09:22)
[2017-05-11] MEDS: Famotidine 20 MG Tab PO SCH (09:22)
[2017-05-11] MEDS: Potassium Chloride 10 MEQ Tab.ER PO SCH (09:22)
[2017-05-11] MEDS: Sertraline 25 MG Tab PO SCH (09:23)
[2017-05-11] MEDS: Hypromellose 0.5% Ophth Soln 15 ML Bottle EYEBOTH SCH ×4 (09:25→21:39)
[2017-05-11] MEDS: Lidocaine 5% 700 MG Patch TOP SCH (09:25)
[2017-05-11] MEDS: prednisoLONE Acetate 1% Ophth Susp 5 ML Bottle EYELF SCH (09:25)
[2017-05-11] MEDS: Psyllium Husk Powder Sugar Free 3.4 GM Packet PO SCH ×2 (13:09→15:13)
[2017-05-11] MEDS: Ibuprofen 400 MG Tab PO PRN (16:28)
[2017-05-11] MEDS: Donepezil 10 MG Tab PO SCH (21:38)
[2017-05-11] MEDS: Polyethylene Glycol 3350 Powder 17 GM Packet PO SCH (21:40)
[2017-05-11] MEDS: Remove Patch*LIDOCAINE TRDERM SCH (21:40)
[2017-05-11] MEDS: Latanoprost 0.005% Ophth Soln 2.5 ML Bottle EYEBOTH SCH (21:41)
[2017-05-12] MEDS: Mometasone Furoate HFA 200 mcg/Puff 13 GM Inhaler INH SCH ×2 (06:34→20:15)
[2017-05-12] MEDS: prednisoLONE Acetate 1% Ophth Susp 5 ML Bottle EYELF SCH (08:55)
[2017-05-12] MEDS: Hypromellose 0.5% Ophth Soln 15 ML Bottle EYEBOTH SCH ×4 (08:55→21:01)
[2017-05-12] MEDS: Lidocaine 5% 700 MG Patch TOP SCH (08:55)
[2017-05-12] MEDS: Finasteride 5 MG Tab PO SCH (08:56)
[2017-05-12] MEDS: Tamsulosin 0.4 MG Cap.ER PO SCH ×2 (08:56→20:52)
[2017-05-12] MEDS: Famotidine 20 MG Tab PO SCH (08:57)
[2017-05-12] MEDS: Cholecalciferol (Vitamin D3) 1,000 Unit Tab PO SCH (08:57)
[2017-05-12] MEDS: Isosorbide Mononitrate 30 MG Tab.ER PO SCH (08:57)
[2017-05-12] MEDS: guaiFENesin 600 MG Tab.ER PO SCH ×2 (08:57→20:49)
[2017-05-12] MEDS: Aspirin 81 MG Tab.EC PO SCH ×2 (08:58→20:50)
[2017-05-12] MEDS: Sertraline 25 MG Tab PO SCH (08:58)
[2017-05-12] MEDS: Potassium Chloride 10 MEQ Tab.ER PO SCH (09:00)
[2017-05-12] MEDS: Docusate Sodium 100 MG Cap PO SCH (09:00)
[2017-05-12] MEDS: Clopidogrel 75 MG Tab PO SCH (09:00)
[2017-05-12] MEDS: Carvedilol 6.25 MG Tab PO SCH ×2 (09:00→20:51)
[2017-05-12] MEDS: Iron Polysaccharides Complex 150 MG Cap PO SCH (09:01)
[2017-05-12] MEDS: Ezetimibe 10 MG Tab PO SCH (09:01)
[2017-05-12] MEDS: Rosuvastatin 10 MG Tab PO SCH (09:01)
[2017-05-12] MEDS: Ibuprofen 400 MG Tab PO PRN (09:57)
[2017-05-12] MEDS: Acetaminophen 325 MG Tab PO PRN (14:03)
[2017-05-12] MEDS: Psyllium Husk Powder Sugar Free 3.4 GM Packet PO SCH (14:03)
[2017-05-12] MEDS ORDERED: Levofloxacin 750 MG Tab PO SCH (17:00)
[2017-05-12] MEDS: Donepezil 10 MG Tab PO SCH (20:53)
[2017-05-12] MEDS: Latanoprost 0.005% Ophth Soln 2.5 ML Bottle EYEBOTH SCH (21:01)
[2017-05-12] MEDS: Remove Patch*LIDOCAINE TRDERM SCH (21:55)
[2017-05-13] MEDS: Mometasone Furoate HFA 200 mcg/Puff 13 GM Inhaler INH SCH (06:43)
--- NOTE | 2017-05-13 08:38 | PCM.DCSUM1 ---
Discharge Summary - Hospital Course HPI Initial Comments: Rizwan Albarado is an 86 yo male who presents to our ED today (05/08/17) with 2 of his daughters. He resides in a group home and his daughter states they were contacted this morning after the patient developed a fever. They feel like he has not been his usual self over the past 3-4 days with increased confusion and cough. Cough is not reportedly productive. Appetite is poor. SNF staff to give the patient Tylenol around 8 AM this morning. ED provider notes he is quite warm during exam. He is unable to provide any ROS due to confusion daughter's report patient has a history of pneumonia and recurrent problems with urinary tract infections. It is reported his urine did look quite dark and discolored 2 days ago. In the ED temp was 37.6C. Pulse 111. Respirations 27. Blood pressure 151/ 81. Pulse ox 100%. 12-lead EKG is obtained which shows a normal sinus rhythm at 90 bpm. There is left axis deviation. ED provider notes there is R-wave prominence in lead V1, V2, and V3 suggestive of acute posterior wall NV. 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 There is also T-wave inversion noted in V1 to V3. Labs are obtained: WBC is slightly elevated at 10.36. Hemoglobin is low at 13.4. Hematocrit 41.5. "He is macrocytic." 235,000. Neutrophils are elevated at 79%. Band neutrophils are noted to be 1%. Sodium was 139. Potassium 4.1. Chloride 102. Carbon dioxide 26. Anion gap is very slightly elevated at 15.1. BUN is 20. Creatinine 1.1. EGFR is greater than 60. Glucose is 148. Calcium 9.3. Magnesium 1.8. Normal at 0.6. AST is 18, ALT 12, alkaline phosphatase 75. CK- MB is 0.8. Troponin less than 0.017. CRP is elevated at 5.9. Protein 7.3. Albumin 3.4. ProBNP is slightly elevated at 610. UA is negative however trace protein is noted. Influenza screen is negative. He is given Tylenol and started on 750 mg Levaquin. Chest x-rays obtained and interpreted by Dr. Perales as "chronic pleural thickening is seen upper lobe parenchymal scarring. Minimal blunting of the lateral left costophrenic angle is seen which is stable. No acute parenchymal densities are seen. Surgical clips are seen within the left hilar region. Previous sternotomy is noted. Bony structures are grossly intact. This is compared with the prior chest x-ray of 01/25/17 and felt to be stable. He carries a history of: Glaucoma, left eye blindness, CAD, HLD, HTN, NV, PVD, COPD, GERD, BPH, chronic back pain, osteoarthritis, ulcerative disease, TIA, dementia. He is a former smoker. He subsequently admitted to the medical floor observation status with telemetry. CODE STATUS is DNR. His PCP is Dr. Coyle at [facility]. - Discharge Data Discharge Date: 05/13/17 (Admit Date: 05/09/17) Discharge Disposition: DC/Tfer to SNF 03 Condition: Good - Discharge Diagnosis/Problem(s) (1) Bronchitis SNOMED Code(s): 46197501 ICD Code: J40 - BRONCHITIS, NOT SPECIFIED ACUTE OR CHRONIC Status: Acute Priority: High (2) Acute febrile illness SNOMED Code(s): 056375896 ICD Code: R50.9 - FEVER, UNSPECIFIED Status: Resolved Priority: High (3) Pneumonitis SNOMED Code(s): 594093512 ICD Code: J18.9 - PNEUMONIA, UNSPECIFIED ORGANISM Status: Acute Priority : High (4) Glaucoma SNOMED Code(s): 01807100 ICD Code: H40.9 - UNSPECIFIED GLAUCOMA Status: Chronic Priority: Low Qualifiers: Glaucoma type: unspecified Laterality: unspecified laterality Qualified Code(s): H40.9 - Unspecified glaucoma (5) CAD (coronary artery disease) SNOMED Code(s): 42157937 ICD Code: I25.10 - ATHSCL HEART DISEASE OF [place] CORONARY ARTERY W/O ANG PCTRS Status: Chronic Priority: Low Qualifiers: Coronary Disease-Associated Artery/Lesion type: unspecified vessel or lesion type [place] vs. transplanted heart: [place] heart Associated angina: angina presence unspecified Qualified Code(s): I25.10 - Atherosclerotic heart disease of [place] coronary artery without angina pectoris (6) HLD (hyperlipidemia) SNOMED Code(s): 31900625 ICD Code: E78.5 - HYPERLIPIDEMIA, UNSPECIFIED Status: Chronic Priority: Low Qualifiers: Hyperlipidemia type: unspecified Qualified Code(s): E78.5 - Hyperlipidemia , unspecified (7) PVD (peripheral vascular disease) SNOMED Code(s): 068251431 ICD Code: I73.9 - PERIPHERAL VASCULAR DISEASE, UNSPECIFIED Status: Chronic Priority: Low (8) GERD (gastroesophageal reflux disease) SNOMED Code(s): 160103506 ICD Code: K21.9 - GASTRO-ESOPHAGEAL REFLUX DISEASE WITHOUT ESOPHAGITIS Status: Chronic Priority: Low Qualifiers: Esophagitis presence: esophagitis presence not specified Qualified Code(s) : K21.9 - Gastro-esophageal reflux disease without esophagitis (9) BPH (benign prostatic hyperplasia) SNOMED Code(s): 771193017 ICD Code: N40.0 - BENIGN PROSTATIC HYPERPLASIA WITHOUT LOWER URINRY TRACT SYMP Status: Chronic Priority: Low Qualifiers: Lower urinary tract symptom presence: unspecified whether lower urinary tract symptoms present Qualified Code(s): N40.0 - Benign prostatic hyperplasia without lower urinary tract symptoms (10) Chronic back pain SNOMED Code(s): 202412540 ICD Code: M54.9 - DORSALGIA, UNSPECIFIED; G89.29 - OTHER CHRONIC PAIN Status: Chronic Priority: Low Qualifiers: Back pain location: back pain in unspecified location Back pain laterality : unspecified Qualified Code(s): M54.9 - Dorsalgia, unspecified; G89.29 - Other chronic pain; G89.29 - Other chronic pain (11) Osteoarthritis SNOMED Code(s): 480231097 ICD Code: M19.90 - UNSPECIFIED OSTEOARTHRITIS, UNSPECIFIED SITE Status: Chronic Priority: Low Qualifiers: Osteoarthritis location: unspecified site Osteoarthritis type: primary Qualified Code(s): M19.91 - Primary osteoarthritis, unspecified site (12) Alzheimer disease SNOMED Code(s): 74125927 ICD Code: G30.9 - ALZHEIMER'S DISEASE, UNSPECIFIED; F02.80 - DEMENTIA IN OTH DISEASES CLASSD ELSWHR W/O BEHAVRL DISTURB Status: Chronic Priority: Low Qualifiers: Alzheimer's disease onset: unspecified onset Dementia behavioral disturbance: without behavioral disturbance Qualified Code(s): G30.9 - Alzheimer's disease, unspecified; F02.80 - Dementia in other diseases classified elsewhere without behavioral disturbance; F02.80 - Dementia in other diseases classified elsewhere without behavioral disturbance; F02.80 - Dementia in other diseases classified elsewhere without behavioral disturbance (13) Dementia SNOMED Code(s): 00567949 ICD Code: F03.90 - UNSPECIFIED DEMENTIA WITHOUT BEHAVIORAL DISTURBANCE Status: Chronic Priority: Low Qualifiers: Dementia type: Alzheimer's disease Alzheimer's disease onset: unspecified onset Dementia behavioral disturbance: without behavioral disturbance Qualified Code(s): G30.9 - Alzheimer's disease, unspecified; F02.80 - Dementia in other diseases classified elsewhere without behavioral disturbance; F02.80 - Dementia in other diseases classified elsewhere without behavioral disturbance; F02.80 - Dementia in other diseases classified elsewhere without behavioral disturbance (14) History of TIA (transient ischemic attack) SNOMED Code(s): 423312735 ICD Code: Z86.73 - PRSNL HX OF TIA (TIA), AND CEREB INFRC W/O RESID DEFICITS Status: Chronic Priority: Low (15) COPD (chronic obstructive pulmonary disease) SNOMED Code(s): 55117515 ICD Code: J44.9 - CHRONIC OBSTRUCTIVE PULMONARY DISEASE, UNSPECIFIED Status : Chronic Priority: Low Qualifiers: COPD type: emphysema Emphysema type: unspecified Qualified Code(s): J43.9 - Emphysema, unspecified (16) Hypomagnesemia SNOMED Code(s): 245716407 ICD Code: E83.42 - HYPOMAGNESEMIA Status: Resolved Priority: High - Patient Summary/Data Consults: Consultations 05/09/17 13:55 Consult to Occupational Therapy [OT Evaluation and Treatment] [CONS] Routine Consult to Physical Therapy [PT Evaluation and Treatment] [CONS] Routine Labs Pending at D/C: None Recommended Follow-up Testing/Procedures: Follow-up with PCP in 7-10 days Recommend follow-up H&H to monitor anemia. This can be arranged with the PCP. Hospital Course: I/P: Acute: Febrile illness of unknown origin -Fever reported in group home with decreased appetite, cough, fatigue, SOB -Temp 99.6 in ED (had tylenol in SNF), tachycardia -Mild Leukocytosis -(10.36-->10.66-->9.08-->6.73-->7.26); CRP 5.9-->13.8--> 16.0-->11.2-->10.1 -UA, CXR, influenza screen, mycoplasma pneumo, strep pneumo - all negative -Repeat CXR: Stable findings -Viral illness panel, urine culture pending -Blood cultures - no growth after 4 days -Tylenol for fever -Chest CT shows left lobe bronchitis, Left lung base pleuritis, bilateral apical and left lower lobe pleural parenchymal lung scarring Bronchitis -CT scan notes left lower lobe bronchitis -Fever as above, cough with mild sputum production, tachycardia -Rales and crackles on lung exam, no wheezing -Per daughters: hx/o recurrent PNA -Negative CXR -RT/IS -Duonebs PRN -Levaquin given in ED, continue -Home respiratory medications -Mild leukocytosis (10.36-->10.66-->9.08-->6.73-->7.26), CRP 5.9-->13.8--> 16.0-->11.2-->10.1 -Repeat CXR: stable findings Hypomagnesemia, resolved -Magnesium 1.6 -Supplemented Anemia -In reviewing prior charts it appears baseline Hgb is around 12-13 -Was given fluids overnight after admission which likely worsened -Iron panel: Iron 14, TIBC 168, percent saturation 8, transferrin 134 -Daily iron PO supplementation Chronic: Glaucoma Left eye blindness CAD HLD HTN NV PVD COPD GERD BPH Chronic back pain from spinal stenosis OA Alzheimers disease TIA Dementia Plan: Admit to medical floor observation with telemetry--> upgrade to inpatient Routine AM labs Other orders as indicated above PT/OT CM/SW for discharge planning Spiritual care consult PE/DVT prophylaxis: TARA hose and on home plavix Home medications as ordered Code status: DNR; PCP: Dr. Leonides Levin Rizwan did very well during his stay with us. He was admitted under observation but upgraded to full inpatient. He was much more lucid today and explained to me his blindness and how much he likes living at [facility]. His fever resolved. He was not on any oxygen at discharge. While he was here his hemoglobin was found to be low. He was started on iron supplementation and this should be reviewed with his PCP on future visits. He will also be given one more dose of PO levaquin, as he has been receiving that every 48 hours. He should take this dose tomorrow (05/14/17). It is recommended he follow-up with his PCP in 7-10 days. He will be discharged back to [facility] today. - Patient Instructions Diet: Heart Healthy Diet Activity: As Tolerated Driving: Do Not Drive Notify Provider of: Fever, Increased Pain, Nausea and/or Vomiting (worsening shortness of breath ) - Discharge Plan Prescriptions/Med Rec: Iron Polysaccharides Complex [Ferrex 150] 150 mg PO DAILY #20 cap Levofloxacin [Levaquin] 750 mg PO Q48H #1 tablet Home Medications: Home Meds Aspirin [Adult Low Dose Aspirin EC] 81 mg PO BID 08/11/15 [History] Clopidogrel Bisulfate [Plavix] 75 mg PO DAILY 08/11/15 [History] Donepezil [Aricept] 10 mg PO BEDTIME 08/11/15 [History] Ezetimibe [Zetia] 10 mg PO DAILY 08/11/15 [History] Finasteride [Proscar] 5 mg PO DAILY 08/11/15 [History] Latanoprost [Xalatan 0.005% Ophth Soln] 1 drop EYEBOTH BEDTIME 08/11/15 [History ] Ranolazine [Ranexa] 500 mg PO BID 08/11/15 [History] Tamsulosin HCl 0.4 mg PO BID 08/11/15 [History] atorvaSTATin Calcium [Atorvastatin Calcium] 80 mg PO DAILY 08/11/15 [History] Nitroglycerin [Nitrostat] 0.4 mg SL Q5M PRN 01/31/16 [History] Ranitidine HCl [Zantac] 150 mg PO BID 01/31/16 [History] Sertraline [Zoloft] 12.5 mg PO DAILY 01/31/16 [History] Carvedilol [Coreg] 6.25 mg PO BID 09/05/16 [History] Docusate Sodium [Stool Softener] 2 tab PO DAILY 09/09/16 [History] prednisoLONE Acetate [Prednisolone Acetate] 1 drop EYELF DAILY 09/09/16 [History ] Budesonide [Pulmicort Flexhaler] 2 puff INH BID 09/17/16 [History] Dextran 70/Hypromellose [Artificial Tears] 1 drop EYEBOTH QID PRN 09/17/16 [ History] Potassium Chloride [Klor-Con 10] 10 meq PO DAILY 09/17/16 [History] Albuterol [Ventolin HFA] 2 puff INH TID PRN 11/10/16 [History] Isosorbide Mononitrate [Imdur] 30 mg PO DAILY 11/10/16 [History] Acetaminophen [Acetaminophen ER] 1,300 mg PO Q8HR #0 11/30/16 [Rx] Mirabegron [Myrbetriq] 50 mg PO DAILY #0 12/04/16 [Rx] Ibuprofen 200 mg PO TID 01/25/17 [History] Lidocaine 5% [Lidoderm 5%] 1 patch TOP DAILY 01/25/17 [History] Cholecalciferol (Vitamin D3) [Vitamin D3] 1,000 unit PO DAILY 03/26/17 [History] Psyllium with Sucrose [Metamucil] 1 each PO 1200 03/26/17 [History] Bisacodyl [Dulcolax] 10 mg RC DAILY PRN 05/08/17 [History] Carboxymethylcellulose Sodium [Lubricant Eye Drops] 1 drop EYEBOTH QID 05/08/17 [History] Lidocaine 5% [Lidoderm 5%] 1 patch TOP DAILY PRN 05/08/17 [History] Polyethylene Glycol 3350 [MiraLAX] 17 gm PO Q72H 05/08/17 [History] guaiFENesin [Mucinex] 600 mg PO BID 05/08/17 [History] Iron Polysaccharides Complex [Ferrex 150] 150 mg PO DAILY #20 cap 05/13/17 [Rx] Levofloxacin [Levaquin] 750 mg PO Q48H #1 tablet 05/13/17 [Rx] Patient Handouts: Acute Bronchitis, Adult, [id number], Fever, Adult, Easy-to- Read Forms: ED Department Discharge Referrals: Indu Coyle MD [Primary Care Provider] - (Please follow-up with your primary care doctor, Dr. Indu Coyle, in 7 to 10 days. ) - Discharge Summary/Plan Comment DC Time >30 min.: Yes (45 mins) - General Info Admission Dx/Problem (Free Text: Admission Diagnosis/Problem Admission Diagnosis/Problem Fever in adult Subjective Update: In to see Rizwan today. He is doing very well. He is sitting up in his bed. We have a good conversation with very minimal confusion. No overnight issues. No concerns by nursing. He denies any complaints. Functional Status: Reports: Pain Controlled, Tolerating Diet, Ambulating, Urinating. Denies: New Symptoms - Review of Systems General: Reports: No Symptoms. Denies: Fever, Weakness, Fatigue, Malaise, Chills HEENT: Reports: No Symptoms Pulmonary: Reports: No Symptoms. Denies: Shortness of Breath, Cough, Wheezing Cardiovascular: Reports: No Symptoms. Denies: Chest Pain, Palpitations, Lightheadedness Gastrointestinal: Reports: No Symptoms. Denies: Abdominal Pain, Constipation, Diarrhea, Nausea, Vomiting Genitourinary: Reports: No Symptoms Musculoskeletal: Reports: No Symptoms Skin: Reports: No Symptoms Neurological: Reports: No Symptoms Psychiatric: Reports: No Symptoms - Patient Data Vitals - Most Recent: Last Vital Signs Temp 98.4 F 05/13/17 04:24 Pulse 69 05/13/17 04:24 Resp 16 05/13/17 04:24 BP 157/71 H 05/13/17 04:24 Pulse Ox 95 05/13/17 06:43 Weight - Most Recent: 119 lb 3.2 oz I&O - Last 24 hours: Intake & Output 05/12/17 05/13/17 05/13/17 22:59 06:59 14:59 Intake Total 240 600 Output Total 300 375 Balance -60 225 Lab Results - Last 24 hrs: Laboratory Results - last 24 hr 05/12/17 05/13/17 Range/Units 05:54 05:50 NT-Pro-B Natriuret Pep 514 H 483 H (0-450) pg/mL Med Orders - Current: Current Medications Acetaminophen (Tylenol) 650 mg PO Q4H PRN PRN Reason: Pain (Mild 1-3)/fever Last Admin: 05/12/17 14:03 Dose: 650 mg Albuterol/Ipratropium (Duoneb 3.0-0.5 Mg/3 Ml) 3 ml NEB Q4H PRN PRN Reason: Shortness Of Breath/wheezing Last Admin: 05/08/17 22:36 Dose: 3 ml Artificial Tears (Isopto Tears 0.5% Ophth Soln) 0 ml EYEBOTH QID [facility] Last Admin: 05/12/17 21:01 Dose: 1 drop Artificial Tears (Isopto Tears 0.5% Ophth Soln) 0 ml EYEBOTH QID PRN PRN Reason: Dry Eyes Aspirin (Halfprin) 81 mg PO BID [facility] Last Admin: 05/12/17 20:50 Dose: 81 mg Bisacodyl (Dulcolax) 5 mg PO DAILY PRN PRN Reason: Constipation Last Admin: 05/09/17 14:27 Dose: 5 mg Carvedilol (Coreg) 6.25 mg PO BID [facility] Last Admin: 05/12/17 20:51 Dose: 6.25 mg Cholecalciferol (Vitamin D3) 1,000 units PO DAILY [facility] Last Admin: 05/12/17 08:57 Dose: 1,000 units Clopidogrel Bisulfate (Plavix) 75 mg PO DAILY [facility] Last Admin: 05/12/17 09:00 Dose: 75 mg Docusate Sodium (Colace) 100 mg PO DAILY [facility] Last Admin: 05/12/17 09:00 Dose: 100 mg Donepezil HCl (Aricept) 10 mg PO BEDTIME [facility] Last Admin: 05/12/17 20:53 Dose: 10 mg Ezetimibe (Zetia) 10 mg PO DAILY [facility] Last Admin: 05/12/17 09:01 Dose: 10 mg Famotidine (Pepcid) 20 mg PO DAILY [facility] Last Admin: 05/12/17 08:57 Dose: 20 mg Finasteride (Proscar) 5 mg PO DAILY [facility] Last Admin: 05/12/17 08:56 Dose: 5 mg Guaifenesin (Mucinex) 600 mg PO BID [facility] Last Admin: 05/12/17 20:49 Dose: 600 mg Hydralazine HCl (Apresoline) 10 mg IVPUSH Q6H PRN PRN Reason: Hypertension Ibuprofen (Motrin) 400 mg PO Q6H PRN PRN Reason: Pain (mild 1-3) Last Admin: 05/12/17 09:57 Dose: 400 mg Isosorbide Mononitrate (Imdur) 30 mg PO DAILY [facility] Last Admin: 05/12/17 08:57 Dose: 30 mg Latanoprost (Xalatan 0.005% Ophth Soln) 0 ml EYEBOTH BEDTIME [facility] Last Admin: 05/12/17 21:01 Dose: 1 drop Levofloxacin (Levaquin) 750 mg PO Q48H [facility] Last Admin: 05/12/17 16:46 Dose: 750 mg Lidocaine (Lidoderm 5%) 700 mg TOP DAILY [facility] Last Admin: 05/12/17 08:55 Dose: 700 mg Metoprolol Tartrate (Lopressor) 5 mg IVPUSH Q4H PRN PRN Reason: Tachycardia Miscellaneous Information (Remove Patch) 1 ea TRDERM BEDTIME [facility] Last Admin: 05/12/17 21:55 Dose: 1 ea Mometasone Furoate (Asmanex Hfa 200mcg) 0 gm INH BIDRT [facility] Last Admin: 05/13/17 06:43 Dose: 1 puff Nitroglycerin (Nitrostat) 0.4 mg SL Q5M PRN PRN Reason: Chest Pain Ondansetron HCl (Zofran Odt) 4 mg PO Q6H PRN PRN Reason: nausea, able to take PO Ondansetron HCl (Zofran) 4 mg IV Q6H PRN PRN Reason: Nausea/Vomiting Polyethylene Glycol (Miralax) 17 gm PO Q72H [facility] Last Admin: 05/11/17 21:40 Dose: Not Given Polysaccharide Iron Complex (Ferrex 150) 150 mg PO DAILY [facility] Last Admin: 05/12/17 09:01 Dose: 150 mg Potassium Chloride (Klor-Con 10) 10 meq PO DAILY [facility] Last Admin: 05/12/17 09:00 Dose: 10 meq Prednisolone Acetate (Pred Forte 1% Ophth Susp) 0 ml EYELF DAILY [facility] Last Admin: 05/12/17 08:55 Dose: 1 drop Psyllium Husk (Metamucil Sugar Free) 1 packet PO 1200 [facility] Last Admin: 05/12/17 14:03 Dose: 1 packet Ranolazine (Ranexa) 500 mg PO BID [facility] Last Admin: 05/12/17 20:48 Dose: 500 mg Rosuvastatin Calcium (Crestor) 20 mg PO DAILY [facility] Last Admin: 05/12/17 09:01 Dose: 20 mg Senna/Docusate Sodium (Senna Plus) 1 tab PO BID PRN PRN Reason: Constipation Last Admin: 05/09/17 14:27 Dose: 1 tab Sertraline HCl (Zoloft) 12.5 mg PO DAILY [facility] Last Admin: 05/12/17 08:58 Dose: 12.5 mg Sodium Chloride (Saline Flush) 10 ml FLUSH ONETIME PRN PRN Reason: IV FLUSH Last Admin: 05/09/17 16:57 Dose: 10 ml Tamsulosin HCl (Flomax) 0.4 mg PO BID [facility] Last Admin: 05/12/17 20:52 Dose: 0.4 mg Discontinued Medications Acetaminophen (Tylenol) 650 mg PO NOW ONE Stop: 05/08/17 13:53 Last Admin: 05/08/17 13:57 Dose: 650 mg Bisacodyl (Dulcolax) 10 mg RECTAL ONETIME ONE Stop: 05/10/17 09:01 Last Admin: 05/10/17 09:09 Dose: Not Given Docusate Sodium (Colace) 100 mg PO BID PRN PRN Reason: Constipation Furosemide (Lasix) 20 mg IVPUSH NOW ONE Stop: 05/10/17 09:01 Last Admin: 05/10/17 09:10 Dose: 20 mg Sodium Chloride (Normal Saline) 1,000 mls @ 125 mls/hr IV ASDIRECTED [facility] Last Admin: 05/09/17 05:48 Dose: 125 mls/hr Levofloxacin/Dextrose 750 mg/ (Premix) 150 mls @ 100 mls/hr IV ONETIME ONE Stop: 05/08/17 17:48 Last Admin: 05/08/17 16:48 Dose: 100 mls/hr Levofloxacin/Dextrose 750 mg/ (Premix) 150 mls @ 100 mls/hr IV Q48H [facility] Last Admin: 05/10/17 17:29 Dose: 100 mls/hr Magnesium Sulfate 2 gm/ Premix 50 mls @ 25 mls/hr IV ONETIME ONE Stop: 05/09/17 11:59 Last Admin: 05/09/17 10:54 Dose: 25 mls/hr Iopamidol (Isovue-300 (61%)) 100 ml IVPUSH ONETIME ONE Stop: 05/09/17 16:39 Last Admin: 05/09/17 16:57 Dose: 80 ml Lidocaine HCl (Xylocaine 2% Jelly) 10 ml MUCMEM ONETIME ONE Stop: 05/08/17 16:06 Last Admin: 05/11/17 00:39 Dose: Not Given Magnesium Hydroxide (Milk Of Magnesia) 30 ml PO ONETIME ONE Stop: 05/10/17 03:35 Last Admin: 05/10/17 06:11 Dose: 30 ml Magnesium Oxide (Magnesium Oxide) 400 mg PO ONETIME ONE Stop: 05/08/17 22:16 Last Admin: 02/28/18 22:18 Dose: 400 mg Magnesium Sulfate (Pharmacy To Dose - Magnesium Replacement) 0 dose .XX ASDIRECTED PRN PRN Reason: RX TO WATCH MAG LEVELS Non-Formulary Medication (Ranitidine) 150 mg PO BID [facility] Last Admin: 05/11/17 00:40 Dose: Not Given Polyethylene Glycol (Miralax) 17 gm PO DAILY PRN PRN Reason: Constipation Potassium Chloride (Pharmacy To Dose - Potassium Replacement) 0 dose .XX ASDIRECTED PRN PRN Reason: RX TO WATCH K LEVELS Potassium Chloride (Klor-Con M20) 40 meq PO Q4H [facility] Stop: 05/09/17 16:01 Last Admin: 05/09/17 17:41 Dose: 40 meq - Exam Quality Assessment: Reports: DVT Prophylaxis General: Reports: Alert, Cooperative, No Acute Distress, Other (very mildly confused ) HEENT: Reports: Pupils Reactive (right ), EOMI, Mucous Membr. Moist/[place], Other (left pupil dilated. ). Denies: Pupils Equal Neck: Reports: Supple, Trachea Midline. Denies: No JVD Lungs: Reports: Normal Respiratory Effort, Decreased Breath Sounds Cardiovascular: Reports: Regular Rate, Regular Rhythm, Murmurs (systolic ) GI/Abdominal Exam: Normal Bowel Sounds, Soft, Non-Tender, No Organomegaly, No Distention, No Abnormal Bruit, No Mass, Pelvis Stable (Male) Exam: Deferred Rectal (Males) Exam: Deferred Back Exam: Reports: Normal Inspection, Decreased Range of Motion Extremities: Normal Inspection, Normal Range of Motion, Non-Tender, No Pedal Edema, Normal Capillary Refill Skin: Reports: Warm, Dry, Intact Neurological: Reports: No New Focal Deficit Psy/Mental Status: Reports: Alert, Normal Affect, Normal Mood *Q Meaningful Use (DIS) - VTE *Q VTE Criteria *Q: - Stroke *Q Stroke Criteria *Q: - AMI *Q AMI Criteria *Q:
[2017-05-13] MEDS: prednisoLONE Acetate 1% Ophth Susp 5 ML Bottle EYELF SCH (08:46)
[2017-05-13] MEDS: Potassium Chloride 10 MEQ Tab.ER PO SCH (08:47)
[2017-05-13] MEDS: Rosuvastatin 10 MG Tab PO SCH (08:47)
[2017-05-13] MEDS: Lidocaine 5% 700 MG Patch TOP SCH (08:47)
[2017-05-13] MEDS: Clopidogrel 75 MG Tab PO SCH (08:47)
[2017-05-13] MEDS: Sertraline 25 MG Tab PO SCH (08:48)
[2017-05-13] MEDS: Cholecalciferol (Vitamin D3) 1,000 Unit Tab PO SCH (08:48)
[2017-05-13] MEDS: Carvedilol 6.25 MG Tab PO SCH (08:48)
[2017-05-13] MEDS: Aspirin 81 MG Tab.EC PO SCH (08:48)
[2017-05-13] MEDS: Ezetimibe 10 MG Tab PO SCH (08:48)
[2017-05-13] MEDS: Famotidine 20 MG Tab PO SCH (08:48)
[2017-05-13] MEDS: Docusate Sodium 100 MG Cap PO SCH (08:48)
[2017-05-13] MEDS: Finasteride 5 MG Tab PO SCH (08:48)
[2017-05-13] MEDS: Tamsulosin 0.4 MG Cap.ER PO SCH (08:48)
[2017-05-13] MEDS: guaiFENesin 600 MG Tab.ER PO SCH (08:48)
[2017-05-13] MEDS: Hypromellose 0.5% Ophth Soln 15 ML Bottle EYEBOTH SCH (08:49)
[2017-05-13] MEDS: Isosorbide Mononitrate 30 MG Tab.ER PO SCH (08:49)
[2017-05-13] MEDS: Iron Polysaccharides Complex 150 MG Cap PO SCH (08:49)
--- NOTE | 2017-05-13 08:49 | PCM.PN ---
- General Info Date of Service: 05/11/17 Functional Status: Reports: Pain Controlled, Tolerating Diet, Urinating - Review of Systems General: Reports: No Symptoms HEENT: Reports: No Symptoms Pulmonary: Reports: No Symptoms Cardiovascular: Reports: No Symptoms Gastrointestinal: Reports: No Symptoms Genitourinary: Reports: No Symptoms Musculoskeletal: Reports: No Symptoms Skin: Reports: No Symptoms Neurological: Reports: No Symptoms Psychiatric: Reports: No Symptoms - Patient Data Vitals - Most Recent: Last Vital Signs Temp 36.9 C 05/13/17 04:24 Pulse 69 05/13/17 04:24 Resp 16 05/13/17 04:24 BP 157/71 H 05/13/17 04:24 Pulse Ox 95 05/13/17 06:43 Weight - Most Recent: 54.068 kg I&O - Last 24 Hours: Intake & Output 05/12/17 05/13/17 05/13/17 22:59 06:59 14:59 Intake Total 240 600 Output Total 300 375 Balance -60 225 Lab Results Last 24 Hours: Laboratory Results - last 24 hr 05/12/17 05/13/17 Range/Units 05:54 05:50 NT-Pro-B Natriuret Pep 514 H 483 H (0-450) pg/mL Med Orders - Current: Current Medications Acetaminophen (Tylenol) 650 mg PO Q4H PRN PRN Reason: Pain (Mild 1-3)/fever Last Admin: 05/12/17 14:03 Dose: 650 mg Albuterol/Ipratropium (Duoneb 3.0-0.5 Mg/3 Ml) 3 ml NEB Q4H PRN PRN Reason: Shortness Of Breath/wheezing Last Admin: 05/08/17 22:36 Dose: 3 ml Artificial Tears (Isopto Tears 0.5% Ophth Soln) 0 ml EYEBOTH QID [facility] Last Admin: 05/12/17 21:01 Dose: 1 drop Artificial Tears (Isopto Tears 0.5% Ophth Soln) 0 ml EYEBOTH QID PRN PRN Reason: Dry Eyes Aspirin (Halfprin) 81 mg PO BID [facility] Last Admin: 05/12/17 20:50 Dose: 81 mg Bisacodyl (Dulcolax) 5 mg PO DAILY PRN PRN Reason: Constipation Last Admin: 05/09/17 14:27 Dose: 5 mg Carvedilol (Coreg) 6.25 mg PO BID [facility] Last Admin: 05/12/17 20:51 Dose: 6.25 mg Cholecalciferol (Vitamin D3) 1,000 units PO DAILY [facility] Last Admin: 05/12/17 08:57 Dose: 1,000 units Clopidogrel Bisulfate (Plavix) 75 mg PO DAILY [facility] Last Admin: 05/12/17 09:00 Dose: 75 mg Docusate Sodium (Colace) 100 mg PO DAILY [facility] Last Admin: 05/12/17 09:00 Dose: 100 mg Donepezil HCl (Aricept) 10 mg PO BEDTIME [facility] Last Admin: 05/12/17 20:53 Dose: 10 mg Ezetimibe (Zetia) 10 mg PO DAILY [facility] Last Admin: 05/12/17 09:01 Dose: 10 mg Famotidine (Pepcid) 20 mg PO DAILY [facility] Last Admin: 05/12/17 08:57 Dose: 20 mg Finasteride (Proscar) 5 mg PO DAILY [facility] Last Admin: 05/12/17 08:56 Dose: 5 mg Guaifenesin (Mucinex) 600 mg PO BID [facility] Last Admin: 05/12/17 20:49 Dose: 600 mg Hydralazine HCl (Apresoline) 10 mg IVPUSH Q6H PRN PRN Reason: Hypertension Ibuprofen (Motrin) 400 mg PO Q6H PRN PRN Reason: Pain (mild 1-3) Last Admin: 05/12/17 09:57 Dose: 400 mg Isosorbide Mononitrate (Imdur) 30 mg PO DAILY [facility] Last Admin: 05/12/17 08:57 Dose: 30 mg Latanoprost (Xalatan 0.005% Ophth Soln) 0 ml EYEBOTH BEDTIME [facility] Last Admin: 05/12/17 21:01 Dose: 1 drop Levofloxacin (Levaquin) 750 mg PO Q48H [facility] Last Admin: 05/12/17 16:46 Dose: 750 mg Lidocaine (Lidoderm 5%) 700 mg TOP DAILY [facility] Last Admin: 05/12/17 08:55 Dose: 700 mg Metoprolol Tartrate (Lopressor) 5 mg IVPUSH Q4H PRN PRN Reason: Tachycardia Miscellaneous Information (Remove Patch) 1 ea TRDERM BEDTIME [facility] Last Admin: 05/12/17 21:55 Dose: 1 ea Mometasone Furoate (Asmanex Hfa 200mcg) 0 gm INH BIDRT [facility] Last Admin: 05/13/17 06:43 Dose: 1 puff Nitroglycerin (Nitrostat) 0.4 mg SL Q5M PRN PRN Reason: Chest Pain Ondansetron HCl (Zofran Odt) 4 mg PO Q6H PRN PRN Reason: nausea, able to take PO Ondansetron HCl (Zofran) 4 mg IV Q6H PRN PRN Reason: Nausea/Vomiting Polyethylene Glycol (Miralax) 17 gm PO Q72H [facility] Last Admin: 05/11/17 21:40 Dose: Not Given Polysaccharide Iron Complex (Ferrex 150) 150 mg PO DAILY [facility] Last Admin: 05/12/17 09:01 Dose: 150 mg Potassium Chloride (Klor-Con 10) 10 meq PO DAILY [facility] Last Admin: 05/12/17 09:00 Dose: 10 meq Prednisolone Acetate (Pred Forte 1% Ophth Susp) 0 ml EYELF DAILY [facility] Last Admin: 05/12/17 08:55 Dose: 1 drop Psyllium Husk (Metamucil Sugar Free) 1 packet PO 1200 [facility] Last Admin: 05/12/17 14:03 Dose: 1 packet Ranolazine (Ranexa) 500 mg PO BID [facility] Last Admin: 05/12/17 20:48 Dose: 500 mg Rosuvastatin Calcium (Crestor) 20 mg PO DAILY [facility] Last Admin: 05/12/17 09:01 Dose: 20 mg Senna/Docusate Sodium (Senna Plus) 1 tab PO BID PRN PRN Reason: Constipation Last Admin: 05/09/17 14:27 Dose: 1 tab Sertraline HCl (Zoloft) 12.5 mg PO DAILY [facility] Last Admin: 05/12/17 08:58 Dose: 12.5 mg Sodium Chloride (Saline Flush) 10 ml FLUSH ONETIME PRN PRN Reason: IV FLUSH Last Admin: 05/09/17 16:57 Dose: 10 ml Tamsulosin HCl (Flomax) 0.4 mg PO BID [facility] Last Admin: 05/12/17 20:52 Dose: 0.4 mg Discontinued Medications Acetaminophen (Tylenol) 650 mg PO NOW ONE Stop: 05/08/17 13:53 Last Admin: 05/08/17 13:57 Dose: 650 mg Bisacodyl (Dulcolax) 10 mg RECTAL ONETIME ONE Stop: 05/10/17 09:01 Last Admin: 05/10/17 09:09 Dose: Not Given Docusate Sodium (Colace) 100 mg PO BID PRN PRN Reason: Constipation Furosemide (Lasix) 20 mg IVPUSH NOW ONE Stop: 05/10/17 09:01 Last Admin: 05/10/17 09:10 Dose: 20 mg Sodium Chloride (Normal Saline) 1,000 mls @ 125 mls/hr IV ASDIRECTED [facility] Last Admin: 05/09/17 05:48 Dose: 125 mls/hr Levofloxacin/Dextrose 750 mg/ (Premix) 150 mls @ 100 mls/hr IV ONETIME ONE Stop: 05/08/17 17:48 Last Admin: 05/08/17 16:48 Dose: 100 mls/hr Levofloxacin/Dextrose 750 mg/ (Premix) 150 mls @ 100 mls/hr IV Q48H [facility] Last Admin: 05/10/17 17:29 Dose: 100 mls/hr Magnesium Sulfate 2 gm/ Premix 50 mls @ 25 mls/hr IV ONETIME ONE Stop: 05/09/17 11:59 Last Admin: 05/09/17 10:54 Dose: 25 mls/hr Iopamidol (Isovue-300 (61%)) 100 ml IVPUSH ONETIME ONE Stop: 05/09/17 16:39 Last Admin: 05/09/17 16:57 Dose: 80 ml Lidocaine HCl (Xylocaine 2% Jelly) 10 ml MUCMEM ONETIME ONE Stop: 05/08/17 16:06 Last Admin: 05/11/17 00:39 Dose: Not Given Magnesium Hydroxide (Milk Of Magnesia) 30 ml PO ONETIME ONE Stop: 05/10/17 03:35 Last Admin: 05/10/17 06:11 Dose: 30 ml Magnesium Oxide (Magnesium Oxide) 400 mg PO ONETIME ONE Stop: 05/08/17 22:16 Last Admin: 05/08/17 22:18 Dose: 400 mg Magnesium Sulfate (Pharmacy To Dose - Magnesium Replacement) 0 dose .XX ASDIRECTED PRN PRN Reason: RX TO WATCH MAG LEVELS Non-Formulary Medication (Ranitidine) 150 mg PO BID [facility] Last Admin: 05/11/17 00:40 Dose: Not Given Polyethylene Glycol (Miralax) 17 gm PO DAILY PRN PRN Reason: Constipation Potassium Chloride (Pharmacy To Dose - Potassium Replacement) 0 dose .XX ASDIRECTED PRN PRN Reason: RX TO WATCH K LEVELS Potassium Chloride (Klor-Con M20) 40 meq PO Q4H [facility] Stop: 05/09/17 16:01 Last Admin: 05/09/17 17:41 Dose: 40 meq - Exam Quality Assessment: DVT Prophylaxis General: Alert, Oriented, Cooperative, No Acute Distress HEENT: Pupils Equal, Pupils Reactive, EOMI Neck: Trachea Midline, No JVD Lungs: Normal Respiratory Effort GI/Abdominal Exam: Normal Bowel Sounds, Soft, Non-Tender, No Organomegaly (Male) Exam: Deferred Back Exam: Normal Inspection Extremities: Normal Inspection Skin: Warm, Dry, Intact Neurological: No New Focal Deficit, Normal Speech Psy/Mental Status: Alert, Normal Affect, Normal Mood - Problem List Review Problem List Initiated/Reviewed/Updated: Yes - My Orders Last 24 Hours: My Active Orders 05/12/17 17:00 Levofloxacin [Levaquin] 750 mg PO Q48H - Plan Plan:: I/P: Acute: Febrile illness of unknown origin -Fever reported in halfway with decreased appetite, cough, fatigue, SOB -Temp 99.6 in ED (had tylenol in SNF), tachycardia -Mild Leukocytosis -10.36-->10.66-->9.08, CRP 5.9-->13.8-->16.0 -UA, CXR, influenza screen, mycoplasma pneumo, strep pneumo - all negative -Repeat CXR: Stable findings -Viral illness panel, urine culture pending -Blood cultures - no growth after 1 day -Tylenol for fever -Chest CT shows left lobe bronchitis, Left lung base pleuritis, bilateral apical and left lower lobe pleural parenchymal lung scarring Bronchitis -CT scan notes left lower lobe bronchitis -Fever as above, cough with mild sputum production, tachycardia -Rales and crackles on lung exam, no wheezing -Per daughters: hx/o recurrent PNA -Negative CXR -RT/IS -Duonebs PRN -Levaquin given in ED, continue -Home respiratory medications -Mild leukocytosis (10.36-->10.66-->9.08), CRP 5.9-->13.8-->16.0 -Repeat CXR today: stable findings Hypomagnesemia -Magnesium 1.6 -Supplemented Anemia -In reviewing prior charts it appears baseline Hgb is around 12-13 -Was given fluids overnight which likely worsened -Iron panel: Iron 14, TIBC 168, percent saturation 8, transferrin 134 -Daily iron PO supplementation Chronic: Glaucoma Left eye blindness CAD HLD HTN MD PVD COPD GERD BPH Chronic back pain from spinal stenosis OA Alzheimers disease TIA Dementia Plan: Admit to medical floor observation with telemetry--> upgrade to inpatient Routine AM labs Other orders as indicated above PT/OT CM/SW for discharge planning Spiritual care consult PE/DVT prophylaxis: TARA hose and on home plavix Home medications as ordered Code status: DNR; PCP: Dr. Coyle LOS>96 hours, gradually responding to ATB; back to [facility], 05/12 or [facility] , 05/13.
--- NOTE | 2017-05-13 08:50 | PCM.PN ---
- General Info Date of Service: 05/12/17 Subjective Update: Patient is more coherent, easily able to answer appropriately. Functional Status: Reports: Pain Controlled, Tolerating Diet, Urinating - Review of Systems General: Reports: No Symptoms HEENT: Reports: No Symptoms Pulmonary: Reports: No Symptoms Cardiovascular: Reports: No Symptoms Gastrointestinal: Reports: No Symptoms Genitourinary: Reports: No Symptoms Musculoskeletal: Reports: No Symptoms Skin: Reports: No Symptoms Neurological: Reports: No Symptoms Psychiatric: Reports: No Symptoms - Patient Data Vitals - Most Recent: Last Vital Signs Temp 36.9 C 05/13/17 04:24 Pulse 69 05/13/17 04:24 Resp 16 05/13/17 04:24 BP 157/71 H 05/13/17 04:24 Pulse Ox 95 05/13/17 06:43 Weight - Most Recent: 54.068 kg I&O - Last 24 Hours: Intake & Output 05/12/17 05/13/17 05/13/17 22:59 06:59 14:59 Intake Total 240 600 Output Total 300 375 Balance -60 225 Lab Results Last 24 Hours: Laboratory Results - last 24 hr 05/12/17 05/13/17 Range/Units 05:54 05:50 NT-Pro-B Natriuret Pep 514 H 483 H (0-450) pg/mL Med Orders - Current: Current Medications Acetaminophen (Tylenol) 650 mg PO Q4H PRN PRN Reason: Pain (Mild 1-3)/fever Last Admin: 05/12/17 14:03 Dose: 650 mg Albuterol/Ipratropium (Duoneb 3.0-0.5 Mg/3 Ml) 3 ml NEB Q4H PRN PRN Reason: Shortness Of Breath/wheezing Last Admin: 05/08/17 22:36 Dose: 3 ml Artificial Tears (Isopto Tears 0.5% Ophth Soln) 0 ml EYEBOTH QID [facility] Last Admin: 05/12/17 21:01 Dose: 1 drop Artificial Tears (Isopto Tears 0.5% Ophth Soln) 0 ml EYEBOTH QID PRN PRN Reason: Dry Eyes Aspirin (Halfprin) 81 mg PO BID [facility] Last Admin: 05/12/17 20:50 Dose: 81 mg Bisacodyl (Dulcolax) 5 mg PO DAILY PRN PRN Reason: Constipation Last Admin: 05/09/17 14:27 Dose: 5 mg Carvedilol (Coreg) 6.25 mg PO BID [facility] Last Admin: 05/12/17 20:51 Dose: 6.25 mg Cholecalciferol (Vitamin D3) 1,000 units PO DAILY [facility] Last Admin: 05/12/17 08:57 Dose: 1,000 units Clopidogrel Bisulfate (Plavix) 75 mg PO DAILY [facility] Last Admin: 05/12/17 09:00 Dose: 75 mg Docusate Sodium (Colace) 100 mg PO DAILY [facility] Last Admin: 05/12/17 09:00 Dose: 100 mg Donepezil HCl (Aricept) 10 mg PO BEDTIME [facility] Last Admin: 05/12/17 20:53 Dose: 10 mg Ezetimibe (Zetia) 10 mg PO DAILY [facility] Last Admin: 05/12/17 09:01 Dose: 10 mg Famotidine (Pepcid) 20 mg PO DAILY [facility] Last Admin: 05/12/17 08:57 Dose: 20 mg Finasteride (Proscar) 5 mg PO DAILY [facility] Last Admin: 05/12/17 08:56 Dose: 5 mg Guaifenesin (Mucinex) 600 mg PO BID [facility] Last Admin: 05/12/17 20:49 Dose: 600 mg Hydralazine HCl (Apresoline) 10 mg IVPUSH Q6H PRN PRN Reason: Hypertension Ibuprofen (Motrin) 400 mg PO Q6H PRN PRN Reason: Pain (mild 1-3) Last Admin: 05/12/17 09:57 Dose: 400 mg Isosorbide Mononitrate (Imdur) 30 mg PO DAILY [facility] Last Admin: 05/12/17 08:57 Dose: 30 mg Latanoprost (Xalatan 0.005% Ophth Soln) 0 ml EYEBOTH BEDTIME [facility] Last Admin: 05/12/17 21:01 Dose: 1 drop Levofloxacin (Levaquin) 750 mg PO Q48H [facility] Last Admin: 05/12/17 16:46 Dose: 750 mg Lidocaine (Lidoderm 5%) 700 mg TOP DAILY [facility] Last Admin: 05/12/17 08:55 Dose: 700 mg Metoprolol Tartrate (Lopressor) 5 mg IVPUSH Q4H PRN PRN Reason: Tachycardia Miscellaneous Information (Remove Patch) 1 ea TRDERM BEDTIME [facility] Last Admin: 05/12/17 21:55 Dose: 1 ea Mometasone Furoate (Asmanex Hfa 200mcg) 0 gm INH BIDRT [facility] Last Admin: 05/13/17 06:43 Dose: 1 puff Nitroglycerin (Nitrostat) 0.4 mg SL Q5M PRN PRN Reason: Chest Pain Ondansetron HCl (Zofran Odt) 4 mg PO Q6H PRN PRN Reason: nausea, able to take PO Ondansetron HCl (Zofran) 4 mg IV Q6H PRN PRN Reason: Nausea/Vomiting Polyethylene Glycol (Miralax) 17 gm PO Q72H [facility] Last Admin: 05/11/17 21:40 Dose: Not Given Polysaccharide Iron Complex (Ferrex 150) 150 mg PO DAILY [facility] Last Admin: 05/12/17 09:01 Dose: 150 mg Potassium Chloride (Klor-Con 10) 10 meq PO DAILY [facility] Last Admin: 05/12/17 09:00 Dose: 10 meq Prednisolone Acetate (Pred Forte 1% Ophth Susp) 0 ml EYELF DAILY [facility] Last Admin: 05/12/17 08:55 Dose: 1 drop Psyllium Husk (Metamucil Sugar Free) 1 packet PO 1200 [facility] Last Admin: 05/12/17 14:03 Dose: 1 packet Ranolazine (Ranexa) 500 mg PO BID [facility] Last Admin: 05/12/17 20:48 Dose: 500 mg Rosuvastatin Calcium (Crestor) 20 mg PO DAILY [facility] Last Admin: 05/12/17 09:01 Dose: 20 mg Senna/Docusate Sodium (Senna Plus) 1 tab PO BID PRN PRN Reason: Constipation Last Admin: 05/09/17 14:27 Dose: 1 tab Sertraline HCl (Zoloft) 12.5 mg PO DAILY [facility] Last Admin: 05/12/17 08:58 Dose: 12.5 mg Sodium Chloride (Saline Flush) 10 ml FLUSH ONETIME PRN PRN Reason: IV FLUSH Last Admin: 05/09/17 16:57 Dose: 10 ml Tamsulosin HCl (Flomax) 0.4 mg PO BID [facility] Last Admin: 05/12/17 20:52 Dose: 0.4 mg Discontinued Medications Acetaminophen (Tylenol) 650 mg PO NOW ONE Stop: 05/08/17 13:53 Last Admin: 05/08/17 13:57 Dose: 650 mg Bisacodyl (Dulcolax) 10 mg RECTAL ONETIME ONE Stop: 05/10/17 09:01 Last Admin: 05/10/17 09:09 Dose: Not Given Docusate Sodium (Colace) 100 mg PO BID PRN PRN Reason: Constipation Furosemide (Lasix) 20 mg IVPUSH NOW ONE Stop: 05/10/17 09:01 Last Admin: 05/10/17 09:10 Dose: 20 mg Sodium Chloride (Normal Saline) 1,000 mls @ 125 mls/hr IV ASDIRECTED [facility] Last Admin: 05/09/17 05:48 Dose: 125 mls/hr Levofloxacin/Dextrose 750 mg/ (Premix) 150 mls @ 100 mls/hr IV ONETIME ONE Stop: 05/08/17 17:48 Last Admin: 05/08/17 16:48 Dose: 100 mls/hr Levofloxacin/Dextrose 750 mg/ (Premix) 150 mls @ 100 mls/hr IV Q48H [facility] Last Admin: 05/10/17 17:29 Dose: 100 mls/hr Magnesium Sulfate 2 gm/ Premix 50 mls @ 25 mls/hr IV ONETIME ONE Stop: 05/09/17 11:59 Last Admin: 05/09/17 10:54 Dose: 25 mls/hr Iopamidol (Isovue-300 (61%)) 100 ml IVPUSH ONETIME ONE Stop: 05/09/17 16:39 Last Admin: 05/09/17 16:57 Dose: 80 ml Lidocaine HCl (Xylocaine 2% Jelly) 10 ml MUCMEM ONETIME ONE Stop: 05/08/17 16:06 Last Admin: 05/11/17 00:39 Dose: Not Given Magnesium Hydroxide (Milk Of Magnesia) 30 ml PO ONETIME ONE Stop: 05/10/17 03:35 Last Admin: 05/10/17 06:11 Dose: 30 ml Magnesium Oxide (Magnesium Oxide) 400 mg PO ONETIME ONE Stop: 05/08/17 22:16 Last Admin: 05/08/17 22:18 Dose: 400 mg Magnesium Sulfate (Pharmacy To Dose - Magnesium Replacement) 0 dose .XX ASDIRECTED PRN PRN Reason: RX TO WATCH MAG LEVELS Non-Formulary Medication (Ranitidine) 150 mg PO BID [facility] Last Admin: 05/11/17 00:40 Dose: Not Given Polyethylene Glycol (Miralax) 17 gm PO DAILY PRN PRN Reason: Constipation Potassium Chloride (Pharmacy To Dose - Potassium Replacement) 0 dose .XX ASDIRECTED PRN PRN Reason: RX TO WATCH K LEVELS Potassium Chloride (Klor-Con M20) 40 meq PO Q4H [facility] Stop: 05/09/17 16:01 Last Admin: 05/09/17 17:41 Dose: 40 meq - Exam Quality Assessment: DVT Prophylaxis General: Alert, Oriented, Cooperative, No Acute Distress HEENT: Pupils Equal, Pupils Reactive, EOMI Neck: Supple, Trachea Midline, No JVD Lungs: Normal Respiratory Effort Cardiovascular: Regular Rate, Regular Rhythm GI/Abdominal Exam: Normal Bowel Sounds, Soft, Non-Tender, No Organomegaly, No Distention (Male) Exam: Deferred Back Exam: Normal Inspection Extremities: Normal Inspection Skin: Warm Neurological: No New Focal Deficit Psy/Mental Status: Alert, Normal Affect, Normal Mood Physical Findings Comments:: LOS>96 hours, gradually responding to ATB; back to [facility], 05/12 or [facility] , 05/13. - Problem List Review Problem List Initiated/Reviewed/Updated: Yes - My Orders Last 24 Hours: My Active Orders 05/12/17 17:00 Levofloxacin [Levaquin] 750 mg PO Q48H - Plan Plan:: I/P: Acute: Febrile illness of unknown origin -Fever reported in senior living with decreased appetite, cough, fatigue, SOB -Temp 99.6 in ED (had tylenol in SNF), tachycardia -Mild Leukocytosis -10.36-->10.66-->9.08, CRP 5.9-->13.8-->16.0 -UA, CXR, influenza screen, mycoplasma pneumo, strep pneumo - all negative -Repeat CXR: Stable findings -Viral illness panel, urine culture pending -Blood cultures - no growth after 1 day -Tylenol for fever -Chest CT shows left lobe bronchitis, Left lung base pleuritis, bilateral apical and left lower lobe pleural parenchymal lung scarring Bronchitis -CT scan notes left lower lobe bronchitis -Fever as above, cough with mild sputum production, tachycardia -Rales and crackles on lung exam, no wheezing -Per daughters: hx/o recurrent PNA -Negative CXR -RT/IS -Duonebs PRN -Levaquin given in ED, continue -Home respiratory medications -Mild leukocytosis (10.36-->10.66-->9.08), CRP 5.9-->13.8-->16.0 -Repeat CXR today: stable findings Hypomagnesemia -Magnesium 1.6 -Supplemented Anemia -In reviewing prior charts it appears baseline Hgb is around 12-13 -Was given fluids overnight which likely worsened -Iron panel: Iron 14, TIBC 168, percent saturation 8, transferrin 134 -Daily iron PO supplementation Chronic: Glaucoma Left eye blindness CAD HLD HTN DC PVD COPD GERD BPH Chronic back pain from spinal stenosis OA Alzheimers disease TIA Dementia Plan: Admit to medical floor observation with telemetry--> upgrade to inpatient Routine AM labs Other orders as indicated above PT/OT CM/SW for discharge planning Spiritual care consult PE/DVT prophylaxis: TARA hose and on home plavix Home medications as ordered Code status: DNR; PCP: Dr. Coyle LOS>96 hours, gradually responding to ATB; back to [facility], 05/13.
[2017-05-13 09:13] VITALS: BP 132/77
== END 2017-05-13 09:56 | DRG 203 ==
LOC: JD.ED 11:59 → UNDOADMOB 18:32 → JD.MS 18:32 → OBSVTOIN 05-09 07:47 → JD.MS 05-09 16:43
PROVIDERS: ADMIT Internal Medicine; ATTEND Internal Medicine
DX: J18.9 Pneumonia, unspecified organism (principal); J40 Bronchitis, not specified as acute or chronic; R06.02 Shortness of breath; E83.42 Hypomagnesemia; D64.9 Anemia, unspecified; I25.10 Atherosclerotic heart disease of native coronary artery without angina pectoris; I10 Essential (primary) hypertension; Z87.891 Personal history of nicotine dependence; I49.3 Ventricular premature depolarization; I25.2 Old myocardial infarction; I73.9 Peripheral vascular disease, unspecified; J44.9 Chronic obstructive pulmonary disease, unspecified; E78.5 Hyperlipidemia, unspecified; K21.9 Gastro-esophageal reflux disease without esophagitis; N40.0 Benign prostatic hyperplasia without lower urinary tract symptoms; G89.29 Other chronic pain; M54.9 Dorsalgia, unspecified; M19.90 Unspecified osteoarthritis, unspecified site; G30.9 Alzheimer's disease, unspecified; H54.40 Blindness, one eye, unspecified eye; F02.80 Dementia in other diseases classified elsewhere, unspecified severity, without behavioral disturbance, psychotic disturbance, mood disturbance, and anxiety; Z86.73 Personal history of transient ischemic attack (TIA), and cerebral infarction without residual deficits; E53.8 Deficiency of other specified B group vitamins; H40.9 Unspecified glaucoma; H54.3 Unqualified visual loss, both eyes; H91.90 Unspecified hearing loss, unspecified ear; Z88.8 Allergy status to other drugs, medicaments and biological substances; Z79.02 Long term (current) use of antithrombotics/antiplatelets; Z79.82 Long term (current) use of aspirin; Z79.899 Other long term (current) drug therapy; Z66 Do not resuscitate
CPT/HCPCS: 36415 ×2; 71045; 80048; 80053; 81001; 82553; 83540; 83735 ×2; 83880 ×2; 84466; 84484; 85025 ×2; 86140 ×2; 86738; 87040 ×2; 87641; 87804 ×2; 87899; 93005; 94640 ×2; 94664; 94760; 96361; 96365; 96366; 99285; A9270 ×11; J1956; J7040 ×3; P9612; 71046; 71046-26; 71260; 71260-26; 87486; 87581; 87633; 87798; 93010; 94761; 97110-GP; 97162-GP; 97167-GO; 97530-GO; 97530-GP; 97535-GO; J3475; J7050; Q9967

== ENCOUNTER 2018-03-31 10:52 | Emergency (ER) | payer MEDICARE, BC ==
[2018-03-31 11:19] VITALS: BP 137/59
[2018-03-31] MEDS ORDERED: Lactated Ringers 500 ML IV ONE (12:41)
[2018-03-31] MEDS ORDERED: Sodium Chloride 0.9% 10 ML Syringe FLUSH PRN (12:43)
--- NOTE | 2018-03-31 13:17 | EDM.PDOC ---
ED HPI GENERAL MEDICAL PROBLEM - General Chief Complaint: Respiratory Problem Stated Complaint: COUGH AND FALL LATE LAST WEEK Time Seen by Provider: 03/31/18 12:33 Source of Information: Reports: Patient History Limitations: Reports: No Limitations - History of Present Illness INITIAL COMMENTS - FREE TEXT/NARRATIVE: 87-year-old male is brought in by his daughter for evaluation and treatment of a cough and injuries from a fall. Patient is a resident of [facility]. Reportedly has had a cough for the last few days. His daughter feels that his symptoms worsened since last night. He has a history of dementia but his daughter reports he is more confused than normal. Has not had any documented fevers at the long term, however, he does get Tylenol [id number] for chronic back pain. No vomiting or diarrhea that we are aware of. Daughter also reports that he fell on Saturday. States that he normally walks with assistance and he attempted to get up on his own. This was unwitnessed. He reported to nursing staff that he fell and hit his chin and his right hip. Right Hip Pain Score (Numeric/FACES): 6 - Related Data Allergies Allergy/AdvReac Type Severity Reaction Status Date / Time cyclobenzaprine Allergy Other Verified 05/08/17 21:16 morphine Allergy Cannot Verified 05/08/17 21:16 Remember DANY Inhibitors AdvReac Change Verified 05/08/17 21:16 Mental Status hydromorphone [From Dilaudid] AdvReac Hallucinati Verified 05/08/17 21:16 ons tramadol AdvReac Hallucinati Verified 05/09/17 09:25 ons Home Meds: Home Meds Acetaminophen [Acetaminophen ER] 1,300 mg PO Q8H 03/31/18 [History] Albuterol [Ventolin HFA] 2 puff INH TID 03/31/18 [History] Amoxicillin 500 mg PO BID #19 tab 03/31/18 [Rx] Aspirin 81 mg PO DAILY 03/31/18 [History] Budesonide [Pulmicort Flexhaler] 2 puff INH BID 03/31/18 [History] Carvedilol [Coreg] 6.25 mg PO BID 03/31/18 [History] Cholecalciferol (Vitamin D3) [Vitamin D3] 1,000 units PO DAILY 03/31/18 [History ] Clopidogrel [Plavix] 75 mg PO DAILY 03/31/18 [History] Cyanocobalamin (Vitamin B12) [Vitamin B12] 1 ml INJECT WEEKLY 03/31/18 [History] Dextran 70/Hypromellose [Artificial Tears] 1 drop EYEBOTH QID 03/31/18 [History] Docusate Sodium 200 mg PO DAILY 03/31/18 [History] Donepezil HCl [Aricept] 10 mg PO BEDTIME 03/31/18 [History] Ezetimibe [Zetia] 10 mg PO DAILY 03/31/18 [History] Finasteride [Proscar] 5 mg PO DAILY 03/31/18 [History] Folic Acid 1 mg PO DAILY 03/31/18 [History] Ibuprofen 200 mg PO TID 03/31/18 [History] Iron Polysaccharides Complex [Ferrex 150] 150 mg PO BID 03/31/18 [History] Isosorbide Mononitrate 30 mg PO DAILY 03/31/18 [History] Latanoprost [Xalatan 0.005% Ophth Soln] 1 drop EYERT BEDTIME 03/31/18 [History] Lidocaine [Aspercreme] 1 patch TOP DAILY 03/31/18 [History] Mirabegron [Myrbetriq] 50 mg PO DAILY 03/31/18 [History] Nitroglycerin [Nitrostat] 0.4 mg PO Q5M PRN 03/31/18 [History] Polyethylene Glycol 3350 [MiraLAX] 17 gm PO DAILY 03/31/18 [History] Potassium Chloride [Klor-Con 10] 10 meq PO DAILY 03/31/18 [History] Prednisolone Acetate/Pf [Prednisolone Acet 1% Eye Drop] 1 drop EYELF DAILY 03/31 [History] Propylene Glycol/PEG 400/Pf [Systane 0.3-0.4% Eye Drop] 1 drop EYEBOTH QID 03/31 [History] Psyllium Husk [Metamucil] 1 tsp PO DAILY 03/31/18 [History] Ranitidine HCl [Zantac] 150 mg PO DAILY 03/31/18 [History] Ranolazine [Ranexa] 500 mg PO BID 03/31/18 [History] Sertraline [Zoloft] 25 mg PO DAILY 03/31/18 [History] Tamsulosin [Flomax] 0.8 mg PO BEDTIME 03/31/18 [History] atorvaSTATin [Lipitor] 80 mg PO DAILY 03/31/18 [History] guaiFENesin [Mucinex] 600 mg PO BID 03/31/18 [History] Past Medical History HEENT History: Reports: Glaucoma, Hard of Hearing Other HEENT History: glasses, hearing aids, dentures, blind in Left eye Cardiovascular History: Reports: CAD, High Cholesterol, Hypertension, AL, PVD Respiratory History: Reports: COPD Gastrointestinal History: Reports: GERD Genitourinary History: Reports: BPH Musculoskeletal History: Reports: Back Pain, Chronic, Osteoarthritis Neurological History: Reports: Alzheimers Disease, TIA Psychiatric History: Reports: Dementia Endocrine/Metabolic History: Reports: Other (See Below) Other Endocrine/Metabolic History: hyperglycemia, vitamin b 12 deficiency Hematologic History: 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 Other Hematologic History: had a blood transfusion after heart surgery Immunologic History: 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 Oncologic (Cancer) History: 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 Dermatologic History: Reports: Other (See Below) Other Dermatologic History: dry scalp - Infectious Disease History Infectious Disease History: Reports: Chicken Pox - Past Surgical History Head Surgeries/Procedures: 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 HEENT Surgical History: Reports: Adenoidectomy, Cataract Surgery, Tonsillectomy Social & Family History - Family History Family Medical History: Unobtainable - Tobacco Use Smoking Status *Q: Former Smoker Used Tobacco, but Quit: Yes Month/Year Tobacco Last Used: 1979 - Caffeine Use Caffeine Use: 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 - Recreational Drug Use Recreational Drug Use: No - Living Situation & Occupation Living situation: Reports: , Extended Care Facility ([facility]) Occupation: Retired ED ROS GENERAL - Review of Systems Review Of Systems: See Below Constitutional: Reports: Weakness. Denies: Fever Respiratory: Reports: Cough GI/Abdominal: Denies: Diarrhea, Vomiting Musculoskeletal: Reports: Other (complaining of right hip pain) Neurological: Reports: Confusion (h/o dementia, daughter feels it is worse than normal) ED EXAM, GENERAL - Physical Exam Exam: See Below Exam Limited By: No Limitations General Appearance: Alert, WD/WN, No Apparent Distress, Thin Throat/Mouth: Normal Inspection, Normal Lips, Normal Oropharynx, Normal Voice, No Airway Compromise Head: Atraumatic, Normocephalic Neck: Normal Inspection, Non-Tender Respiratory/Chest: No Respiratory Distress, Lungs Clear, Normal Breath Sounds Cardiovascular: Normal Peripheral Pulses, Regular Rate, Rhythm, No Murmur Peripheral Pulses: 2+: Posterior Tibial (L), Posterior Tibial (R), Dorsalis Pedis (L), Dorsalis Pedis (R) GI/Abdominal: Soft, Non-Tender Extremities: Normal Inspection (no external rotation or limb lenght shortening) , Other (no tenderness to the pelvis, pelvis is stable) Neurological: Alert Psychiatric: Normal Affect, Normal Mood Skin Exam: Warm, Dry, Normal Color, Other (no wounds or ecchymosis identifieid from the recent fall). No: Ecchymosis Course - Vital Signs Last Recorded V/S: Last Vital Signs Temp 98.1 F 03/31/18 11:14 Pulse 68 03/31/18 11:14 Resp 12 03/31/18 11:14 BP 137/59 L 03/31/18 11:14 Pulse Ox 93 L 03/31/18 11:14 - Orders/Labs/Meds Labs: Laboratory Tests 03/31/18 03/31/18 03/31/18 Range/Units 11:53 13:25 13:25 WBC 7.93 (4.23-9.07) K/mm3 RBC 3.23 L (4.63-6.08) M/mm3 Hgb 10.5 L (13.7-17.5) gm/L Hct 33.6 L (40.1-51.0) % MCV 104.0 H (79.0-92.2) fl MCH 32.5 H (25.7-32.2) pg MCHC 31.3 L (32.2-35.5) g/dl RDW Std Deviation 47.0 H (35.1-43.9) fL Plt Count 206 (163-337) K/mm3 MPV 9.6 (9.4-12.3) fl Neutrophils % (Manual) 80 H (40-60) % Band Neutrophils % 0 (0-10) % Lymphocytes % (Manual) 14 L (20-40) % Atypical Lymphs % 0 % Monocytes % (Manual) 5 (2-10) % Eosinophils % (Manual) 1 (0.8-7.0) % Basophils % (Manual) 0 L (0.2-1.2) Platelet Estimate Adequate Polychromasia 1+ slight Anisocytosis 1+ slight RBC Morph Comment Not Reportable Sodium (136-145) mEq/L Potassium (3.5-5.1) mEq/L Chloride (98-107) mEq/L Carbon Dioxide (21-32) mEq/L Anion Gap (5-15) BUN (7-18) mg/dL Creatinine (0.7-1.3) mg/dL Est Cr Clr Drug Dosing mL/min Estimated GFR (MDRD) (>60) mL/min BUN/Creatinine Ratio (14-18) Glucose (83-115) mg/dL Lactic Acid 0.7 (0.4-2.0) mmol/L Calcium (8.5-10.1) mg/dL Magnesium (1.8-2.4) mg/dl Total Bilirubin (0.2-1.0) mg/dL AST (15-37) U/L ALT (16-63) U/L Alkaline Phosphatase (46-116) U/L C-Reactive Protein (<1.0) mg/dL NT-Pro-B Natriuret Pep (0-450) pg/mL Total Protein (6.4-8.2) g/dl Albumin (3.4-5.0) g/dl Globulin gm/dL Albumin/Globulin Ratio (1-2) Urine Color Yellow (Yellow) Urine Appearance Clear (Clear) Urine pH 6.5 (5.0-8.0) Ur Specific [place] 1.020 (1.005-1.030) Urine Protein 1+ H (Negative) Urine Glucose (UA) Negative (Negative) Urine Ketones Negative (Negative) Urine Occult Blood Negative (Negative) Urine Nitrite Negative (Negative) Urine Bilirubin Negative (Negative) Urine Urobilinogen 2.0 H (0.2-1.0) Ur Leukocyte Esterase Negative (Negative) Urine RBC Not seen (0-5) /hpf Urine WBC 0-5 (0-5) /hpf Ur Epithelial Cells 0-5 (0-5) /hpf Urine Bacteria Rare (FEW) /hpf Urine Mucus Not seen (FEW) /hpf Mycoplasma pneumon IgM (NEGATIVE) 03/31/18 03/31/18 Range/Units 13:30 15:06 WBC (4.23-9.07) K/mm3 RBC (4.63-6.08) M/mm3 Hgb (13.7-17.5) gm/L Hct (40.1-51.0) % MCV (79.0-92.2) fl MCH (25.7-32.2) pg MCHC (32.2-35.5) g/dl RDW Std Deviation (35.1-43.9) fL Plt Count (163-337) K/mm3 MPV (9.4-12.3) fl Neutrophils % (Manual) (40-60) % Band Neutrophils % (0-10) % Lymphocytes % (Manual) (20-40) % Atypical Lymphs % % Monocytes % (Manual) (2-10) % Eosinophils % (Manual) (0.8-7.0) % Basophils % (Manual) (0.2-1.2) Platelet Estimate Polychromasia Anisocytosis RBC Morph Comment Sodium 141 (136-145) mEq/L Potassium 4.5 (3.5-5.1) mEq/L Chloride 106 (98-107) mEq/L Carbon Dioxide 31 (21-32) mEq/L Anion Gap 8.5 (5-15) BUN 25 H (7-18) mg/dL Creatinine 1.0 (0.7-1.3) mg/dL Est Cr Clr Drug Dosing 44.23 mL/min Estimated GFR (MDRD) > 60 (>60) mL/min BUN/Creatinine Ratio 25.0 H (14-18) Glucose 159 H (83-115) mg/dL Lactic Acid (0.4-2.0) mmol/L Calcium 8.8 (8.5-10.1) mg/dL Magnesium 2.1 (1.8-2.4) mg/dl Total Bilirubin 0.4 (0.2-1.0) mg/dL AST 16 (15-37) U/L ALT 16 (16-63) U/L Alkaline Phosphatase 63 (46-116) U/L C-Reactive Protein 4.5 H* (<1.0) mg/dL NT-Pro-B Natriuret Pep 597 H (0-450) pg/mL Total Protein 6.6 (6.4-8.2) g/dl Albumin 2.9 L (3.4-5.0) g/dl Globulin 3.7 gm/dL Albumin/Globulin Ratio 0.8 L (1-2) Urine Color (Yellow) Urine Appearance (Clear) Urine pH (5.0-8.0) Ur Specific [place] (1.005-1.030) Urine Protein (Negative) Urine Glucose (UA) (Negative) Urine Ketones (Negative) Urine Occult Blood (Negative) Urine Nitrite (Negative) Urine Bilirubin (Negative) Urine Urobilinogen (0.2-1.0) Ur Leukocyte Esterase (Negative) Urine RBC (0-5) /hpf Urine WBC (0-5) /hpf Ur Epithelial Cells (0-5) /hpf Urine Bacteria (FEW) /hpf Urine Mucus (FEW) /hpf Mycoplasma pneumon IgM Negative (NEGATIVE) Meds: Medications Discontinued Medications Generic Name Dose Route Start Last Admin Trade Name Freq PRN Reason Stop Dose Admin Amoxicillin 500 mg 03/31/18 16:01 03/31/18 16:07 Amoxil PO 03/31/18 16:02 500 mg ONETIME ONE Administration Lactated Ringer's 500 mls @ 999 mls/hr 03/31/18 12:41 03/31/18 13:27 Ringers, Lactated IV 03/31/18 13:11 999 mls/hr .BOLUS ONE Administration Lactated Ringer's 1,000 mls @ 125 mls/hr 03/31/18 14:15 03/31/18 13:25 Ringers, Lactated IV 125 mls/hr ASDIRECTED CODY Administration Sodium Chloride 10 ml 03/31/18 12:43 03/31/18 13:29 Saline Flush FLUSH 10 ml ASDIRECTED PRN Administration Keep Vein Open - Radiology Interpretation Free Text/Narrative:: Head CT Technique: Multiple axial sections through the brain were obtained. Intravenous contrast was not utilized. Comparison: Prior head CT exam of 12/02/16. Findings: Ventricles along with basal cisterns and sulci over the convexities are moderately prominent. Diminished density is noted within the periventricular and subcortical white matter compatible with small vessel ischemic demyelination change. Several old lacunar infarcts are noted within the basal ganglia. No other abnormal parenchymal densities are seen. No evidence of intracranial hemorrhage. No midline shift or mass effect is seen. Visualized sinuses show nothing acute. Mild atherosclerotic calcification is seen within the carotid siphon and within the vertebral vessels. No acute calvarial abnormality is identified on bone window settings. Impression: 1. Senescent change as noted above. Nothing acute is appreciated. Findings remain fairly stable from prior head CT exam. Chest: Frontal view of the chest was obtained. Comparison: Prior chest x-ray of 05/10/17. Pleural thickening is noted within both upper lungs, which is worse on the left side which is stable from prior exam. There appears to be an enlarging nodular density within the left upper chest as an interval change from previous exam. No acute parenchymal change is otherwise seen. Heart size at the upper limits of normal. Tortuous thoracic aorta seen. Sternotomy wires are seen. Impression: 1. Chronic pleural changes within both upper lungs. 2. Enlarging nodular density within the left upper chest. Contrast-enhanced chest CT recommended if patient's creatinine is normal. 3. Nothing acute is otherwise seen. Pelvis and right hip: AP view of the pelvis was obtained as well as AP and frog- leg lateral views of the right hip. Comparison: Previous AP pelvis and right hip study of 03/26/17. Bilateral hip prosthesis are noted. Previous vertebroplasty is noted within the lumbar spine. Osteopenia is noted. Vascular calcification is seen. No acute fracture or other bony abnormality is seen. Impression: 1. Incidental findings. Nothing acute is appreciated on AP pelvis or on two- view right hip exam. - Re-Assessments/Exams Free Text/Narrative Re-Assessment/Exam: 03/31/18 16:02 influenza is negative. Reviewed the labs and imaging with the patient's daughter. Will start amoxicillin for bronchitis. Close follow-up in the clinic. Discharge instructions as documented. Departure - Departure Time of Disposition: 16:04 Disposition: DC/[facility] to [facility] Condition: Fair Clinical Impression: Bronchitis - Discharge Information *PRESCRIPTION DRUG MONITORING PROGRAM REVIEWED*: No *COPY OF PRESCRIPTION DRUG MONITORING REPORT IN PATIENT MARY LOU: No Prescriptions: Amoxicillin 500 mg PO BID #19 tab Instructions: Acute Bronchitis, Adult, [id number] Referrals: Indu Coyle MD [Primary Care Provider] - Forms: ED Department Discharge Additional Instructions: Amoxicillin as prescribed. 1 tab twice a day for 10 days. First dose given in the ER. Start this prescription tomorrow. Follow-up with Dr. Coyle on or Saturday of this week for recheck of his symptoms. Rest. Continue with current medications. drink plenty of fluids. Please return to the ER if his symptoms change or worsen.
--- NOTE | 2018-03-31 13:40 | CR ---
Pelvis and right hip: AP view of the pelvis was obtained as well as AP and frog-leg lateral views of the right hip. Comparison: Previous AP pelvis and right hip study of 03/26/17. Bilateral hip prosthesis are noted. Previous vertebroplasty is noted within the lumbar spine. Osteopenia is noted. Vascular calcification is seen. No acute fracture or other bony abnormality is seen. Impression: 1. Incidental findings. Nothing acute is appreciated on AP pelvis or on two-view right hip exam. Diagnostic code #2
--- NOTE | 2018-03-31 13:41 | CR ---
Chest: Frontal view of the chest was obtained. Comparison: Prior chest x-ray of 05/10/17. Pleural thickening is noted within both upper lungs, which is worse on the left side which is stable from prior exam. There appears to be an enlarging nodular density within the left upper chest as an interval change from previous exam. No acute parenchymal change is otherwise seen. Heart size at the upper limits of normal. Tortuous thoracic aorta seen. Sternotomy wires are seen. Impression: 1. Chronic pleural changes within both upper lungs. 2. Enlarging nodular density within the left upper chest. Contrast-enhanced chest CT recommended if patient's creatinine is normal. 3. Nothing acute is otherwise seen. Diagnostic code #9
[2018-03-31] MEDS ORDERED: Lactated Ringers 1,000 ML IV SCH (14:15)
[2018-03-31] MEDS ORDERED: Amoxicillin 500 MG Cap PO ONE (16:01)
== END 2018-03-31 16:25 ==
LOC: JD.ED 10:52
DX: J40 Bronchitis, not specified as acute or chronic (principal); I25.10 Atherosclerotic heart disease of native coronary artery without angina pectoris; E78.00 Pure hypercholesterolemia, unspecified; I10 Essential (primary) hypertension; I25.2 Old myocardial infarction; K21.9 Gastro-esophageal reflux disease without esophagitis; Z87.891 Personal history of nicotine dependence; Z88.8 Allergy status to other drugs, medicaments and biological substances; Z88.5 Allergy status to narcotic agent; Z79.899 Other long term (current) drug therapy
CPT/HCPCS: 36415; 70450; 71045; 73502; 80053; 81001; 83605; 83735; 83880; 85007; 85027; 86140; 86738; 87040; 87086; 87804; 96360; 96361; 99284; A9270; J7120

== ENCOUNTER 2018-05-17 11:11 | Emergency (ER) | payer MEDICARE, BC ==
[2018-05-17 11:29] VITALS: BP 114/66
--- NOTE | 2018-05-17 12:03 | EDM.PDOC ---
ED HPI GENERAL MEDICAL PROBLEM - General Chief Complaint: Neurological Problem Stated Complaint: MUSCLE JERKS Time Seen by Provider: 05/17/18 11:42 Source of Information: Reports: Patient, RN Notes Reviewed History Limitations: Reports: No Limitations - History of Present Illness INITIAL COMMENTS - FREE TEXT/NARRATIVE: Patient is an 87-year-old male who presents to the ED with his daughters for the evaluation of muscle jerking. The daughter states that he is a resident of [facility] and they were called by the long term this morning and were told that their father was a little less responsive than he normally has been. The daughters state that their father is usually pretty interactive with them. They noted that over the last couple days he has had more "muscle jerks" in his body, and they state that in times past when he's had these muscle jerks that he has been dehydrated. They state that he has gotten these fairly often. They state that he was started on Lasix around 6 weeks ago as well. They were not told if he has had any recent fever/chills, chest pain, shortness of breath, abdominal pain, or anything otherwise. They state he recently had bronchitis in March and he was on antibiotics for this. They state that he normally wears oxygen in the long term. They characterize a extensive medical history that includes heart attacks with quadruple bypass, stents, and blood pressure issues. They further state that his primary care physician is Dr. Indu Coyle. When I asked the patient if he had pain anywhere he denied that he had pain anywhere. - Related Data Allergies Allergy/AdvReac Type Severity Reaction Status Date / Time cyclobenzaprine Allergy Other Verified 05/08/17 21:16 morphine Allergy Cannot Verified 05/08/17 21:16 Remember DANY Inhibitors AdvReac Change Verified 05/08/17 21:16 Mental Status hydromorphone [From Dilaudid] AdvReac Hallucinati Verified 05/08/17 21:16 ons tramadol AdvReac Hallucinati Verified 05/09/17 09:25 ons Home Meds: Home Meds Acetaminophen [Acetaminophen ER] 1,300 mg PO Q8H 03/31/18 [History] Albuterol [Ventolin HFA] 2 puff INH TID 03/31/18 [History] Aspirin 81 mg PO DAILY 03/31/18 [History] Budesonide [Pulmicort Flexhaler] 2 puff INH BID 03/31/18 [History] Carvedilol [Coreg] 6.25 mg PO BID 03/31/18 [History] Cholecalciferol (Vitamin D3) [Vitamin D3] 1,000 units PO DAILY 03/31/18 [History ] Clopidogrel [Plavix] 75 mg PO DAILY 03/31/18 [History] Cyanocobalamin (Vitamin B12) [Vitamin B12] 1 ml INJECT Q14D 03/31/18 [History] Dextran 70/Hypromellose [Artificial Tears] 1 drop EYEBOTH QID 03/31/18 [History] Docusate Sodium 200 mg PO DAILY 03/31/18 [History] Donepezil HCl [Aricept] 10 mg PO BEDTIME 03/31/18 [History] Ezetimibe [Zetia] 10 mg PO DAILY 03/31/18 [History] Finasteride [Proscar] 5 mg PO DAILY 03/31/18 [History] Folic Acid 1 mg PO DAILY 03/31/18 [History] Ibuprofen 200 mg PO TID 03/31/18 [History] Iron Polysaccharides Complex [Ferrex 150] 150 mg PO BID 03/31/18 [History] Isosorbide Mononitrate 30 mg PO DAILY 03/31/18 [History] Latanoprost [Xalatan 0.005% Ophth Soln] 1 drop EYERT BEDTIME 03/31/18 [History] Lidocaine [Aspercreme] 1 patch TOP DAILY 03/31/18 [History] Mirabegron [Myrbetriq] 50 mg PO DAILY 03/31/18 [History] Nitroglycerin [Nitrostat] 0.4 mg PO Q5M PRN 03/31/18 [History] Polyethylene Glycol 3350 [MiraLAX] 17 gm PO DAILY 03/31/18 [History] Potassium Chloride [Klor-Con 10] 20 meq PO DAILY 03/31/18 [History] Propylene Glycol/PEG 400/Pf [Systane 0.3-0.4% Eye Drop] 1 drop EYEBOTH QID 03/31 [History] Psyllium Husk [Metamucil] 1 tsp PO DAILY 03/31/18 [History] Ranitidine HCl [Zantac] 150 mg PO BID 03/31/18 [History] Ranolazine [Ranexa] 500 mg PO BID 03/31/18 [History] Sertraline [Zoloft] 25 mg PO DAILY 03/31/18 [History] Tamsulosin [Flomax] 0.8 mg PO BEDTIME 03/31/18 [History] guaiFENesin [Mucinex] 600 mg PO BID 03/31/18 [History] Furosemide [Lasix] 20 mg PO DAILY 05/17/18 [History] Past Medical History HEENT History: Reports: Glaucoma, Hard of Hearing Other HEENT History: glasses, hearing aids, dentures, blind in Left eye Cardiovascular History: Reports: CAD, High Cholesterol, Hypertension, [place], PVD Respiratory History: Reports: COPD Gastrointestinal History: Reports: GERD Genitourinary History: Reports: BPH Musculoskeletal History: Reports: Back Pain, Chronic, Osteoarthritis Neurological History: Reports: Alzheimers Disease, TIA Psychiatric History: Reports: Dementia Endocrine/Metabolic History: Reports: Other (See Below) Other Endocrine/Metabolic History: hyperglycemia, vitamin b 12 deficiency Hematologic History: 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 Other Hematologic History: had a blood transfusion after heart surgery Immunologic History: 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 Oncologic (Cancer) History: 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 Dermatologic History: Reports: Other (See Below) Other Dermatologic History: dry scalp - Infectious Disease History Infectious Disease History: Reports: Chicken Pox - Past Surgical History Head Surgeries/Procedures: 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 HEENT Surgical History: Reports: Adenoidectomy, Cataract Surgery, Tonsillectomy Social & Family History - Family History Family Medical History: Unobtainable - Tobacco Use Smoking Status *Q: Former Smoker Used Tobacco, but Quit: Yes Month/Year Tobacco Last Used: 30 yr - Caffeine Use Caffeine Use: 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 - Recreational Drug Use Recreational Drug Use: No - Living Situation & Occupation Living situation: Reports: , Extended Care Facility ([facility]) Occupation: Retired ED ROS GENERAL - Review of Systems Review Of Systems: See Below Constitutional: Denies: Fever, Chills HEENT: Reports: No Symptoms Respiratory: Reports: No Symptoms Cardiovascular: Reports: No Symptoms Endocrine: Reports: No Symptoms GI/Abdominal: Reports: No Symptoms : Reports: No Symptoms Musculoskeletal: Reports: No Symptoms Skin: Reports: No Symptoms Neurological: Reports: Tremors (Muscle jerking, no history of Parkinson's or seizures.) Psychiatric: Reports: No Symptoms Hematologic/Lymphatic: Reports: No Symptoms Immunologic: Reports: No Symptoms ED EXAM, NEURO - Physical Exam Exam: See Below Exam Limited By: No Limitations General Appearance: Alert, WD/WN, No Apparent Distress Eye Exam: Bilateral Eye: Normal Inspection, PERRL Ears: Normal External Exam Nose: Normal Inspection Throat/Mouth: Normal Inspection, Normal Oropharynx, No Airway Compromise (Dry oral mucosa) Head Exam: Atraumatic, Normocephalic Neck: Normal Inspection, Supple, Non-Tender, Full Range of Motion Respiratory/Chest: No Respiratory Distress, Lungs Clear, No Accessory Muscle Use , Chest Non-Tender, Decreased Breath Sounds (Bilaterally) Cardiovascular: Normal Peripheral Pulses, Regular Rate, Rhythm, No Edema, No JVD GI/Abdominal: Normal Bowel Sounds, Soft, No Distention, No Mass, Tender (In his lower abdomen, suprapubically) Neurological: Alert (Patient has eyes closed, however will respond to your questions with a head nod indicating yes or no. He does follow commands appropriately.) Extremities: Normal Inspection, Normal Capillary Refill Psychiatric: Normal Mood, Other (Patient is lying supine in bed with eyes closed , he is in no obvious distress and appears to exhibits a normal mood for him self) Skin Exam: Warm, Dry, Intact, Normal Color, No Rash Course - Vital Signs Last Recorded V/S: Last Vital Signs Temp 97.9 F 05/17/18 11:28 Pulse 86 05/17/18 11:28 Resp 20 05/17/18 11:28 BP 114/66 05/17/18 11:28 Pulse Ox 97 05/17/18 11:28 - Orders/Labs/Meds Orders: Active Orders 24 hr Category Date Time Status Insert Plata Catheter [Insert Urinary Catheter] [OM.PC] Care 05/17/18 12:15 Ordered Stat Peripheral IV Care [RC] . DIRECTED Care 05/17/18 12:08 Ordered Urinary Catheter Assessment [RC] ASDIRECTED Care 05/17/18 12:22 Active Chest 2V [CR] Stat Exams 05/17/18 11:56 Ordered Sodium Chloride 0.9% [Normal Saline] 1,000 ml Med 05/17/18 12:15 Ordered IV ASDIRECTED Sodium Chloride 0.9% [Saline Flush] Med 05/17/18 12:08 Ordered 10 ml FLUSH ASDIRECTED PRN Peripheral IV Insertion Adult [OM.PC] Routine Oth 05/17/18 12:08 Ordered Medication Orders Sodium Chloride (Normal Saline) 1,000 mls @ 250 mls/hr IV ASDIRECTED CODY Last Admin: 05/17/18 13:05 Dose: 250 mls/hr Sodium Chloride (Saline Flush) 10 ml FLUSH ASDIRECTED PRN PRN Reason: Keep Vein Open Last Admin: 05/17/18 13:00 Dose: 10 ml Labs: Laboratory Tests 05/17/18 05/17/18 05/17/18 Range/Units 12:15 13:10 13:10 WBC 9.36 H (4.23-9.07) K/mm3 RBC 3.44 L (4.63-6.08) M/mm3 Hgb 11.3 L (13.7-17.5) gm/L Hct 35.4 L (40.1-51.0) % MCV 102.9 H (79.0-92.2) fl MCH 32.8 H (25.7-32.2) pg MCHC 31.9 L (32.2-35.5) g/dl RDW Std Deviation 48.2 H (35.1-43.9) fL Plt Count 184 (163-337) K/mm3 MPV 9.6 (9.4-12.3) fl Neutrophils % (Manual) 67 H (40-60) % Band Neutrophils % 0 (0-10) % Lymphocytes % (Manual) 22 (20-40) % Atypical Lymphs % 0 % Monocytes % (Manual) 7 (2-10) % Eosinophils % (Manual) 4 (0.8-7.0) % Basophils % (Manual) 0 L (0.2-1.2) Platelet Estimate Adequate Macrocytosis 1+ slight RBC Morph Comment Not Reportable Sodium 142 (136-145) mEq/L Potassium 4.3 (3.5-5.1) mEq/L Chloride 105 (98-107) mEq/L Carbon Dioxide 32 (21-32) mEq/L Anion Gap 9.3 (5-15) BUN 29 H (7-18) mg/dL Creatinine 1.2 (0.7-1.3) mg/dL Est Cr Clr Drug Dosing 33.45 mL/min Estimated GFR (MDRD) 57 (>60) mL/min BUN/Creatinine Ratio 24.2 H (14-18) Glucose 181 H (83-115) mg/dL Calcium 9.2 (8.5-10.1) mg/dL Magnesium 2.1 (1.8-2.4) mg/dl Total Bilirubin 0.4 (0.2-1.0) mg/dL AST 18 (15-37) U/L ALT 19 (16-63) U/L Alkaline Phosphatase 74 (46-116) U/L NT-Pro-B Natriuret Pep (0-450) pg/mL Total Protein 6.8 (6.4-8.2) g/dl Albumin 3.1 L (3.4-5.0) g/dl Globulin 3.7 gm/dL Albumin/Globulin Ratio 0.8 L (1-2) Urine Color Yellow (Yellow) Urine Appearance Clear (Clear) Urine pH 6.0 (5.0-8.0) Ur Specific [place] 1.025 (1.005-1.030) Urine Protein Trace H (Negative) Urine Glucose (UA) Negative (Negative) Urine Ketones Negative (Negative) Urine Occult Blood 1+ H (Negative) Urine Nitrite Negative (Negative) Urine Bilirubin Negative (Negative) Urine Urobilinogen 0.2 (0.2-1.0) Ur Leukocyte Esterase Negative (Negative) Urine RBC 0-5 (0-5) /hpf Urine WBC 0-5 (0-5) /hpf Ur Epithelial Cells Not seen (0-5) /hpf Urine Bacteria Not seen (FEW) /hpf Hyaline Casts 0-5 (0-5) /lpf Urine Mucus Not seen (FEW) /hpf 05/17/18 Range/Units 13:10 WBC (4.23-9.07) K/mm3 RBC (4.63-6.08) M/mm3 Hgb (13.7-17.5) gm/L Hct (40.1-51.0) % MCV (79.0-92.2) fl MCH (25.7-32.2) pg MCHC (32.2-35.5) g/dl RDW Std Deviation (35.1-43.9) fL Plt Count (163-337) K/mm3 MPV (9.4-12.3) fl Neutrophils % (Manual) (40-60) % Band Neutrophils % (0-10) % Lymphocytes % (Manual) (20-40) % Atypical Lymphs % % Monocytes % (Manual) (2-10) % Eosinophils % (Manual) (0.8-7.0) % Basophils % (Manual) (0.2-1.2) Platelet Estimate Macrocytosis RBC Morph Comment Sodium (136-145) mEq/L Potassium (3.5-5.1) mEq/L Chloride (98-107) mEq/L Carbon Dioxide (21-32) mEq/L Anion Gap (5-15) BUN (7-18) mg/dL Creatinine (0.7-1.3) mg/dL Est Cr Clr Drug Dosing mL/min Estimated GFR (MDRD) (>60) mL/min BUN/Creatinine Ratio (14-18) Glucose (83-115) mg/dL Calcium (8.5-10.1) mg/dL Magnesium (1.8-2.4) mg/dl Total Bilirubin (0.2-1.0) mg/dL AST (15-37) U/L ALT (16-63) U/L Alkaline Phosphatase (46-116) U/L NT-Pro-B Natriuret Pep 339 (0-450) pg/mL Total Protein (6.4-8.2) g/dl Albumin (3.4-5.0) g/dl Globulin gm/dL Albumin/Globulin Ratio (1-2) Urine Color (Yellow) Urine Appearance (Clear) Urine pH (5.0-8.0) Ur Specific [place] (1.005-1.030) Urine Protein (Negative) Urine Glucose (UA) (Negative) Urine Ketones (Negative) Urine Occult Blood (Negative) Urine Nitrite (Negative) Urine Bilirubin (Negative) Urine Urobilinogen (0.2-1.0) Ur Leukocyte Esterase (Negative) Urine RBC (0-5) /hpf Urine WBC (0-5) /hpf Ur Epithelial Cells (0-5) /hpf Urine Bacteria (FEW) /hpf Hyaline Casts (0-5) /lpf Urine Mucus (FEW) /hpf Meds: Medications Generic Name Dose Route Start Last Admin Trade Name Freq PRN Reason Stop Dose Admin Sodium Chloride 1,000 mls @ 250 mls/hr 05/17/18 12:15 05/17/18 13:05 Normal Saline IV 250 mls/hr ASDIRECTED CODY Administration Sodium Chloride 10 ml 05/17/18 12:08 05/17/18 13:00 Saline Flush FLUSH 10 ml ASDIRECTED PRN Administration Keep Vein Open - Re-Assessments/Exams Free Text/Narrative Re-Assessment/Exam: 05/17/18 12:06 Patient presents to the ED for evaluation of muscle jerking. I have ordered a CBC, CMP, magnesium level, BNP, UA, and a chest x-ray and further evaluation of what may be causing his muscle jerking. It's likely that he might be dehydrated and will need some IV fluids. 05/17/18 14:54 Patient's labs and chest x-ray have returned. They are all unremarkable except for the BUN is elevated at 29. The chest x-ray showed bilateral pulmonary parenchymal scarring most pronounced in the apices again demonstrated consistent with chronic fibrotic change but no acute infiltrates are demonstrated. His urinalysis was clean at this time there was only a trace of occult blood this is not consistent with an active UTI. The family further states that he does get constipated from time to time and may be his lower abdominal pain might be from this. I will allow the fluids to run in as tolerated. At this time I do not see a reason for this gentleman to be admitted to the hospital, he should be able to be discharged safely back to the long term, with a close follow-up appointment with his primary care doctor early this next week. Departure - Departure Time of Disposition: 15:33 Disposition: DC/Tfer to SNF 03 Condition: Fair Clinical Impression: Dehydration, Muscle twitching - Discharge Information *PRESCRIPTION DRUG MONITORING PROGRAM REVIEWED*: No *COPY OF PRESCRIPTION DRUG MONITORING REPORT IN PATIENT MARY LOU: No Instructions: Dehydration, Elderly, [id number] Referrals: Indu Coyle MD [Primary Care Provider] - Forms: ED Department Discharge Additional Instructions: Rizwan has been evaluated in the ED today for muscle jerking. His labs were all essentially within normal limits, however his BUN was elevated which would indicate that he was slightly dehydrated. His chest x-ray did not demonstrate any acute bacterial infectious processes. He was given 1 L of IV fluids to treat the dehydration, he seemed to tolerate these fairly well. Recommend that he has a close follow-up appointment with his primary care provider early next week for re-evaluation. Please return to the ED if his symptoms change or worsen. - My Orders Last 24 Hours: My Active Orders 05/17/18 11:56 Chest 2V [CR] Stat 05/17/18 12:08 Peripheral IV Care [RC] . DIRECTED Sodium Chloride 0.9% [Saline Flush] 10 ml FLUSH ASDIRECTED PRN Peripheral IV Insertion Adult [OM.PC] Routine 05/17/18 12:15 Insert Plata Catheter [Insert Urinary Catheter] [OM.PC] Stat Sodium Chloride 0.9% [Normal Saline] 1,000 ml IV ASDIRECTED 05/17/18 12:22 Urinary Catheter Assessment [RC] ASDIRECTED - Assessment/Plan Last 24 Hours: My Active Orders 05/17/18 11:56 Chest 2V [CR] Stat 05/17/18 12:08 Peripheral IV Care [RC] . DIRECTED Sodium Chloride 0.9% [Saline Flush] 10 ml FLUSH ASDIRECTED PRN Peripheral IV Insertion Adult [OM.PC] Routine 05/17/18 12:15 Insert Plata Catheter [Insert Urinary Catheter] [OM.PC] Stat Sodium Chloride 0.9% [Normal Saline] 1,000 ml IV ASDIRECTED 05/17/18 12:22 Urinary Catheter Assessment [RC] ASDIRECTED
[2018-05-17] MEDS ORDERED: Sodium Chloride 0.9% 10 ML Syringe FLUSH PRN (12:08)
[2018-05-17] MEDS ORDERED: Sodium Chloride 0.9% 1,000 ML IV SCH (12:15)
--- NOTE | 2018-05-19 09:02 | CR ---
Chest: Two views of the chest were obtained. Comparison: Prior chest x-ray of 03/31/18. Chronic apical pleural thickening is seen. Adjacent parenchymal densities are seen which appear to be stable compatible with fibrosis and scarring. Heart size at the upper limits of normal. Upper mediastinum is stable. Previous sternotomy is seen. Coronary artery stent is present. No acute parenchymal change is seen. Bony structures are osteopenic. Impression: 1. Chronic findings within both upper lungs. Other incidental findings. Nothing acute is definitely appreciated. Diagnostic code #2 I agree with preliminary report from [facility], finalized on 05/17/18, 3:43 PM Central Time
== END 2018-05-17 18:32 ==
LOC: JD.ED 11:11
DX: E86.0 Dehydration (principal); R25.3 Fasciculation; I10 Essential (primary) hypertension; E78.00 Pure hypercholesterolemia, unspecified; K21.9 Gastro-esophageal reflux disease without esophagitis; G30.9 Alzheimer's disease, unspecified; F02.80 Dementia in other diseases classified elsewhere, unspecified severity, without behavioral disturbance, psychotic disturbance, mood disturbance, and anxiety; Z88.5 Allergy status to narcotic agent; Z88.8 Allergy status to other drugs, medicaments and biological substances; Z88.6 Allergy status to analgesic agent; Z79.82 Long term (current) use of aspirin; Z79.899 Other long term (current) drug therapy; Z86.73 Personal history of transient ischemic attack (TIA), and cerebral infarction without residual deficits; Z87.891 Personal history of nicotine dependence
CPT/HCPCS: 36415; 51702; 71046; 80053; 81001; 83735; 83880; 85007; 85027; 96360; 96361; 99285; J7040; 99284

== ENCOUNTER 2018-05-20 21:32 | Emergency (ER) | payer MEDICARE, BC ==
[2018-05-20 21:42] VITALS: BP 124/69
--- NOTE | 2018-05-20 22:10 | EDM.PDOC ---
ED HPI GENERAL MEDICAL PROBLEM - General Chief Complaint: Head Injury Stated Complaint: [facility] Time Seen by Provider: 05/20/18 21:54 Source of Information: Reports: Family, RN Notes Reviewed History Limitations: Reports: Altered Mental Status (Advanced dementia) - History of Present Illness INITIAL COMMENTS - FREE TEXT/NARRATIVE: The patient is brought from [facility], after being found on the floor by his daughter. His fall was unwitnessed, but estimated to have occurred somewhere between 20:30 and 21:00. He is noted to have a laceration within his left eyebrow, otherwise, he appears to be uninjured. The patient is in a cervical collar. The patient has advanced Alzheimer dementia, and cannot contribute to his history. The patient has a history of falls. The patient's PCP is Dr. Indu Coyle. Left Shoulder Pain Score (Numeric/FACES): 6 Posterior Head Pain Score (Numeric/FACES): 6 Neck Pain Score (Numeric/FACES): 6 - Related Data Allergies Allergy/AdvReac Type Severity Reaction Status Date / Time cyclobenzaprine Allergy Other Verified 05/08/17 21:16 morphine Allergy Cannot Verified 05/08/17 21:16 Remember DANY Inhibitors AdvReac Change Verified 05/08/17 21:16 Mental Status hydromorphone [From Dilaudid] AdvReac Hallucinati Verified 05/08/17 21:16 ons tramadol AdvReac Hallucinati Verified 05/09/17 09:25 ons Home Meds: Home Meds Acetaminophen [Acetaminophen ER] 1,300 mg PO Q8H 03/31/18 [History] Albuterol [Ventolin HFA] 2 puff INH TID 03/31/18 [History] Aspirin 81 mg PO DAILY 03/31/18 [History] Budesonide [Pulmicort Flexhaler] 2 puff INH BID 03/31/18 [History] Carvedilol [Coreg] 6.25 mg PO BID 03/31/18 [History] Cholecalciferol (Vitamin D3) [Vitamin D3] 1,000 units PO DAILY 03/31/18 [History ] Clopidogrel [Plavix] 75 mg PO DAILY 03/31/18 [History] Cyanocobalamin (Vitamin B12) [Vitamin B12] 1 ml INJECT Q14D 03/31/18 [History] Dextran 70/Hypromellose [Artificial Tears] 1 drop EYEBOTH QID 03/31/18 [History] Docusate Sodium 200 mg PO DAILY 03/31/18 [History] Donepezil HCl [Aricept] 10 mg PO BEDTIME 03/31/18 [History] Ezetimibe [Zetia] 10 mg PO DAILY 03/31/18 [History] Finasteride [Proscar] 5 mg PO DAILY 03/31/18 [History] Folic Acid 1 mg PO DAILY 03/31/18 [History] Ibuprofen 200 mg PO TID 03/31/18 [History] Iron Polysaccharides Complex [Ferrex 150] 150 mg PO BID 03/31/18 [History] Isosorbide Mononitrate 30 mg PO DAILY 03/31/18 [History] Latanoprost [Xalatan 0.005% Ophth Soln] 1 drop EYERT BEDTIME 03/31/18 [History] Lidocaine [Aspercreme] 1 patch TOP DAILY 03/31/18 [History] Mirabegron [Myrbetriq] 50 mg PO DAILY 03/31/18 [History] Nitroglycerin [Nitrostat] 0.4 mg PO Q5M PRN 03/31/18 [History] Polyethylene Glycol 3350 [MiraLAX] 17 gm PO DAILY 03/31/18 [History] Potassium Chloride [Klor-Con 10] 20 meq PO DAILY 03/31/18 [History] Propylene Glycol/PEG 400/Pf [Systane 0.3-0.4% Eye Drop] 1 drop EYEBOTH QID 03/31 [History] Psyllium Husk [Metamucil] 1 tsp PO DAILY 03/31/18 [History] Ranitidine HCl [Zantac] 150 mg PO BID 03/31/18 [History] Ranolazine [Ranexa] 500 mg PO BID 03/31/18 [History] Sertraline [Zoloft] 25 mg PO DAILY 03/31/18 [History] Tamsulosin [Flomax] 0.8 mg PO BEDTIME 03/31/18 [History] guaiFENesin [Mucinex] 600 mg PO BID 03/31/18 [History] Furosemide [Lasix] 20 mg PO DAILY 05/17/18 [History] Past Medical History HEENT History: Reports: Glaucoma, Hard of Hearing Other HEENT History: glasses, hearing aids, dentures, blind in Left eye Cardiovascular History: Reports: CAD, High Cholesterol, Hypertension, [place], PVD Respiratory History: Reports: COPD Gastrointestinal History: Reports: GERD Genitourinary History: Reports: BPH Musculoskeletal History: Reports: Back Pain, Chronic (2 spinal stenosis), Osteoarthritis Neurological History: Reports: Alzheimers Disease (advanced), TIA - Infectious Disease History Infectious Disease History: Reports: Chicken Pox - Past Surgical History HEENT Surgical History: Reports: Adenoidectomy, Cataract Surgery, Tonsillectomy Cardiovascular Surgical History: Reports: Coronary Artery Bypass (x 3 vessel), Coronary Artery Stent (x 4 or 5) GI Surgical History: Reports: Colonoscopy, Hernia, Inguinal (bilateral) Neurological Surgical History: Reports: Vertebroplasty (lumbar) Musculoskeletal Surgical History: Reports: Hip Replacement (bilateral) Social & Family History - Family History Family Medical History: Unobtainable - Tobacco Use Smoking Status *Q: Former Smoker Years of Tobacco use: 40 Packs/Tins Daily: 1 Month/Year Tobacco Last Used: Quit around 1979 Second Hand Smoke Exposure: No - Caffeine Use Caffeine Use: 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 - Alcohol Use Alcohol Use History: No - Recreational Drug Use Recreational Drug Use: No - Living Situation & Occupation Living situation: Reports: , Extended Care Facility ([facility]) Occupation: Retired ED ROS GENERAL - Review of Systems Review Of Systems: ROS reveals no pertinent complaints other than HPI. ED EXAM, HEAD INJURY - Physical Exam Exam: See Below Exam Limited By: No Limitations General Appearance: Alert, WD/WN, No Apparent Distress Head: Normocephalic, Other (Superficial laceration within the lateral aspect of the patient's left eyebrow, measuring approximately 1 cm in length. The wound does not require suturing.) Eyes: Bilateral Eye: EOMI, Normal Inspection Ears: Normal External Exam, Hearing Loss Nose: Normal Inspection Throat/Mouth: Normal Inspection, Normal Lips, No Airway Compromise Neck: Tenderness (To a bony outgrowth at about the C7 level) Respiratory: No Respiratory Distress, Lungs Clear, Normal Breath Sounds, No Accessory Muscle Use Cardiovascular: Normal Peripheral Pulses, Regular Rate, Rhythm, No Edema, No Gallop, No JVD, No Murmur, No Rub GI/Abdominal Exam: Normal Bowel Sounds, Soft, No Organomegaly, No Distention, No Abnormal Bruit, No Mass, Tender (Mild, generalized. The patient's daughter states that it is chronic.) (Male) Exam: Deferred Rectal (Males) Exam: Deferred Back Exam: Normal Inspection Extremities: Normal Inspection, Normal Range of Motion, No Pedal Edema, Normal Capillary Refill Neurologic: No Motor/Sensory Deficits Skin: Normal Color, Warm/Dry Course - Vital Signs Last Recorded V/S: Last Vital Signs Temp 36.2 C 05/20/18 21:36 Pulse 93 05/20/18 21:36 Resp 16 05/20/18 21:36 BP 124/69 05/20/18 21:36 Pulse Ox 100 05/20/18 21:36 - Re-Assessments/Exams Free Text/Narrative Re-Assessment/Exam: 05/20/18 22:08 The patient has a relatively superficial laceration to the lateral aspect of his left eyebrow, that does not require repair. He did not complain of neck pain , however, when I opened his cervical collar and palpated the back of his neck, there may be a step-off at the C6-C7 level, and the patient complained of tenderness to the area, therefore I closed the cervical collar. The remainder of the patient's physical examination is unremarkable. I have ordered a CT of the head and cervical spine. 05/20/18 22:46 CT of the head without contrast is read by [facility] as "No acute intracranial abnormality." CT of the cervical spine without contrast is read by [facility] as "Mild compression deformities T3 and T4 vertebral bodies. I do not see acute fracture lines. They are of indeterminate age." 05/20/18 23:38 CT results discussed with 3 of the patient's daughters. As the patient has not suffered any significant injury tonight, he may safely be returned to [facility]. All of the patient's daughters are okay with that. Departure - Departure Time of Disposition: 23:39 Disposition: DC/Tfer to [facility] Condition: Good Clinical Impression: Fall at [facility], Superficial laceration of face - Discharge Information *PRESCRIPTION DRUG MONITORING PROGRAM REVIEWED*: Not Applicable *COPY OF PRESCRIPTION DRUG MONITORING REPORT IN PATIENT MARY LOU: Not Applicable Instructions: Fall Prevention in the Home, [id number], Laceration Care, Adult Referrals: Indu Coyle MD [Primary Care Provider] - Forms: ED Department Discharge Additional Instructions: Mr. Albarado was seen in the emergency room [facility]. Workup in the ER included a CT scan of his head and a CT scan of his cervical spine. The CT scans did not find any new injuries. On examination, Mr. Albarado was found to have a superficial laceration to his left eyebrow, that did not require sutures. Keep the wound clean with ordinary soap and water. Since it is known that Mr. Albarado is at high risk for falling, steps should be taken to prevent him from falling, whenever possible. If any other problems, please do not hesitate to return Mr. Albarado to the ER.
--- NOTE | 2018-05-21 08:24 | CT ---
Head CT Technique: Multiple axial sections through the brain were obtained. Intravenous contrast was not utilized. Comparison: Previous head CT study of 03/31/18. Findings: Ventricles along with basal cisterns and sulci over the convexities are moderately prominent. Diffuse diminished density is noted within the periventricular and subcortical white matter compatible with small vessel ischemic demyelination change. Old lacunar infarcts are noted within the basal ganglia. No other abnormal parenchymal densities are seen. No evidence of intracranial hemorrhage. No midline shift or mass effect is seen. Slight soft tissue swelling seen within the posterior left frontal scalp. Bone window settings were reviewed which show no acute calvarial abnormality. Mild atherosclerotic calcification is seen within the carotid siphon and vertebral arteries. Impression: 1. Senescent change as noted above. 2. Slight soft tissue swelling within the posterior left frontal scalp. 3. No acute intracranial abnormality is identified. Diagnostic code #2 I agree with preliminary report from [facility], finalized on 05/20/18, 11:37 PM Central Time
--- NOTE | 2018-05-21 08:56 | CT ---
CT cervical spine Technique: Multiple axial sections were obtained from above C1 inferiorly to the mid T5 level. Reconstructed sagittal and coronal images were reviewed. Comparison: Prior cervical spine CT exam of 03/26/17. Findings: Mild compression deformities are noted of T3 and T4. These levels were not included on prior CT exam. No acute fracture line is seen to definitely indicate that they are acute. MRI would be needed to completely exclude confirm acute or old age if needed. Degenerative change is noted between the dens and anterior arch of C1. Moderate bilateral neural foraminal stenosis noted at C3-C4. Mild left-sided neural foraminal stenosis noted at C4-C5 with moderate to severe right-sided neural foraminal stenosis at C4-C5. Moderate right-sided neural foraminal stenosis noted at C5-C6 with mild left-sided neural foraminal stenosis. Vertebral body heights are maintained within the cervical spine. Slight diffuse posterior disc space narrowing is seen. Incidental ligamentum nuchal calcification is noted. Apical pleural thickening is seen within the left lung apex. Parenchymal change is seen within both upper lungs most likely due to scarring. Emphysematous change is also seen within both upper lungs. No cervical spine fracture is seen. No acute subluxation is seen. Impression: 1. Degenerative change as noted above. Findings are fairly similar to prior CT cervical spine. 2. Apical pleural thickening within the left upper chest with parenchymal scarring on both sides of the upper chest. Emphysematous change is also seen within the upper lungs. 3. Mild compression deformities of T3 and T4. These are not included on previous study. These are most likely old although MRI would be needed to confirm if clinically indicated. 4. No acute fracture or subluxation is seen within the cervical spine. Diagnostic code #3 I agree with preliminary report from [facility], finalized on 05/20/18, 11:41 PM Central Time
== END 2018-05-20 23:58 ==
LOC: JD.ED 21:32
DX: S01.112A Laceration without foreign body of left eyelid and periocular area, initial encounter (principal); M25.512 Pain in left shoulder; M54.2 Cervicalgia; G30.9 Alzheimer's disease, unspecified; F02.80 Dementia in other diseases classified elsewhere, unspecified severity, without behavioral disturbance, psychotic disturbance, mood disturbance, and anxiety; I10 Essential (primary) hypertension; I25.10 Atherosclerotic heart disease of native coronary artery without angina pectoris; I25.2 Old myocardial infarction; M19.90 Unspecified osteoarthritis, unspecified site; Z88.5 Allergy status to narcotic agent; Z88.8 Allergy status to other drugs, medicaments and biological substances; Z79.82 Long term (current) use of aspirin; Z79.899 Other long term (current) drug therapy; Z86.73 Personal history of transient ischemic attack (TIA), and cerebral infarction without residual deficits; Z98.890 Other specified postprocedural states; Z98.49 Cataract extraction status, unspecified eye; Z95.1 Presence of aortocoronary bypass graft; Z95.5 Presence of coronary angioplasty implant and graft; Z87.891 Personal history of nicotine dependence; W19.XXXA Unspecified fall, initial encounter
CPT/HCPCS: 70450; 70450-26; 72125; 72125-26; 99284